=== PATIENT | female | born 1960 | race Caucasian/White ===

== ENCOUNTER 2018-02-13 08:07 | Outpatient (REF) | payer MEDICAID, SELFPAY ==
[2018-02-13 13:04] LABS: Cholesterol 219 mg/dL (50-200); HDL Cholesterol 53 mg/dL (40-60); LDL CHOLESTEROL 146 mg/dL (<100); Triglyceride 112 mg/dL (30-150)
== END 2018-02-13 08:27 ==
LOC: NCHCN 08:07
PROVIDERS: PCP Nurse Practitioner Family; Visit Provider Nurse Practitioner Family
DX: E78.5 Hyperlipidemia, unspecified (principal)
CPT/HCPCS: 80061; 83721

== ENCOUNTER 2018-03-23 09:11 | Emergency (ER) | payer MEDICAID, SELFPAY ==
[2018-03-23 09:15] VITALS: BP 117/63; PULSE 93; RESP 16; TEMP 36.6; O2SAT 98
[2018-03-23 09:40] LABS: Bilirubin Moderate (Negative); Blood Moderate (Negative); Clarity Cloudy; Glucose Negative (Negative); Ketones 80 mg/dL (Negative); Leukocyte Esterase Small (Negative); Nitrite Negative (Negative); Specific Gravity 1.025 (1.005-1.025); Urobilinogen 0.2 EU/dL (Up TO 0.2)
[2018-03-23 09:55] LABS: Bacteria Packed HPF (Negative); C & S Indicated? No/Sq. Contamination; Casts Negative LPF (Negative); Crystals Negative HPF (Negative); Epithelial Cells Many HPF (Negative); Mucus Negative (Negative)
--- NOTE | 2018-03-23 10:05 | W.ED.GENAD ---
Discharge Plan Disposition Patient Disposition: HOME Condition: Good Discharge Details Chief Complaint: Fever Clinical Impression: Cough Primary Care Provider: Vinita Francis ED Provider: Cade Okeefe Home Meds and New Rx's Prescriptions: New prednisone 20 mg tablet 60 mg PO DAILY 5 Days Qty: 15 RF: 0 levofloxacin 750 mg tablet 750 mg PO DAILY Qty: 5 RF: 0 Continue atorvastatin [Lipitor] 10 MG tablet 10 mg PO DAILY RF: 0 tramadol 50 MG tablet 50 mg PO PRN PRNRF: 0 ibuprofen 600 MG tablet 600 mg PO Q6H PRN PRN (Reason: Pain) Qty: 30 RF: 0 Discharge Instructions Instructions: Acute Cough (ED) Additional Instructions: based on your history of smoking and exam I suspect you likely have copd. Follow up with your primary care provider within 2 weeks and discuss having formal testing for copd. If you have severe worsening difficulty breathing or pain return to the emergency department Discharge Data Discharge Physician: Cade Okeefe Medical Decision Making 58 yo female who is a chronic smoker comes in with 3 days of subjective fevers and cough productive of sputum. She denies any recent travel or chest pain. She has no lower extremity swelling or calf pain and has stable vital signs without fever here. She has mild wheezing at the bases bialterally on exam without evidence of respiratory distress, and denies any formal diagnosis of copd. I suspect she likely has copd given her length of smoking, will treat as copd exacerbation with steroids, inhaler and abx. She is stable and has no fever so do not feel lab work or imaging indicated at this time, doubt sepsis at this time. Advised return if worsening and return precaugions given Differential Diagnosis copd, pneumonia, uri HPI General Mode of arrival: ambulatory. Date/Time Provider Initiated Documentation: 03/23/18 09:59. Limitations to Documentation: no limitations. Information obtained by: patient. History of Present Illness 58 year old F presents to the emergency department with the chief complaint of cough, described as moderate, with intensity rated at 4. Patient started experiencing this day(s) (3) and it has been constant. No relieving factors improve symptom(s), No exacerbating factors reported . Patient notes other (body aches). Related Data Home Medications Medication Instructions Recorded Confirmed ibuprofen 600 mg PO Q6H PRN PRN #30 tablet 03/23/15 03/23/18 atorvastatin [Lipitor] 10 mg PO DAILY tab-cap 05/16/17 03/23/18 tramadol 50 mg PO PRN PRN tab-cap 05/16/17 03/23/18 levofloxacin 750 mg PO DAILY #5 tab 03/23/18 prednisone 60 mg PO DAILY 5 Days #15 tab 03/23/18 Previous Rx's Medication Instructions Recorded ibuprofen 600 mg PO Q6H PRN PRN #30 tablet 03/23/15 levofloxacin 750 mg PO DAILY #5 tab 03/23/18 prednisone 60 mg PO DAILY 5 Days #15 tab 03/23/18 Allergies Allergy/AdvReac Type Severity Reaction Status Date / Time No Known Allergies Allergy Unverified 03/23/18 09:37 General Stated Complaint: Fever ESTEBAN: 3 Review of Systems Review of Systems All systems reviewed & are unremarkable except as noted in HPI and below Constitutional Denies weakness Eyes Denies loss of vision ENT Denies change in voice Cardiovascular Denies chest pain and Denies dyspnea Respiratory Denies dyspnea Gastrointestinal Denies vomiting Genitourinary Denies dysuria Musculoskeletal Denies joint swelling Integumentary/Breasts Denies rash Neurologic Denies loss of vision and Denies weakness Psychiatric Denies depression Endocrine Denies cold intolerance and Denies heat intolerance Allergic/Immunologic Reports urticaria PFSH Social History Smoking/Tobacco Use Status: Current every day Surgical History Appendectomy Exam Const General: no acute distress Orientation: alert HENMS Head: normal to inspection Ears: external ears normal General nose exam: external nose normal Mouth: moist mucous membranes Eyes General: appearance normal, both eyes and all related structures Neck Neck: normal visual inspection Resp Effort & Inspection: normal respiratory effort and able to speak in complete sentences Cardio Rate: regular rate Skin General skin exam: no rashes or lesions noted Neuro General: alert and oriented x3 Extrem General: normal to inspection Psych Mental Status: mental status grossly normal Course Vital Signs Temperature 36.6 C 03/23/18 09:15 Pulse 93 H 03/23/18 09:15 Respiratory Rate 16 03/23/18 09:15 Blood Pressure 117/63 03/23/18 09:15 Pulse Oximetry 98 03/23/18 09:15 Temperature 36.6 C 03/23/18 09:15 Temperature Source Skin 03/23/18 09:15 Pulse 93 H 03/23/18 09:15 Respiratory Rate 16 03/23/18 09:15 Respiratory Effort 03/23/18 09:38 Blood Pressure 117/63 03/23/18 09:15 Blood Pressure Position Sitting 03/23/18 09:15 Pulse Oximetry 98 03/23/18 09:15 Oxygen Delivery Method Room Air 03/23/18 09:15 Oxygen Flow Rate 0 03/23/18 09:15 Pain Level 8 03/23/18 09:15 Lab/Test Results Lab/Test Results: Laboratory Tests Range/Units 03/23/18 09:30 Urine Color (Yellow) Yellow Urine Clarity Cloudy Urine pH (5-8) 6.0 Ur Specific [place] (1.005-1.025) 1.025 Urine Protein (Negative) mg/dL 100 H Urine Ketones (Negative) mg/dL 80 Urine Blood (Negative) Moderate H Urine Nitrite (Negative) Negative Urine Bilirubin (Negative) Moderate H Urine Urobilinogen (Up TO 0.2) EU/dL 0.2 Ur Leukocyte Esterase (Negative) Small H Urine RBC (0-2) 5-10 H Urine WBC (0-5) HPF 5-10 Ur Epithelial Cells (Negative) HPF Many Urine Crystals (Negative) HPF Negative Urine Bacteria (Negative) HPF Packed Urine Casts (Negative) LPF Negative Urine Mucus (Negative) Negative Ur Culture Indicated? No/sq. contamination Urine Glucose (Negative) mg/dL Negative
[2018-03-23] MEDS: Inhaler, Assist Device 1 EACH MC (10:07)
[2018-03-23] MEDS: Albuterol HFA 8 GM 60 PUFF INH IH (10:07)
--- NOTE | 2018-03-23 10:08 | ED.GENADUL_ITS ---
Discharge Plan Disposition Patient Disposition: HOME Condition: Good Discharge Details Chief Complaint: Fever Clinical Impression: Cough Primary Care Provider: Vinita Francis ED Provider: Cade Okeefe Home Meds and New Rx's Prescriptions: New prednisone 20 mg tablet 60 mg PO DAILY 5 Days Qty: 15 RF: 0 levofloxacin 750 mg tablet 750 mg PO DAILY Qty: 5 RF: 0 Continue atorvastatin [Lipitor] 10 MG tablet 10 mg PO DAILY RF: 0 tramadol 50 MG tablet 50 mg PO PRN PRNRF: 0 ibuprofen 600 MG tablet 600 mg PO Q6H PRN PRN (Reason: Pain) Qty: 30 RF: 0 Discharge Instructions Instructions: Acute Cough (ED) Additional Instructions: based on your history of smoking and exam I suspect you likely have copd. Follow up with your primary care provider within 2 weeks and discuss having formal testing for copd. If you have severe worsening difficulty breathing or pain return to the emergency department Discharge Data Discharge Physician: Cade Okeefe Medical Decision Making 58 yo female who is a chronic smoker comes in with 3 days of subjective fevers and cough productive of sputum. She denies any recent travel or chest pain. She has no lower extremity swelling or calf pain and has stable vital signs without fever here. She has mild wheezing at the bases bialterally on exam without evidence of respiratory distress, and denies any formal diagnosis of copd. I suspect she likely has copd given her length of smoking, will treat as copd exacerbation with steroids, inhaler and abx. She is stable and has no fever so do not feel lab work or imaging indicated at this time, doubt sepsis at this time. Advised return if worsening and return precaugions given Differential Diagnosis copd, pneumonia, uri HPI General Mode of arrival: ambulatory . Date/Time Provider Initiated Documentation: 03/23/18 09:59 . Limitations to Documentation: no limitations . Information obtained by: patient . History of Present Illness 58 year old F presents to the emergency department with the chief complaint of cough, described as moderate, with intensity rated at 4. Patient started experiencing this day(s) (3) and it has been constant. No relieving factors improve symptom(s), No exacerbating factors reported . Patient notes other ( body aches). Related Data Home Medications Medication Instructions Recorded Confirmed ibuprofen 600 mg PO Q6H PRN PRN #30 tablet 03/23/15 03/23/18 atorvastatin [Lipitor] 10 mg PO DAILY tab-cap 05/16/17 03/23/18 tramadol 50 mg PO PRN PRN tab-cap 05/16/17 03/23/18 levofloxacin 750 mg PO DAILY #5 tab 03/23/18 prednisone 60 mg PO DAILY 5 Days #15 tab 03/23/18 Previous Rx's Medication Instructions Recorded ibuprofen 600 mg PO Q6H PRN PRN #30 tablet 03/23/15 levofloxacin 750 mg PO DAILY #5 tab 03/23/18 prednisone 60 mg PO DAILY 5 Days #15 tab 03/23/18 Allergies Allergy/AdvReac Type Severity Reaction Status Date / Time No Known Allergies Allergy Unverified 03/23/18 09:37 General Stated Complaint: Fever ESTEBAN: 3 Review of Systems Review of Systems All systems reviewed & are unremarkable except as noted in HPI and below Constitutional Denies weakness Eyes Denies loss of vision ENT Denies change in voice Cardiovascular Denies chest pain and Denies dyspnea Respiratory Denies dyspnea Gastrointestinal Denies vomiting Genitourinary Denies dysuria Musculoskeletal Denies joint swelling Integumentary/Breasts Denies rash Neurologic Denies loss of vision and Denies weakness Psychiatric Denies depression Endocrine Denies cold intolerance and Denies heat intolerance Allergic/Immunologic Reports urticaria PFSH Social History Smoking/Tobacco Use Status: Current every day Surgical History Appendectomy Exam Const General: no acute distress Orientation: alert HENME Head: normal to inspection Ears: external ears normal General nose exam: external nose normal Mouth: moist mucous membranes Eyes General: appearance normal, both eyes and all related structures Neck Neck: normal visual inspection Resp Effort & Inspection: normal respiratory effort and able to speak in complete sentences Cardio Rate: regular rate Skin General skin exam: no rashes or lesions noted Neuro General: alert and oriented x3 Extrem General: normal to inspection Psych Mental Status: mental status grossly normal Course Vital Signs Temperature 36.6 C 03/23/18 09:15 Pulse 93 H 03/23/18 09:15 Respiratory Rate 16 03/23/18 09:15 Blood Pressure 117/63 03/23/18 09:15 Pulse Oximetry 98 03/23/18 09:15 Temperature 36.6 C 03/23/18 09:15 Temperature Source Skin 03/23/18 09:15 Pulse 93 H 03/23/18 09:15 Respiratory Rate 16 03/23/18 09:15 Respiratory Effort 03/23/18 09:38 Blood Pressure 117/63 03/23/18 09:15 Blood Pressure Position Sitting 03/23/18 09:15 Pulse Oximetry 98 03/23/18 09:15 Oxygen Delivery Method Room Air 03/23/18 09:15 Oxygen Flow Rate 0 03/23/18 09:15 Pain Level 8 03/23/18 09:15 Lab/Test Results Lab/Test Results: Laboratory Tests Range/Units 03/23/18 09:30 Urine Color (Yellow) Yellow Urine Clarity Cloudy Urine pH (5-8) 6.0 Ur Specific [place] (1.005-1.025) 1.025 Urine Protein (Negative) mg/dL 100 H Urine Ketones (Negative) mg/dL 80 Urine Blood (Negative) Moderate H Urine Nitrite (Negative) Negative Urine Bilirubin (Negative) Moderate H Urine Urobilinogen (Up TO 0.2) EU/dL 0.2 Ur Leukocyte Esterase (Negative) Small H Urine RBC (0-2) 5-10 H Urine WBC (0-5) HPF 5-10 Ur Epithelial Cells (Negative) HPF Many Urine Crystals (Negative) HPF Negative Urine Bacteria (Negative) HPF Packed Urine Casts (Negative) LPF Negative Urine Mucus (Negative) Negative Ur Culture Indicated? No/sq. contamination Urine Glucose (Negative) mg/dL Negative
== END 2018-03-23 10:16 | disposition home or self-care (01) ==
PROVIDERS: Emergency Provider Emergency Medicine; PCP Nurse Practitioner Family
DX: R05 Cough (principal); F17.210 Nicotine dependence, cigarettes, uncomplicated
CPT/HCPCS: 99283; 81003; 81015

== ENCOUNTER 2018-05-13 14:39 | Outpatient (REF) | payer MEDICAID, SELFPAY ==
[2018-05-13 19:23] LABS: ALT 12 U/L (12-78); AST 17 U/L (15-37); Albumin 1.9 g/dL (3.4-5.0); Alkaline Phosphatase 52 U/L (46-116); BUN 7 mg/dL (7-18); Bilirubin, Total 0.2 mg/dL (0.2-1.0); CREATININE 0.54 mg/dL (0.55-1.02); Calcium 8.2 mg/dL (8.5-10.1); Chloride 101 mmol/L (98-107); Glucose 150 mg/dL (70-100); Sodium 142 mmol/L (136-145); Total Protein 5.8 g/dL (6.4-8.2)
[2018-05-13 19:43] LABS: Potassium 2.5 mmol/L (3.5-5.1)
== END 2018-05-13 14:59 ==
LOC: NCHCN 14:39
PROVIDERS: PCP Nurse Practitioner Family; Visit Provider Nurse Practitioner Family
DX: E87.6 Hypokalemia (principal); E88.09 Other disorders of plasma-protein metabolism, not elsewhere classified
CPT/HCPCS: 80053

== ENCOUNTER 2018-05-22 11:07 | Outpatient (REF) | payer MEDICAID, SELFPAY ==
--- NOTE | 2018-05-22 10:45 | PAPFT_PTH ---
PATIENT: Lubna Mcknight LOC: [facility] U#:[id number] AGE/SX: 58/F ROOM: RE05/22/[address]: Vinita Francis : 1960 BED: DIS: 05/22/2018 SPEC #: [id number] RECD: 05/22/18 12:54 STATUS: LIN REJack #: [id number] MARY ANN: 05/22/18 10:[address]: Vinita Francis DEPT: [facility] Cytology RECD BY: Lashay Forde Tissues: 1 - CX/ENDOCX FOR PAP SMEARS Procedures: PAP THIN PREP/UVM Screening HPV DNA PROBE Comments: [id number]
== END 2018-05-22 11:27 ==
LOC: NCHCN 11:07
PROVIDERS: PCP Nurse Practitioner Family; Visit Provider Nurse Practitioner Family
DX: Z12.4 Encounter for screening for malignant neoplasm of cervix (principal); Z11.51 Encounter for screening for human papillomavirus (HPV)
CPT/HCPCS: 36415; 80053; 88142; 87624

== ENCOUNTER 2018-05-22 11:23 | Outpatient (CLI) | payer MEDICAID, SELFPAY ==
[2018-05-22 13:24] LABS: ALT 23 U/L (12-78); AST 24 U/L (15-37); Albumin 2.9 g/dL (3.4-5.0); Alkaline Phosphatase 66 U/L (46-116); Anion Gap 8.2 mmol/L (3-11); BUN 8 mg/dL (7-18); Bilirubin, Total 0.2 mg/dL (0.2-1.0); CO2 27.8 mmol/L (21.0-32.0); CREATININE 0.47 mg/dL (0.55-1.02); Calcium 9.3 mg/dL (8.5-10.1); Chloride 102 mmol/L (98-107); Glucose 91 mg/dL (70-100); Potassium 4.8 mmol/L (3.5-5.1); Sodium 138 mmol/L (136-145); Total Protein 7.6 g/dL (6.4-8.2)
== END 2018-05-22 11:43 ==
PROVIDERS: PCP Nurse Practitioner Family; Visit Provider Nurse Practitioner Family
DX: E87.6 Hypokalemia (principal); E88.09 Other disorders of plasma-protein metabolism, not elsewhere classified
CPT/HCPCS: 36415; 80053

== ENCOUNTER 2018-06-18 00:17 | Outpatient (CLI) | payer MEDICAID, SELFPAY ==
--- NOTE | 2018-06-18 08:37 | DI.MAMMO_ITS ---
SYMPTOM/DIAGNOSIS: SCREENING, Z12.39 MAMMOGRAMS: Mammograms were interpreted according to the usual protocol including computer analysis with CAD system, tomosynthesis and C view imaging. Comparison is made with prior examinations. Breast density, Category B. No suspicious masses or microcalcifications are seen. There is no definite evidence of malignancy. IMPRESSION: Negative mammogram. Routine screening is recommended. Category 1. MQSA ASSESSMENT OF FINDINGS: Negative. Category 1. Patient will receive a letter notifying them of these results. BI-RADS category B. There are scattered areas of fibroglandular density.
== END 2018-06-18 00:37 ==
PROVIDERS: PCP Nurse Practitioner Family; Visit Provider Nurse Practitioner Family
DX: Z12.31 Encounter for screening mammogram for malignant neoplasm of breast (principal)
CPT/HCPCS: 77063; 77067

== ENCOUNTER 2018-09-12 03:14 | Emergency (ER) | payer MEDICAID, SELFPAY ==
[2018-09-12 03:18] VITALS: BP 129/62; PULSE 111; RESP 26; TEMP 36.7; O2SAT 91
--- NOTE | 2018-09-12 03:24 | ED.GENADUL_ITS ---
Discharge Plan Disposition Patient Disposition: HOME Condition: Stable Discharge Details Chief Complaint: SOB Clinical Impression: Wheezing, Shortness of breath Primary Care Provider: Vinita Francis ED Provider: Cade Okeefe Home Meds and New Rx's Prescriptions: New prednisone 20 mg tablet 60 mg PO DAILY 4 Days Qty: 12 RF: 0 levofloxacin 750 mg tablet 750 mg PO DAILY 5 Days Qty: 5 RF: 0 Continued atorvastatin [Lipitor] 10 MG tablet 10 mg PO DAILY RF: 0 tramadol 50 MG tablet 50 mg PO PRN PRNRF: 0 ibuprofen 600 MG tablet 600 mg PO Q6H PRN PRN (Reason: Pain) Qty: 30 RF: 0 diphenhydramine-acetaminophen [Acetaminophen PM] 25-500 mg Tablet 2 tab PO PRN PRNRF: 0 Discharge Instructions Instructions: COPD (Chronic Obstructive Pulmonary Disease) (ED) Additional Instructions: You were treated for a copd exacerbation. I suspect that you have undiagnosed copd follow up with your primary care provider within 1 week use the inhaler every 2 hours, 2 puffs, as needed for shortness of breath if you feel you are becoming more ill or more short of breath return to the emergency department for reevaluation Medical Decision Making 58 yo female comes in with several hours of worsening shortness of breath and productive cough for a few days. She is a chronic smoker but states she has no diagnosis of copd/emphysema. She denies chest pain, fevers, chills. She is speaking in 2-3 word sentences, is tachypneic and room air satiruation on arrival is 86%. She has a barrel chest, clubbing of her fingers, and on lung exam has diffuse wheezing bilaterally. I suspect she has undiagnosed copd and will treat as an exacerbation. Her clinical exam fits with copd, she denies chest pain and has no jvd or pedal edema so doubt acs/chf and has no evidence of dvt or pleuritic chest pain so doubt PE at this time. Will obtain xray to eval for pna pt feeling much better and is speaking in full sentences with o2 saturation on room air of 94%, only has mild apical wheezing bilaterally now. labs unremarkable and xray unremarkable on my read. Given she likely has undiagnosed copd and Differential Diagnosis copd, pneumonia, asthma Imaging Data Radiologic Study: Attestation: I personally reviewed and interpreted this imaging study as follows: Imaging: X-Ray My impression: no acute findings Lab Data Lab results reviewed: Yes I reviewed the patient's lab results. HPI General Mode of arrival: ambulatory . Date/Time Provider Initiated Documentation: 09/12/18 03:14 . Limitations to Documentation: no limitations . Information obtained by: patient . History of Present Illness 58 year old F presents to the emergency department with the chief complaint of shortness of breath, described as moderate, Patient started experiencing this hour(s) (3) and it has been constant. Movement worsens symptoms . Patient notes cough. Patient did receive the following treatments prior to arrival, none Related Data Home Medications Medication Instructions Recorded Confirmed ibuprofen 600 mg PO Q6H PRN PRN #30 tablet 03/23/15 09/12/18 atorvastatin [Lipitor] 10 mg PO DAILY tab-cap 05/16/17 09/12/18 tramadol 50 mg PO PRN PRN tab-cap 05/16/17 09/12/18 diphenhydramine-acetaminophen 2 tab PO PRN PRN 09/12/18 09/12/18 [Acetaminophen PM] levofloxacin 750 mg PO DAILY 5 Days #5 tab 09/12/18 prednisone 60 mg PO DAILY 4 Days #12 tab 09/12/18 Previous Rx's Medication Instructions Recorded ibuprofen 600 mg PO Q6H PRN PRN #30 tablet 03/23/15 levofloxacin 750 mg PO DAILY 5 Days #5 tab 09/12/18 prednisone 60 mg PO DAILY 4 Days #12 tab 09/12/18 Allergies Allergy/AdvReac Type Severity Reaction Status Date / Time No Known Allergies Allergy Unverified 09/12/18 03:23 General ESTEBAN: 3 Review of Systems Review of Systems All systems reviewed & are unremarkable except as noted in HPI and below Constitutional Denies chills and Denies fever(s) ENT Denies change in voice Gastrointestinal Denies abdominal pain, Denies nausea and Denies vomiting Integumentary/Breasts Denies rash PFSH Surgical History Appendectomy Social History Smoking/Tobacco Use Status: Current every day Alcohol Intake: current Alcohol Intake frequency: holidays/special occasions only Drug use: Never Substance use type: does not use Do you feel safe in your relationship?: Yes Exam Const General: no acute distress Orientation: alert HENMT Head: normal to inspection Ears: external ears normal General nose exam: external nose normal Mouth: moist mucous membranes Eyes General: appearance normal, both eyes and all related structures Neck Neck: normal visual inspection Resp Effort & Inspection: tachypneic Cardio Rate: tachycardic Skin General skin exam: no rashes or lesions noted Neuro General: alert and oriented x3 Extrem General: normal to inspection Psych Mental Status: mental status grossly normal
[2018-09-12 03:26] VITALS: RESP 26
[2018-09-12] MEDS: Albuterol/Ipratropium 3 ML UPD VIAL UPD (03:28)
[2018-09-12] MEDS: Normal Saline Flush 10 ML SYR IVP (03:43)
[2018-09-12] MEDS: methylPREDNISolone SUCC 125 MG VIAL IVP (03:44)
[2018-09-12 03:46] LABS: Abs Immature Grans 0.03 k/cumm (0.0-0.09); Absolute Basophil Count 0.05 k/cumm (0.0-0.2); Absolute Eosinophil Count 0.95 k/cumm (0.0-0.7); Absolute Lymphocyte Count 4.69 k/cumm (1.2-3.4); Basophils % 0.4; HCT 39.6 % (36.0-46.0); HGB 13.4 g/dL (12.0-15.5); Immature Grans % 0.2; Lymphocytes % 34.4; Mean Corp. HGB Concentration 33.8 g/dL (32.0-36.0); Mean Corpuscular Hemoglobin 32.3 pg (27.0-33.0); Mean Corpuscular Volume 95.4 fL (80-95); Mean Platelet Volume 8.7 fL (8.0-11.0); Monocytes % 4.3; Neutrophils % 53.7; Platelet Count 395 x1000/uL (130-400); RBC 4.15 m/cumm (4.00-5.20); RBC Distribution Width 13.2 % (11.7-14.6); White Blood Cell Count 13.63 k/cumm (4.4-10.8)
[2018-09-12] MEDS: Normal Saline 1,000 ML 1000 ML IV (03:46)
--- NOTE | 2018-09-12 03:46 | DI.RAD_ITS ---
SYMPTOM/DIAGNOSIS: SOB PORTABLE AP CHEST: The heart is not enlarged. The lungs are clear and well expanded. CONCLUSION: No evidence of acute disease.
[2018-09-12 03:48] LABS: Absolute Monocyte Count 0.59 k/cumm (0.11-0.7); Absolute Neutrophil Count 7.32 k/cumm (1.2-6.7)
[2018-09-12 04:11] LABS: ALT 30 U/L (12-78); AST 23 U/L (15-37); Albumin 3.9 g/dL (3.4-5.0); Alkaline Phosphatase 78 U/L (46-116); Anion Gap 8.8 mmol/L (3-11); BUN 14 mg/dL (7-18); Bilirubin, Total 0.8 mg/dL (0.2-1.0); CO2 29.2 mmol/L (21.0-32.0); CREATININE 0.58 mg/dL (0.55-1.02); Calcium 9.4 mg/dL (8.5-10.1); Chloride 101 mmol/L (98-107); Glucose 102 mg/dL (70-100); Lipase 187 U/L (73-393); NT-proBNP 96 pg/mL; Potassium 3.7 mmol/L (3.5-5.1); Sodium 139 mmol/L (136-145); Total Protein 7.9 g/dL (6.4-8.2)
[2018-09-12] MEDS: Albuterol 2.5 MG/3 ML INH SOLN VIAL (04:11)
[2018-09-12] MEDS: levoFLOXacin 500 MG, levoFLOXacin 250 MG 750 MG PO (04:39)
[2018-09-12] MEDS: Inhaler, Assist Device 1 EACH MC (04:39)
[2018-09-12] MEDS: Albuterol HFA 8 GM 60 PUFF INH IH (04:40)
[2018-09-12 04:47] VITALS: BP 100/68; PULSE 93; RESP 20; O2SAT 95
[2018-09-12 05:07] VITALS: BP 100/68; PULSE 93; RESP 20; O2SAT 95
--- NOTE | 2018-09-12 05:22 | DI.VRAD_ITS ---
EXAM: XR Chest, 1 View EXAM DATE/TIME: 09/12/2018 3:19 AM CLINICAL HISTORY: 58 years old, female; Signs and symptoms; Shortness of breath TECHNIQUE: Imaging protocol: XR of the chest, 1 view. COMPARISON: SC PORTABLE CHEST ONE VIEW 07/09/2017 7:51 PM FINDINGS: Lungs: Emphysematous changes. No evidence of pneumonia, pulmonary vascular congestion, or pulmonary edema. Pleural space: No pneumothorax. No sizable pleural effusion. Heart/Mediastinum: No cardiomegaly. Bones/joints: Unremarkable. IMPRESSION: Emphysematous changes. No evidence of pneumonia, pulmonary vascular congestion, or pulmonary edema. Dictated and Authenticated by: Sharan Deutsch MD. Ordering:ADRIAN Mohamud MD
--- NOTE | 2018-09-12 08:56 | PDOC.ERCMPRO ---
Care Management Progress Note 09/12-Dr. Okeefe requested assistance with a PCP (Tito) f/u for COPD and SOB in one week. Referral faxed to [facility] this am.
== END 2018-09-12 05:08 | disposition home or self-care (01) ==
PROVIDERS: Emergency Provider Emergency Medicine; PCP Nurse Practitioner Family
DX: R06.2 Wheezing (principal); R06.02 Shortness of breath; F17.210 Nicotine dependence, cigarettes, uncomplicated
CPT/HCPCS: 36415; 80053; 83690; 93005; 94640; 96361; 96374; 99285; 71045; 83880; 85025; 93010; J2930; J7613; J7620

== ENCOUNTER 2018-10-08 14:53 | Outpatient (REF) | payer MEDICAID, SELFPAY ==
[2018-10-08 19:35] LABS: Abs Immature Grans 0.38 k/cumm (0.0-0.09); Absolute Eosinophil Count 0.04 k/cumm (0.0-0.7); Basophils % 0.3; Eosinophils % 0.2; HCT 33.6 % (36.0-46.0); HGB 11.4 g/dL (12.0-15.5); Mean Corp. HGB Concentration 33.9 g/dL (32.0-36.0); Mean Corpuscular Hemoglobin 32.6 pg (27.0-33.0); Monocytes % 8.6; Neutrophils % 71.8; Platelet Count 533 x1000/uL (130-400); RBC Distribution Width 13.2 % (11.7-14.6); White Blood Cell Count 17.95 k/cumm (4.4-10.8)
[2018-10-08 20:18] LABS: Absolute Basophil Count 0.05 k/cumm (0.0-0.2); Absolute Lymphocyte Count 3.05 k/cumm (1.2-3.4); Absolute Monocyte Count 1.54 k/cumm (0.11-0.7); Absolute Neutrophil Count 12.89 k/cumm (1.2-6.7)
[2018-10-08 20:19] LABS: Diff Comment Agrees w/ Instrument
[2018-10-08 20:20] LABS: ESR 83 MM/HR (0-30); Polychromasia Present
== END 2018-10-08 15:13 ==
LOC: NCHCN 14:53
PROVIDERS: PCP Nurse Practitioner Family; Visit Provider Nurse Practitioner
DX: K52.9 Noninfective gastroenteritis and colitis, unspecified (principal)
CPT/HCPCS: 85652; 85025

== ENCOUNTER 2018-10-17 10:10 | Inpatient (IN) | payer MEDICAID, SELFPAY ==
[2018-10-17] VITALS (8 sets, daily range): BP systolic 92–114; BP diastolic 54–82; PULSE 80–101; RESP 10–19; TEMP 36.7–37.5; O2SAT 96–99
--- NOTE | 2018-10-17 10:42 | ED.GENADUL_ITS ---
Discharge Plan Discharge Details Chief Complaint: Abd Prob Admit Date/Time: 10/17/18 12:43 Admit Provider: Leigh Starks Attending Provider: Leigh Starks Primary Care Provider: Vinita Francis ED Provider: Alton Jeong Medical Decision Making 58-year-old female with 1 week of diffuse abdominal pain treated as an outpatient for colitis by her primary care doctor with Cipro and Flagyl patient due to finished those antibiotics today with continued abdominal pain vomiting and poor oral intake reports a 30 pound weight loss. Broad differential diagnosis includes pancreatitis diverticulitis diffuse colitis malignancy versus other. Plan for IV fluids labs CT abdomen pelvis iED observation. Patient with CT showing colitis including a thickened stomach wall/ case discussed with general surgery who will see the patient and with internal medicine for admission for dehydration and nutritional support electrolyte repletion potassium 2.8 and further work up. Lab Data Lab results reviewed: Yes I reviewed the patient's lab results. ECG Data Attestation: I personally reviewed and interpreted this ECG (s) as follows: Interpretation: Sinus tachycardia rate of 88 normal axis no ectopy normal intervals no STEMI HPI 58-year-old female past medical history of distant appendectomy admission in April 2018 for nonspecific colitis for 1 week at an outside hospital presents with diffuse sharp nonradiating not worse or better with movement or palpation central abdominal pain. Patient reports 30 pound weight loss over the last 12 months unintentional states it was an otherwise normal state of health until approximately 1 week ago where she started having similar abdominal pain to the November episode with some vomiting and copious diarrhea & poor oral intake. Patient past medical history of tobacco use and approximately 10 drinks per week of alcohol no history of alcohol withdrawal denies alcoholism. No dysuria no dyspareunia no vaginal discharge or bleeding General Date/Time Provider Initiated Documentation: 10/17/18 10:19 . Related Data Home Medications Medication Instructions Recorded Confirmed atorvastatin [Lipitor] 10 mg PO DAILY tab-cap 05/16/17 10/17/18 tramadol 50 mg PO PRN PRN tab-cap 05/16/17 10/17/18 diphenhydramine-acetaminophen 2 tab PO PRN PRN 09/12/18 10/17/18 [Acetaminophen PM] Allergies Allergy/AdvReac Type Severity Reaction Status Date / Time No Known Allergies Allergy Unverified 10/17/18 10:17 General Stated Complaint: Abd Prob ESTEBAN: 3 Review of Systems Review of Systems No shortness of breath chest pain loss of consciousness weight gain positive for weight loss abdominal pain nausea and vomit and diarrhea All systems reviewed & are unremarkable except as noted in HPI and below PFSH Social History Smoking/Tobacco Use Status: Current every day Alcohol Intake: current Alcohol Intake frequency: a few times a month Drug use: Never Substance use type: does not use Do you feel safe at home: Yes Do you feel safe in your relationship?: Yes Exam Narrative Exam Narrative: Pulse oximetry reviewed by me and is normal [] Constitutional: Pt is in no acute distress. he is well appearing. he oriented to person, place, and time. Eyes: conjunctivae are normal. Pupils are equal, round, and reactive to light. No scleral icterus. extraocular muscles are intact Ears/Nose/Mouth/Throat: mucus membranes are moist. Musculoskeletal: neck is supple. normal range of motion in all extremities. Cardiovascular: Normal rate and rhythm. No lower extremity edema [] Respiratory: effort is normal . pt exhibits no stridor or respiratory distress. [] GastrointestinaI: abdomen soft, +BS, positive diffuse tenderness no focal tenderness Alvarenga's sign or McBurney's point no psoas or obturator signs- rebound, -guarding. No suprapubic pain no CVAT Neurological: alert and oriented to person, place, and time. he has normal strength, no tremor. Skin: Skin is warm and dry. he is not diaphoretic. Distal perfusion in tact, warm extremities, cap refill ? 2 seconds. Hem/Lymph/Imm: No cervical LAD, no goiter, no conjunctival pallor Psych: normal mood and affect. behavior is normal Triage and nurse notes reviewed.[] Course Vital Signs Temperature 36.7 C 10/17/18 10:13 Pulse 101 H 10/17/18 10:13 Respiratory Rate 18 10/17/18 10:13 Blood Pressure 106/82 10/17/18 10:13 Pulse Oximetry 99 10/17/18 10:13 Temperature 36.7 C 10/17/18 10:13 Temperature Source Skin 10/17/18 10:13 Pulse 101 H 10/17/18 10:13 Respiratory Rate 18 10/17/18 10:13 Respiratory Effort 10/17/18 10:33 Blood Pressure 106/82 10/17/18 10:13 Blood Pressure Position Sitting 10/17/18 10:13 Pulse Oximetry 99 10/17/18 10:13 Oxygen Delivery Method Room Air 10/17/18 10:13 Oxygen Flow Rate 0 10/17/18 10:13
[2018-10-17] MEDS: Lactated Ringers 1,000 ML 1000 ML IV ×2 (11:00→13:14)
[2018-10-17 11:05] LABS: Abs Immature Grans 0.13 k/cumm (0.0-0.09); Absolute Basophil Count 0.06 k/cumm (0.0-0.2); Absolute Eosinophil Count 0.06 k/cumm (0.0-0.7); Absolute Lymphocyte Count 2.38 k/cumm (1.2-3.4); Absolute Monocyte Count 1.22 k/cumm (0.11-0.7); Basophils % 0.4; Eosinophils % 0.4; HCT 35.1 % (36.0-46.0); HGB 11.7 g/dL (12.0-15.5); Immature Grans % 0.9; Lymphocytes % 16.8; Mean Corp. HGB Concentration 33.3 g/dL (32.0-36.0); Mean Corpuscular Hemoglobin 31.9 pg (27.0-33.0); Mean Corpuscular Volume 95.6 fL (80-95); Mean Platelet Volume 8.7 fL (8.0-11.0); Monocytes % 8.6; Neutrophils % 72.9; RBC 3.67 m/cumm (4.00-5.20); RBC Distribution Width 13.5 % (11.7-14.6); White Blood Cell Count 14.16 k/cumm (4.4-10.8)
[2018-10-17 11:08] LABS: Bilirubin Large (Negative); Blood Trace-intact (Negative); Clarity Clear; Glucose Negative (Negative); Ketones >=160 mg/dL (Negative); Leukocyte Esterase Small (Negative); Nitrite Positive (Negative); Specific Gravity >= 1.030 (1.005-1.025); pH 5.5 (5-8)
[2018-10-17] MEDS: Ondansetron 4 MG/2 ML VIAL IVP ×2 (11:12→19:58)
[2018-10-17] MEDS: MORPHine 10 MG/ML VIAL 2 MG IVP (11:12)
[2018-10-17 11:16] LABS: Bacteria Few HPF (Negative); C & S Indicated? No/Sq. Contamination; Casts Negative LPF (Negative); Crystals Negative HPF (Negative); Epithelial Cells Many HPF (Negative); Mucus Negative (Negative); RBC 0-2 (0-2); WBC 0-2 HPF (0-5)
[2018-10-17 11:19] LABS: Absolute Neutrophil Count 10.32 k/cumm (1.2-6.7)
[2018-10-17 11:22] LABS: ALT 20 U/L (12-78); AST 16 U/L (15-37); Albumin 2.8 g/dL (3.4-5.0); Alkaline Phosphatase 79 U/L (46-116); Anion Gap 13.6 mmol/L (3-11); BUN 11 mg/dL (7-18); Bilirubin, Total 0.3 mg/dL (0.2-1.0); CO2 26.4 mmol/L (21.0-32.0); CREATININE 0.57 mg/dL (0.55-1.02); Chloride 96 mmol/L (98-107); Glucose 124 mg/dL (70-100); Lipase 91 U/L (73-393); Magnesium 1.9 mg/dL (1.8-2.4); Sodium 136 mmol/L (136-145); Total Protein 8.1 g/dL (6.4-8.2)
[2018-10-17 11:26] LABS: Platelet Count 756 x1000/uL (130-400)
[2018-10-17 11:27] LABS: Potassium 2.8 mmol/L (3.5-5.1)
[2018-10-17] MEDS: Normal Saline Flush 10 ML SYR IVP ×2 (11:57→19:59)
[2018-10-17] MEDS: Omnipaque 350 MG/ML 100 ML BTL IJ (11:58)
--- NOTE | 2018-10-17 12:00 | DI.CT_ITS ---
SYMPTOMS/DIAGNOSIS: ABDOMINAL PAIN, WEIGHT LOSS, ETOH USE ABDOMINAL AND PELVIC CT: CT examination of the abdomen and pelvis was performed with a bolus infusion of 100 cc of Omnipaque 350 and ingestion of dilute barium. Images obtained through the lung bases are unremarkable. Liver and spleen appear normal. No biliary dilatation. Gallbladder is mildly distended, which is a nonspecific finding. The pancreas appears normal. Adrenals and kidneys are unremarkable except for a tiny incidental presumed left renal cyst. No urinary tract calcification or obstruction. Urinary bladder is essentially empty. Abdominal aorta is of normal diameter and no major vascular abnormality is seen. There is no abdominal or pelvic adenopathy. The appendix appears to have been surgically removed. There are multiple areas of apparent enteric wall thickening including the gastric antrum, duodenum, portions of the jejunum and the terminal ileum. There also appears to be colonic wall edema at multiple sites. These findings would raise the possibility of enteritis, infectious versus inflammatory, and in particular, the prominent findings in the region of the terminal ileum would raise the possibility of Crohn's disease. There is no evidence of obstruction or perforation. CONCLUSION: Findings suggesting diffuse enteritis as described above, infectious versus inflammatory etiology. No other significant focal findings.
[2018-10-17] MEDS: POTASSIUM CHLORIDE 20 MEQ/100 ML BAG 50 MEQ IVPB (13:15)
[2018-10-17 13:58] LABS: C-Reactive Protein 8.12 mg/dL (0.0-0.3)
[2018-10-17 14:27] LABS: ESR 108 MM/HR (0-30)
[2018-10-17] MEDS: POTASSIUM CHLORIDE/D5-0.9%NACL 1,000 ML 80 MEQ IV (15:21)
[2018-10-17 15:52] LABS: TSH 0.84 uIU/mL (0.358-3.74)
--- NOTE | 2018-10-17 15:54 | W.SURGCON ---
Date of service: 10/17/18 Time of Service: 15:17 Assessment and Plan (1) Abdominal pain: Current visit: Yes Status: Acute This 60yo female has failed outpatient antibiotic therapy and presents with lower abdominal pain, n/v, and diarrhea. CT scan seems to reflect non-continuous areas of gastritis, enteritis, and colitis, which is very peculiar. IV fluid resuscitation correct electrolyte derangements (currently with hypokalemia 2.8) IV antibiotics Anti-emetics prn NPO for now until abdominal pain/tenderness decreases pain control serial exams I&Os (2) Unexplained weight loss: Start date: 04/10/18 Current visit: Yes Status: Acute She has had a ~35lbs weight loss since 04/27, reportedly due to anorexia and not pain, early satiety, or food fear. This is very concerning for a global metabolic problem/malignancy. serologic and laboratory values ordered may require EGD +/- colonoscopy on this admission for tissue samples will review outside studies daily weights History of Present Illness Chief Complaint: abdominal pain with nausea/vomiting, and diarrhea Narrative: This is a pleasant 58yo female who presents with failure of outpatient treatment for lower abdominal pain. She was being treated for presumed colitis with dual therapy antibiotics. She was hospitalized in April 2018 at [facility] in [place] and underwent treatment for colitis at that time receiving IV fluids, IV antibiotics, and electrolyte replacements. Since then she has had a nearly 30-40 pound weight loss due to decreased appetite. She denies early satiety or food fear from post-prandial pain. Over the past week , she has experienced nausea with non-bloody, non-bilious vomiting about [address], and non-bloody brown diarrhea about 3 times a day. She thinks that she has lost about 10 pounds in the last week, and has no appetite. She has not had another episode like this since was sick with coliitis in 04/27. She reports that she had a colonoscopy in June 2018, that was reportedly negative, including biopsies, in [place], [place]. She has never had an EGD, though is on treatment for reflux. Consults Consult date: 10/17/18 Requesting physician: Leigh Starks Review of Systems Constitutional Reports anorexia, Denies chills, Denies fever(s), Reports poor appetite and Reports weight loss (~35 pounds since 04/27) Eyes Denies blurry vision and Denies dry eyes ENT Denies dysphagia, Denies dizziness, Denies dry mouth, Denies mouth lesions and Denies odynophagia Cardiovascular Denies chest pain, Denies edema, Denies leg ulcers and Reports dyspnea Respiratory Reports cough and Reports dyspnea Comments: Has received outpatient treatment for SOB, bronchitis. At one point,was on prednisone Gastrointestinal Reports abdominal pain (predominantly lower abdominal and some epigastric pain), Denies hematochezia, Denies coffee ground emesis, Denies dysphagia, Reports diarrhea, Reports nausea, Denies odynophagia, Reports vomiting and Denies hematemesis Comments: non-bloody, [id number] emesis; non-bloody loose diarrhea Genitourinary Denies difficulty voiding and Denies dysuria Musculoskeletal Denies myalgias, Denies arthralgias, Denies muscle weakness, Denies numbness and Denies tingling Integumentary/Breasts Denies bleeding lesions, Denies lesions, Denies rash and Denies sores Neurologic Denies dizziness, Denies numbness and Denies tingling Endocrine Reports change in body appearance Comments: hair thinning/loss PFSH Medical History Abdominal pain (Acute) Enteritis (Acute) Weight loss (Acute) Colitis (Chronic) GERD (gastroesophageal reflux disease) (Chronic) Hyperlipidemia (Chronic) Surgical History H/O lumbar discectomy (Chronic) Appendectomy Social History Smoking/Tobacco Use Status: Current every day Tobacco: How many years used: 40 Alcohol Intake: current Alcohol Intake frequency: a few times a month Details: ~10 drinks of wine, liquor weekly Drug use: Never Substance use type: does not use current occupation: [employer] Do you feel safe at home: Yes Do you feel safe in your relationship?: Yes Exam Narrative Exam Narrative: Pt seen and evaluated with Dr. Starks, Hospitalist Const General: cooperative, no acute distress and frail appearing Nutritional Appearance: cachectic, malnourished, thin and underweight Orientation: alert, awake and oriented x3 HENMT Head: normocephalic and atraumatic Mouth: mucous membranes dry Neck Neck: trachea midline and supple Chest Chest: no crepitus Resp Effort & Inspection: normal respiratory effort, able to speak in complete sentences and no respiratory distress Auscultation: clear to auscultation bilaterally Cardio Rate: regular rate Rhythm: regular rhythm Heart Sounds: S1 normal and S2 normal Pulses: radial pulses present GI Inspection: no abdominal wall ecchymosis and non-distended Palpation: soft, not firm, not rigid and tender in the epigastrum, in the LLQ, in the RLQ and suprapubicly Auscultation: normoactive bowel sounds Back/Spine/Pelvis Back: no CVA tenderness Skin General skin exam: no rashes or lesions noted Hair: general thinning Neuro General: alert, awake, oriented x3 and moves all extremities Cognition: normal cognition Speech: speech normal Extrem General: no joint enlargement, no pedal edema and no calf tenderness Psych Appearance: grossly normal Mental Status: mental status grossly normal Speech and Movement: speech and movement normal Affect: normal affect Attitude: cooperative Thought Process: normal Thought Content: normal Judgment: judgment good Results Last Vital Signs Temp 99.5 F 10/17/18 14:46 Pulse 85 10/17/18 14:46 Resp 18 10/17/18 14:46 BP 107/59 L 10/17/18 14:46 Pulse Ox 96 10/17/18 14:46 Labs : 10/17/18 10:35 10/17/18 10:35 Laboratory Results - last 24 hr 10/17/18 10/17/18 10/17/18 10:35 10:35 10:35 WBC 14.16 H RBC 3.67 L Hgb 11.7 L Hct 35.1 L MCV 95.6 H MCH 31.9 MCHC 33.3 RDW 13.5 Plt Count 756 H* D MPV 8.7 Immature Gran % 0.9 Neutrophils % 72.9 Lymphocytes % 16.8 Monocytes % 8.6 Eosinophils % 0.4 Basophils % 0.4 Absolute Neutrophils 10.32 H Absolute Lymphocytes 2.38 Absolute Monocytes 1.22 H Absolute Eosinophils 0.06 Absolute Basophils 0.06 ESR Sodium 136 Potassium 2.8 L* Chloride 96 L Carbon Dioxide 26.4 Anion Gap 13.6 H BUN 11 Creatinine 0.57 Estimated GFR/1.73 m2 >= 60.00 Glucose 124 H Calcium 9.0 Magnesium 1.9 Total Bilirubin 0.3 Conjugated Bilirubin 0.10 AST 16 ALT 20 Alkaline Phosphatase 79 C-Reactive Protein 8.12 H Total Protein 8.1 Albumin 2.8 L Lipase 91 Urine Color Urine Clarity Urine pH Ur Specific [place] Urine Protein Urine Ketones Urine Blood Urine Nitrite Urine Bilirubin Urine Urobilinogen Ur Leukocyte Esterase Urine RBC Urine WBC Ur Epithelial Cells Urine Crystals Urine Bacteria Urine Casts Urine Mucus Ur Culture Indicated? Urine Glucose 10/17/18 10/17/18 10:35 10:55 WBC RBC Hgb Hct MCV MCH MCHC RDW Plt Count MPV Immature Gran % Neutrophils % Lymphocytes % Monocytes % Eosinophils % Basophils % Absolute Neutrophils Absolute Lymphocytes Absolute Monocytes Absolute Eosinophils Absolute Basophils ESR 108 H Sodium Potassium Chloride Carbon Dioxide Anion Gap BUN Creatinine Estimated GFR/1.73 m2 Glucose Calcium Magnesium Total Bilirubin Conjugated Bilirubin AST ALT Alkaline Phosphatase C-Reactive Protein Total Protein Albumin Lipase Urine Color Dark yellow Urine Clarity Clear Urine pH 5.5 Ur Specific [place] >= 1.030 H Urine Protein 100 H Urine Ketones >=160 H Urine Blood Trace-intact H Urine Nitrite Positive H Urine Bilirubin Large H Urine Urobilinogen 1.0 H Ur Leukocyte Esterase Small H Urine RBC 0-2 Urine WBC 0-2 Ur Epithelial Cells Many Urine Crystals Negative Urine Bacteria Few Urine Casts Negative Urine Mucus Negative Ur Culture Indicated? No/sq. contamination Urine Glucose Negative CT abd/pel (10/17/18): There are multiple areas of apparent enteric wall thickening including the gastric antrum, duodenum, portions of the jejunum and the terminal ileum. There also appears to be colonic wall edema at multiple sites. These findings would raise the possibility of enteritis, infectious versus inflammatory, and in particular, the prominent findings in the region of the terminal ileum would raise the possibility of Crohn's disease. There is no evidence of obstruction or perforation. CONCLUSION: Findings suggesting diffuse enteritis as described above, infectious versus inflammatory etiology. No other significant focal findings.
[2018-10-17 16:10] LABS: Lactate-non-spesis 0.8 mmol/l (0.6-1.4)
[2018-10-17] MEDS: FAMOTIDINE 20 MG/50 ML BAG 200 MG IVPB (16:43)
[2018-10-17] MEDS: MORPHine 2 MG/ML SYR IVP ×2 (16:55→19:58)
--- NOTE | 2018-10-17 16:58 | SCONE_ITS ---
Date of service: 10/17/18 Time of Service: 15:17 Assessment and Plan (1) Abdominal pain: Current visit: Yes Status: Acute This 60yo female has failed outpatient antibiotic therapy and presents with lower abdominal pain, n/v, and diarrhea. CT scan seems to reflect non- continuous areas of gastritis, enteritis, and colitis, which is very peculiar. IV fluid resuscitation correct electrolyte derangements (currently with hypokalemia 2.8) IV antibiotics Anti-emetics prn NPO for now until abdominal pain/tenderness decreases pain control serial exams I&Os (2) Unexplained weight loss: Start date: 04/10/18 Current visit: Yes Status: Acute She has had a ~35lbs weight loss since 04/27, reportedly due to anorexia and not pain, early satiety, or food fear. This is very concerning for a global metabolic problem/malignancy. serologic and laboratory values ordered may require EGD +/- colonoscopy on this admission for tissue samples will review outside studies daily weights History of Present Illness Chief Complaint: abdominal pain with nausea/vomiting, and diarrhea Narrative: This is a pleasant 58yo female who presents with failure of outpatient treatment for lower abdominal pain. She was being treated for presumed colitis with dual therapy antibiotics. She was hospitalized in April 2018 at [facility] in [place] and underwent treatment for colitis at that time receiving IV fluids, IV antibiotics, and electrolyte r eplacements. Since then she has had a nearly 30-40 pound weight loss due to decreased appetite. She denies early satiety or food fear from post-prandial pain. Over the past week , she has experienced nausea with non-bloody, non-bilious vomiting about [address], and non-bloody brown diarrhea about 3 times a day. She thinks that she has lost about 10 pounds in the last week, and has no mickie etite. She has not had another episode like this since was sick with coliitis in 04/27. She reports that she had a colonoscopy in June 2018, that was reportedly negative, including biopsies, in [place], [place]. She has never had an EGD, though is on treatment for reflux. Consults Consult date: 10/17/18 Requesting physician: Leigh Starks Review of Systems Constitutional Reports anorexia, Denies chills, Denies fever(s), Reports poor appetite and Reports weight loss (~35 pounds since 04/27) Eyes Denies blurry vision and Denies dry eyes ENT Denies dysphagia, Denies dizziness, Denies dry mouth, Denies mouth lesions and Denies odynophagia Cardiovascular Denies chest pain, Denies edema, Denies leg ulcers and Reports dyspnea Respiratory Reports cough and Reports dyspnea Comments: Has received outpatient treatment for SOB, bronchitis. At one point,was on prednisone Gastrointestinal Reports abdominal pain (predominantly lower abdominal and some epigastric pain), Denies hematochezia, Denies coffee ground emesis, Denies dysphagia, Reports diarrhea, Reports nausea, Denies odynophagia, Reports vomiting and Denies hematemesis Comments: non-bloody, [id number] emesis; non-bloody loose diarrhea Genitourinary Denies difficulty voiding and Denies dysuria Musculoskeletal Denies myalgias, Denies arthralgias, Denies muscle weakness, Denies numbness and Denies tingling Integumentary/Breasts Denies bleeding lesions, Denies lesions, Denies rash and Denies sores Neurologic Denies dizziness, Denies numbness and Denies tingling Endocrine Reports change in body appearance Comments: hair thinning/loss PFSH Medical History Abdominal pain (Acute) Enteritis (Acute) Weight loss (Acute) Colitis (Chronic) GERD (gastroesophageal reflux disease) (Chronic) Hyperlipidemia (Chronic) Surgical History H/O lumbar discectomy (Chronic) Appendectomy Social History Smoking/Tobacco Use Status: Current every day Tobacco: How many years used: 40 Alcohol Intake: current Alcohol Intake frequency: a few times a month Details: ~10 drinks of wine, liquor weekly Drug use: Never Substance use type: does not use current occupation: [employer] Do you feel safe at home: Yes Do you feel safe in your relationship?: Yes Exam Narrative Exam Narrative: Pt seen and evaluated with Dr. Starks, Hospitalist Const General: cooperative, no acute distress and frail appearing Nutritional Appearance: cachectic, malnourished, thin and underweight Orientation: alert, awake and oriented x3 HENMT Head: normocephalic and atraumatic Mouth: mucous membranes dry Neck Neck: trachea midline and supple Chest Chest: no crepitus Resp Effort & Inspection: normal respiratory effort, able to speak in complete se ntences and no respiratory distress Auscultation: clear to auscultation bilaterally Cardio Rate: regular rate Rhythm: regular rhythm Heart Sounds: S1 normal and S2 normal Pulses: radial pulses present GI Inspection: no abdominal wall ecchymosis and non-distended Palpation: soft, not firm, not rigid and tender in the epigastrum, in the LLQ, in the RLQ and suprapubicly Auscultation: normoactive bowel sounds Back/Spine/Pelvis Back: no CVA tenderness Skin General skin exam: no rashes or lesions noted Hair: general thinning Neuro General: alert, awake, oriented x3 and moves all extremities Cognition: normal cognition Speech: speech normal Extrem General: no joint enlargement, no pedal edema and no calf tenderness Psych Appearance: grossly normal Mental Status: mental status grossly normal Speech and Movement: speech and movement normal Affect: normal affect Attitude: cooperative Thought Process: normal Thought Content: normal Judgment: judgment good Results Last Vital Signs Temp 99.5 F 10/17/18 14:46 Pulse 85 10/17/18 14:46 Resp 18 10/17/18 14:46 BP 107/59 L 10/17/18 14:46 Pulse Ox 96 10/17/18 14:46 Labs : 10/17/18 10:35 10/17/18 10:35 Laboratory Results - last 24 hr 10/17/18 10/17/18 10/17/18 10:35 10:35 10:35 WBC 14.16 H RBC 3.67 L Hgb 11.7 L Hct 35.1 L MCV 95.6 H MCH 31.9 MCHC 33.3 RDW 13.5 Plt Count 756 H* D MPV 8.7 Immature Gran % 0.9 Neutrophils % 72.9 Lymphocytes % 16.8 Monocytes % 8.6 Eosinophils % 0.4 Basophils % 0.4 Absolute Neutrophils 10.32 H Absolute Lymphocytes 2.38 Absolute Monocytes 1.22 H Absolute Eosinophils 0.06 Absolute Basophils 0.06 ESR Sodium 136 Potassium 2.8 L* Chloride 96 L Carbon Dioxide 26.4 Anion Gap 13.6 H BUN 11 Creatinine 0.57 Estimated GFR/1.73 m2 >= 60.00 Glucose 124 H Calcium 9.0 Magnesium 1.9 Total Bilirubin 0.3 Conjugated Bilirubin 0.10 AST 16 ALT 20 Alkaline Phosphatase 79 C-Reactive Protein 8.12 H Total Protein 8.1 Albumin 2.8 L Lipase 91 Urine Color Urine Clarity Urine pH Ur Specific [place] Urine Protein Urine Ketones Urine Blood Urine Nitrite Urine Bilirubin Urine Urobilinogen Ur Leukocyte Esterase Urine RBC Urine WBC Ur Epithelial Cells Urine Crystals Urine Bacteria Urine Casts Urine Mucus Ur Culture Indicated? Urine Glucose 10/17/18 10/17/18 10:35 10:55 WBC RBC Hgb Hct MCV MCH MCHC RDW Plt Count MPV Immature Gran % Neutrophils % Lymphocytes % Monocytes % Eosinophils % Basophils % Absolute Neutrophils Absolute Lymphocytes Absolute Monocytes Absolute Eosinophils Absolute Basophils ESR 108 H Sodium Potassium Chloride Carbon Dioxide Anion Gap BUN Creatinine Estimated GFR/1.73 m2 Glucose Calcium Magnesium Total Bilirubin Conjugated Bilirubin AST ALT Alkaline Phosphatase C-Reactive Protein Total Protein Albumin Lipase Urine Color Dark yellow Urine Clarity Clear Urine pH 5.5 Ur Specific [place] >= 1.030 H Urine Protein 100 H Urine Ketones >=160 H Urine Blood Trace-intact H Urine Nitrite Positive H Urine Bilirubin Large H Urine Urobilinogen 1.0 H Ur Leukocyte Esterase Small H Urine RBC 0-2 Urine WBC 0-2 Ur Epithelial Cells Many Urine Crystals Negative Urine Bacteria Few Urine Casts Negative Urine Mucus Negative Ur Culture Indicated? No/sq. contamination Urine Glucose Negative CT abd/pel (10/17/18): There are multiple areas of apparent enteric wall thickening including the gastric antrum, duodenum, portions of the jejunum and the terminal ileum. There also appears to be colonic wall edema at multiple sites. These findings would raise the possibility of enteritis, infectious versus inflammatory, and in particular, the prominent findings in the region of the terminal ileum would raise the possibility of Crohn's disease. There is no evidence of obstruction or perforation. CONCLUSION: Findings suggesting diffuse enteritis as described above, infectious versus inflammatory etiology. No other significant focal findings.
[2018-10-17] MEDS: metroNIDAZOLE 500 MG/100 ML BAG 100 MG IVPB (17:00)
[2018-10-17] MEDS: POTASSIUM CHLORIDE 20 MEQ/100 ML BAG 25 MEQ IVPB (17:13)
[2018-10-17] MEDS: CIPROFLOXACIN 400 MG/200 ML BAG 200 MG IVPB (18:32)
--- NOTE | 2018-10-17 20:10 | W.PM.HP.N ---
Date of service: 10/17/18 Time of Service: 14:00 Assessment and Plan (1) Acute on chronic colitis: Current visit: Yes Status: Acute Appreciate Dr Osborn's assistance. Continue empiric cipro/flagyl, though I am now less convinced that the colitis is infection. Made NPO. Continue IVF. Trend ESR/CRP. Await stool studies, ANCA/ASCA panels. Consider steroids. (2) Hypokalemia: Current visit: Yes Status: Acute Replete and monitor (3) Thrombocytosis: Current visit: Yes Status: Acute Likely reactive - however, we are checking iron studies as well. (4) Unexplained weight loss: Current visit: Yes Status: Acute Suspicion is definitely raised for malignancy or a severel chronic illness. There was no evidence of malignancy on the pathology report from colonoscopy or on imaging from today. Nutrition will be consulted. For now, we will attempt to control the symptoms to the point that the patient can tolerate PO. (5) Tobacco abuse: Current visit: Yes Status: Acute Advised to quit. Provide nicotine replacement therapy (6) GERD (gastroesophageal reflux disease): Current visit: Yes Status: Chronic PPI changed to H2 ever while C. Diff is being ruled out. (7) Hyperlipidemia: Current visit: Yes Status: Acute Continue home statin (8) Malnutrition: Current visit: Yes Status: Acute COnsult nutrition Additionally, I started thiamine and MVI as the patient also does drink (not in 3 weeks). (9) Chronic pain: Current visit: Yes Status: Chronic Continue ultram, though current pain due to colitis is also being treated with IV morphine (10) Discharge planning issues: Current visit: Yes Status: Acute Full code (11) DVT prophylaxis: Current visit: Yes Status: Acute SCDs + TEDs while hematest is pending History of Present Illness Chief Complaint: abdominal pain Narrative: Ms Mcknight is a 58 year old female with PMHx of prior episode of colitis (etiology unclear at this time) in April of 2018, treated at [facility] in [place], [place], as well as chronic back pain, hyperlipidemia, GERD, tobacco abuse, who since last week has been having abdominal pain diffusely, but especially so in the lower abdomen, as well as nausea, vomiting (no blood) and diarrhea (brown, no blood). This feels exactly like the episode she felt when she first had the colitis. She stated that in the past it responded to antibiotics, IV fluids, and potassium. Her PCP prescribed cipro and flagyl 1 week ago - this has not helped. The pain is sometimes sharp, sometimes crampy. It does not seem to be better or worse with eating or with defecation. She had a colonoscopy at the [facility] in June of 2018, which revealed multiple 4 mm polyps from cecum to rectum and no evidence of inflammatory bowel disease. The pathology from that colonoscopy revealed chronic colitis with mild activity, scattered cryptitis, crypt abscesses, focal crypt destruction and repair, with activity most present in the ascending colon. 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 The patient states she has lost 35 lbs in 6 months, unintentionally. She denies rashes, fevers, eye dryness, mouth sores, joint aches. She does not have any joint aches other than her chronic back pain. There is no known family history of IBD. She does not have any pets. She does not use well water - uses [employer] water. 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 She drinks 10 drinks/week. Her last drink was 3 weeks ago. Review of Systems Review of Systems 12 systems reviewed. Pertinent positives and negatives are as per HPI PFSH Medical History Abdominal pain (Acute) Enteritis (Acute) Weight loss (Acute) Colitis (Chronic) GERD (gastroesophageal reflux disease) (Chronic) Hyperlipidemia (Chronic) Surgical History H/O lumbar discectomy (Chronic) Hx of colonoscopy (Chronic) Appendectomy Family History Other Hypertension Social History Smoking/Tobacco Use Status: Current every day Tobacco: How many years used: 40 Alcohol Intake: current Alcohol Intake frequency: a few times a month Details: ~10 drinks of wine, liquor weekly Drug use: Never Substance use type: does not use 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 Do you feel safe at home: Yes Do you feel safe in your relationship?: Yes Meds Home Medications Medication Instructions Recorded Confirmed Type tramadol 50 mg PO PRN PRN tab-cap 05/16/17 10/17/18 History albuterol sulfate [ProAir HFA] 2 - 4 puff INHALATION Q4H PRN PRN 10/17/18 10/17/18 History atorvastatin 20 mg PO HS 10/17/18 10/17/18 History ciprofloxacin HCl 500 mg PO BID 10/17/18 10/17/18 History metronidazole 500 mg PO TID 10/17/18 10/17/18 History omeprazole 40 mg PO DAILY 10/17/18 10/17/18 History Allergies Allergy/AdvReac Type Severity Reaction Status Date / Time No Known Allergies Allergy Unverified 10/17/18 10:17 Exam Narrative Exam Narrative: General: Very pleasant middle-aged female, who has adventist wasting and looks like she has lost some weight; not in acute distress, laying in bed Neurological: A&Ox3, no focal deficits Psychiatric: appropriate speech pattern/content Skin: no bruising/rashes HEENT: Atraumatic, normocephalic, whitish film over tongue, Cardiovascular: RRR, no m/r/g Lungs: Diminished breath sounds B Gastrointestinal: abdomen is soft, nondistended, + BS, Exquisitely tender to palpation throughout, but especially epigastrically and in the lower abdomen Extremities: No e/c/c BLE's, 2+ pedal pulses B Results Imaging Additional studies: CT abdomen/pelvis with contrast: Findings suggesting diffuse enteritis as described above, infectious versus inflammatory etiology. No other significant focal findings. Labs : 10/17/18 10:35 10/17/18 10:35 Laboratory Results - last 24 hr 10/17/18 10/17/18 10/17/18 10:35 10:35 10:35 WBC 14.16 H RBC 3.67 L Hgb 11.7 L Hct 35.1 L MCV 95.6 H MCH 31.9 MCHC 33.3 RDW 13.5 Plt Count 756 H* D MPV 8.7 Immature Gran % 0.9 Neutrophils % 72.9 Lymphocytes % 16.8 Monocytes % 8.6 Eosinophils % 0.4 Basophils % 0.4 Absolute Neutrophils 10.32 H Absolute Lymphocytes 2.38 Absolute Monocytes 1.22 H Absolute Eosinophils 0.06 Absolute Basophils 0.06 ESR Sodium 136 Potassium 2.8 L* Chloride 96 L Carbon Dioxide 26.4 Anion Gap 13.6 H BUN 11 Creatinine 0.57 Estimated GFR/1.73 m2 >= 60.00 Glucose 124 H Lactate Calcium 9.0 Magnesium 1.9 Total Bilirubin 0.3 Conjugated Bilirubin 0.10 AST 16 ALT 20 Alkaline Phosphatase 79 C-Reactive Protein 8.12 H Total Protein 8.1 Albumin 2.8 L Lipase 91 TSH 0.84 Free T4 1.40 Urine Color Urine Clarity Urine pH Ur Specific [place] Urine Protein Urine Ketones Urine Blood Urine Nitrite Urine Bilirubin Urine Urobilinogen Ur Leukocyte Esterase Urine RBC Urine WBC Ur Epithelial Cells Urine Crystals Urine Bacteria Urine Casts Urine Mucus Ur Culture Indicated? Urine Glucose 10/17/18 10/17/18 10/17/18 10:35 10:55 16:00 WBC RBC Hgb Hct MCV MCH MCHC RDW Plt Count MPV Immature Gran % Neutrophils % Lymphocytes % Monocytes % Eosinophils % Basophils % Absolute Neutrophils Absolute Lymphocytes Absolute Monocytes Absolute Eosinophils Absolute Basophils ESR 108 H Sodium Potassium Chloride Carbon Dioxide Anion Gap BUN Creatinine Estimated GFR/1.73 m2 Glucose Lactate 0.8 Calcium Magnesium Total Bilirubin Conjugated Bilirubin AST ALT Alkaline Phosphatase C-Reactive Protein Total Protein Albumin Lipase TSH Free T4 Urine Color Dark yellow Urine Clarity Clear Urine pH 5.5 Ur Specific [place] >= 1.030 H Urine Protein 100 H Urine Ketones >=160 H Urine Blood Trace-intact H Urine Nitrite Positive H Urine Bilirubin Large H Urine Urobilinogen 1.0 H Ur Leukocyte Esterase Small H Urine RBC 0-2 Urine WBC 0-2 Ur Epithelial Cells Many Urine Crystals Negative Urine Bacteria Few Urine Casts Negative Urine Mucus Negative Ur Culture Indicated? No/sq. contamination Urine Glucose Negative Last Vital Signs Temp 37.4 C 10/17/18 15:57 Pulse 93 H 10/17/18 15:57 Resp 19 10/17/18 15:57 BP 114/63 10/17/18 15:57 Pulse Ox 98 10/17/18 15:57
[2018-10-17] MEDS: Nystatin 500000 UNITS/5 ML SUSP 5ML CUP PO (22:23)
[2018-10-17] MEDS: Atorvastatin 20 MG TAB PO (22:23)
[2018-10-18] VITALS (8 sets, daily range): BP systolic 90–107; BP diastolic 48–68; PULSE 81–87; RESP 18–20; TEMP 36.6–37.9; O2SAT 97–98
[2018-10-18] MEDS: Normal Saline 500 ML IV (00:05)
[2018-10-18] MEDS: metroNIDAZOLE 500 MG/100 ML BAG 100 MG IVPB ×3 (00:10→16:18)
[2018-10-18] MEDS: MORPHine 2 MG/ML SYR IVP ×2 (01:37→04:34)
[2018-10-18] MEDS: Normal Saline Flush 10 ML SYR IVP ×2 (01:37→04:35)
[2018-10-18] MEDS: FAMOTIDINE 20 MG/50 ML BAG 200 MG IVPB ×2 (04:33→16:02)
[2018-10-18] MEDS: POTASSIUM CHLORIDE/D5-0.9%NACL 1,000 ML 80 MEQ IV (04:33)
[2018-10-18] MEDS: Ondansetron 4 MG/2 ML VIAL IVP (04:34)
[2018-10-18] MEDS: CIPROFLOXACIN 400 MG/200 ML BAG 200 MG IVPB ×2 (05:28→18:06)
[2018-10-18] MEDS: Nystatin 500000 UNITS/5 ML SUSP 5ML CUP PO ×5 (05:28→21:45)
[2018-10-18 07:27] LABS: Abs Immature Grans 0.08 k/cumm (0.0-0.09); Absolute Basophil Count 0.03 k/cumm (0.0-0.2); Absolute Lymphocyte Count 2.08 k/cumm (1.2-3.4); Absolute Monocyte Count 1.24 k/cumm (0.11-0.7); Absolute Neutrophil Count 11.57 k/cumm (1.2-6.7); Basophils % 0.2; Eosinophils % 0.5; HCT 27.2 % (36.0-46.0); HGB 8.8 g/dL (12.0-15.5); Immature Grans % 0.5; Lymphocytes % 13.8; Mean Corp. HGB Concentration 32.4 g/dL (32.0-36.0); Mean Corpuscular Hemoglobin 31.7 pg (27.0-33.0); Mean Corpuscular Volume 97.8 fL (80-95); Monocytes % 8.2; Neutrophils % 76.8; Platelet Count 532 x1000/uL (130-400); RBC 2.78 m/cumm (4.00-5.20); RBC Distribution Width 13.4 % (11.7-14.6); White Blood Cell Count 15.07 k/cumm (4.4-10.8)
[2018-10-18 07:28] LABS: Absolute Eosinophil Count 0.08 k/cumm (0.0-0.7)
[2018-10-18] MEDS: Acetaminophen 325 MG TAB PO ×3 (07:34→21:45)
[2018-10-18 07:38] LABS: Anion Gap 6.5 mmol/L (3-11); BUN 3 mg/dL (7-18); C-Reactive Protein 5.58 mg/dL (0.0-0.3); CO2 25.5 mmol/L (21.0-32.0); CREATININE 0.55 mg/dL (0.55-1.02); Calcium 7.3 mg/dL (8.5-10.1); Chloride 103 mmol/L (98-107); Glucose 191 mg/dL (70-100); Magnesium 1.3 mg/dL (1.8-2.4); Potassium 3.1 mmol/L (3.5-5.1); Sodium 135 mmol/L (136-145)
[2018-10-18 07:41] LABS: Iron 12 ug/dL (50-175); Total Iron Binding Capacity 59 ug/dL (250-450); Transferrin Sat 20 % (15-50)
[2018-10-18 08:12] LABS: ESR 62 MM/HR (0-30); Ferritin 358 ng/mL (8-388)
[2018-10-18 08:17] LABS: Folate 14.1 ng/mL (8.6-20.0); Vitamin B12 1255 pg/mL (193-986)
[2018-10-18] MEDS: Multivitamin TAB 1 TAB PO (09:09)
[2018-10-18] MEDS: Thiamine 100 MG TAB PO (09:09)
[2018-10-18] MEDS: Potassium Chloride 20 MEQ TABCR 40 MEQ PO ×2 (09:43→16:13)
[2018-10-18] MEDS: POTASSIUM CHLORIDE 20 MEQ/100 ML BAG 50 MEQ IVPB (09:44)
[2018-10-18] MEDS: MAGNESIUM SULFATE 4 GM/100 ML BAG IVPB (09:44)
--- NOTE | 2018-10-18 11:51 | PGE_ITS ---
Date of Service Date of service: 10/18/18 Time of Service: 11:46 Assessment and Plan (1) Acute on chronic colitis: Current visit: Yes Status: Acute Apparent recurrent bout of Colitis, with prior colonoscopy showing element of chronicity. Appears to be improving with IVFs and antibiotics. Patient with evidence of leukocytosis, elevated temperature, elevated CRP/ESR, and chronic colitis by colonoscopy - question potential Inflammatory Bowel Disease. Discussed case with surgery and GI - plan is to definitively rule out Mesenteric Ischemia with a CT Angiogram of the abdomen, although with low suspicion for this, and continue current management with plans for GI follow-up as outpatient. Continue IVFs, antiemetics, and antibiotics. C.Diff negative - awaiting Fecal Occult Blood Testing, stool cultures, ANCA, and other labs. (2) Anemia: Current visit: Yes Status: Chronic Low iron, very low TIBC, and Ferritin in the 300 range, with normal TSH, B12, and FA. Appears to be Anemia of Chronic Disease, but given current clinical picture will also check stool for occult blood. (3) Thrombocytosis: Current visit: Yes Status: Acute Likely reactive. Appears improved. (4) Unexplained weight loss: Current visit: Yes Status: Acute Potentially on basis of Untreated Chronic Disease, potentially GI as above, but cannot rule out malignancy. CXR from last month without evidence of pathology, and CT of the abdomen and pelvis/Colonoscopy this winter without evidence of malignancy. (5) GERD (gastroesophageal reflux disease): Current visit: Yes Status: Chronic Currently on H2 ever, with PPI on hold. (6) Chronic pain: Current visit: Yes Status: Chronic Continue Tramadol. (7) DVT prophylaxis: Current visit: Yes Status: Acute SCD's and TRACY's while Fecal Occult Blood Testing is pending. Subjective Interval history since last seen: 58 year old woman with a prior episode of Colitis in April of 2018, admitted from [facility] Emergency Department on 10/17 with a diagnosis of Enteritis. Mrs. Mcknight has a prior history of Chronic Back Pain, Dyslipidemia, GERD, and Tobacco Abuse. In April of 2018 she was admitted at [facility] in [place], [place] and treated for an episode of Colitis. She reports a follow-up Colonoscopy in early winter at [facility], with pathology reports showing evidence of Chronic Colitis, scattered Cryptitis, Crypt Abscesses, but no evidence of Granulomas. Patient also reported an approximately 30-35 pound weight loss over the last 6 months. She presented to the ED with complaints of a one week history of diffuse abdominal pain, nausea, vomiting, and diarrhea. She denied Hematemesis and Hematochezia, and reports that her symptoms were the same as her prior diagnosis in April that led to a ho spitalization. Her symptoms resolved then with IVFs and antibiotics. She reports that her PCP prescribed oral antibiotics 1 week prior without effect. This morning the patient reports improvement in her symptoms overall, with decrease in nausea and vomiting, increased appetite, and improvement in her diarrhea. She continues to have a Leukocytosis. No overnight events reported. She is afebrile but with a temperature of 37.9. Exam Narrative Exam Narrative: General: Patient appears comfortable, AAOX3, NAD Neck: Supple CV: Regular, nontachycardic, S1S2, No rubs, murmurs, or gallops. Pulmonary: Clear to auscultation bilaterally, no crackles, wheezing, or rhonchi Abdomen: + Bowel Sounds, soft, nontender, nondistended Vascular: No lower extremity edema Neurologic: CN II-XII grossly intact. No focal deficits. Psych: Normal mood and affect. Objective Objective Clinical Data: Abnormal lab results 10/17/18 10/17/18 10/18/18 Range/Units 10:35 10:35 06:30 WBC (4.4-10.8) k/cumm RBC (4.00-5.20) m/cumm Hgb (12.0-15.5) g/dL Hct (36.0-46.0) % MCV (80-95) fL Plt Count (130-400) x1000/uL Absolute Neutrophils (1.2-6.7) k/cumm Absolute Monocytes (0.11-0.7) k/cumm ESR 108 H (0-30) MM/HR Sodium 135 L (136-145) mmol/L Potassium 3.1 L (3.5-5.1) mmol/L BUN 3 L (7-18) mg/dL Glucose 191 H (70-100) mg/dL Calcium 7.3 L (8.5-10.1) mg/dL Magnesium 1.3 L (1.8-2.4) mg/dL Iron (50-175) ug/dL TIBC (250-450) ug/dL C-Reactive Protein 8.12 H 5.58 H (0.0-0.3) mg/dL Vitamin B12 (193-986) pg/mL 10/18/18 10/18/18 10/18/18 Range/Units 06:30 06:30 06:30 WBC 15.07 H (4.4-10.8) k/cumm RBC 2.78 L (4.00-5.20) m/cumm Hgb 8.8 L D (12.0-15.5) g/dL Hct 27.2 L D (36.0-46.0) % MCV 97.8 H (80-95) fL Plt Count 532 H D (130-400) x1000/uL Absolute Neutrophils 11.57 H (1.2-6.7) k/cumm Absolute Monocytes 1.24 H (0.11-0.7) k/cumm ESR 62 H (0-30) MM/HR Sodium (136-145) mmol/L Potassium (3.5-5.1) mmol/L BUN (7-18) mg/dL Glucose (70-100) mg/dL Calcium (8.5-10.1) mg/dL Magnesium (1.8-2.4) mg/dL Iron 12 L (50-175) ug/dL TIBC 59 L (250-450) ug/dL C-Reactive Protein (0.0-0.3) mg/dL Vitamin B12 1255 H (193-986) pg/mL Vital Signs Temperature 37.9 C H 10/18/18 07:34 Temperature Source Tympanic 10/18/18 07:05 Pulse 86 10/18/18 07:05 Pulse Rhythm Regular 10/18/18 07:50 Respiratory Rate 18 10/18/18 07:05 Respiratory Effort Non-Labored 10/18/18 07:50 Respiratory Depth Normal 10/18/18 07:50 Respiratory Pattern Normal 10/18/18 07:50 Blood Pressure 98/60 L 10/18/18 10:05 Blood Pressure Position Sitting 10/17/18 10:13 Pulse Oximetry 97 10/18/18 07:05 Oxygen Delivery Method Room Air 10/18/18 07:05 Oxygen Flow Rate 0 10/18/18 07:05 Pain Level 8 10/18/18 07:34 Comment 10/18/18 10:05 Intake & Output 10/17/18 10/17/18 10/18/18 11:59 23:59 11:59 Intake Total 1550 / 1550 2366 / 2366 Output Total 400 / 400 950 / 950 Balance 1150 / 1150 1416 / 1416 Weight 43.545 kg 43.545 kg 46.295 kg Intake: IV 1550 / 1550 2366 / 2366 Output: Urine 400 / 400 950 / 950 Other: Urine Color Dark Kirsten Yellow Urine Appearance Clear Clear Urine Odor Normal Stool Size Small Stool Characteristics Soft Liquid Brown Voiding Methods Toilet Toilet Laboratory Results WBC 15.07 k/cumm (4.4-10.8) H 10/18/18 06:30 RBC 2.78 m/cumm (4.00-5.20) L 10/18/18 06:30 Hgb 8.8 g/dL (12.0-15.5) L D 10/18/18 06:30 Hct 27.2 % (36.0-46.0) L D 10/18/18 06:30 MCV 97.8 fL (80-95) H 10/18/18 06:30 MCH 31.7 pg (27.0-33.0) 10/18/18 06:30 MCHC 32.4 g/dL (32.0-36.0) 10/18/18 06:30 RDW 13.4 % (11.7-14.6) 10/18/18 06:30 Plt Count 532 x1000/uL (130-400) H D 10/18/18 06:30 MPV 9.0 fL (8.0-11.0) 10/18/18 06:30 Immature Gran % 0.5 10/18/18 06:30 Neutrophils % 76.8 10/18/18 06:30 Lymphocytes % 13.8 10/18/18 06:30 Monocytes % 8.2 10/18/18 06:30 Eosinophils % 0.5 10/18/18 06:30 Basophils % 0.2 10/18/18 06:30 Absolute Neutrophils 11.57 k/cumm (1.2-6.7) H 10/18/18 06:30 Absolute Lymphocytes 2.08 k/cumm (1.2-3.4) 10/18/18 06:30 Absolute Monocytes 1.24 k/cumm (0.11-0.7) H 10/18/18 06:30 Absolute Eosinophils 0.08 k/cumm (0.0-0.7) 10/18/18 06:30 Absolute Basophils 0.03 k/cumm (0.0-0.2) 10/18/18 06:30 ESR 62 MM/HR (0-30) H 10/18/18 06:30 Sodium 135 mmol/L (136-145) L 10/18/18 06:30 Potassium 3.1 mmol/L (3.5-5.1) L 10/18/18 06:30 Chloride 103 mmol/L (98-107) 10/18/18 06:30 Carbon Dioxide 25.5 mmol/L (21.0-32.0) 10/18/18 06:30 Anion Gap 6.5 mmol/L (3-11) 10/18/18 06:30 BUN 3 mg/dL (7-18) L 10/18/18 06:30 Creatinine 0.55 mg/dL (0.55-1.02) 10/18/18 06:30 Estimated GFR/1.73 m2 >= 60.00 (mL/min/1.73m2) 10/18/18 06:30 Glucose 191 mg/dL (70-100) H 10/18/18 06:30 Lactate 0.8 mmol/l (0.6-1.4) 10/17/18 16:00 Calcium 7.3 mg/dL (8.5-10.1) L 10/18/18 06:30 Magnesium 1.3 mg/dL (1.8-2.4) L 10/18/18 06:30 Iron 12 ug/dL (50-175) L 10/18/18 06:30 TIBC 59 ug/dL (250-450) L 10/18/18 06:30 Transferrin % Sat 20 % (15-50) 10/18/18 06:30 Ferritin 358 ng/mL (8-388) 10/18/18 06:30 Total Bilirubin 0.3 mg/dL (0.2-1.0) 10/17/18 10:35 Conjugated Bilirubin 0.10 mg/dL (0.00-0.20) 10/17/18 10:35 AST 16 U/L (15-37) 10/17/18 10:35 ALT 20 U/L (12-78) 10/17/18 10:35 Alkaline Phosphatase 79 U/L (46-116) 10/17/18 10:35 C-Reactive Protein 5.58 mg/dL (0.0-0.3) H 10/18/18 06:30 Total Protein 8.1 g/dL (6.4-8.2) 10/17/18 10:35 Albumin 2.8 g/dL (3.4-5.0) L 10/17/18 10:35 Lipase 91 U/L (73-393) 10/17/18 10:35 Vitamin B12 1255 pg/mL (193-986) H 10/18/18 06:30 Folate 14.1 ng/mL (8.6-20.0) 10/18/18 06:30 TSH 0.84 uIU/mL (0.358-3.74) 10/17/18 10:35 Free T4 1.40 ng/dL (0.76-1.46) 10/17/18 10:35 Urine Color Dark yellow (Yellow) 10/17/18 10:55 Urine Clarity Clear 10/17/18 10:55 Urine pH 5.5 (5-8) 10/17/18 10:55 Ur Specific [place] >= 1.030 (1.005-1.025) H 10/17/18 10:55 Urine Protein 100 mg/dL (Negative) H 10/17/18 10:55 Urine Ketones >=160 mg/dL (Negative) H 10/17/18 10:55 Urine Blood Trace-intact (Negative) H 10/17/18 10:55 Urine Nitrite Positive (Negative) H 10/17/18 10:55 Urine Bilirubin Large (Negative) H 10/17/18 10:55 Urine Urobilinogen 1.0 EU/dL (Up TO 0.2) H 10/17/18 10:55 Ur Leukocyte Esterase Small (Negative) H 10/17/18 10:55 Urine RBC 0-2 (0-2) 10/17/18 10:55 Urine WBC 0-2 HPF (0-5) 10/17/18 10:55 Ur Epithelial Cells Many HPF (Negative) 10/17/18 10:55 Urine Crystals Negative HPF (Negative) 10/17/18 10:55 Urine Bacteria Few HPF (Negative) 10/17/18 10:55 Urine Casts Negative LPF (Negative) 10/17/18 10:55 Urine Mucus Negative (Negative) 10/17/18 10:55 Ur Culture Indicated? No/sq. contamination 10/17/18 10:55 Urine Glucose Negative mg/dL (Negative) 10/17/18 10:55 Objective Narrative Objective Narrative: Exam(s) 10/17/[address]:CT abdomen & pelvis w SYMPTOMS/DIAGNOSIS: ABDOMINAL PAIN, WEIGHT LOSS, ETOH USE ABDOMINAL AND PELVIC CT: CT examination of the abdomen and pelvis was performed with a bolus infusion of 100 cc of Omnipaque 350 and ingestion of dilute barium. Images obtained through the lung bases are unremarkable. Liver and spleen appear normal. No biliary dilatation. Gallbladder is mildly distended, which is a nonspecific finding. The pancreas appears normal. Adrenals and kidneys are unremarkable except for a tiny incidental presumed left renal cyst. No urinary tract calcification or obstruction. Urinary bladder is essentially empty. Abdominal aorta is of normal diameter and no major vascular abnormality is seen. There is no abdominal or pelvic adenopathy. The appendix appears to have been surgically removed. There are multiple areas of apparent enteric wall thickening including the gastric antrum, duodenum, portions of the jejunum and the terminal ileum. There also appears to be colonic wall edema at multiple sites. These findings would raise the possibility of enteritis, infectious versus inflammatory, and in particular, the prominent findings in the region of the terminal ileum would r aise the possibility of Crohn's disease. There is no evidence of obstruction or perforation. CONCLUSION: Findings suggesting diffuse enteritis as described above, infectious versus inflammatory etiology. No other significant focal findings.
--- NOTE | 2018-10-18 12:47 | W.PM.PROGNOT ---
Date of Service Date of service: 10/18/18 Time of Service: 12:45 Assessment and Plan (1) Unexplained weight loss: Current visit: Yes Status: Acute f/u pending labs encourage PO intake plan for EGD, colo post hospitalization OOB and ambulatte (2) Acute on chronic colitis: Current visit: Yes Status: Acute continue IV fluids continue IV antibiotics serial exams f/u stool studies slowly advance diet if pain/tenderness improve Subjective Patient reports: feels better, tolerating a regular diet, voiding w/o difficulty and bowel movement; denies nausea Exam Const General: cooperative and no acute distress Nutritional Appearance: malnourished Orientation: alert, awake and oriented x3 HENMT Head: normocephalic and atraumatic Resp Effort & Inspection: normal respiratory effort and able to speak in complete sentences Auscultation: clear to auscultation bilaterally Cardio Heart Sounds: S1 normal and S2 normal GI Palpation: soft, no guarding, not rigid and nontender (Much improved from yesterday; no tenderness to deep palpation) Auscultation: normoactive bowel sounds Neuro General: alert, awake and no focal motor deficits Cognition: normal cognition Speech: speech normal Psych Mental Status: mental status grossly normal Speech and Movement: speech and movement normal Mood: congruent mood Attitude: cooperative Insight: insight good Judgment: judgment good Objective Objective Clinical Data: Abnormal lab results 10/18/18 10/18/18 10/18/18 Range/Units 06:30 06:30 06:30 WBC 15.07 H (4.4-10.8) k/cumm RBC 2.78 L (4.00-5.20) m/cumm Hgb 8.8 L D (12.0-15.5) g/dL Hct 27.2 L D (36.0-46.0) % MCV 97.8 H (80-95) fL Plt Count 532 H D (130-400) x1000/uL Absolute Neutrophils 11.57 H (1.2-6.7) k/cumm Absolute Monocytes 1.24 H (0.11-0.7) k/cumm ESR 62 H (0-30) MM/HR Sodium 135 L (136-145) mmol/L Potassium 3.1 L (3.5-5.1) mmol/L BUN 3 L (7-18) mg/dL Glucose 191 H (70-100) mg/dL Calcium 7.3 L (8.5-10.1) mg/dL Magnesium 1.3 L (1.8-2.4) mg/dL Iron 12 L (50-175) ug/dL TIBC 59 L (250-450) ug/dL C-Reactive Protein 5.58 H (0.0-0.3) mg/dL Vitamin B12 (193-986) pg/mL 10/18/18 Range/Units 06:30 WBC (4.4-10.8) k/cumm RBC (4.00-5.20) m/cumm Hgb (12.0-15.5) g/dL Hct (36.0-46.0) % MCV (80-95) fL Plt Count (130-400) x1000/uL Absolute Neutrophils (1.2-6.7) k/cumm Absolute Monocytes (0.11-0.7) k/cumm ESR (0-30) MM/HR Sodium (136-145) mmol/L Potassium (3.5-5.1) mmol/L BUN (7-18) mg/dL Glucose (70-100) mg/dL Calcium (8.5-10.1) mg/dL Magnesium (1.8-2.4) mg/dL Iron (50-175) ug/dL TIBC (250-450) ug/dL C-Reactive Protein (0.0-0.3) mg/dL Vitamin B12 1255 H (193-986) pg/mL Vital Signs Temperature 99.0 F 10/18/18 19:35 Temperature Source Tympanic 10/18/18 19:35 Pulse 84 10/18/18 19:35 Pulse Rhythm Regular 10/18/18 16:45 Respiratory Rate 18 10/18/18 19:35 Respiratory Effort Non-Labored 10/18/18 16:45 Respiratory Depth Normal 10/18/18 16:45 Respiratory Pattern Normal 10/18/18 16:45 Blood Pressure 104/60 10/18/18 19:35 Blood Pressure Position Sitting 10/17/18 10:13 Pulse Oximetry 97 10/18/18 19:35 Oxygen Delivery Method Room Air 10/18/18 19:35 Oxygen Flow Rate 0 10/18/18 19:35 Pain Level 7 10/18/18 17:15 Comment 10/18/18 10:05 Intake & Output 10/17/18 10/18/18 10/18/18 23:59 11:59 23:59 Intake Total 1550 / 1550 2366 / 3744.000 1378.000 / 3744.000 Output Total 400 / 400 950 / 1850 900 / 1850 Balance 1150 / 1150 1416 / 1894.000 478.000 / 1894.000 Weight 96 lb 0.005 oz 102 lb 1 oz Intake: IV 1550 / 1550 2366 / 3129.000 763.000 / 3129.000 Oral 615 / 615 Output: Urine 400 / 400 950 / 1850 900 / 1850 Other: Urine Color Dark Kirsten Yellow Yellow Urine Appearance Clear Clear Clear Urine Odor Normal Normal Comment Flushed. Volume not measured Stool Occult Blood Positive Stool Size Small Small Stool Characteristics Soft Soft Liquid Liquid Brown Brown Voiding Methods Toilet Toilet Toilet Laboratory Results WBC 15.07 k/cumm (4.4-10.8) H 10/18/18 06:30 RBC 2.78 m/cumm (4.00-5.20) L 10/18/18 06:30 Hgb 8.8 g/dL (12.0-15.5) L D 10/18/18 06:30 Hct 27.2 % (36.0-46.0) L D 10/18/18 06:30 MCV 97.8 fL (80-95) H 10/18/18 06:30 MCH 31.7 pg (27.0-33.0) 10/18/18 06:30 MCHC 32.4 g/dL (32.0-36.0) 10/18/18 06:30 RDW 13.4 % (11.7-14.6) 10/18/18 06:30 Plt Count 532 x1000/uL (130-400) H D 10/18/18 06:30 MPV 9.0 fL (8.0-11.0) 10/18/18 06:30 Immature Gran % 0.5 10/18/18 06:30 Neutrophils % 76.8 10/18/18 06:30 Lymphocytes % 13.8 10/18/18 06:30 Monocytes % 8.2 10/18/18 06:30 Eosinophils % 0.5 10/18/18 06:30 Basophils % 0.2 10/18/18 06:30 Absolute Neutrophils 11.57 k/cumm (1.2-6.7) H 10/18/18 06:30 Absolute Lymphocytes 2.08 k/cumm (1.2-3.4) 10/18/18 06:30 Absolute Monocytes 1.24 k/cumm (0.11-0.7) H 10/18/18 06:30 Absolute Eosinophils 0.08 k/cumm (0.0-0.7) 10/18/18 06:30 Absolute Basophils 0.03 k/cumm (0.0-0.2) 10/18/18 06:30 ESR 62 MM/HR (0-30) H 10/18/18 06:30 Sodium 135 mmol/L (136-145) L 10/18/18 06:30 Potassium 3.1 mmol/L (3.5-5.1) L 10/18/18 06:30 Chloride 103 mmol/L (98-107) 10/18/18 06:30 Carbon Dioxide 25.5 mmol/L (21.0-32.0) 10/18/18 06:30 Anion Gap 6.5 mmol/L (3-11) 10/18/18 06:30 BUN 3 mg/dL (7-18) L 10/18/18 06:30 Creatinine 0.55 mg/dL (0.55-1.02) 10/18/18 06:30 Estimated GFR/1.73 m2 >= 60.00 (mL/min/1.73m2) 10/18/18 06:30 Glucose 191 mg/dL (70-100) H 10/18/18 06:30 Lactate 0.8 mmol/l (0.6-1.4) 10/17/18 16:00 Calcium 7.3 mg/dL (8.5-10.1) L 10/18/18 06:30 Magnesium 1.3 mg/dL (1.8-2.4) L 10/18/18 06:30 Iron 12 ug/dL (50-175) L 10/18/18 06:30 TIBC 59 ug/dL (250-450) L 10/18/18 06:30 Transferrin % Sat 20 % (15-50) 10/18/18 06:30 Ferritin 358 ng/mL (8-388) 10/18/18 06:30 Total Bilirubin 0.3 mg/dL (0.2-1.0) 10/17/18 10:35 Conjugated Bilirubin 0.10 mg/dL (0.00-0.20) 10/17/18 10:35 AST 16 U/L (15-37) 10/17/18 10:35 ALT 20 U/L (12-78) 10/17/18 10:35 Alkaline Phosphatase 79 U/L (46-116) 10/17/18 10:35 C-Reactive Protein 5.58 mg/dL (0.0-0.3) H 10/18/18 06:30 Total Protein 8.1 g/dL (6.4-8.2) 10/17/18 10:35 Albumin 2.8 g/dL (3.4-5.0) L 10/17/18 10:35 Lipase 91 U/L (73-393) 10/17/18 10:35 Vitamin B12 1255 pg/mL (193-986) H 10/18/18 06:30 Folate 14.1 ng/mL (8.6-20.0) 10/18/18 06:30 TSH 0.84 uIU/mL (0.358-3.74) 10/17/18 10:35 Free T4 1.40 ng/dL (0.76-1.46) 10/17/18 10:35 Urine Color Dark yellow (Yellow) 10/17/18 10:55 Urine Clarity Clear 10/17/18 10:55 Urine pH 5.5 (5-8) 10/17/18 10:55 Ur Specific [place] >= 1.030 (1.005-1.025) H 10/17/18 10:55 Urine Protein 100 mg/dL (Negative) H 10/17/18 10:55 Urine Ketones >=160 mg/dL (Negative) H 10/17/18 10:55 Urine Blood Trace-intact (Negative) H 10/17/18 10:55 Urine Nitrite Positive (Negative) H 10/17/18 10:55 Urine Bilirubin Large (Negative) H 10/17/18 10:55 Urine Urobilinogen 1.0 EU/dL (Up TO 0.2) H 10/17/18 10:55 Ur Leukocyte Esterase Small (Negative) H 10/17/18 10:55 Urine RBC 0-2 (0-2) 10/17/18 10:55 Urine WBC 0-2 HPF (0-5) 10/17/18 10:55 Ur Epithelial Cells Many HPF (Negative) 10/17/18 10:55 Urine Crystals Negative HPF (Negative) 10/17/18 10:55 Urine Bacteria Few HPF (Negative) 10/17/18 10:55 Urine Casts Negative LPF (Negative) 10/17/18 10:55 Urine Mucus Negative (Negative) 10/17/18 10:55 Ur Culture Indicated? No/sq. contamination 10/17/18 10:55 Urine Glucose Negative mg/dL (Negative) 10/17/18 10:55
--- NOTE | 2018-10-18 13:38 | PHARADMIT ---
Addendum entered by Rossana Flores 10/20/18 17:08: Pharmacy Note Subjective Objective BP-82/56 other VS okay Na-133 SCr-0.47 mag-1.6 h/h-8.9/28.1 Assessment mag and K+ replacement given cipro and metronidazole continue (day 4) C.diff negative, lyric occult blood positive Plan accepted in transfer to [facility] for colonoscopy and further evaluation/treatment per progress note Original Note: Admission Pharmacy Clinical Review COLITIS, HYPOKALEMIA, DEHYDRATION Code Status Full Code Current Weight 46.295 kg Renally Cleared and Narrow Therapeutic Index Meds CRCL 57ML/MIN QTc Value / Action Taken 431 BP Control, Fever 92/68 AFEBRILE Electrolytes reviewed K 3.1 DVT Prophylaxis HEME TEST PENDING Opiate Usage / Scheduled Bowel Regimen Ordered PRN/NO Plt/SCr for Heparin / Enoxaparin 532 INR for Warfarin NA H/H stable, WBC/Bands 8.8/27.2 WBC 15.07 Antibiotic appropriateness METRONIDAZOLE/CIPRO IV Cultures and Sensitivities STOOL OCCULT PENDING, CDIFF PENDING Surgical ABX d/c within 24 hr NA DM control / Insulin Dosing NA Heart Failure (Check EF%) (NICHELLE's, B-Block, Diuretics) NA IV to PO Switch Home Meds Reviewed Home Meds Not Ordered omeprazole 40 mg PO DAILY Comments
--- NOTE | 2018-10-18 13:50 | DI.CT_ITS ---
SYMPTOMS/DIAGNOSIS: ABDOMINAL PAIN, DIARRHEA, NAUSEA/VOMITING, COLITIS, HYPOKALEMIA, DEHYDRATION CT ANGIOGRAPHY OF THE ABDOMEN AND PELVIS: Comparison is made with routine abdominal and pelvic CT performed October,. Venous and arterial phase exams were performed. The lung bases show minimal atelectasis. The heart size is normal. The aorta shows mild calcification and is normal in diameter. The vessels are widely patent. Diffuse colonic wall thickening is again noted, which may be slightly more prominent when compared with the previous exam. There is a focal area of low density seen in the wall of the upper descending colon posteriorly, which may represent an intramural abscess. There has been an increased amount of free fluid in the pelvis. No focal peritoneal abscess is seen. There is mild nonspecific small bowel dilatation. There is also a question of some wall thickening of the terminal ileum. The uterus and bladder are unremarkable. The liver, spleen, pancreas, adrenals and kidneys are unremarkable. IMPRESSION: Findings consistent with diffuse colitis. Probable intramural abscess of the upper descending colon. There is also apparent involvement of the terminal ileum. The amount of free fluid has increased when compared with the previous exam, but there is no evidence of an intraperitoneal abscess.
[2018-10-18] MEDS: Omnipaque 350 MG/ML 100 ML BTL IJ (13:51)
--- NOTE | 2018-10-18 14:17 | DI.VRAD_ITS ---
EXAM: CT Angiography Abdomen and Pelvis With Contrast EXAM DATE/TIME: 10/18/2018 12:00 PM CLINICAL HISTORY: 58 years old, female; Localized; Patient HX: Patient sts lower abdominal pain x1 week, diarrhea, n/v. Rule out mesenteric ischemia; Additional info: Mesenteric ischemia protocol used, arterial and venous phase delays. TECHNIQUE: Imaging protocol: Axial computed tomographic angiography images of the abdomen and pelvis with intravenous contrast material. Coronal and sagittal reformatted images were created and reviewed. 3D rendering: MIP reconstructed images were created and reviewed. Radiation optimization: All CT scans at this facility use at least one of these dose optimization techniques: automated exposure control; mA and/or kV adjustment per patient size (includes targeted exams where dose is matched to clinical indication); or iterative reconstruction. Contrast material: OMNIPAQUE 350; Contrast volume: 100 ml; Contrast route: IV; COMPARISON: CT ABDOMEN PELVIS W 10/17/2018 11:55 AM FINDINGS: Abnormal appearance to the colon which appears more diffuse than one would expect for a focal colitis such as diverticulitis and is more in keeping with a diffuse colitis. There is one 1.7 cm area of hypodensity in the lateral aspect of the descending colon which could potentially represent an intramural abscess. Moderate free fluid is present within the pelvis also suggesting an inflammatory process. No significant extraluminal air. No evidence of bowel obstruction. Mesenteric vessels appear widely patent. No obstructive uropathy. Minimal bibasilar atelectasis. IMPRESSION: Findings suggesting a diffuse colitis of uncertain etiology. Dictated and Authenticated by: Terry Beltrán MD. Ordering:IBETH Nichols MD
[2018-10-18] MEDS: traMADol 50 MG TAB PO (16:15)
--- NOTE | 2018-10-18 17:20 | PDOC.CMIN ---
Care Management Initial Assess REASON FOR HOSPITALIZATION:: Colitis, Hypokalemia, Dehydration PAST MEDICAL HISTORY/PAST SURGICAL HISTORY:: Abdominal pain (Acute),Enteritis (Acute),Weight loss (Acute),Colitis (Chronic). GERD (gastroesophageal reflux disease) (Chronic), Hyperlipidemia (Chronic), H/O lumbar discectomy (Chronic),Hx of colonoscopy (Chronic),Appendectomy PREVIOUS FUNCTIONAL STATUS/SOCIAL/FAMILY SUPPORTS:: Independent at baseline. 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 Her youngest daughter re moved in with her. CURRENT FUNCTIONAL STATUS:: Lying in bed and states she is feeling much better. Hopes to return home soon. ADVANCE DIRECTIVES:: None on file Has patient been provided with information about the portal?: No CODE STATUS:: Full Code INSURANCE COVERAGE / FINANCIAL ISSUES:: [place] Medicaid CURRENT HOME/COMMUNITY SERVICES/EQUIPMENT:: None at present time PRIMARY CARE PHYSICIAN:: Vinita Francis NP POTENTIAL DISCHARGE NEEDS:: F/U with PCP PATIENT/FAMILY EDUCATION NEEDS:: Discharge instructions ANTICIPATED BARRIERS TO DISCHARGE:: None identified TRANSPORTATION:: Family PLAN:: Return home when medically cleared for discharge. No services needed.
--- NOTE | 2018-10-18 17:43 | INITIAL_ITS ---
Care Management Initial Assess REASON FOR HOSPITALIZATION:: Colitis, Hypokalemia, Dehydration PAST MEDICAL HISTORY/PAST SURGICAL HISTORY:: Abdominal pain (Acute),Enteritis (Acute),Weight loss (Acute),Colitis (Chronic). GERD (gastroesophageal reflux disease) (Chronic), Hyperlipidemia (Chronic), H/O lumbar discectomy (Chronic),Hx of colonoscopy (Chronic),Appendectomy PREVIOUS FUNCTIONAL STATUS/SOCIAL/FAMILY SUPPORTS:: Independent at baseline. 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 Her youngest daughter re moved in with her. CURRENT FUNCTIONAL STATUS:: Lying in bed and states she is feeling much better. Hopes to return home soon. ADVANCE DIRECTIVES:: None on file Has patient been provided with information about the portal?: No CODE STATUS:: Full Code INSURANCE COVERAGE / FINANCIAL ISSUES:: [place] CURRENT HOME/COMMUNITY SERVICES/EQUIPMENT:: None at present time PRIMARY CARE PHYSICIAN:: Vinita Francis NP POTENTIAL DISCHARGE NEEDS:: F/U with PCP PATIENT/FAMILY EDUCATION NEEDS:: Discharge instructions ANTICIPATED BARRIERS TO DISCHARGE:: None identified TRANSPORTATION:: Family PLAN:: Return home when medically cleared for discharge. No services needed.
[2018-10-18] MEDS: POTASSIUM CHLORIDE/D5-0.9%NACL 1,000 ML 125 MEQ IV (18:06)
[2018-10-18] MEDS: Atorvastatin 20 MG TAB PO (21:45)
[2018-10-19] VITALS (7 sets, daily range): BP systolic 90–110; BP diastolic 52–62; PULSE 74–87; RESP 16–18; TEMP 36.2–37.6; O2SAT 97–98
[2018-10-19] MEDS: traMADol 50 MG TAB PO ×3 (01:13→20:20)
[2018-10-19] MEDS: metroNIDAZOLE 500 MG/100 ML BAG 100 MG IVPB ×4 (01:14→23:23)
[2018-10-19] MEDS: Normal Saline Flush 10 ML SYR IVP (01:14)
[2018-10-19] MEDS: FAMOTIDINE 20 MG/50 ML BAG 200 MG IVPB (03:13)
[2018-10-19] MEDS: POTASSIUM CHLORIDE/D5-0.9%NACL 1,000 ML 125 MEQ IV ×3 (03:15→21:37)
[2018-10-19] MEDS: CIPROFLOXACIN 400 MG/200 ML BAG 200 MG IVPB ×2 (05:15→17:26)
[2018-10-19] MEDS: Nystatin 500000 UNITS/5 ML SUSP 5ML CUP PO ×5 (05:15→21:36)
[2018-10-19 07:04] LABS: Abs Immature Grans 0.08 k/cumm (0.0-0.09); Absolute Eosinophil Count 0.09 k/cumm (0.0-0.7); Absolute Monocyte Count 1.23 k/cumm (0.11-0.7); Basophils % 0.1; Eosinophils % 0.6; HCT 26.7 % (36.0-46.0); HGB 8.5 g/dL (12.0-15.5); Immature Grans % 0.5; Lymphocytes % 13.7; Mean Corp. HGB Concentration 31.8 g/dL (32.0-36.0); Mean Corpuscular Hemoglobin 31.6 pg (27.0-33.0); Mean Corpuscular Volume 99.3 fL (80-95); Mean Platelet Volume 8.9 fL (8.0-11.0); Monocytes % 8.4; Neutrophils % 76.7; Platelet Count 478 x1000/uL (130-400); RBC 2.69 m/cumm (4.00-5.20); RBC Distribution Width 13.8 % (11.7-14.6)
[2018-10-19 07:07] LABS: Absolute Basophil Count 0.01 k/cumm (0.0-0.2); Absolute Lymphocyte Count 2.01 k/cumm (1.2-3.4); Absolute Neutrophil Count 11.27 k/cumm (1.2-6.7)
[2018-10-19 07:08] LABS: Anion Gap 8.9 mmol/L (3-11); BUN 2 mg/dL (7-18); CO2 23.1 mmol/L (21.0-32.0); CREATININE 0.54 mg/dL (0.55-1.02); Calcium 7.3 mg/dL (8.5-10.1); Chloride 102 mmol/L (98-107); Glucose 164 mg/dL (70-100); Magnesium 1.8 mg/dL (1.8-2.4); Potassium 3.9 mmol/L (3.5-5.1); Sodium 134 mmol/L (136-145)
[2018-10-19] MEDS: Thiamine 100 MG TAB PO (07:32)
[2018-10-19] MEDS: Multivitamin TAB 1 TAB PO (07:32)
[2018-10-19] MEDS: Acetaminophen 325 MG TAB PO ×2 (07:32→11:49)
[2018-10-19] MEDS: Magnesium Oxide 400 MG TAB PO (08:46)
[2018-10-19] MEDS: Potassium Chloride 10 MEQ TABCR PO (08:55)
--- NOTE | 2018-10-19 14:04 | PGE_ITS ---
Date of Service Date of service: 10/19/18 Time of Service: 13:58 Assessment and Plan (1) Acute on chronic colitis: Current visit: Yes Status: Acute Apparent recurrent bout of Colitis, with prior colonoscopy showing element of chronicity. Appears to be improving with IVFs and antibiotics. Patient with evidence of leukocytosis, elevated temperature, elevated CRP/ESR, and chronic colitis by colonoscopy - question potential Inflammatory Bowel Disease. CTA ruled out Mesenteric Ischemia. Discussed case with surgery and GI - plan is to continue current management with plans for GI follow-up as outpatient. Continue IVFs, antiemetics, and antibiotics. C.Diff negative - Fecal Occult Blood test +, C. Diff negative. Stool cultures, ANCA, and other labs still pending. (2) Anemia: Current visit: Yes Status: Chronic Low iron, very low TIBC, and Ferritin in the 300 range, with normal TSH, B12, and FA. Appears to be Anemia of Chronic Disease, but with concurrent FOBT + in setting of colitis. Monitor Hemoglobin. (3) Thrombocytosis: Current visit: Yes Status: Acute Likely reactive. Improving. (4) Unexplained weight loss: Current visit: Yes Status: Acute Potentially on basis of Untreated Chronic Disease but cannot rule out malignancy. CXR from last month without evidence of pathology, and CT of the abdomen and pelvis/Colonoscopy this winter without evidence of malignancy. (5) GERD (gastroesophageal reflux disease): Current visit: Yes Status: Chronic Currently PPI. (6) Chronic pain: Current visit: Yes Status: Chronic Continue Tramadol. (7) DVT prophylaxis: Current visit: Yes Status: Acute SCD's and TRACY's. Hold off on Chemical prophylaxis for now given worsening anemia and + Fecal Occult Blood Testing. Subjective Interval history since last seen: 58 year old woman with a prior episode of Colitis in April of 2018, admitted from [facility] Emergency Department on 10/17 with a diagnosis of Enteritis. Mrs. Mcknight has a prior history of Chronic Back Pain, Dyslipidemia, GERD, and Tobacco Abuse. In April of 2018 she was admitted at [facility] in [place], [place] and treated for an episode of Colitis. She reports a follow-up Colono scopy in early winter at [facility], with pathology reports showing evidence of Chronic Colitis, scattered Cryptitis, Crypt Abscesses, but no evidence of Granulomas. Patient also reported an approximately 30-35 pound weight loss over the last 6 months. She presented to the ED with complaints of a one week history of diffuse abdominal pain, nausea, vomiting, and diarrhea. She denied Hematemesis and Hematochezia, and reports that her symptoms were the same as her prior diagnosis in April that led to a hospitalization. Her symptoms then had resolved with IVFs and antibiotics. She reports that her PCP prescribed oral antibiotics 1 week prior without effect. This morning the patient reports continued improvement in her symptoms overall, with decrease in nausea and no further vomiting, increased appetite, and improvement in her diarrhea. She continues to have a Leukocytosis, essentially unchanged. No overnight events reported. She remains afebrile. Exam Narrative Exam Narrative: General: Patient appears comfortable, AAOX3, NAD Neck: Supple CV: Regular, nontachycardic, S1S2, No rubs, murmurs, or gallops. Pulmonary: Clear to auscultation bilaterally, no crackles, wheezing, or rhonchi Abdomen: + Bowel Sounds, soft, mild continued tenderness mostly in the lower quadrants, nondistended Vascular: No lower extremity edema Psych: Normal mood and affect. Objective Objective Clinical Data: Abnormal lab results 10/19/18 10/19/18 Range/Units 06:20 06:20 WBC 14.70 H (4.4-10.8) k/cumm RBC 2.69 L (4.00-5.20) m/cumm Hgb 8.5 L (12.0-15.5) g/dL Hct 26.7 L (36.0-46.0) % MCV 99.3 H (80-95) fL MCHC 31.8 L (32.0-36.0) g/dL Plt Count 478 H (130-400) x1000/uL Absolute Neutrophils 11.27 H (1.2-6.7) k/cumm Absolute Monocytes 1.23 H (0.11-0.7) k/cumm Sodium 134 L (136-145) mmol/L BUN 2 L (7-18) mg/dL Creatinine 0.54 L (0.55-1.02) mg/dL Glucose 164 H (70-100) mg/dL Calcium 7.3 L (8.5-10.1) mg/dL Vital Signs Temperature 36.2 C L 10/19/18 11:49 Temperature Source Tympanic 10/19/18 07:05 Pulse 74 10/19/18 11:49 Pulse Rhythm Regular 10/19/18 07:30 Respiratory Rate 16 10/19/18 11:49 Respiratory Effort Non-Labored 10/19/18 07:30 Respiratory Depth Normal 10/19/18 07:30 Respiratory Pattern Normal 10/19/18 07:30 Blood Pressure 91/56 L 10/19/18 11:49 Blood Pressure Position Sitting 10/17/18 10:13 Pulse Oximetry 97 10/19/18 11:49 Oxygen Delivery Method Room Air 10/19/18 11:49 Oxygen Flow Rate 0 10/19/18 11:49 Pain Level 5 10/19/18 11:49 Comment 10/18/18 10:05 Intake & Output 10/18/18 10/19/18 10/19/18 23:59 11:59 23:59 Intake Total 1578.000 / 3944.000 2197.917 / 2197.917 Output Total 900 / 1850 700 / 700 Balance 678.000 / 2094.000 1497.917 / 1497.917 Weight 46.918 kg Intake: IV 963.000 / 3329.000 2197.917 / 2197.917 Oral 615 / 615 Output: Urine 900 / 1850 700 / 700 Other: Urine Color Yellow Pale Urine Appearance Clear Clear Urine Odor Normal None Comment Flushed. Volume not measured mixed w stool Stool Occult Blood Positive Stool Size Small Stool Characteristics Soft Liquid Brown Voiding Methods Toilet Toilet Laboratory Results WBC 14.70 k/cumm (4.4-10.8) H 10/19/18 06:20 RBC 2.69 m/cumm (4.00-5.20) L 10/19/18 06:20 Hgb 8.5 g/dL (12.0-15.5) L 10/19/18 06:20 Hct 26.7 % (36.0-46.0) L 10/19/18 06:20 MCV 99.3 fL (80-95) H 10/19/18 06:20 MCH 31.6 pg (27.0-33.0) 10/19/18 06:20 MCHC 31.8 g/dL (32.0-36.0) L 10/19/18 06:20 RDW 13.8 % (11.7-14.6) 10/19/18 06:20 Plt Count 478 x1000/uL (130-400) H 10/19/18 06:20 MPV 8.9 fL (8.0-11.0) 10/19/18 06:20 Immature Gran % 0.5 10/19/18 06:20 Neutrophils % 76.7 10/19/18 06:20 Lymphocytes % 13.7 10/19/18 06:20 Monocytes % 8.4 10/19/18 06:20 Eosinophils % 0.6 10/19/18 06:20 Basophils % 0.1 10/19/18 06:20 Absolute Neutrophils 11.27 k/cumm (1.2-6.7) H 10/19/18 06:20 Absolute Lymphocytes 2.01 k/cumm (1.2-3.4) 10/19/18 06:20 Absolute Monocytes 1.23 k/cumm (0.11-0.7) H 10/19/18 06:20 Absolute Eosinophils 0.09 k/cumm (0.0-0.7) 10/19/18 06:20 Absolute Basophils 0.01 k/cumm (0.0-0.2) 10/19/18 06:20 ESR 62 MM/HR (0-30) H 10/18/18 06:30 Sodium 134 mmol/L (136-145) L 10/19/18 06:20 Potassium 3.9 mmol/L (3.5-5.1) D 10/19/18 06:20 Chloride 102 mmol/L (98-107) 10/19/18 06:20 Carbon Dioxide 23.1 mmol/L (21.0-32.0) 10/19/18 06:20 Anion Gap 8.9 mmol/L (3-11) 10/19/18 06:20 BUN 2 mg/dL (7-18) L 10/19/18 06:20 Creatinine 0.54 mg/dL (0.55-1.02) L 10/19/18 06:20 Estimated GFR/1.73 m2 >= 60.00 (mL/min/1.73m2) 10/19/18 06:20 Glucose 164 mg/dL (70-100) H 10/19/18 06:20 Lactate 0.8 mmol/l (0.6-1.4) 10/17/18 16:00 Calcium 7.3 mg/dL (8.5-10.1) L 10/19/18 06:20 Magnesium 1.8 mg/dL (1.8-2.4) 10/19/18 06:20 Iron 12 ug/dL (50-175) L 10/18/18 06:30 TIBC 59 ug/dL (250-450) L 10/18/18 06:30 Transferrin % Sat 20 % (15-50) 10/18/18 06:30 Ferritin 358 ng/mL (8-388) 10/18/18 06:30 Total Bilirubin 0.3 mg/dL (0.2-1.0) 10/17/18 10:35 Conjugated Bilirubin 0.10 mg/dL (0.00-0.20) 10/17/18 10:35 AST 16 U/L (15-37) 10/17/18 10:35 ALT 20 U/L (12-78) 10/17/18 10:35 Alkaline Phosphatase 79 U/L (46-116) 10/17/18 10:35 C-Reactive Protein 5.58 mg/dL (0.0-0.3) H 10/18/18 06:30 Total Protein 8.1 g/dL (6.4-8.2) 10/17/18 10:35 Albumin 2.8 g/dL (3.4-5.0) L 10/17/18 10:35 Lipase 91 U/L (73-393) 10/17/18 10:35 Vitamin B12 1255 pg/mL (193-986) H 10/18/18 06:30 Folate 14.1 ng/mL (8.6-20.0) 10/18/18 06:30 TSH 0.84 uIU/mL (0.358-3.74) 10/17/18 10:35 Free T4 1.40 ng/dL (0.76-1.46) 10/17/18 10:35 Urine Color Dark yellow (Yellow) 10/17/18 10:55 Urine Clarity Clear 10/17/18 10:55 Urine pH 5.5 (5-8) 10/17/18 10:55 Ur Specific [place] >= 1.030 (1.005-1.025) H 10/17/18 10:55 Urine Protein 100 mg/dL (Negative) H 10/17/18 10:55 Urine Ketones >=160 mg/dL (Negative) H 10/17/18 10:55 Urine Blood Trace-intact (Negative) H 10/17/18 10:55 Urine Nitrite Positive (Negative) H 10/17/18 10:55 Urine Bilirubin Large (Negative) H 10/17/18 10:55 Urine Urobilinogen 1.0 EU/dL (Up TO 0.2) H 10/17/18 10:55 Ur Leukocyte Esterase Small (Negative) H 10/17/18 10:55 Urine RBC 0-2 (0-2) 10/17/18 10:55 Urine WBC 0-2 HPF (0-5) 10/17/18 10:55 Ur Epithelial Cells Many HPF (Negative) 10/17/18 10:55 Urine Crystals Negative HPF (Negative) 10/17/18 10:55 Urine Bacteria Few HPF (Negative) 10/17/18 10:55 Urine Casts Negative LPF (Negative) 10/17/18 10:55 Urine Mucus Negative (Negative) 10/17/18 10:55 Ur Culture Indicated? No/sq. contamination 10/17/18 10:55 Urine Glucose Negative mg/dL (Negative) 10/17/18 10:55
--- NOTE | 2018-10-19 15:07 | PDOC.CMPRO ---
Care Management Progress Note S/O: Lubna was ambulating independently in her room and stated she was ready to go home and hoped to be discharged tomorrow. Still experiencing abdominal pain and rang for the nurse to give her something to relieve it. A: 58 y.o. female admitted for colitis, hypokalemia, dehydration now on day 2 of her acute hospitalization. Contiues to receive IV fluids. P: Lubna will return home and no services are needed. She will need to follow up with diagnostic testing and evaluation as an outpatient once medically cleared for discharge.
--- NOTE | 2018-10-19 15:59 | PGE_ITS ---
Date of Service Date of service: 10/19/18 Time of Service: 13:25 Assessment and Plan (1) Acute on chronic colitis: Current visit: Yes Status: Acute Pt still with abdominal pain and tenderness. Leukocytosis persists. If no improvement in a couple of day, may have to repeat CT to evaluate for abscess suggested on CTA. cont antibiotics IV fluids serial exams daily labs pain control may have to decrease diet until no further abdominal pain/tenderness, allow for bowel rest (2) Unexplained weight loss: Current visit: Yes Status: Acute plan for outpatient EGD/colo once recovered f/u pending labs, serologies Subjective Interval history since last seen: The patient is having a little more pain than yesterday. A little nausea, no vomiting. Otherwise, tolerating soft foods and liquids, but hasn't tried anything heavy. Still with loose stools. Voiding without difficulty. Pain is controlled. Exam Const General: cooperative, comfortable and no acute distress Nutritional Appearance: cachectic and malnourished Orientation: alert, awake and oriented x3 HENMT Head: other (mild temporal wasting) Mouth: moist mucous membranes Neck Neck: trachea midline and supple Chest Chest: no crepitus and no tenderness Resp Effort & Inspection: normal respiratory effort, not labored and not tachypneic Auscultation: clear to auscultation bilaterally Cardio Rate: regular rate Rhythm: regular rhythm Heart Sounds: S1 normal and S2 normal GI Inspection: non-distended Palpation: soft, not firm, not rigid and tender (more tender than yesterday in lower abdomen; no peritoneal signs) Auscultation: hypoactive bowel sounds Skin General skin exam: no rashes or lesions noted Hair: general thinning Psych Appearance: grossly normal Speech and Movement: speech and movement normal Mood: congruent mood Affect: normal affect Attitude: cooperative Insight: insight good Judgment: judgment good Objective Objective Clinical Data: Abnormal lab results 10/19/18 10/19/18 Range/Units 06:20 06:20 WBC 14.70 H (4.4-10.8) k/cumm RBC 2.69 L (4.00-5.20) m/cumm Hgb 8.5 L (12.0-15.5) g/dL Hct 26.7 L (36.0-46.0) % MCV 99.3 H (80-95) fL MCHC 31.8 L (32.0-36.0) g/dL Plt Count 478 H (130-400) x1000/uL Absolute Neutrophils 11.27 H (1.2-6.7) k/cumm Absolute Monocytes 1.23 H (0.11-0.7) k/cumm Sodium 134 L (136-145) mmol/L BUN 2 L (7-18) mg/dL Creatinine 0.54 L (0.55-1.02) mg/dL Glucose 164 H (70-100) mg/dL Calcium 7.3 L (8.5-10.1) mg/dL Vital Signs Temperature 98.2 F 10/19/18 15:38 Temperature Source Tympanic 10/19/18 15:38 Pulse 81 10/19/18 15:38 Pulse Rhythm Regular 10/19/18 07:30 Respiratory Rate 17 10/19/18 15:38 Respiratory Effort Non-Labored 10/19/18 07:30 Respiratory Depth Normal 10/19/18 07:30 Respiratory Pattern Normal 10/19/18 07:30 Blood Pressure 92/56 L 10/19/18 15:38 Blood Pressure Position Sitting 10/17/18 10:13 Pulse Oximetry 97 10/19/18 15:38 Oxygen Delivery Method Room Air 10/19/18 15:38 Oxygen Flow Rate 0 10/19/18 15:38 Pain Level 8 10/19/18 15:38 Comment 10/18/18 10:05 Intake & Output 10/18/18 10/19/18 10/19/18 23:59 11:59 23:59 Intake Total 1578.000 / 3944.000 2597.917 / 3122.917 525 / 3122.917 Output Total 900 / 1850 700 / 700 Balance 678.000 / 2094.000 1897.917 / 2422.917 525 / 2422.917 Weight 103 lb 7 oz Intake: IV 963.000 / 3329.000 2197.917 / 2197.917 Oral 615 / 615 400 / 925 525 / 925 Output: Urine 900 / 1850 700 / 700 Other: Urine Color Yellow Pale Urine Appearance Clear Clear Urine Odor Normal None Comment Flushed. Volume not measured mixed w stool in hat Pt voided in bathroom. Flushed and not viewed by nurse. Stool Occult Blood Positive Stool Size Small Small Stool Characteristics Soft Soft Liquid Brown Brown Voiding Methods Toilet Toilet Toilet Laboratory Results WBC 14.70 k/cumm (4.4-10.8) H 10/19/18 06:20 RBC 2.69 m/cumm (4.00-5.20) L 10/19/18 06:20 Hgb 8.5 g/dL (12.0-15.5) L 10/19/18 06:20 Hct 26.7 % (36.0-46.0) L 10/19/18 06:20 MCV 99.3 fL (80-95) H 10/19/18 06:20 MCH 31.6 pg (27.0-33.0) 10/19/18 06:20 MCHC 31.8 g/dL (32.0-36.0) L 10/19/18 06:20 RDW 13.8 % (11.7-14.6) 10/19/18 06:20 Plt Count 478 x1000/uL (130-400) H 10/19/18 06:20 MPV 8.9 fL (8.0-11.0) 10/19/18 06:20 Immature Gran % 0.5 10/19/18 06:20 Neutrophils % 76.7 10/19/18 06:20 Lymphocytes % 13.7 10/19/18 06:20 Monocytes % 8.4 10/19/18 06:20 Eosinophils % 0.6 10/19/18 06:20 Basophils % 0.1 10/19/18 06:20 Absolute Neutrophils 11.27 k/cumm (1.2-6.7) H 10/19/18 06:20 Absolute Lymphocytes 2.01 k/cumm (1.2-3.4) 10/19/18 06:20 Absolute Monocytes 1.23 k/cumm (0.11-0.7) H 10/19/18 06:20 Absolute Eosinophils 0.09 k/cumm (0.0-0.7) 10/19/18 06:20 Absolute Basophils 0.01 k/cumm (0.0-0.2) 10/19/18 06:20 ESR 62 MM/HR (0-30) H 10/18/18 06:30 Sodium 134 mmol/L (136-145) L 10/19/18 06:20 Potassium 3.9 mmol/L (3.5-5.1) D 10/19/18 06:20 Chloride 102 mmol/L (98-107) 10/19/18 06:20 Carbon Dioxide 23.1 mmol/L (21.0-32.0) 10/19/18 06:20 Anion Gap 8.9 mmol/L (3-11) 10/19/18 06:20 BUN 2 mg/dL (7-18) L 10/19/18 06:20 Creatinine 0.54 mg/dL (0.55-1.02) L 10/19/18 06:20 Estimated GFR/1.73 m2 >= 60.00 (mL/min/1.73m2) 10/19/18 06:20 Glucose 164 mg/dL (70-100) H 10/19/18 06:20 Lactate 0.8 mmol/l (0.6-1.4) 10/17/18 16:00 Calcium 7.3 mg/dL (8.5-10.1) L 10/19/18 06:20 Magnesium 1.8 mg/dL (1.8-2.4) 10/19/18 06:20 Iron 12 ug/dL (50-175) L 10/18/18 06:30 TIBC 59 ug/dL (250-450) L 10/18/18 06:30 Transferrin % Sat 20 % (15-50) 10/18/18 06:30 Ferritin 358 ng/mL (8-388) 10/18/18 06:30 Total Bilirubin 0.3 mg/dL (0.2-1.0) 10/17/18 10:35 Conjugated Bilirubin 0.10 mg/dL (0.00-0.20) 10/17/18 10:35 AST 16 U/L (15-37) 10/17/18 10:35 ALT 20 U/L (12-78) 10/17/18 10:35 Alkaline Phosphatase 79 U/L (46-116) 10/17/18 10:35 C-Reactive Protein 5.58 mg/dL (0.0-0.3) H 10/18/18 06:30 Total Protein 8.1 g/dL (6.4-8.2) 10/17/18 10:35 Albumin 2.8 g/dL (3.4-5.0) L 10/17/18 10:35 Lipase 91 U/L (73-393) 10/17/18 10:35 Vitamin B12 1255 pg/mL (193-986) H 10/18/18 06:30 Folate 14.1 ng/mL (8.6-20.0) 10/18/18 06:30 TSH 0.84 uIU/mL (0.358-3.74) 10/17/18 10:35 Free T4 1.40 ng/dL (0.76-1.46) 10/17/18 10:35 Urine Color Dark yellow (Yellow) 10/17/18 10:55 Urine Clarity Clear 10/17/18 10:55 Urine pH 5.5 (5-8) 10/17/18 10:55 Ur Specific [place] >= 1.030 (1.005-1.025) H 10/17/18 10:55 Urine Protein 100 mg/dL (Negative) H 10/17/18 10:55 Urine Ketones >=160 mg/dL (Negative) H 10/17/18 10:55 Urine Blood Trace-intact (Negative) H 10/17/18 10:55 Urine Nitrite Positive (Negative) H 10/17/18 10:55 Urine Bilirubin Large (Negative) H 10/17/18 10:55 Urine Urobilinogen 1.0 EU/dL (Up TO 0.2) H 10/17/18 10:55 Ur Leukocyte Esterase Small (Negative) H 10/17/18 10:55 Urine RBC 0-2 (0-2) 10/17/18 10:55 Urine WBC 0-2 HPF (0-5) 10/17/18 10:55 Ur Epithelial Cells Many HPF (Negative) 10/17/18 10:55 Urine Crystals Negative HPF (Negative) 10/17/18 10:55 Urine Bacteria Few HPF (Negative) 10/17/18 10:55 Urine Casts Negative LPF (Negative) 10/17/18 10:55 Urine Mucus Negative (Negative) 10/17/18 10:55 Ur Culture Indicated? No/sq. contamination 10/17/18 10:55 Urine Glucose Negative mg/dL (Negative) 10/17/18 10:55
[2018-10-19] MEDS: Atorvastatin 20 MG TAB PO (21:36)
[2018-10-20] MEDS: traMADol 50 MG TAB PO ×4 (01:11→20:28)
[2018-10-20 03:17] VITALS: BP 90/55; PULSE 83; RESP 16; TEMP 37.3; O2SAT 96
[2018-10-20] MEDS: POTASSIUM CHLORIDE/D5-0.9%NACL 1,000 ML 125 MEQ IV (04:45)
[2018-10-20] MEDS: CIPROFLOXACIN 400 MG/200 ML BAG 200 MG IVPB ×2 (05:55→17:26)
[2018-10-20] MEDS: Nystatin 500000 UNITS/5 ML SUSP 5ML CUP PO ×5 (05:55→21:55)
[2018-10-20] MEDS: metroNIDAZOLE 500 MG/100 ML BAG 100 MG IVPB ×2 (07:30→15:52)
[2018-10-20] MEDS: Omeprazole 20 MG CAPCR 40 MG PO (07:31)
[2018-10-20] MEDS: Thiamine 100 MG TAB PO (07:31)
[2018-10-20] MEDS: Multivitamin TAB 1 TAB PO (07:31)
[2018-10-20 07:35] VITALS: BP 91/56; PULSE 76; RESP 16; TEMP 36.2; O2SAT 97
[2018-10-20 07:53] LABS: Abs Immature Grans 0.07 k/cumm (0.0-0.09); Absolute Basophil Count 0.02 k/cumm (0.0-0.2); Absolute Eosinophil Count 0.04 k/cumm (0.0-0.7); Absolute Monocyte Count 0.83 k/cumm (0.11-0.7); Absolute Neutrophil Count 7.65 k/cumm (1.2-6.7); Basophils % 0.2; Eosinophils % 0.4; HCT 28.1 % (36.0-46.0); HGB 8.9 g/dL (12.0-15.5); Immature Grans % 0.6; Lymphocytes % 21.1; Mean Corp. HGB Concentration 31.7 g/dL (32.0-36.0); Mean Corpuscular Hemoglobin 31.4 pg (27.0-33.0); Mean Corpuscular Volume 99.3 fL (80-95); Monocytes % 7.6; Neutrophils % 70.1; Platelet Count 481 x1000/uL (130-400); RBC 2.83 m/cumm (4.00-5.20); RBC Distribution Width 13.7 % (11.7-14.6); White Blood Cell Count 10.91 k/cumm (4.4-10.8)
[2018-10-20 07:57] LABS: C-Reactive Protein 5.14 mg/dL (0.0-0.3); Magnesium 1.6 mg/dL (1.8-2.4)
[2018-10-20 08:05] LABS: CREATININE 0.47 mg/dL (0.55-1.02); Calcium 7.6 mg/dL (8.5-10.1); Chloride 101 mmol/L (98-107); Glucose 137 mg/dL (70-100); Potassium 3.8 mmol/L (3.5-5.1); Sodium 133 mmol/L (136-145)
[2018-10-20 08:06] LABS: BUN 1 mg/dL (7-18)
[2018-10-20 08:55] LABS: Diff Comment RBC Morph Reviewed; Polychromasia Present
--- NOTE | 2018-10-20 09:23 | W.PM.PROGNOT ---
Date of Service Date of service: 10/20/18 Time of Service: 09:24 Assessment and Plan (1) Acute on chronic colitis: Current visit: Yes Status: Acute Pt still symptomatic with nausea and abdominal pain Cont full liquids/soft diet until no pain/tenderness cont IV antibiotics anti-emetics prn pain control--avoid narcotics, if possible daily labs (2) Unexplained weight loss: Current visit: Yes Status: Acute Pt with ~35 lbs weight loss over 6 months await pending serology/lab studies outpt EGD/colo f/u nutritional support Subjective Patient reports: still having pain, tolerating liquids well, voiding w/o difficulty, bowel movement, nausea and vomiting Interval history since last seen: Pt awoke feeling nauseated twice last night. She vomited non-bilious fluid and had some dry retching. Feels better now. Small BM this morniing. Otherwise feels okay. Belly is sore from voimtiing. Overall, abd pain is better. Exam Narrative Exam Narrative: General: Very pleasant middle-aged female, who has jain wasting and looks like she has lost some weight; not in acute distress, laying in bed Neurological: A&Ox3, no focal deficits Psychiatric: appropriate speech pattern/content Skin: no bruising/rashes HEENT: Atraumatic, normocephalic, whitish film over tongue, Cardiovascular: RRR, no m/r/g Lungs: Diminished breath sounds B Gastrointestinal: abdomen is soft, nondistended, + BS, Exquisitely tender to palpation throughout, but especially epigastrically and in the lower abdomen Extremities: No e/c/c BLE's, 2+ pedal pulses B Const General: cooperative and no acute distress Nutritional Appearance: malnourished Orientation: alert, awake and oriented x3 Neck Neck: trachea midline and supple Chest Chest: no tenderness Resp Effort & Inspection: normal respiratory effort and able to speak in complete sentences GI Inspection: non-distended and scaphoid Palpation: soft, not firm, no guarding, not rigid and tender (mild tenderness to palpatio (suspect muscular pain from retching)) Skin General skin exam: no rashes or lesions noted Hair: general thinning Neuro General: alert, awake and oriented x3 Speech: speech normal Psych Mental Status: mental status grossly normal Mood: congruent mood Affect: normal affect Attitude: cooperative Insight: insight good Judgment: judgment good Objective Objective Clinical Data: Abnormal lab results 10/20/18 10/20/18 10/20/18 Range/Units 06:55 06:55 06:55 WBC 10.91 H (4.4-10.8) k/cumm RBC 2.83 L (4.00-5.20) m/cumm Hgb 8.9 L (12.0-15.5) g/dL Hct 28.1 L (36.0-46.0) % MCV 99.3 H (80-95) fL MCHC 31.7 L (32.0-36.0) g/dL Plt Count 481 H (130-400) x1000/uL Absolute Neutrophils 7.65 H (1.2-6.7) k/cumm Absolute Monocytes 0.83 H (0.11-0.7) k/cumm Sodium 133 L (136-145) mmol/L BUN 1 L (7-18) mg/dL Creatinine 0.47 L (0.55-1.02) mg/dL Glucose 137 H (70-100) mg/dL Calcium 7.6 L (8.5-10.1) mg/dL Magnesium 1.6 L (1.8-2.4) mg/dL C-Reactive Protein 5.14 H (0.0-0.3) mg/dL Vital Signs Temperature 97.2 F L 10/20/18 07:35 Temperature Source Tympanic 10/20/18 07:35 Pulse 76 10/20/18 07:35 Pulse Rhythm Regular 10/20/18 07:35 Respiratory Rate 16 10/20/18 07:35 Respiratory Effort Non-Labored 10/20/18 07:35 Respiratory Depth Normal 10/20/18 07:35 Respiratory Pattern Normal 10/20/18 07:35 Blood Pressure 91/56 L 10/20/18 07:35 Blood Pressure Position Sitting 10/17/18 10:13 Pulse Oximetry 97 10/20/18 07:35 Oxygen Delivery Method Room Air 10/20/18 07:35 Oxygen Flow Rate 0 10/20/18 07:35 Pain Level 1 10/20/18 07:35 Comment 10/18/18 10:05 Intake & Output 10/19/18 10/19/18 10/20/18 11:59 23:59 11:59 Intake Total 2597.917 / 4823.335 2225.418 / 4823.335 1141.667 / 1141.667 Output Total 700 / 700 1874 Balance 1897.917 / 4123.335 2225.418 / 4123.335 -733.333 / -733.333 Weight 103 lb 7 oz 103 lb 6.349 oz Intake: IV 2197.917 / 3658.335 1460.418 / 3658.335 991.667 / 991.667 Oral 400 / 1165 765 / 1165 150 / 150 Output: Urine 700 / 700 1874 Other: Urine Color Pale Yellow Urine Appearance Clear Clear Urine Odor None Normal Comment mixed w stool in hat flushed by patient. mixed Stool Size Small Stool Characteristics Soft Brown Emesis Description Clear/Water Voiding Methods Toilet Toilet Toilet Laboratory Results WBC 10.91 k/cumm (4.4-10.8) H 10/20/18 06:55 RBC 2.83 m/cumm (4.00-5.20) L 10/20/18 06:55 Hgb 8.9 g/dL (12.0-15.5) L 10/20/18 06:55 Hct 28.1 % (36.0-46.0) L 10/20/18 06:55 MCV 99.3 fL (80-95) H 10/20/18 06:55 MCH 31.4 pg (27.0-33.0) 10/20/18 06:55 MCHC 31.7 g/dL (32.0-36.0) L 10/20/18 06:55 RDW 13.7 % (11.7-14.6) 10/20/18 06:55 Plt Count 481 x1000/uL (130-400) H 10/20/18 06:55 MPV 9.0 fL (8.0-11.0) 10/20/18 06:55 Immature Gran % 0.6 10/20/18 06:55 Neutrophils % 70.1 10/20/18 06:55 Lymphocytes % 21.1 10/20/18 06:55 Monocytes % 7.6 10/20/18 06:55 Eosinophils % 0.4 10/20/18 06:55 Basophils % 0.2 10/20/18 06:55 Absolute Neutrophils 7.65 k/cumm (1.2-6.7) H 10/20/18 06:55 Absolute Lymphocytes 2.30 k/cumm (1.2-3.4) 10/20/18 06:55 Absolute Monocytes 0.83 k/cumm (0.11-0.7) H 10/20/18 06:55 Absolute Eosinophils 0.04 k/cumm (0.0-0.7) 10/20/18 06:55 Absolute Basophils 0.02 k/cumm (0.0-0.2) 10/20/18 06:55 Differential Comment Rbc morph reviewed 10/20/18 06:55 RBC Morphology See below 10/20/18 06:55 Polychromasia Present 10/20/18 06:55 ESR 62 MM/HR (0-30) H 10/18/18 06:30 Sodium 133 mmol/L (136-145) L 10/20/18 06:55 Potassium 3.8 mmol/L (3.5-5.1) 10/20/18 06:55 Chloride 101 mmol/L (98-107) 10/20/18 06:55 Carbon Dioxide 24.0 mmol/L (21.0-32.0) 10/20/18 06:55 Anion Gap 8.0 mmol/L (3-11) 10/20/18 06:55 BUN 1 mg/dL (7-18) L 10/20/18 06:55 Creatinine 0.47 mg/dL (0.55-1.02) L 10/20/18 06:55 Estimated GFR/1.73 m2 >= 60.00 (mL/min/1.73m2) 10/20/18 06:55 Glucose 137 mg/dL (70-100) H 10/20/18 06:55 Lactate 0.8 mmol/l (0.6-1.4) 10/17/18 16:00 Calcium 7.6 mg/dL (8.5-10.1) L 10/20/18 06:55 Magnesium 1.6 mg/dL (1.8-2.4) L 10/20/18 06:55 Iron 12 ug/dL (50-175) L 10/18/18 06:30 TIBC 59 ug/dL (250-450) L 10/18/18 06:30 Transferrin % Sat 20 % (15-50) 10/18/18 06:30 Ferritin 358 ng/mL (8-388) 10/18/18 06:30 Total Bilirubin 0.3 mg/dL (0.2-1.0) 10/17/18 10:35 Conjugated Bilirubin 0.10 mg/dL (0.00-0.20) 10/17/18 10:35 AST 16 U/L (15-37) 10/17/18 10:35 ALT 20 U/L (12-78) 10/17/18 10:35 Alkaline Phosphatase 79 U/L (46-116) 10/17/18 10:35 C-Reactive Protein 5.14 mg/dL (0.0-0.3) H 10/20/18 06:55 Total Protein 8.1 g/dL (6.4-8.2) 10/17/18 10:35 Albumin 2.8 g/dL (3.4-5.0) L 10/17/18 10:35 Lipase 91 U/L (73-393) 10/17/18 10:35 Vitamin B12 1255 pg/mL (193-986) H 10/18/18 06:30 Folate 14.1 ng/mL (8.6-20.0) 10/18/18 06:30 TSH 0.84 uIU/mL (0.358-3.74) 10/17/18 10:35 Free T4 1.40 ng/dL (0.76-1.46) 10/17/18 10:35 Urine Color Dark yellow (Yellow) 10/17/18 10:55 Urine Clarity Clear 10/17/18 10:55 Urine pH 5.5 (5-8) 10/17/18 10:55 Ur Specific [place] >= 1.030 (1.005-1.025) H 10/17/18 10:55 Urine Protein 100 mg/dL (Negative) H 10/17/18 10:55 Urine Ketones >=160 mg/dL (Negative) H 10/17/18 10:55 Urine Blood Trace-intact (Negative) H 10/17/18 10:55 Urine Nitrite Positive (Negative) H 10/17/18 10:55 Urine Bilirubin Large (Negative) H 10/17/18 10:55 Urine Urobilinogen 1.0 EU/dL (Up TO 0.2) H 10/17/18 10:55 Ur Leukocyte Esterase Small (Negative) H 10/17/18 10:55 Urine RBC 0-2 (0-2) 10/17/18 10:55 Urine WBC 0-2 HPF (0-5) 10/17/18 10:55 Ur Epithelial Cells Many HPF (Negative) 10/17/18 10:55 Urine Crystals Negative HPF (Negative) 10/17/18 10:55 Urine Bacteria Few HPF (Negative) 10/17/18 10:55 Urine Casts Negative LPF (Negative) 10/17/18 10:55 Urine Mucus Negative (Negative) 10/17/18 10:55 Ur Culture Indicated? No/sq. contamination 10/17/18 10:55 Urine Glucose Negative mg/dL (Negative) 10/17/18 10:55
[2018-10-20 09:43] LABS: ESR 66 MM/HR (0-30)
[2018-10-20 11:28] LABS: HIV-1/2 Ag & Ab Screen Negative (NEGAT)
[2018-10-20] MEDS: Potassium Chloride 20 MEQ TABCR PO (11:46)
[2018-10-20] MEDS: MAGNESIUM SULFATE 2 GM/50 ML BAG IVPB (11:47)
--- NOTE | 2018-10-20 12:50 | NS.NUTBLAN_ITS ---
Date of service: 10/20/18 Time of Service: 12:39 Nutritional Consult ASSESSMENT: Ms. Mcknight is ordered for fiber restricted full liquids. She is eating 0-25% of her meals. Weight records from [facility] show that she weighed 58.9 kg in March of 2018 and today she is 46.9 kg. This weight loss is a 26% weight loss over a 6 to 7 month period related to her acute on chronic colitis. She is 68 making her current BMI 16.7 kg.m2 which is consistent with underweight. Her estimated energy needs are 1400 kcal/day (30 kcal/kg/day). Her estimated protein needs are 61g-70 g/day (1.3g-1.5g/kg/day). Her estimated fluid needs are 1400 ml/day (30 ml/kg/day) NUTRITIONAL DIAGNOSIS: Severe malnutrition in the setting of acute illness as evidenced by 26% unintentional weight loss over 6to 7 month time period, fat loss notable in temples, and taking in less than 50% of her estimated energy needs for greater than 5 days. This nutritional diagnosis is based on the AND/ASPEN guidelines for diagnosing malnutrition. INTERVENTION: Would recommend changing diet order either back to clear liquids or advancing to a surgical soft as full liquids are high in milk proteins which generally speaking are not well tolerated with colitis. If Ms. Mcknight is unable to tolerate PO within the next 24 to 48 hours would consider TPN to prevent further muscle wasting, fat loss, and malnutrition. MONITORING AND EVALUATION: 1. Will monitor PO intake and weight. 2. Will provide recommendations for TPN if desired. 3. Will evaluate nutrition care plan ongoing and adjust as needed. Thank you for the consult. Time Spent in Nutritional Counseling and Treatment: KARLA
--- NOTE | 2018-10-20 13:01 | W.PM.PROGNOT ---
Date of Service Date of service: 10/20/18 Time of Service: 13:02 Assessment and Plan (1) Acute on chronic colitis: Current visit: Yes Status: Acute Apparent recurrent bout of Colitis, with prior colonoscopy this past winter significant for pathology (4 biopsies of pseudopolyps) that showed chronic colitis with mild activity, scattered cryptitis, Paneth Cell Metaplasia, and crypt destruction and repair, but negative for granulomas or dysplasia. Following her initial improvement with IVFs and antibiotics, she has failed to progress further both symptomatically and clinically. Patient with evidence of leukocytosis, elevated temperature, elevated CRP/ESR that is essentially unchanged since admission, and chronic colitis by colonoscopy - question potential Inflammatory Bowel Disease. CTA ruled out Mesenteric Ischemia. Discussed case with GI - plan had been to continue above care with hopes of a GI follow-up as outpatient. However, Ms. Mcknight continues to be essentially intolerant of a diet past liquids, and continues to be symptomatic. She has lost approximately 35 pounds as well since her initial diagnosis in April of 2018. She was accepted in transfer to [facility] for a planned inpatient Colonoscopy for further evaluation and initiation of therapy. Continue IVFs, antiemetics, and antibiotics for now. C.Diff negative - Fecal Occult Blood test +, Stool cultures, ANCA, and other labs still pending. (2) Anemia: Current visit: Yes Status: Chronic Low iron, very low TIBC, and Ferritin in the 300 range, with normal TSH, B12, and FA. Appears to be Anemia of Chronic Disease, but with concurrent FOBT + in setting of colitis. Monitor Hemoglobin - currently stable. (3) Thrombocytosis: Current visit: Yes Status: Acute Likely reactive. Improving. (4) Unexplained weight loss: Current visit: Yes Status: Acute Likely on the basis of Untreated Chronic Disease. CXR from last month without evidence of pathology, and CT of the abdomen and pelvis/Colonoscopy this winter without evidence of malignancy. (5) GERD (gastroesophageal reflux disease): Current visit: Yes Status: Chronic PPI therapy resumed. (6) Chronic pain: Current visit: Yes Status: Chronic Continue Tramadol. (7) DVT prophylaxis: Current visit: Yes Status: Acute SCD's and TRACY's. Hold off on Chemical prophylaxis for now given anemia and + Fecal Occult Blood Testing. (8) Discharge planning issues: Current visit: Yes Status: Acute Accepted in Transfer to [facility] Hospital Medicine, likely over the next 24-48 hours. Subjective Interval history since last seen: 58 year old woman with a prior episode of Colitis in April of 2018, admitted from [facility] Emergency Department on 10/17 with a diagnosis of Enteritis. Mrs. Mcknight has a prior history of Chronic Back Pain, Dyslipidemia, GERD, and Tobacco Abuse. In April of 2018 she was admitted at [facility] in [place], [place] and treated for an episode of Colitis. She reports a follow-up Colonoscopy in early winter at [facility], with pathology reports showing evidence of Chronic Colitis, scattered Cryptitis, Crypt Abscesses, but no evidence of Granulomas. Patient also reported an approximately 30-35 pound weight loss over the last 6 months. She presented to the ED with complaints of a one week history of diffuse abdominal pain, nausea, vomiting, and diarrhea. She denied Hematemesis and Hematochezia, and reports that her symptoms were the same as her prior diagnosis in April that led to a hospitalization. Her symptoms then had resolved with IVFs and antibiotics. She reports that her PCP prescribed oral antibiotics 1 week prior without effect. Following admission the patient reported improvement in her symptoms overall, with decrease in nausea and improvement in her diarrhea from watery to soft stools. However, she has failed to progress further, and had 2 bouts of vomiting overnight, and did not tolerate an advance in her diet - remains on liquids. She continues to have a Leukocytosis, and her inflammatory markers remain elevated and unchanged. She is mill tender on abdominal exam as well. No overnight events reported. She remains afebrile. Exam Narrative Exam Narrative: General: Patient appears comfortable, AAOX3, NAD Neck: Supple CV: Regular, nontachycardic, S1S2, No rubs, murmurs, or gallops. Pulmonary: Clear to auscultation bilaterally, no crackles, wheezing, or rhonchi Abdomen: + Bowel Sounds, soft, mild continued tenderness mostly in the lower quadrants, nondistended. No rebound or guarding. Vascular: No lower extremity edema Psych: Normal mood and affect. Objective Objective Clinical Data: Abnormal lab results 10/20/18 10/20/18 10/20/18 Range/Units 06:55 06:55 06:55 WBC 10.91 H (4.4-10.8) k/cumm RBC 2.83 L (4.00-5.20) m/cumm Hgb 8.9 L (12.0-15.5) g/dL Hct 28.1 L (36.0-46.0) % MCV 99.3 H (80-95) fL MCHC 31.7 L (32.0-36.0) g/dL Plt Count 481 H (130-400) x1000/uL Absolute Neutrophils 7.65 H (1.2-6.7) k/cumm Absolute Monocytes 0.83 H (0.11-0.7) k/cumm ESR 66 H (0-30) MM/HR Sodium 133 L (136-145) mmol/L BUN 1 L (7-18) mg/dL Creatinine 0.47 L (0.55-1.02) mg/dL Glucose 137 H (70-100) mg/dL Calcium 7.6 L (8.5-10.1) mg/dL Magnesium 1.6 L (1.8-2.4) mg/dL C-Reactive Protein 5.14 H (0.0-0.3) mg/dL Vital Signs Temperature 36.2 C L 10/20/18 07:35 Temperature Source Tympanic 10/20/18 07:35 Pulse 76 10/20/18 07:35 Pulse Rhythm Regular 10/20/18 07:35 Respiratory Rate 16 10/20/18 07:35 Respiratory Effort Non-Labored 10/20/18 07:35 Respiratory Depth Normal 10/20/18 07:35 Respiratory Pattern Normal 10/20/18 07:35 Blood Pressure 91/56 L 10/20/18 07:35 Blood Pressure Position Sitting 10/17/18 10:13 Pulse Oximetry 97 10/20/18 07:35 Oxygen Delivery Method Room Air 10/20/18 07:35 Oxygen Flow Rate 0 10/20/18 07:35 Pain Level 1 10/20/18 12:55 Comment 10/18/18 10:05 Intake & Output 10/19/18 10/20/18 10/20/18 23:59 11:59 23:59 Intake Total 2225.418 / 4823.335 1645.417 / 1645.417 Output Total 2350 / 2350 Balance 2225.418 / 4123.335 -704.583 / -704.583 Weight 46.9 kg Intake: IV 1460.418 / 3658.335 1435.417 / 1435.417 Oral 765 / 1165 210 / 210 Output: Urine 2350 / 2350 Other: Urine Color Yellow Urine Appearance Clear Urine Odor Normal Comment flushed by patient. mixed Emesis Description Clear/Water Voiding Methods Toilet Toilet Laboratory Results WBC 10.91 k/cumm (4.4-10.8) H 10/20/18 06:55 RBC 2.83 m/cumm (4.00-5.20) L 10/20/18 06:55 Hgb 8.9 g/dL (12.0-15.5) L 10/20/18 06:55 Hct 28.1 % (36.0-46.0) L 10/20/18 06:55 MCV 99.3 fL (80-95) H 10/20/18 06:55 MCH 31.4 pg (27.0-33.0) 10/20/18 06:55 MCHC 31.7 g/dL (32.0-36.0) L 10/20/18 06:55 RDW 13.7 % (11.7-14.6) 10/20/18 06:55 Plt Count 481 x1000/uL (130-400) H 10/20/18 06:55 MPV 9.0 fL (8.0-11.0) 10/20/18 06:55 Immature Gran % 0.6 10/20/18 06:55 Neutrophils % 70.1 10/20/18 06:55 Lymphocytes % 21.1 10/20/18 06:55 Monocytes % 7.6 10/20/18 06:55 Eosinophils % 0.4 10/20/18 06:55 Basophils % 0.2 10/20/18 06:55 Absolute Neutrophils 7.65 k/cumm (1.2-6.7) H 10/20/18 06:55 Absolute Lymphocytes 2.30 k/cumm (1.2-3.4) 10/20/18 06:55 Absolute Monocytes 0.83 k/cumm (0.11-0.7) H 10/20/18 06:55 Absolute Eosinophils 0.04 k/cumm (0.0-0.7) 10/20/18 06:55 Absolute Basophils 0.02 k/cumm (0.0-0.2) 10/20/18 06:55 Differential Comment Rbc morph reviewed 10/20/18 06:55 RBC Morphology See below 10/20/18 06:55 Polychromasia Present 10/20/18 06:55 ESR 66 MM/HR (0-30) H 10/20/18 06:55 Sodium 133 mmol/L (136-145) L 10/20/18 06:55 Potassium 3.8 mmol/L (3.5-5.1) 10/20/18 06:55 Chloride 101 mmol/L (98-107) 10/20/18 06:55 Carbon Dioxide 24.0 mmol/L (21.0-32.0) 10/20/18 06:55 Anion Gap 8.0 mmol/L (3-11) 10/20/18 06:55 BUN 1 mg/dL (7-18) L 10/20/18 06:55 Creatinine 0.47 mg/dL (0.55-1.02) L 10/20/18 06:55 Estimated GFR/1.73 m2 >= 60.00 (mL/min/1.73m2) 10/20/18 06:55 Glucose 137 mg/dL (70-100) H 10/20/18 06:55 Lactate 0.8 mmol/l (0.6-1.4) 10/17/18 16:00 Calcium 7.6 mg/dL (8.5-10.1) L 10/20/18 06:55 Magnesium 1.6 mg/dL (1.8-2.4) L 10/20/18 06:55 Iron 12 ug/dL (50-175) L 10/18/18 06:30 TIBC 59 ug/dL (250-450) L 10/18/18 06:30 Transferrin % Sat 20 % (15-50) 10/18/18 06:30 Ferritin 358 ng/mL (8-388) 10/18/18 06:30 Total Bilirubin 0.3 mg/dL (0.2-1.0) 10/17/18 10:35 Conjugated Bilirubin 0.10 mg/dL (0.00-0.20) 10/17/18 10:35 AST 16 U/L (15-37) 10/17/18 10:35 ALT 20 U/L (12-78) 10/17/18 10:35 Alkaline Phosphatase 79 U/L (46-116) 10/17/18 10:35 C-Reactive Protein 5.14 mg/dL (0.0-0.3) H 10/20/18 06:55 Total Protein 8.1 g/dL (6.4-8.2) 10/17/18 10:35 Albumin 2.8 g/dL (3.4-5.0) L 10/17/18 10:35 Lipase 91 U/L (73-393) 10/17/18 10:35 Vitamin B12 1255 pg/mL (193-986) H 10/18/18 06:30 Folate 14.1 ng/mL (8.6-20.0) 10/18/18 06:30 TSH 0.84 uIU/mL (0.358-3.74) 10/17/18 10:35 Free T4 1.40 ng/dL (0.76-1.46) 10/17/18 10:35 Urine Color Dark yellow (Yellow) 10/17/18 10:55 Urine Clarity Clear 10/17/18 10:55 Urine pH 5.5 (5-8) 10/17/18 10:55 Ur Specific [place] >= 1.030 (1.005-1.025) H 10/17/18 10:55 Urine Protein 100 mg/dL (Negative) H 10/17/18 10:55 Urine Ketones >=160 mg/dL (Negative) H 10/17/18 10:55 Urine Blood Trace-intact (Negative) H 10/17/18 10:55 Urine Nitrite Positive (Negative) H 10/17/18 10:55 Urine Bilirubin Large (Negative) H 10/17/18 10:55 Urine Urobilinogen 1.0 EU/dL (Up TO 0.2) H 10/17/18 10:55 Ur Leukocyte Esterase Small (Negative) H 10/17/18 10:55 Urine RBC 0-2 (0-2) 10/17/18 10:55 Urine WBC 0-2 HPF (0-5) 10/17/18 10:55 Ur Epithelial Cells Many HPF (Negative) 10/17/18 10:55 Urine Crystals Negative HPF (Negative) 10/17/18 10:55 Urine Bacteria Few HPF (Negative) 10/17/18 10:55 Urine Casts Negative LPF (Negative) 10/17/18 10:55 Urine Mucus Negative (Negative) 10/17/18 10:55 Ur Culture Indicated? No/sq. contamination 10/17/18 10:55 Urine Glucose Negative mg/dL (Negative) 10/17/18 10:55
[2018-10-20 13:06] VITALS: BP 97/60; PULSE 83; RESP 16; TEMP 36.2; O2SAT 95
[2018-10-20] MEDS: Normal Saline Flush 10 ML SYR IVP (13:43)
--- NOTE | 2018-10-20 14:52 | PDOC.CMPRO ---
- If Service Date Differs Date of service: 10/20/18 Time of Service: 14:52 Care Management Progress Note S/O: Lubna is sitting up in her bed this morning, pleasant and receptive to discussion. Lubna reports that she continues to have some nausea though states that she is feeling okay at the moment. No change in DC plan at this time. A: 58 y.o. female admitted for colitis, hypokalemia, dehydration now on day 2 of her acute hospitalization. Contiues to receive IV fluids. P: Lubna will return home and no services are needed. She will need to follow up with diagnostic testing and evaluation as an outpatient once medically cleared for discharge.
[2018-10-20 15:59] VITALS: BP 82/56; PULSE 81; RESP 18; TEMP 36.7; O2SAT 98
[2018-10-20 16:45] LABS: Myeloperoxidase Ab IgG <0.2 U; Proteinase 3 Ab (PR3) <0.2 U
[2018-10-20] MEDS: Normal Saline 1,000 ML 150 ML IV ×2 (17:27→23:12)
[2018-10-20 20:52] VITALS: BP 89/55; PULSE 82; RESP 18; TEMP 37.1; O2SAT 97
[2018-10-20] MEDS: Atorvastatin 20 MG TAB PO (21:55)
[2018-10-21] MEDS: metroNIDAZOLE 500 MG/100 ML BAG 100 MG IVPB ×2 (00:01→07:44)
[2018-10-21 00:04] LABS: Saccharomyces cerevisiae IgA 24.8 U
[2018-10-21 00:18] VITALS: BP 86/55; PULSE 83; RESP 16; TEMP 36.8; O2SAT 97
[2018-10-21 03:35] VITALS: BP 98/60; PULSE 74; RESP 17; TEMP 36.6; O2SAT 97
[2018-10-21] MEDS: CIPROFLOXACIN 400 MG/200 ML BAG 200 MG IVPB (06:08)
[2018-10-21] MEDS: Nystatin 500000 UNITS/5 ML SUSP 5ML CUP PO ×3 (06:08→14:29)
[2018-10-21 07:22] VITALS: BP 92/54; PULSE 79; RESP 18; TEMP 36.6; O2SAT 98
[2018-10-21] MEDS: Multivitamin TAB 1 TAB PO (07:43)
[2018-10-21] MEDS: Thiamine 100 MG TAB PO (07:43)
[2018-10-21] MEDS: Omeprazole 20 MG CAPCR 40 MG PO (07:43)
[2018-10-21] MEDS: traMADol 50 MG TAB PO ×2 (07:44→14:29)
[2018-10-21 07:49] LABS: Abs Immature Grans 0.05 k/cumm (0.0-0.09); Absolute Basophil Count 0.02 k/cumm (0.0-0.2); Absolute Lymphocyte Count 2.01 k/cumm (1.2-3.4); Absolute Monocyte Count 0.69 k/cumm (0.11-0.7); Absolute Neutrophil Count 4.95 k/cumm (1.2-6.7); Basophils % 0.3; Eosinophils % 1.3; HCT 26.7 % (36.0-46.0); HGB 8.6 g/dL (12.0-15.5); Immature Grans % 0.6; Lymphocytes % 25.7; Mean Corp. HGB Concentration 32.2 g/dL (32.0-36.0); Mean Corpuscular Hemoglobin 32.6 pg (27.0-33.0); Mean Corpuscular Volume 101.1 fL (80-95); Mean Platelet Volume 9.4 fL (8.0-11.0); Monocytes % 8.8; Neutrophils % 63.3; Platelet Count 377 x1000/uL (130-400); RBC 2.64 m/cumm (4.00-5.20); RBC Distribution Width 14.1 % (11.7-14.6); White Blood Cell Count 7.82 k/cumm (4.4-10.8)
[2018-10-21 08:05] LABS: Anion Gap 9.1 mmol/L (3-11); BUN 2 mg/dL (7-18); CO2 21.9 mmol/L (21.0-32.0); CREATININE 0.45 mg/dL (0.55-1.02); Calcium 7.7 mg/dL (8.5-10.1); Chloride 105 mmol/L (98-107); Glucose 137 mg/dL (70-100); Magnesium 1.8 mg/dL (1.8-2.4); Potassium 3.6 mmol/L (3.5-5.1); Sodium 136 mmol/L (136-145)
[2018-10-21 09:35] VITALS: BP 102/68; BP 92/57
[2018-10-21] MEDS: Magnesium Oxide 400 MG TAB PO (09:36)
[2018-10-21] MEDS: Potassium Chloride 20 MEQ TABCR 40 MEQ PO (09:36)
[2018-10-21] MEDS: Normal Saline 1,000 ML 150 ML IV (10:30)
[2018-10-21 11:15] VITALS: BP 112/69; PULSE 75; RESP 18; TEMP 36.8; O2SAT 98
[2018-10-21 11:38] LABS: Campylobacter PCR SEE COMMENTS; Salmonella PCR SEE COMMENTS; Shiga Toxin PCR SEE COMMENTS; Shigella/Enteroinvasive Ecoli SEE COMMENTS
--- NOTE | 2018-10-21 14:21 | W.PM.DS.N ---
Date of service: 10/21/18 Time of Service: 14:21 DS: Diagnosis Discharge Diagnosis (1) Acute on chronic colitis: Status: Acute (2) Anemia: Status: Chronic (3) Thrombocytosis: Status: Acute (4) Unexplained weight loss: Status: Acute (5) GERD (gastroesophageal reflux disease): Status: Chronic Discharge Plan Disposition Patient Disposition: [facility]ANNING ([facility]) Condition: Stable Discharge Details Reason For Visit: COLITIS, HYPOKALEMIA, DEHYDRATION Admit Date/Time: 10/17/18 12:43 Admit Provider: Leigh Starks Attending Provider: Leigh Starks Primary Care Provider: [facility] Hospital Course Hospital Course: Chief Complaint: Abdominal Pain HPI: 58 year old woman with a prior episode of Colitis in April of 2018, admitted from [facility] Emergency Department on 10/17 with a diagnosis of Enteritis. Mrs. Mcknight has a prior history of Chronic Back Pain, Dyslipidemia, GERD, and Tobacco Abuse. In April of 2018 she was admitted at [facility] in [place], [place] and treated for an episode of Colitis. She reports a follow-up Colonoscopy in early winter at [facility], with pathology reports showing evidence of Chronic Colitis, scattered Cryptitis, Crypt Abscesses, but no evidence of Granulomas. Patient also reported an approximately 30-35 pound weight loss over the last 6 months. She presented to the ED with complaints of a one week history of diffuse abdominal pain, nausea, vomiting, and diarrhea. She denied Hematemesis and Hematochezia, and reports that her symptoms were the same as her prior diagnosis in April that led to a hospitalization. Her symptoms then had resolved with IVFs and antibiotics. 1 week prior to her current hospitalization the patient reports that her PCP prescribed oral antibiotics without effect. Following admission the patient reported some improvement in her symptoms overall, with decrease in nausea and improvement in her diarrhea from watery to soft stools. However, she has failed to progress further, and had 2 bouts of vomiting overnight when attempts were made at advancing her diet. She remains on a full liquid diet, and continues to have abdominal discomfort. Her leukocytosis has resolved this morning, but her inflammatory markers remain elevated and unchanged. No overnight events reported. She remains afebrile. Hospital Course: (1) Acute on chronic colitis: Apparent recurrent bout of Colitis, with prior colonoscopy this past winter significant for pathology (4 biopsies of pseudopolyps) that showed chronic colitis with mild activity, scattered cryptitis, Paneth Cell Metaplasia, and crypt destruction and repair, but negative for granulomas or dysplasia. Following her initial improvement with IVFs and antibiotics, she has failed to progress further both symptomatically and clinically. Patient with evidence of leukocytosis, elevated temperature, elevated CRP/ESR that is essentially unchanged since admission, and chronic colitis by colonoscopy. Also with potential intramural abscess of the upper descending colon by local radiology overread of CTA of the abdomen - question potential Inflammatory Bowel Disease. CTA ruled out Mesenteric Ischemia. Discussed case with GI - plan had been to continue above care with hopes of a GI follow-up as outpatient. However, Ms. Mcknight continues to be essentially intolerant of any significant advancement in her diet past liquids, is malnurished, and continues to be symptomatic. She has lost approximately 35 pounds as well since her initial diagnosis in April of 2018. She was accepted in transfer to [facility] for a planned inpatient Colonoscopy for further evaluation and initiation of therapy. Continue IVFs, antiemetics, and antibiotics for now. C.Diff negative - Fecal Occult Blood test +, Stool cultures, ANCA, and other labs still pending. (2) Anemia: Low iron, very low TIBC, and Ferritin in the 300 range, with normal TSH, B12, and FA. Appears to be Anemia of Chronic Disease, but with concurrent FOBT + in setting of colitis. Monitor Hemoglobin - currently stable. (3) Thrombocytosis: Likely reactive. Improved and now normalized. (4) Unexplained weight loss: Likely on the basis of Untreated Chronic Disease as above. CXR from last month without evidence of pathology, and CT of the abdomen and pelvis/Colonoscopy this winter without evidence of malignancy. (5) GERD (gastroesophageal reflux disease): PPI therapy resumed. (6) Chronic pain: Continue Tramadol. (7) DVT prophylaxis: SCD's and TRACY's. Held off on Chemical prophylaxis given anemia and + Fecal Occult Blood Testing. (8) Discharge planning issues: Accepted in Transfer to [facility] Hospital Medicine. Home Meds and New Rx's Prescriptions: Continued tramadol 50 MG tablet 50 mg PO HS PRN PRN (Reason: Back Pain) RF: 0 atorvastatin 20 mg Tablet 20 mg PO HS RF: 0 metronidazole 500 mg Tablet 500 mg PO TID RF: 0 ciprofloxacin HCl 500 mg Tablet 500 mg PO BID RF: 0 omeprazole 40 mg Capsule,Delayed Release(Dr/Ec) 40 mg PO DAILY RF: 0 albuterol sulfate [ProAir HFA] 90 mcg/actuation Hfa Aerosol Inhaler 2 - 4 puff Inhalation Q4H PRN PRN (Reason: Wheezing) RF: 0 Discharge Orders Discharge Orders: Discharge Order (Routine); Ordered 10/21/18 Ordered By: Simone Antony DS: Data Vitals/I&O Vitals and I&O: Vital Signs Temperature 36.8 C 10/21/18 11:15 Temperature Source Tympanic 10/21/18 11:15 Pulse 75 10/21/18 11:15 Pulse Rhythm Regular 10/21/18 07:56 Respiratory Rate 18 10/21/18 11:15 Respiratory Effort 10/21/18 07:56 Respiratory Depth Normal 10/21/18 07:56 Respiratory Pattern Normal 10/21/18 07:56 Blood Pressure 112/69 10/21/18 11:15 Blood Pressure Position Sitting 10/17/18 10:13 Pulse Oximetry 98 10/21/18 11:15 Oxygen Delivery Method Room Air 10/21/18 11:15 Oxygen Flow Rate 0 10/21/18 11:15 Pain Level 4 10/21/18 07:44 Comment 10/21/18 09:35 Intake & Output 10/20/18 10/21/18 10/21/18 23:59 11:59 23:59 Intake Total 2348.750 / 4194.167 1370 / 1370 Output Total 400 / 2750 1200 / 1200 Balance 1948.750 / 1444.167 170 / 170 Weight 47 kg Intake: IV 1868.750 / 3504.167 1100 / 1100 Oral 480 / 690 270 / 270 Output: Urine 400 / 2750 1200 / 1200 Other: Urine Color Yellow Yellow Urine Appearance Clear Clear Comment pt doesnt have a hat in the toilet, urine could not be measured Voiding Methods Toilet Toilet Completed studies during hospitalization [Text1]: Exam(s) 10/17/[address]:CT abdomen & pelvis w SYMPTOMS/DIAGNOSIS: ABDOMINAL PAIN, WEIGHT LOSS, ETOH USE ABDOMINAL AND PELVIC CT: CT examination of the abdomen and pelvis was performed with a bolus infusion of 100 cc of Omnipaque 350 and ingestion of dilute barium. Images obtained through the lung bases are unremarkable. Liver and spleen appear normal. No biliary dilatation. Gallbladder is mildly distended, which is a nonspecific finding. The pancreas appears normal. Adrenals and kidneys are unremarkable except for a tiny incidental presumed left renal cyst. No urinary tract calcification or obstruction. Urinary bladder is essentially empty. Abdominal aorta is of normal diameter and no major vascular abnormality is seen. There is no abdominal or pelvic adenopathy. The appendix appears to have been surgically removed. There are multiple areas of apparent enteric wall thickening including the gastric antrum, duodenum, portions of the jejunum and the terminal ileum. There also appears to be colonic wall edema at multiple sites. These findings would raise the possibility of enteritis, infectious versus inflammatory, and in particular, the prominent findings in the region of the terminal ileum would raise the possibility of Crohn's disease. There is no evidence of obstruction or perforation. CONCLUSION: Findings suggesting diffuse enteritis as described above, infectious versus inflammatory etiology. No other significant focal findings. Exam(s) 10/18/[address]:CT abdomen & pelvis CTA SYMPTOMS/DIAGNOSIS: ABDOMINAL PAIN, DIARRHEA, NAUSEA/VOMITING, COLITIS, HYPOKALEMIA, DEHYDRATION CT ANGIOGRAPHY OF THE ABDOMEN AND PELVIS: Comparison is made with routine abdominal and pelvic CT performed October,. Venous and arterial phase exams were performed. The lung bases show minimal atelectasis. The heart size is normal. The aorta shows mild calcification and is normal in diameter. The vessels are widely patent. Diffuse colonic wall thickening is again noted, which may be slightly more prominent when compared with the previous exam. There is a focal area of low density seen in the wall of the upper descending colon posteriorly, which may represent an intramural abscess. There has been an increased amount of free fluid in the pelvis. No focal peritoneal abscess is seen. There is mild nonspecific small bowel dilatation. There is also a question of some wall thickening of the terminal ileum. The uterus and bladder are unremarkable. The liver, spleen, pancreas, adrenals and kidneys are unremarkable. IMPRESSION: Findings consistent with diffuse colitis. Probable intramural abscess of the upper descending colon. There is also apparent involvement of the terminal ileum. The amount of free fluid has increased when compared with the previous exam, but there is no evidence of an intraperitoneal abscess. Exam(s) 10/18/2018 EXAM: CT Angiography Abdomen and Pelvis With Contrast EXAM DATE/TIME: 10/18/2018 12:00 PM CLINICAL HISTORY: 58 years old, female; Localized; Patient HX: Patient sts lower abdominal pain x1 week, diarrhea, n/v. Rule out mesenteric ischemia; Additional info: Mesenteric ischemia protocol used, arterial and venous phase delays. TECHNIQUE: Imaging protocol: Axial computed tomographic angiography images of the abdomen and pelvis with intravenous contrast material. Coronal and sagittal reformatted images were created and reviewed. 3D rendering: MIP reconstructed images were created and reviewed. Radiation optimization: All CT scans at this facility use at least one of these dose optimization techniques: automated exposure control; mA and/or kV adjustment per patient size (includes targeted exams where dose is matched to clinical indication); or iterative reconstruction. Contrast material: OMNIPAQUE 350; Contrast volume: 100 ml; Contrast route: IV; COMPARISON: CT ABDOMEN PELVIS W 10/17/2018 11:55 AM FINDINGS: Abnormal appearance to the colon which appears more diffuse than one would expect for a focal colitis such as diverticulitis and is more in keeping with a diffuse colitis. There is one 1.7 cm area of hypodensity in the lateral aspect of the descending colon which could potentially represent an intramural abscess. Moderate free fluid is present within the pelvis also suggesting an inflammatory process. No significant extraluminal air. No evidence of bowel obstruction. Mesenteric vessels appear widely patent. No obstructive uropathy. Minimal bibasilar atelectasis. IMPRESSION: Findings suggesting a diffuse colitis of uncertain etiology. Labs on day of discharge: Labs from last 24 hours 10/21/18 10/21/18 10/18/18 07:00 07:00 06:30 WBC 7.82 RBC 2.64 L Hgb 8.6 L Hct 26.7 L MCV 101.1 H MCH 32.6 MCHC 32.2 RDW 14.1 Plt Count 377 D MPV 9.4 Immature Gran % 0.6 Neutrophils % 63.3 Lymphocytes % 25.7 Monocytes % 8.8 Eosinophils % 1.3 Basophils % 0.3 Absolute Neutrophils 4.95 Absolute Lymphocytes 2.01 Absolute Monocytes 0.69 Absolute Eosinophils 0.10 Absolute Basophils 0.02 Sodium 136 Potassium 3.6 Chloride 105 Carbon Dioxide 21.9 Anion Gap 9.1 BUN 2 L Creatinine 0.45 L Estimated GFR/1.73 m2 >= 60.00 Glucose 137 H Calcium 7.7 L Magnesium 1.8 Stool Source Stool Campylobacter PCR Stool Salmonella PCR Stool Shigella PCR Proteinase 3 (PR3) Myeloperoxidase Ab Cryptosporidium/Giardia HIV 1&2 Ag/Ab, 4th Gen Negative S.cerevisiae IgG Ab S.cerevisiae IgA Ab Shiga Toxin (PCR) Parasite Rprt Status 10/17/18 10/17/18 10/17/18 12:25 12:25 10:35 WBC RBC Hgb Hct MCV MCH MCHC RDW Plt Count MPV Immature Gran % Neutrophils % Lymphocytes % Monocytes % Eosinophils % Basophils % Absolute Neutrophils Absolute Lymphocytes Absolute Monocytes Absolute Eosinophils Absolute Basophils Sodium Potassium Chloride Carbon Dioxide Anion Gap BUN Creatinine Estimated GFR/1.73 m2 Glucose Calcium Magnesium Stool Source (see note) Stool Campylobacter PCR See comments Stool Salmonella PCR See comments Stool Shigella PCR See comments Proteinase 3 (PR3) <0.2 Myeloperoxidase Ab <0.2 Cryptosporidium/Giardia (see note) HIV 1&2 Ag/Ab, 4th Gen S.cerevisiae IgG Ab 14.0 S.cerevisiae IgA Ab 24.8 H Shiga Toxin (PCR) See comments Parasite Rprt Status (see note) C Difficile Screen Final 10/17/18-1933 C Difficile Antigen Negative C Difficile Toxin Negative Interpretation Negative for toxigenic Clostridium difficile Stool Occult Blood Guaiac(1sp) Final 10/19/18-1315 STOOL OCCULT BLOOD #1 POSITIVE PFSH Medical History Abdominal pain (Acute) Enteritis (Acute) Weight loss (Acute) Colitis (Chronic) GERD (gastroesophageal reflux disease) (Chronic) Hyperlipidemia (Chronic) Surgical History H/O lumbar discectomy (Chronic) Hx of colonoscopy (Chronic) Appendectomy Family History Other Hypertension Social History Smoking/Tobacco Use Status: Current every day Tobacco: How many years used: 40 Alcohol Intake: current Alcohol Intake frequency: a few times a month Details: ~10 drinks of wine, liquor weekly Drug use: Never Substance use type: does not use current occupation: [employer]er Do you feel safe at home: Yes Do you feel safe in your relationship?: Yes
--- NOTE | 2018-10-21 14:27 | CMPROGNOTE_ITS ---
- If Service Date Differs Date of service: 10/21/18 Time of Service: 14:26 Care Management Progress Note S/O: Lubna will transfer to [facility] today for an inpatient scope. She will transport via EMS which the RN News Library Director will arrange. A: 58 y.o. female admitted for colitis, hypokalemia, dehydration now on day 2 of her acute hospitalization. Contiues to receive IV fluids. P: Transfer to [facility] via EMS
--- NOTE | 2018-10-21 15:00 | CHAPLAIN ---
I had a brief visit with Lubna shortly before she was being transferred to [facility]. She said family members were going to be with at [facility] tomorrow.
== END 2018-10-21 15:05 | disposition short-term general hospital (02) | DRG 392 ==
LOC: ER 10:27 → MS 14:22
PROVIDERS: Admitting Provider Internal Medicine; Emergency Provider Emergency Medicine; PCP Nurse Practitioner Family; Visit Provider Internal Medicine
DX: K52.89 Other specified noninfective gastroenteritis and colitis (principal); E46 Unspecified protein-calorie malnutrition; D63.8 Anemia in other chronic diseases classified elsewhere; D47.3 Essential (hemorrhagic) thrombocythemia; R63.4 Abnormal weight loss; K21.9 Gastro-esophageal reflux disease without esophagitis; E87.6 Hypokalemia; E86.0 Dehydration; G89.29 Other chronic pain; F17.210 Nicotine dependence, cigarettes, uncomplicated
CPT/HCPCS: 36415; 80048; 80053; 80076; 81025; 83690; 85652; 87329; 87389; 87505; 93005; 96361; 96365; 96375; 99223; 99231; 99232; 99233; 99239; 99253; 99285; 74174; 74177; 81003; 81015; 82270; 82607; 82710; 82728; 82746; 83516; 83540; 83550; 83605; 83735; 84439; 84443; 85025; 86140; 86671; 87324; 93010; J0744; J2270; J2405; J3475; J3480; J3490

== ENCOUNTER 2019-03-13 01:23 | Emergency (ER) | payer MEDICAID, SELFPAY ==
[2019-03-13 01:26] VITALS: BP 113/48; PULSE 90; RESP 18; TEMP 37.2; O2SAT 99
--- NOTE | 2019-03-13 01:43 | ED.GENADUL_ITS ---
Discharge Plan Disposition Patient Disposition: HOME Condition: Good Discharge Details Chief Complaint: Orthopedic Clinical Impression: Fall on same level from tripping as cause of accidental injury, Low back strain, Injury of knee, right Primary Care Provider: Vinita Francis ED Provider: Ede Tucker Garnett Meds and New Rx's Prescriptions: Continued tramadol 50 MG tablet 50 mg PO HS PRN PRN (Reason: Back Pain) RF: 0 atorvastatin 20 mg Tablet 20 mg PO HS RF: 0 omeprazole 40 mg Capsule,Delayed Release(Dr/Ec) 40 mg PO DAILY RF: 0 albuterol sulfate [ProAir HFA] 90 mcg/actuation Hfa Aerosol Inhaler 2 - 4 puff Inhalation Q4H PRN PRN (Reason: Wheezing) RF: 0 prednisone 5 mg Tablet See Rx Instructions .ROUTE .COMPLEX RF: 0 Discharge Instructions Additional Instructions: CT scan of your head and cervical spine are negative. X-ray of your lumbar spine and knee are also negative. May use acetaminophen or ibuprofen for discomfort if needed. Ice on and off for the next few days. Weight-bear as tolerated. Follow-up with primary care next week if not getting better. Return to ED for neurologic changes, mental status changes, inability to ambulate, other concerns or problems. Referrals: Vinita Francis [Primary Care Provider] - Medical Decision Making Patient here status post ground-level fall with questionable LOC. Complaining of neck, low back, right knee pain. Has no obvious signs of injury. Hemodynamically stable. GCS of 15 with normal neurologic exam. Some alcohol on board but clinically appears sober with clear speech and mentation. Will obtain head and cervical spine CT scan as well as lumbar and right knee x-ray. CT scan of head and cervical spine negative for acute traumatic injury. X-ray of the LS-spine and right knee also negative for traumatic injury. Patient remains awake and alert with normal mental status. Normal ROM of neck without significant pain. Will give ibuprofen for pain. May have twisting injury to the knee but she was ambulatory prior. Will get up and ambulate here prior to discharge. Follow-up with primary care next week if not doing better. HPI General Mode of arrival: EMS . Date/Time Provider Initiated Documentation: 03/13/19 01:33 . Limitations to Documentation: no limitations . Information obtained by: patient and RN notes reviewed . HPI Narrative: Patient presents to ED by ambulance status post fall at home. Patient reports unplugging some lights and tripping on a throw rug falling forward. Is unsure whether she had loss of consciousness or not. She thinks maybe there was because when she woke up she could not move because she was scared. She has had some alcohol tonight. She did call 911 and was ambulatory out to the ambulance. However, she started to complain of neck pain and was collared. She complained of low back pain and right knee pain. She denies chest pain or shortness of breath. There is no abdominal pain or vomiting. There is no neurologic symptoms. Related Data Home Medications Medication Instructions Recorded Confirmed tramadol 50 mg PO HS PRN PRN tab-cap 05/16/17 03/13/19 albuterol sulfate [ProAir HFA] 2 - 4 puff INHALATION Q4H PRN PRN 10/17/18 03/13/19 atorvastatin 20 mg PO HS 10/17/18 03/13/19 omeprazole 40 mg PO DAILY 10/17/18 03/13/19 prednisone See Rx Instructions .ROUTE .COMPLEX 03/13/19 03/13/19 Allergies Allergy/AdvReac Type Severity Reaction Status Date / Time No Known Allergies Allergy Unverified 03/13/19 01:30 General Stated Complaint: Orthopedic ESTEBAN: 3 Review of Systems Review of Systems Narrative: As documented in HPI otherwise negative as below. Const: no fever, chills, weakness Resp: no cough, SOB, pleuritic pain CV: no CP, diaphoresis, edema, syncope GI: no abdominal pain, nausea, vomiting, diarrhea Neuro: no headache, numbness, focal weakness, confusion PFSH Medical History Colitis (Chronic) Hospitalized in 04/27 Enteritis (Acute) GERD (gastroesophageal reflux disease) (Chronic) Hyperlipidemia (Chronic) Surgical History Appendectomy H/O lumbar discectomy (Chronic) around 1991 Hx of colonoscopy (Chronic) Social History Smoking/Tobacco Use Status: Current every day Tobacco Type: cigarettes Tobacco: How many years used: 40 Alcohol Intake: current Alcohol Intake frequency: a few times a month Details: ~10 drinks of wine, liquor weekly Drug use: Never Substance use type: does not use current occupation: [employer] Do you feel safe at home: Yes Do you feel safe in your relationship?: Yes Exam Narrative Exam Narrative: Vitals: Afebrile with normal vitals/saturations. Const: WDWN female in NAD. HEENT: NC/AT. Normal facial exam. Eyes: PERRL and EOMI Neck: Supple. Trachea midline. In collar, mild posterior neck tenderness. Lungs: Normal respiratory effort. Lungs are clear. No chest wall tenderness. Cor: RRR without murmur/gallop. Good distal pulses. GI: Soft. NT/ND. No guarding or rebound. Back: Mild lumbar tenderness. Neuro: A+O x 3. GCS is 15. CN grossly in tact. Normal speech, mentation, strength and sensation. Ext: No C/C/E. No deformity. No tenderness. Pain with ROM of right knee. Skin: Warm and dry without lacerations/bruising/abrasion. Course Vital Signs Vital signs: Vital Signs Temperature 99.0 F 03/13/19 01:26 Pulse 90 03/13/19 01:26 Respiratory Rate 18 03/13/19 01:26 Blood Pressure 113/48 L 03/13/19 01:26 Pulse Oximetry 99 03/13/19 01:26 Temperature 99.0 F 03/13/19 01:26 Pulse 90 03/13/19 01:26 Respiratory Rate 18 03/13/19 01:26 Respiratory Effort 03/13/19 01:33 Blood Pressure 113/48 L 03/13/19 01:26 Blood Pressure Position Supine 03/13/19 01:26 Pulse Oximetry 99 03/13/19 01:26 Oxygen Delivery Method Room Air 03/13/19 01:26 Oxygen Flow Rate 0 03/13/19 01:26 Pain Level 10 03/13/19 01:26 Comment 03/13/19 01:26
--- NOTE | 2019-03-13 02:15 | DI.RAD_ITS ---
EXAM: XR LUMBAR SPINE AP, LAT INDICATION: trauma, fall. COMPARISON: LUMBAR SPINE COMPLETE from 01/20/2017 TECHNIQUE: 2D digital imaging was performed. FINDINGS: Three views were obtained. There is loss of height of the intervertebral disc space at L5-S1 consist ent with disc degeneration. Otherwise intervertebral disc spaces are well maintained. No fracture i dentified. Mild degenerative changes of the facet joints and vertebral endplates noted. IMPRESSION: No evidence of acute fracture.
--- NOTE | 2019-03-13 02:15 | DI.RAD_ITS ---
EXAM: XR KNEE RT 3V AP,LAT,TYRA INDICATION: trauma/fall. COMPARISON: RIGHT KNEE 3 VIEWS from 01/20/2017 TECHNIQUE: 2D digital imaging was performed. FINDINGS: Three views were obtained. No fracture is seen. IMPRESSION:
--- NOTE | 2019-03-13 02:25 | DI.CT_ITS ---
EXAM: CT HEAD CERVICAL SPINE WO CLINICAL HISTORY: trauma/fall. TECHNIQUE: Cranial CT was performed without contrast administration. CT of the cervical spine was performed utilizing multi slice acquisition and multiplanar reconstructi on. COMPARISON: No exams were available for comparison FINDINGS: No evidence of acute intracranial hemorrhage, mass effect or midline shift. Ventricular system is n ormal in appearance. No evidence of calvarial fracture. Orbital and temporal bone structures appear intact. Note is made of predominant opacification of maxillary antra consistent with chronic sinus disease. Mild ethmoid mucoperiosteal thickening noted as well. Frontal and sphenoid sinuses are clear and ma stoid air cells are clear. No fracture identified. Degenerative changes noted at multiple levels with marked disc space narrowi ng and endplate osteophyte formation, particularly at C5-6. No evidence of acute fracture or disloca tion. IMPRESSION: No evidence of acute intracranial injury. No evidence of acute cervical spine fracture or dislocation.
--- NOTE | 2019-03-13 03:02 | DI.VRAD_ITS ---
PROCEDURE INFORMATION: Exam: XR Lumbosacral Spine, 2 or 3 Views Exam date and time: 03/13/2019 1:40 AM Clinical history: 59 years old, female; Injury or trauma; Fall; Initial encounter; Blunt trauma (contusions or hematomas); Injury date: 03/13/2019; Injury details: Fell in home, loc unknown, slipped on a throw rug, landed on back TECHNIQUE: Imaging protocol: XR of the lumbosacral spine, 2 or 3 views. COMPARISON: CR LUMBAR SPINE COMPLETE 01/20/2017 1:02 PM FINDINGS: Vertebrae: Unremarkable for age. No acute fracture. Normal alignment. Vertebral Body Heights preserved. Soft tissues: Unremarkable. IMPRESSION: Unremarkable radiograph. Dictated and Authenticated by: Catracho Batista MD. Ordering:RAMAN Mera MD
--- NOTE | 2019-03-13 03:02 | DI.VRAD_ITS ---
PROCEDURE INFORMATION: Exam: CT Head without contrast Exam date and time: 03/13/2019 1:40 AM Clinical history: 59 years old, female; Injury or trauma; Fall; Initial encounter; Blunt trauma (contusions or hematomas); Consciousness not specified; Injury date: 03/13/2019; Injury details: Fell in home, loc unknown, slipped on a throw rug, landed on back TECHNIQUE: Imaging protocol: Computed tomography of the head without contrast. Radiation optimization: All CT scans at this facility use at least one of these dose optimization techniques: automated exposure control; mA and/or kV adjustment per patient size (includes targeted exams where dose is matched to clinical indication); or iterative reconstruction. COMPARISON: No relevant prior studies available. FINDINGS: Brain: Typical for age. No hemorrhage. No evidence of acute infarct. No mass. Ventricles: No ventriculomegaly. Bones/joints: Unremarkable. Sinuses: No sinus fluid. Maxillary sinus mucosal thickening is likely chronic. Mastoid air cells: Unremarkable. Soft tissues: Unremarkable. IMPRESSION: No acute intracranial abnormality. PROCEDURE INFORMATION: Exam: CT Cervical Spine Without Contrast Exam date and time: 03/13/2019 1:40 AM Clinical history: 59 years old, female; Injury or trauma; Fall; Initial encounter; Blunt trauma (contusions or hematomas); Consciousness not specified; Injury date: 03/13/2019; Injury details: Fell in home, loc unknown, slipped on a throw rug, landed on back TECHNIQUE: Imaging protocol: Computed tomography images of the cervical spine without contrast. Radiation optimization: All CT scans at this facility use at least one of these dose optimization techniques: automated exposure control; mA and/or kV adjustment per patient size (includes targeted exams where dose is matched to clinical indication); or iterative reconstruction. COMPARISON: No relevant prior studies available. FINDINGS: Vertebrae: No acute fracture. Normal alignment. Vertebral body heights preserved. Discs/Spinal canal/Neural foramina: Typical for age. Soft tissues: Unremarkable. Lungs: Lung apices are unremarkable as visualized. IMPRESSION: No acute findings. Dictated and Authenticated by: Catracho Batista MD. Ordering:RAMAN Mera MD
--- NOTE | 2019-03-13 03:03 | DI.VRAD_ITS ---
PROCEDURE INFORMATION: Exam: XR Right Knee Exam date and time: 03/13/2019 2:06 AM Clinical history: 59 years old, female; Pain; Knee; Right; Additional info: Pain S/P fall TECHNIQUE: Imaging protocol: XR Right knee. Views: 3 views. COMPARISON: CR RIGHT KNEE 3 VIEWS 01/20/2017 1:02 PM FINDINGS: Bones/joints: Typical for age. No evidence of acute fracture. Soft tissues: Unremarkable. IMPRESSION: No acute findings. Dictated and Authenticated by: Catracho Batista MD. Ordering:RAMAN Mera MD
[2019-03-13] MEDS: Ibuprofen 600 MG TAB PO (03:25)
--- NOTE | 2019-03-13 03:36 | NUR.NOTE ---
Nursing Note: patient ambulated in the ED minimal discomfort, ice packs given to the patient for right knee and lower back.
== END 2019-03-13 03:40 | disposition home or self-care (01) ==
PROVIDERS: Emergency Provider Emergency Medicine; PCP Nurse Practitioner Family
DX: S39.012A Strain of muscle, fascia and tendon of lower back, initial encounter (principal); M25.571 Pain in right ankle and joints of right foot; W01.0XXA Fall on same level from slipping, tripping and stumbling without subsequent striking against object, initial encounter
CPT/HCPCS: 73562; 99284; 70450; 72100; 72125

== ENCOUNTER 2019-05-28 11:33 | Outpatient (REF) | payer MEDICAID, SELFPAY ==
--- NOTE | 2019-05-28 10:30 | PAPFT_PTH ---
PATIENT: Lubna Mcknight LOC: [facility] U#:[id number] AGE/SX: 59/F ROOM: RE05/28/[address]: Vinita Francis : 1960 BED: DIS: 05/28/2019 SPEC #: [id number] RECD: 05/28/19 18:02 STATUS: LIN REJack #: [id number] MARY ANN: 05/28/19 10:[address]: Vinita Francis DEPT: [facility] Cytology RECD BY: Lashay Forde Tissues: 1 - CX/ENDOCX FOR PAP SMEARS Procedures: PAP THIN PREP/[facility] Screening HPV DNA PROBE Comments: [id number]
[2019-05-28 18:34] LABS: HCT 38.5 % (36.0-46.0); HGB 12.5 g/dL (12.0-15.5); Mean Corp. HGB Concentration 32.5 g/dL (32.0-36.0); Mean Corpuscular Hemoglobin 32.6 pg (27.0-33.0); Mean Corpuscular Volume 100.3 fL (80-95); Mean Platelet Volume 9.3 fL (8.0-11.0); Platelet Count 381 x1000/uL (130-400); RBC 3.84 m/cumm (4.00-5.20); RBC Distribution Width 12.6 % (11.7-14.6); White Blood Cell Count 9.44 k/cumm (4.4-10.8)
[2019-05-28 19:00] LABS: Iron 96 ug/dL (50-170); Total Iron Binding Capacity 286 ug/dL (250-450); Transferrin Sat 34 % (15-50)
[2019-05-28 19:13] LABS: Ferritin 188 ng/mL (8-252)
== END 2019-05-28 11:53 ==
LOC: NCHCN 11:33
PROVIDERS: PCP Nurse Practitioner Family; Visit Provider Nurse Practitioner Family
DX: E78.5 Hyperlipidemia, unspecified (principal); Z86.2 Personal history of diseases of the blood and blood-forming organs and certain disorders involving the immune mechanism; Z12.4 Encounter for screening for malignant neoplasm of cervix; Z11.51 Encounter for screening for human papillomavirus (HPV)
CPT/HCPCS: 85027; 88142; 82728; 83540; 83550; 87624

== ENCOUNTER 2019-12-29 20:18 | Emergency (ER) | payer MEDICAID, SELFPAY ==
--- NOTE | 2019-12-29 20:15 | DI.CT_ITS ---
EXAM: CT LUMBAR SPINE WO CLINICAL HISTORY: fall, notable midline L spine. TECHNIQUE: Imaging Protocol: Axial computed tomography images with coronal and sagittal reformatted images were created and reviewed COMPARISON: No exams were available for comparison FINDINGS: There is normal alignment of the lumbar spine. There are 5 lumbar type vertebral bodies. No acute f ractures or subluxations are seen. No spondylolysis or spondylolisthesis is present. Multilevel deg enerative changes are seen in the lumbar spine. There are disc bulges seen at L3-4, L4-5 and L5-S1 w ithout significant central spinal canal stenosis. Note is made of marked distention of the urinary b ladder. There is colonic diverticulosis but no evidence of acute diverticulitis. There is atheroscl erosis of the abdominal aorta. IMPRESSION: No acute fracture or subluxation of the lumbar spine. RADIATION DOSE DELIVERED: Total DLP Total DLP Total DLP DATA REPOSITORY: All CT scans at this facility are submitted to the National Radiology Data Registry (NRDR) Dose Index Registry (DIR) with the [employer] (ACR). RADIATION OPTIMIZATION: All CT scans at this facility use at least one of these dose optimization te chniques: automated exposure control; mA and/or kV adjustment per patient size (includes targeted exa ms where dose is matched to clinical indication); or iterative reconstruction.
--- NOTE | 2019-12-29 20:15 | DI.CT_ITS ---
EXAM: CT HEAD CERVICAL SPINE WO CLINICAL HISTORY: fall, hit head, LOC. TECHNIQUE: Imaging Protocol: Axial computed tomography images with coronal and sagittal reformatted images were created and reviewed COMPARISON: CT CT HEAD CERVICAL SPINE WO from 03/13/2019 FINDINGS: CT Head: Ventricles and Extra axial spaces: Normal in size and morphology for the patient's age. Hemorrhage: None. Cerebral parenchyma: Normal. Midline shift: None. Brainstem/Cerebellum: Normal. Calvarium: Normal. Visualized Paranasal sinuses/Mastoids: There is unchanged complete opacification of the maxillary sin uses. Soft Tissues: Unremarkable. CT Cervical Spine: Bones: No acute fracture or subluxation. There is straightening of the normal cervical lordosis. Thi s may be due to muscle spasm or patient positioning. Multilevel degenerative changes are present thr oughout the cervical spine. Soft Tissues: Unremarkable. Lung Apices: Clear. IMPRESSION: 1. No acute intracranial process. 2. No acute fracture or subluxation in the cervical spine. 3. Straightening of the normal cervical lordosis which may be due to patient positioning or muscle sp asm. RADIATION DOSE DELIVERED: Total DLP DATA REPOSITORY: All CT scans at this facility are submitted to the National Radiology Data Registry (NRDR) Dose Index Registry (DIR) with the [employer] (ACR). RADIATION OPTIMIZATION: All CT scans at this facility use at least one of these dose optimization te chniques: automated exposure control; mA and/or kV adjustment per patient size (includes targeted exa ms where dose is matched to clinical indication); or iterative reconstruction.
[2019-12-29 20:20] VITALS: BP 120/71; PULSE 80; RESP 16; TEMP 36.7; O2SAT 95
[2019-12-29] MEDS: Lidocaine 5% Patch 1 PATCH TP (20:29)
[2019-12-29] MEDS: Acetaminophen 500 MG TAB 1000 MG PO (20:29)
--- NOTE | 2019-12-29 20:29 | ED.GENADUL_ITS ---
Discharge Plan Disposition Patient Disposition: HOME Condition: Good Discharge Details Chief Complaint: Nk/Back Pain Clinical Impression: Lumbago Primary Care Provider: Vinita Francis ED Provider: Prateek Ku Home Meds and New Rx's Prescriptions: New acetaminophen [Mapap Extra Strength] 500 MG tablet 1,000 mg PO Q6H 5 Days Qty: 60 RF: 0 lidocaine [Lidoderm] 1 PATCH patch 1 patch Topical Q24H Qty: 4 RF: 0 Continued tramadol 50 MG tablet 50 mg PO HS PRN PRN (Reason: Back Pain) RF: 0 atorvastatin 20 mg Tablet 20 mg PO HS RF: 0 omeprazole 40 mg Capsule,Delayed Release(Dr/Ec) 40 mg PO DAILY RF: 0 albuterol sulfate [ProAir HFA] 90 mcg/actuation Hfa Aerosol Inhaler 2 - 4 puff Inhalation Q4H PRN PRN (Reason: Wheezing) RF: 0 Discharge Instructions Instructions: Low Back Strain (ED) Additional Instructions: At this time your signs and symptoms are clinically consistent with a back sprain. This can cause significant pain and take a fair bit of time to heal. I expect 1 to 2 months for potential resolution. In the meantime do not lift anything greater than 5 pounds for the next 2 weeks. Avoid any significant vigorous physical activity. Perform easy gentle regular activities at home without any significant bending or lifting. Please take the steroids as directed. You have been given a prescription for Lidoderm patch. If your insurance does not cover this you can get [id number] Lidoderm patches at 4% which are almost just as effective. Please use a heating pad as often as possible on your back. Perform daily gentle stretches on your back. Please continue to take the Tylenol. You can take 1000 mg of Tylenol every 6 hours. If you notice any worsening of your symptoms, or any new symptoms such as vomiting, diarrhea, fever, chills, shortness of breath, chest pain, numbness or tingling in your groin or legs, weakness in your legs, loss of control for your bowels or bladder, or fainting , please return immediately to the emergency department for reevaluation. Please follow up with your primary care provider as soon as possible for reassessment and reevaluation. As always, it was a pleasure participating in your medical care today. Referrals: Vinita Francis [Primary Care Provider] - Medical Decision Making 59-year-old female with a past medical history of chronic back pain, previous colitis and Crohn's disease, hyperlipidemia, GERD, as well as a past surgical history of a lumbar discectomy and appendectomy. Presents today for evaluation of low back pain and fall. The patient states that she was walking had a mechanical trip and fall. She hit her head at the front of her head, she thinks she may have lost consciousness. After the event she had notable low back pain worse than normal. She denies any numbness or tingling. Patient denies any saddle anesthesia, numbness or tingling in the groin, change in sensation when wiping. Patient denies any change in sensation during sexual intercourse, bowel or bladder incontinence, leakage, or retention. Patient denies any weakness in the lower extremities, or imbalance. No other complaints at this time. She is not on a blood thinners. She does admit to having to drinks of [employer]. Physical exam demonstrates midline tenderness over the lumbar spine, however she demonstrates no other concerning physical exam findings suggestive of cauda equina syndrome. She does have chronic low lumbar back pain, and a history of a discectomy. However she does notably state that the pain is worse. Due to the patient's mild intoxication, as well as her fall we will get a CT scan of the head. We will also get a CT scan of the lower lumbar area to evaluate for acute fracture or abnormality after fall. Will give Lidoderm patch and Tylenol and avoid ibuprofen or Toradol secondary to her Crohn's disease. 10:[address] scan has returned for both head neck and lumbar spine, no evidence of acute process. Signs and symptoms are clinically consistent with lumbar back strain. No evidence of cauda equina syndrome or osseous fracture. This time patient's symptoms are appropriate for discharge. Patient will be discharged home. Discussed case with her daughter Leigh Ann as well, will give Lidoderm patch, Tylenol, and back pain instructions. I have extensively reviewed the treatment plan and discharge instructions with the patient and their family. I have addressed all patient concerns at this time. The patient and family was made aware of what symptoms to monitor for that would warrant a return to the emergency department. Discussed the plan with the patient and family, they demonstrate verbal understanding and agreement with our assessment and plan at this time. FINDINGS: There is some straightening of the normal cervical lordosis. This may be due to muscle spasm or patient positioning. There is no evidence of fracture or subluxation. The vertebral bodies are of normal height. There is disc space narrowing the at C5-C6 with endplate spurring. There is minimal narrowing of the C6-C7 disc space as well. The prevertebral soft tissues and the predental space are unremarkable. There are mild degenerative changes about the C1-C2 articulation. There are degenerative changes of the facet joints and uncovertebral joints. There is no significant central stenosis. There is no evidence for epidural hematoma. There is some scarring within the lung apices. Carotid calcifications are noted. IMPRESSION: There is some straightening of the normal cervical lordosis. This may be due to muscle spasm or patient positioning. There is no evidence of fracture or subluxation. Thank you for allowing us to participate in the care of your patient. Dictated and Authenticated by: Sonny Parada MD 12/29/2019 9:03 PM Eastern Time ([place] & [place]) FINDINGS: The ventricles, sulci and basilar cisterns are normal for the patient's stated age. There is no evidence for acute infarct. There is no evidence for mass. There is no hemorrhage. There are no extra-axial fluid collections. There is no midline shift. The skull is intact. The maxillary sinuses are hypoplastic and are opacified unchanged from the old exam. There is atherosclerotic change of the cavernous carotid arteries. IMPRESSION: No evidence for acute intracranial injury. IMPRESSION: No acute fractures detected at lumbar levels. Thank you for allowing us to participate in the care of your patient. Dictated and Authenticated by: Celso Merino MD [facility] General Date/Time Provider Initiated Documentation: 12/29/19 20:29 . HPI Narrative: 59-year-old female with a past medical history of chronic back pain, previous colitis and Crohn's disease, hyperlipidemia, GERD, as well as a past surgical history of a lumbar discectomy and appendectomy. Presents today for evaluation of low back pain and fall. The patient states that she was walking had a mechanical trip and fall. She hit her head at the front of her head, she thinks she may have lost consciousness. After the event she had notable low back pain worse than normal. She denies any numbness or tingling. Patient denies any saddle anesthesia, numbness or tingling in the groin, change in sensation when wiping. Patient denies any change in sensation during sexual intercourse, bowel or bladder incontinence, leakage, or retention. Patient denies any weakness in the lower extremities, or imbalance. No other complaints at this time. She is not on a blood thinners. She does admit to having to drinks of [employer]. Related Data Home Medications Medication Instructions Recorded Confirmed tramadol 50 mg PO HS PRN PRN tab-cap 05/16/17 12/29/19 albuterol sulfate [ProAir HFA] 2 - 4 puff INHALATION Q4H PRN PRN 10/17/18 12/29/19 atorvastatin 20 mg PO HS 10/17/18 12/29/19 omeprazole 40 mg PO DAILY 10/17/18 12/29/19 acetaminophen [Mapap Extra 1,000 mg PO Q6H 5 Days #60 tab 12/29/19 Strength] lidocaine [Lidoderm] 1 patch TOPICAL Q24H #4 patch 12/29/19 Previous Rx's Medication Instructions Recorded acetaminophen [Mapap Extra 1,000 mg PO Q6H 5 Days #60 tab 12/29/19 Strength] lidocaine [Lidoderm] 1 patch TOPICAL Q24H #4 patch 12/29/19 Allergies Allergy/AdvReac Type Severity Reaction Status Date / Time No Known Allergies Allergy Unverified 03/13/19 01:30 General Stated Complaint: Nk/Back Pain ESTEBAN: 3 Review of Systems All systems reviewed & are unremarkable except as noted in HPI and below PFSH Medical History Colitis (Chronic) Hospitalized in 04/27 Enteritis (Acute) GERD (gastroesophageal reflux disease) (Chronic) Hyperlipidemia (Chronic) Surgical History Appendectomy H/O lumbar discectomy (Chronic) around 1991 Hx of colonoscopy (Chronic) Family History Other Hypertension Social History Smoking/Tobacco Use Status: Current every day Tobacco Type: cigarettes Tobacco: How many years used: 40 Alcohol Intake: current Alcohol Intake frequency: a few times a month Details: ~10 drinks of wine, liquor weekly Drug use: Never Substance use type: does not use current occupation: [employer] Workers Do you feel safe at home: Yes Do you feel safe in your relationship?: Yes Exam Narrative Exam Narrative: 1.Const: Well-nourished, Well-developed, appearing stated age 2.Eyes: PERRL, no conjunctival injection, and symmetrical lids. 3.ENT: Atraumatic external nose and ears. Moist MM. Neck: Symmetric, trachea midline, No thyromegaly. 4.CVS: +S1/S2, No murmurs or gallops. Peripheral pulses 2+ and equal in all extremities. Brisk capillary refill in all extremities. 5.RESP: Unlabored respiratory effort. Clear to auscultation bilaterally. No wheezes rales or rhonchi 6.GI: Soft, Nontender/Nondistended, No hepatosplenomegaly. No guarding or r ebound. 7.MSK: Normocephalic/Atraumatic, Extremities w/o deformity or ttp No cyanosis or clubbing, Normal movement of all extremities No midline tenderness to palpation over the CTS spine. Patient does have midline lumbar spine tenderness throughout the lumbar spine though. Normal ROM in flexion, extension, side bend, and rotation. Patient has +5 out of 5 strength in the lower extremities in dorsiflexion and plantarflexion, knee flexion and extension, hip flexion and extension. Normal strength for dorsiflexion and plantar flexion of the great toe bilaterally. There is +2 over 2 dorsalis pedis pulses bilaterally. There is normal sensation to the skin with light touch at the foot, knee, and hip. Normal saddle sensation. Good sensation over the deep sural nerve area bilaterally. Rectal exam demonstrates good rectal tone. Reflexes are +2 over 4 in the patellar reflex bilaterally. +5 out of 5 strength in the medial, ulnar, radial nerve distribution bilaterally in the hands as well as intact light touch sensation to these dermatomes on the hands 8.Skin: Warm, Dry. No rashes or lesions. 9.Neuro: strong nitric operator II-XII grossly intact. Sensation grossly intact, no focal neurologic deficits. 10.Psych: (AAO) x3. Appropriate mood and affect Course Vital Signs Vital signs: Vital Signs Temperature 36.7 C 12/29/19 20:20 Pulse 80 07/21/20 20:20 Respiratory Rate 16 12/29/19 20:20 Blood Pressure 120/71 12/29/19 20:20 Pulse Oximetry 95 12/29/19 20:20 Temperature 36.7 C 12/29/19 20:20 Temperature Source Skin 12/29/19 20:20 Pulse 80 12/29/19 20:20 Respiratory Rate 16 12/29/19 20:20 Respiratory Effort 12/29/19 20:22 Blood Pressure 120/71 12/29/19 20:20 Blood Pressure Position Sitting 12/29/19 20:20 Pulse Oximetry 95 12/29/19 20:20 Oxygen Delivery Method Room Air 12/29/19 20:20 Oxygen Flow Rate 0 12/29/19 20:20 Pain Level 10 12/29/19 20:20
--- NOTE | 2019-12-29 20:39 | NUR.NOTE ---
spoke with pt daughter with pt permission. Leigh Ann [phone], will pick pt up when dc.
--- NOTE | 2019-12-29 21:03 | DI.VRAD_ITS ---
PROCEDURE INFORMATION: Exam: CT Lumbar Spine Without Contrast Exam date and time: 12/29/2019 8:45 PM Age: 59 years old Clinical indication: Injury or trauma; Initial encounter; Blunt trauma (contusions or hematomas); Injury date: 12/29/19; Injury details: Fall, notable midline L spine TECHNIQUE: Imaging protocol: Computed tomography images of the lumbar spine without contrast. COMPARISON: CR XR LUMBAR SPINE AP, LAT 03/13/2019 1:53 AM FINDINGS: Vertebrae: Lumbar alignment is normal and vertebral body height is grossly preserved throughout lumbar levels with no acute fractures or dislocations detected. Facet arthropathy at L5-S1 is more prominent to the left of midline and posterior elements are grossly intact throughout remaining lumbar levels. Discs/Spinal canal/Neural foramina: There is loss of disc space height with vacuum disc phenomena and endplate irregularity and there is broad-based posterior disc bulging at both L5-S1 and L4-L5 without significant central canal stenosis. Degenerative disc and facet changes produce left foraminal narrowing at L5-S1 with no other bony foraminal narrowings detected at lumbar levels. Soft tissues: Marked distention of the urinary bladder incidentally noted. IMPRESSION: No acute fractures detected at lumbar levels. Dictated and Authenticated by: Celso Merino MD. Ordering:KATHY Chandra MD
--- NOTE | 2019-12-29 21:04 | DI.VRAD_ITS ---
PROCEDURE INFORMATION: Exam: CT Head Without Contrast Exam date and time: 12/29/2019 8:25 PM Age: 59 years old Clinical indication: Injury or trauma; Initial encounter; Blunt trauma (contusions or hematomas); With loss of consciousness; Not specified; Injury date: 12/29/19; Injury details: Fall, hit head, loc TECHNIQUE: Imaging protocol: Computed tomography of the head without contrast. Radiation optimization: All CT scans at this facility use at least one of these dose optimization techniques: automated exposure control; mA and/or kV adjustment per patient size (includes targeted exams where dose is matched to clinical indication); or iterative reconstruction. COMPARISON: CT HEAD CERVICAL SPINE WO 03/13/2019 2:13 AM FINDINGS: The ventricles, sulci and basilar cisterns are normal for the patient's stated age. There is no evidence for acute infarct. There is no evidence for mass. There is no hemorrhage. There are no extra-axial fluid collections. There is no midline shift. The skull is intact. The maxillary sinuses are hypoplastic and are opacified unchanged from the old exam. There is atherosclerotic change of the cavernous carotid arteries. IMPRESSION: No evidence for acute intracranial injury. PROCEDURE INFORMATION: Exam: CT Cervical Spine Without Contrast Exam date and time: 12/29/2019 8:25 PM Age: 59 years old Clinical indication: Injury or trauma; Initial encounter; Blunt trauma (contusions or hematomas); With loss of consciousness; Not specified; Injury date: 12/29/19; Injury details: Fall, hit head, loc TECHNIQUE: Imaging protocol: Computed tomography images of the cervical spine without contrast. Radiation optimization: All CT scans at this facility use at least one of these dose optimization techniques: automated exposure control; mA and/or kV adjustment per patient size (includes targeted exams where dose is matched to clinical indication); or iterative reconstruction. COMPARISON: CT HEAD CERVICAL SPINE WO 03/13/2019 2:13 AM FINDINGS: There is some straightening of the normal cervical lordosis. This may be due to muscle spasm or patient positioning. There is no evidence of fracture or subluxation. The vertebral bodies are of normal height. There is disc space narrowing the at C5-C6 with endplate spurring. There is minimal narrowing of the C6-C7 disc space as well. The prevertebral soft tissues and the predental space are unremarkable. There are mild degenerative changes about the C1-C2 articulation. There are degenerative changes of the facet joints and uncovertebral joints. There is no significant central stenosis. There is no evidence for epidural hematoma. There is some scarring within the lung apices. Carotid calcifications are noted. IMPRESSION: There is some straightening of the normal cervical lordosis. This may be due to muscle spasm or patient positioning. There is no evidence of fracture or subluxation. Dictated and Authenticated by: Sonny Parada MD. Ordering:KATHY Chandra MD
[2019-12-29 21:26] VITALS: BP 103/59; PULSE 80; RESP 16; O2SAT 94
== END 2019-12-29 21:25 | disposition home or self-care (01) ==
LOC: ER 21:32
PROVIDERS: Emergency Provider Student in an Organized Health Care Education/Training Program; PCP Nurse Practitioner Family
DX: S33.5XXA Sprain of ligaments of lumbar spine, initial encounter (principal); S09.90XA Unspecified injury of head, initial encounter; W01.198A Fall on same level from slipping, tripping and stumbling with subsequent striking against other object, initial encounter; F10.120 Alcohol abuse with intoxication, uncomplicated; M54.5 Low back pain; G89.29 Other chronic pain
CPT/HCPCS: 99284; 70450; 72125; 72131; 99285

== ENCOUNTER 2020-04-07 08:25 | Emergency (ER) | payer MEDICAID, SELFPAY ==
[2020-04-07 08:30] VITALS: BP 133/56; PULSE 119; RESP 20; TEMP 36.3; O2SAT 97
--- NOTE | 2020-04-07 08:30 | RT.EKG_ITS ---
APPROVED REPORT Exam: Resting ECG Patient Location: E HR:100 bpm ECG Measurements Heart Rate 100 AXIS KS 176 P 81 QRSd 83 QRS 68 QT 349 T 55 QTc 451 Conclusion Sinus tachycardia...rate> 99 I have reviewed and interpreted ECG and agree with software generated interpretation.
--- NOTE | 2020-04-07 08:45 | W.ED.GENAD ---
Discharge Plan Disposition Patient Disposition: HOME Condition: Improving Discharge Details Clinical Impression: Exacerbation of Crohn's disease, Abdominal pain, Vomiting and diarrhea, Hypokalemia, Hypomagnesemia Primary Care Provider: Vinita Francis ED Provider: Nely Nation Home Meds and New Rx's Prescriptions: New prednisone 10 mg tablet See Rx Instructions .ROUTE .COMPLEX Qty: 147 RF: 0 Continued tramadol 50 MG tablet 50 mg PO HS PRN PRN (Reason: Back Pain) RF: 0 atorvastatin 20 mg Tablet 20 mg PO HS RF: 0 omeprazole 40 mg Capsule,Delayed Release(Dr/Ec) 40 mg PO DAILY RF: 0 albuterol sulfate [ProAir HFA] 90 mcg/actuation Hfa Aerosol Inhaler 2 - 4 puff Inhalation Q4H PRN PRN (Reason: Wheezing) RF: 0 lidocaine [Lidoderm] 1 PATCH patch 1 patch Topical Q24H Qty: 4 RF: 0 calcium 600 mg Capsule PO DAILY RF: 0 cyanocobalamin (vitamin B-12) [Vitamin B-12] 250 mcg Tablet PO DAILY RF: 0 Remicade 100 mg Recon Soln IV Q8W RF: 0 cholecalciferol (vitamin D3) [Vitamin D3] 25 mcg (1,000 unit) Tablet RF: 0 Discharge Instructions Instructions: Crohn Disease (ED), Acute Nausea and Vomiting (ED), Acute Diarrhea (ED) Additional Instructions: Drink plenty of fluids and get plenty of rest. You can supplement potassium in your diet with bananas, tomatoes, garlic or spinach, etc. Take the steroids as directed until finished. Take Zofran as needed and directed for nausea and vomiting. Take your tramadol that you have at home as needed and directed for pain not relieved with Tylenol as directed. Call Dr. Diaz's office today or tomorrow to schedule a follow-up appointment for reevaluation. Return immediately to the emergency department if you develop any worsening or new concerning symptoms. Discharge Data Discharge Date/Time-TO BE ENTERED AT DEPARTURE: 04/07/20 12:10 Discharge Physician: Nely Nation Medical Decision Making 0073 -- 60-year-old female with history of Crohn's disease, GERD, hyperlipidemia who was followed by GI at [facility] with Q 8 weekly remicade injections presents for vomiting, diarrhea and abdominal pain for the past 3 days. Patient appears to have intermittent spasms of pain and appears uncomfortable. Heart rate 110s. She is afebrile and appears nontoxic. EKG done on arrival which notes a rate of 100, sinus with no acute ST-T wave ischemic changes. Differential diagnosis includes Crohn's flare, gastroenteritis, PUD, gastritis, colitis, diverticulitis, UTI, pyelonephritis. Will check screening labs, obtain a CT abdomen and pelvis and give a dose of morphine and Decadron and reassess. 1030 -- Labs reviewed. Potassium 3.0 and Magnesium 1.1, will replete both. Troponin and lipase normal. Urinalysis not consistent with UTI. CT abdomen and pelvis notes findings likely consistent with a Crohn's flare. 1050 -- Case discussed with patient's GI Dr. Diaz who recommends long steroid taper of 60 mg down to 10 mg once daily x1 week each. Recommend patient follow-up with him in the office. Patient had some return of pain and was given a dose of tramadol with significant improvement and felt good to go home. Usual and customary return precautions given prior to discharge. Medical Records Medical records reviewed: Yes I reviewed the patient's medical records. Imaging Data Radiologic Study: Radiologist's impression: CT ABDOMEN PELVIS W CLINICAL HISTORY: epigastric pain, lower abd pain, h/o crohn's TECHNIQUE: COMPARISON: CT CT ABDOMEN/ PELVIS CTA from 10/18/2018 FINDINGS: CT examination of the abdomen and pelvis was performed with bolus infusion of 100 cc of Omnipaque 350. Images obtained through the lung bases are unremarkable. The liver and spleen are normal in appearance. Pancreas appears normal. Gallbladder and bile ducts are CT normal. Adrenals and kidneys are unremarkable except for tiny presumed left renal upper pole cysts. Abdominal aorta major visceral branches appear intact. Abdominal wall is unremarkable no evidence of hernia. No abdominal pelvic. There is trace fluid in pelvis. There is moderate wall thickening of the colon as well as significant portions of the ileum including the terminal ileum. Question mild wall thickening portions of duodenum and jejunum as well as the gastric antrum. Patient reportedly has a history of Crohn's disease and the findings are consistent with Crohn's enteritis/colitis. No evidence of abscess or perforation. No evidence bowel obstruction. IMPRESSION: Findings consistent with enteritis and colitis in a patient with history of Crohn's disease as described above. No significant complication identified. Lab Data Lab results reviewed: Yes I reviewed the patient's lab results. Labs: Laboratory Tests Range/Units 04/07/20 04/07/20 04/07/20 08:45 08:45 08:45 WBC (4.4-10.8) 10^3/uL 10.95 H RBC (3.93-5.22) 10^6/uL 3.87 L Hgb (11.2-15.7) g/dL 13.3 Hct (36.0-46.0) % 39.0 MCV (80-95) fL 100.8 H MCH (27.0-33.0) pg 34.4 H MCHC (32.0-36.0) % 34.1 RDW (11.7-14.6) % 11.9 Plt Count (130-400) 10^3/uL 305 MPV (8.0-11.0) fL 8.7 Immature Gran % 0.5 Neutrophils % 61.4 Lymphocytes % 28.9 Monocytes % 7.4 Eosinophils % 1.1 Basophils % 0.7 Nucleated RBC % % 0 Absolute Neutrophils (1.2-6.7) 10^3/uL 6.72 H Absolute Lymphocytes (1.2-3.4) 10^3/uL 3.16 Absolute Monocytes (0.1-0.8) 10^3/uL 0.81 H Absolute Eosinophils (0.0-0.7) 10^3/uL 0.12 Absolute Basophils (0.0-0.2) 10^3/uL 0.08 PT (9.3-11.0) sec 9.9 INR (0.9-1.1) 1.0 APTT (21.0-31.4) sec 28.1 Sodium (136-145) mmol/L 134 L Potassium (3.5-5.1) mmol/L 3.0 L Chloride (98-107) mmol/L 98 Carbon Dioxide (21.0-32.0) mmol/L 18.8 L Anion Gap (3-11) mmol/L 17.2 H BUN (7-18) mg/dL 10 Creatinine (0.55-1.02) mg/dL 0.67 Estimated GFR/1.73 m2 (mL/min/1.73m2) >= 60.00 Glucose (74-106) mg/dL 88 Calcium (8.5-10.1) mg/dL 9.3 Magnesium (1.8-2.4) mg/dL 1.1 L Total Bilirubin (0.2-1.0) mg/dL 0.5 AST (15-37) U/L 26 ALT (14-59) U/L 23 Alkaline Phosphatase (46-116) U/L 75 Troponin I (<0.06) ng/mL < 0.05 Total Protein (6.4-8.2) g/dL 8.6 H Albumin (3.4-5.0) g/dL 3.8 Lipase (73-393) U/L 127 Urine Color (Yellow) Urine Clarity (Clear) Urine pH (5-8) Ur Specific [place] (1.005-1.025) Urine Protein (Negative) mg/dL Urine Ketones (Negative) mg/dL Urine Blood (Negative) Urine Nitrite (Negative) Urine Bilirubin (Negative) Urine Urobilinogen (Up TO 0.2) EU/dL Ur Leukocyte Esterase (Negative) Urine RBC (0-2) HPF Urine WBC (0-5) HPF Ur Epithelial Cells (Negative) HPF Urine Crystals (Negative) HPF Urine Bacteria (Negative) HPF Urine Casts (Negative) LPF Urine Mucus (Negative) Urine Other (Negative) Ur Culture Indicated? Urine Glucose (Negative) mg/dL Range/Units 04/07/20 04/07/20 10:20 11:30 WBC (4.4-10.8) 10^3/uL RBC (3.93-5.22) 10^6/uL Hgb (11.2-15.7) g/dL Hct (36.0-46.0) % MCV (80-95) fL MCH (27.0-33.0) pg MCHC (32.0-36.0) % RDW (11.7-14.6) % Plt Count (130-400) 10^3/uL MPV (8.0-11.0) fL Immature Gran % Neutrophils % Lymphocytes % Monocytes % Eosinophils % Basophils % Nucleated RBC % % Absolute Neutrophils (1.2-6.7) 10^3/uL Absolute Lymphocytes (1.2-3.4) 10^3/uL Absolute Monocytes (0.1-0.8) 10^3/uL Absolute Eosinophils (0.0-0.7) 10^3/uL Absolute Basophils (0.0-0.2) 10^3/uL PT (9.3-11.0) sec INR (0.9-1.1) APTT (21.0-31.4) sec Sodium (136-145) mmol/L 133 L Potassium (3.5-5.1) mmol/L 3.6 Chloride (98-107) mmol/L 98 Carbon Dioxide (21.0-32.0) mmol/L 21.7 Anion Gap (3-11) mmol/L 13.3 H BUN (7-18) mg/dL 10 Creatinine (0.55-1.02) mg/dL 0.55 Estimated GFR/1.73 m2 (mL/min/1.73m2) >= 60.00 Glucose (74-106) mg/dL 80 Calcium (8.5-10.1) mg/dL 8.6 Magnesium (1.8-2.4) mg/dL Total Bilirubin (0.2-1.0) mg/dL AST (15-37) U/L ALT (14-59) U/L Alkaline Phosphatase (46-116) U/L Troponin I (<0.06) ng/mL Total Protein (6.4-8.2) g/dL Albumin (3.4-5.0) g/dL Lipase (73-393) U/L Urine Color (Yellow) Yellow Urine Clarity (Clear) Clear Urine pH (5-8) 6.5 Ur Specific [place] (1.005-1.025) 1.010 Urine Protein (Negative) mg/dL Negative Urine Ketones (Negative) mg/dL 40 H Urine Blood (Negative) Trace-lysed H Urine Nitrite (Negative) Negative Urine Bilirubin (Negative) Small H Urine Urobilinogen (Up TO 0.2) EU/dL 0.2 Ur Leukocyte Esterase (Negative) Negative Urine RBC (0-2) HPF 5-10 H Urine WBC (0-5) HPF 3-5 Ur Epithelial Cells (Negative) HPF Moderate Urine Crystals (Negative) HPF Negative Urine Bacteria (Negative) HPF Few Urine Casts (Negative) LPF 10-20 hyaline Urine Mucus (Negative) Negative Urine Other (Negative) Few renal Ur Culture Indicated? No/sq. contamination Urine Glucose (Negative) mg/dL Negative ECG Data Attestation: I personally reviewed and interpreted this ECG (s) as follows: Interpretation: rate of 100, sinus, no acute ST elevation or depression. MT 176. QRS 83. QTc 451. HPI General Mode of arrival: ambulatory. Date/Time Provider Initiated Documentation: 04/07/20 08:26. Limitations to Documentation: no limitations. Information obtained by: patient. HPI Narrative: Patient is a 60-year-old female with a history of Crohn's disease, GERD, hyperlipidemia, appendectomy who presents for diffuse aching abdominal pain with intermittent sharp epigastric and lower abdominal pain for the past 3 days. She states the pain is currently 10/10 and has not taken any medication for pain yet this morning. She states she took a Tylenol and tramadol yesterday without relief. She denies any aggravating or alleviating factors. Patient states she vomited 3 times 2 days ago which was mainly food and bile but not since then. She states she has had a diminished appetite over the past 2 days. She also admits to multiple episodes of watery brown diarrhea over the past 3 days. Last episode occurring this morning. She states her symptoms might seem similar to a previous Crohn's flare. 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 Diaz at [facility] and that she last saw him a few months ago. Patient states she was first diagnosed with Crohn's disease 2 years ago by colonoscopy. She states she has been receiving Remicade injections every 8 weeks for her Crohn's disease which seems to be helping her symptoms of abdominal pain and diarrhea. She last had a Remicade injection 3 weeks ago. She denies any recent fever, recent travel, recent antibiotics, recent known sick contacts or urinary symptoms. Related Data Home Medications Medication Instructions Recorded Confirmed tramadol 50 mg PO HS PRN PRN tab-cap 05/16/17 04/07/20 albuterol sulfate [ProAir HFA] 2 - 4 puff INHALATION Q4H PRN PRN 10/17/18 04/07/20 atorvastatin 20 mg PO HS 10/17/18 04/07/20 omeprazole 40 mg PO DAILY 10/17/18 04/07/20 lidocaine [Lidoderm] 1 patch TOPICAL Q24H #4 patch 12/29/19 04/07/20 Remicade mg IV Q8W 04/07/20 calcium mg PO DAILY 04/07/20 cholecalciferol (vitamin D3) 04/07/20 [Vitamin D3] cyanocobalamin (vitamin B-12) mcg PO DAILY 04/07/20 [Vitamin B-12] prednisone See Rx Instructions .ROUTE 04/07/20 .COMPLEX #147 tab Previous Rx's Medication Instructions Recorded lidocaine [Lidoderm] 1 patch TOPICAL Q24H #4 patch 12/29/19 prednisone See Rx Instructions .ROUTE 04/07/20 .COMPLEX #147 tab Allergies Allergy/AdvReac Type Severity Reaction Status Date / Time No Known Allergies Allergy Unverified 04/07/20 08:38 General Stated Complaint: Abd Prob ESTEBAN: 3 Review of Systems All systems reviewed & are unremarkable except as noted in HPI and below Constitutional Constitutional: Reports as per HPI, Denies chills, Denies fever(s) and Reports poor appetite Eyes Eyes: Denies blurry vision ENT Ears, Nose, Mouth, and Throat: Denies dizziness, Denies sore throat and Denies throat swelling Cardiovascular Cardiovascular: Denies chest pain and Denies dyspnea Respiratory Respiratory: Denies cough and Denies dyspnea Gastrointestinal Gastrointestinal: Reports abdominal pain, Reports diarrhea and Reports vomiting Genitourinary Genitourinary: Denies hematuria and Denies dysuria Musculoskeletal Musculoskeletal: Denies back pain and Denies numbness Integumentary/Breasts Skin/Breast: Denies lesions and Denies rash Neurologic Neurologic: Denies dizziness, Denies localized weakness and Denies numbness Allergic/Immunologic Allergic/Immunologic: Denies throat swelling [facility] Medical History (Updated 04/07/20 @ 11:49 by Nely Nation DO) Colitis Hospitalized in 04/27 Crohn's disease Enteritis GERD (gastroesophageal reflux disease) Hyperlipidemia Surgical History Appendectomy H/O lumbar discectomy around 1991 Hx of colonoscopy Family History Other Hypertension Social History Smoking/Tobacco Use Status: Current every day Tobacco Type: cigarettes Tobacco: How many years used: 40 Smoking risk assessment performed?: Yes Alcohol Intake: current Alcohol Intake frequency: a few times a month Details: ~10 drinks of wine, liquor weekly Drug use: Never Substance use type: does not use 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 Do you feel safe at home: Yes Do you feel safe in your relationship?: Yes Exam Const General: cooperative and uncomfortable Orientation: alert, awake and oriented x3 HENMT Head: normal to inspection Face and sinus: normal facial exam Eyes General: appearance normal, both eyes and all related structures EOM: EOM intact bilaterally Neck Neck: normal visual inspection and No submandibular swelling Lymphatic: no lymphadenopathy noted Chest Chest: normal inspection of the chest and no tenderness Resp Effort & Inspection: normal respiratory effort and able to speak in complete sentences Auscultation: clear to auscultation bilaterally Cardio Rate: regular rate Rhythm: regular rhythm GI Inspection: normal to inspection Palpation: soft, not firm, not rigid and tender in the epigastrum, in the LLQ, in the RLQ and suprapubicly Auscultation: hypoactive bowel sounds Skin General skin exam: no rashes or lesions noted Neuro General: patient alert, patient awake and patient oriented x3 Cognition: normal cognition Speech: speech normal Motor: muscle tone normal throughout Sensory Exam: no sensory deficits noted Extrem General: normal to inspection, full ROM, capillary refill normal, no calf tenderness bilaterally and no edema Psych Appearance: grossly normal Mental Status: mental status grossly normal Speech and Movement: speech and movement normal Affect: normal affect Course Vital Signs Vital signs: Vital Signs Temperature 97.3 F L 04/07/20 08:30 Pulse 119 H 04/07/20 08:30 Respiratory Rate 20 04/07/20 08:30 Blood Pressure 133/56 L 04/07/20 08:30 Pulse Oximetry 97 04/07/20 08:30 Temperature 97.3 F L 04/07/20 08:30 Temperature Source Skin 04/07/20 08:30 Pulse 119 H 04/07/20 08:30 Respiratory Rate 20 04/07/20 08:30 Blood Pressure 133/56 L 04/07/20 08:30 Blood Pressure Position Sitting 04/07/20 08:30 Pulse Oximetry 97 04/07/20 08:30 Oxygen Delivery Method Room Air 04/07/20 08:30 Oxygen Flow Rate 0 04/07/20 08:30 Pain Level 10 04/07/20 08:30
[2020-04-07 09:02] LABS: Abs Immature Grans 0.05 10^3/uL (0.0-0.06); Absolute Basophil Count 0.08 10^3/uL (0.0-0.2); Absolute Eosinophil Count 0.12 10^3/uL (0.0-0.7); Absolute Lymphocyte Count 3.16 10^3/uL (1.2-3.4); Absolute Monocyte Count 0.81 10^3/uL (0.1-0.8); Absolute Neutrophil Count 6.72 10^3/uL (1.2-6.7); Basophils % 0.7; Eosinophils % 1.1; HGB 13.3 g/dL (11.2-15.7); Immature Grans % 0.5; Lymphocytes % 28.9; MCH 34.4 pg (27.0-33.0); MCHC 34.1 % (32.0-36.0); MCV 100.8 fL (80-95); MPV 8.7 fL (8.0-11.0); Monocytes % 7.4; Neutrophils % 61.4; Nucleated RBC 0 %; Platelet Count 305 10^3/uL (130-400); RBC 3.87 10^6/uL (3.93-5.22); RDW 11.9 % (11.7-14.6); RDW-SD 44.7 fL; WBC 10.95 10^3/uL (4.4-10.8)
[2020-04-07 09:14] LABS: PTT Activated 28.1 sec (21.0-31.4); Prothrombin Time 9.9 sec (9.3-11.0)
[2020-04-07 09:17] LABS: ALT 23 U/L (14-59); AST 26 U/L (15-37); Albumin 3.8 g/dL (3.4-5.0); Alkaline Phosphatase 75 U/L (46-116); Anion Gap 17.2 mmol/L (3-11); BUN 10 mg/dL (7-18); Bilirubin, Total 0.5 mg/dL (0.2-1.0); CO2 18.8 mmol/L (21.0-32.0); CREATININE 0.67 mg/dL (0.55-1.02); Calcium 9.3 mg/dL (8.5-10.1); Chloride 98 mmol/L (98-107); Glucose 88 mg/dL (74-106); Lipase 127 U/L (73-393); Magnesium 1.1 mg/dL (1.8-2.4); Sodium 134 mmol/L (136-145); Total Protein 8.6 g/dL (6.4-8.2)
[2020-04-07 09:18] LABS: Troponin I < 0.05 ng/mL (<0.06)
[2020-04-07] MEDS: Dexamethasone 10 MG/ML VIAL IVP (09:18)
[2020-04-07] MEDS: Normal Saline 1,000 ML 1000 ML IV (09:22)
[2020-04-07] MEDS: Normal Saline - Diluent 50 ML VIAL IV (09:46)
[2020-04-07] MEDS: Omnipaque 350 MG/ML 100 ML BTL IJ (09:46)
[2020-04-07] MEDS: Normal Saline Flush 10 ML SYR IVP (09:48)
--- NOTE | 2020-04-07 10:05 | DI.CT_ITS ---
EXAM: CT ABDOMEN PELVIS W CLINICAL HISTORY: epigastric pain, lower abd pain, h/o crohn's TECHNIQUE: COMPARISON: CT CT ABDOMEN/ PELVIS CTA from 10/18/2018 FINDINGS: CT examination of the abdomen and pelvis was performed with bolus infusion of 100 cc of Omnipaque 350 . Images obtained through the lung bases are unremarkable. The liver and spleen are normal in appearance. Pancreas appears normal. Gallbladder and bile ducts are CT normal. Adrenals and kidneys are unremarkable except for tiny presumed left renal upper pole cysts. Abdominal aorta major visceral branches appear intact. Abdominal wall is unremarkable no evidence of hernia. No abdominal pelvic. There is trace fluid in pelvis. There is moderate wall thickening of the colon as well as significan t portions of the ileum including the terminal ileum. Question mild wall thickening portions of duod enum and jejunum as well as the gastric antrum. Patient reportedly has a history of Crohn's disease and the findings are consistent with Crohn's ente ritis/colitis. No evidence of abscess or perforation. No evidence bowel obstruction. IMPRESSION: Findings consistent with enteritis and colitis in a patient with history of Crohn's disease as descri bed above. No significant complication identified. RADIATION DOSE DELIVERED: 551.56mGy.cm Total DLP
[2020-04-07] MEDS: MAGNESIUM SULFATE 2 GM/50 ML BAG IVPB (10:28)
[2020-04-07] MEDS: Potassium Chloride 20 MEQ TABCR 40 MEQ PO (10:29)
[2020-04-07] MEDS: traMADol 50 MG TAB PO (10:40)
[2020-04-07 10:43] LABS: Bilirubin Small (Negative); Blood Trace-lysed (Negative); Clarity Clear (Clear); Glucose Negative (Negative); Ketones 40 mg/dL (Negative); Leukocyte Esterase Negative (Negative); Nitrite Negative (Negative); Urobilinogen 0.2 EU/dL (Up TO 0.2); pH 6.5 (5-8)
[2020-04-07 11:00] LABS: Epithelial Cells Moderate HPF (Negative)
[2020-04-07 11:01] LABS: Bacteria Few HPF (Negative); C & S Indicated? No/Sq. Contamination; Casts 10-20 Hyaline LPF (Negative); Crystals Negative HPF (Negative); Mucus Negative (Negative); Other Cells Few Renal (Negative)
[2020-04-07 11:44] LABS: Anion Gap 13.3 mmol/L (3-11); BUN 10 mg/dL (7-18); CO2 21.7 mmol/L (21.0-32.0); CREATININE 0.55 mg/dL (0.55-1.02); Calcium 8.6 mg/dL (8.5-10.1); Chloride 98 mmol/L (98-107); Glucose 80 mg/dL (74-106); Potassium 3.6 mmol/L (3.5-5.1); Sodium 133 mmol/L (136-145)
[2020-04-07] MEDS: Ondansetron O.D.T. 4 MG TABEF, 3 TABS/BTL PO (12:02)
[2020-04-07] MEDS: traMADol 50 MG TAB 200 MG PO (12:09)
== END 2020-04-07 12:10 | disposition home or self-care (01) ==
PROVIDERS: Emergency Provider Physician Assistant; PCP Nurse Practitioner Family
DX: K50.90 Crohn's disease, unspecified, without complications (principal); E87.6 Hypokalemia; E83.42 Hypomagnesemia
CPT/HCPCS: 80048; 80053; 83690; 93005; 96361; 96365; 96366; 96375; 99285; 74177; 81003; 81015; 83735; 84484; 85025; 85610; 85730; 93010; 99284; J1100; J3490

== ENCOUNTER 2020-04-14 22:26 | Emergency (ER) | payer MEDICAID, SELFPAY ==
[2020-04-14 22:29] VITALS: BP 124/64; PULSE 114; RESP 20; TEMP 36.7; O2SAT 93
--- NOTE | 2020-04-14 22:45 | ED.GENADUL_ITS ---
Discharge Plan Disposition Patient Disposition: HOME Condition: Stable Discharge Details Clinical Impression: Acute on chronic colitis Primary Care Provider: Vinita Francis ED Provider: Cade Okeefe Home Meds and New Rx's Prescriptions: New ciprofloxacin HCl 500 mg tablet 500 mg PO BID Qty: 14 RF: 0 metronidazole [Flagyl] 500 mg tablet 500 mg PO Q8H Qty: 21 RF: 0 tramadol 50 mg tablet 50 mg PO Q8H PRN (Reason: pain) Qty: 10 RF: 0 Continued tramadol 50 MG tablet 50 mg PO HS PRN PRN (Reason: Back Pain) RF: 0 atorvastatin 20 mg Tablet 20 mg PO HS RF: 0 omeprazole 40 mg Capsule,Delayed Release(Dr/Ec) 40 mg PO DAILY RF: 0 albuterol sulfate [ProAir HFA] 90 mcg/actuation Hfa Aerosol Inhaler 2 - 4 puff Inhalation Q4H PRN PRN (Reason: Wheezing) RF: 0 lidocaine [Lidoderm] 1 PATCH patch 1 patch Topical Q24H Qty: 4 RF: 0 calcium 600 mg Capsule PO DAILY RF: 0 cyanocobalamin (vitamin B-12) [Vitamin B-12] 250 mcg Tablet PO DAILY RF: 0 Remicade 100 mg Recon Soln IV Q8W RF: 0 cholecalciferol (vitamin D3) [Vitamin D3] 25 mcg (1,000 unit) Tablet RF: 0 prednisone 10 mg tablet See Rx Instructions .ROUTE .COMPLEX Qty: 147 RF: 0 Discharge Instructions Instructions: Colitis (ED) Additional Instructions: follow up with your user experience designer as soon as possible do not drive or drink alcohol if you take tramadol if you have severe worsening pain, persistent vomit or feel more ill return to the emergency department Medical Decision Making 60 yo female with hx of crohn's on prednisone after flare starting last week, who comes in with recurrent lower abdominal pain in the lower abdomen similar to last week. Has nausea as well, denies vomit. She has no chest pain, dyspnea, or urinary symptoms. She has a soft abdomen that is not distended, is tender in the lower abdomen in both left and right sides. Suspect colitis, will obtain lab work and after discussion with patient she would like to obtain CT to evaluate for worsening colitis vs sbo ct shows continued mild colitis and small ovarian cysts otherwise unremarkable and reassuring lab work. She is hd stable and pain improved, no guarding and only mild tenderness. She is comfortable with d/c, given continued colitis will try abx and she is going to call her gi specialist tomorrow and return precautions given Differential Diagnosis Differential Diagnosis: colitis, sbo, pancreatitis Medical Records Medical records reviewed: Yes I reviewed the patient's medical records. Imaging Data Radiologic Study: Attestation: I personally reviewed and interpreted this imaging study as follows: Imaging: CT Scan Radiologist's impression: IMPRESSION: 1. Mild nonspecific wall thickening in nondistended colon. Colitis not excluded 2. Colonic diverticulosis without diverticulitis 3. 2.3 x 1.7 cm follicular cyst in the right ovary and 1.2 cm follicular cyst in the left ovary again noted. No free fluid. Lab Data Lab results reviewed: Yes I reviewed the patient's lab results. HPI General Mode of arrival: ambulatory . Date/Time Provider Initiated Documentation: 04/14/20 22:27 . Limitations to Documentation: no limitations . Information obtained by: patient . History of Present Illness 60 year old F presents to the emergency department with the chief complaint of abdominal pain, described as moderate, Patient started experiencing this hour(s) (1) and it has been constant. No relieving factors improve symptom(s), No exacerbating factors reported . Patient notes other (nausea). Related Data Home Medications Medication Instructions Recorded Confirmed tramadol 50 mg PO HS PRN PRN tab-cap 05/16/17 04/14/20 albuterol sulfate [ProAir HFA] 2 - 4 puff INHALATION Q4H PRN PRN 10/17/18 04/14/20 atorvastatin 20 mg PO HS 10/17/18 04/14/20 omeprazole 40 mg PO DAILY 10/17/18 04/14/20 lidocaine [Lidoderm] 1 patch TOPICAL Q24H #4 patch 12/29/19 04/14/20 Remicade mg IV Q8W 04/07/20 calcium mg PO DAILY 04/07/20 cholecalciferol (vitamin D3) 04/07/20 [Vitamin D3] cyanocobalamin (vitamin B-12) mcg PO DAILY 04/07/20 [Vitamin B-12] prednisone See Rx Instructions .ROUTE 04/07/20 04/14/20 .COMPLEX #147 tab ciprofloxacin HCl 500 mg PO BID #14 tab 04/14/20 metronidazole [Flagyl] 500 mg PO Q8H #21 tab 04/14/20 tramadol 50 mg PO Q8H PRN #10 tab 04/14/20 Previous Rx's Medication Instructions Recorded lidocaine [Lidoderm] 1 patch TOPICAL Q24H #4 patch 12/29/19 prednisone See Rx Instructions .ROUTE 04/07/20 .COMPLEX #147 tab ciprofloxacin HCl 500 mg PO BID #14 tab 04/14/20 metronidazole [Flagyl] 500 mg PO Q8H #21 tab 04/14/20 tramadol 50 mg PO Q8H PRN #10 tab 04/14/20 Allergies Allergy/AdvReac Type Severity Reaction Status Date / Time No Known Allergies Allergy Unverified 04/07/20 08:38 General Stated Complaint: Abd Prob ESTEBAN: 3 Review of Systems All systems reviewed & are unremarkable except as noted in HPI and below Constitutional Constitutional: Denies chills, Denies fever(s) and Denies weakness Cardiovascular Cardiovascular: Denies chest pain and Denies dyspnea Respiratory Respiratory: Denies cough and Denies dyspnea Genitourinary Genitourinary: Denies dysuria Integumentary/Breasts Skin/Breast: Denies rash Neurologic Neurologic: Denies weakness [facility] Medical History (Updated 04/14/20 @ 23:56 by Cade Okeefe MD) Colitis Hospitalized in 04/27 Crohn's disease Enteritis GERD (gastroesophageal reflux disease) Hyperlipidemia Surgical History Appendectomy H/O lumbar discectomy around 1991 Hx of colonoscopy Family History Other Hypertension Social History Smoking/Tobacco Use Status: Current every day Tobacco Type: cigarettes Tobacco: How many years used: 40 Smoking risk assessment performed?: Yes Alcohol Intake: current Alcohol Intake frequency: a few times a month Details: ~10 drinks of wine, liquor weekly Drug use: Never Substance use type: does not use 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 Do you feel safe at home: Yes Do you feel safe in your relationship?: Yes Exam Const General: no acute distress Orientation: alert HENMT Head: normal to inspection Ears: external ears normal General nose exam: external nose normal Mouth: moist mucous membranes Eyes General: appearance normal, both eyes and all related structures Neck Neck: normal visual inspection Resp Effort & Inspection: normal respiratory effort and able to speak in complete sentences Cardio Rate: regular rate GI Palpation: soft, not firm and no guarding Skin General skin exam: no rashes or lesions noted Neuro General: patient alert and patient oriented x3 Extrem General: normal to inspection Psych Mental Status: mental status grossly normal Course Vital Signs Vital signs: Vital Signs Temperature 36.7 C 04/14/20 22:29 Pulse 114 H 04/14/20 22:29 Respiratory Rate 20 04/14/20 22:29 Blood Pressure 124/64 04/14/20 22:29 Pulse Oximetry 93 04/14/20 22:29 Temperature 36.7 C 04/14/20 22:29 Temperature Source Skin 04/14/20 22:29 Pulse 114 H 04/14/20 22:29 Respiratory Rate 20 04/14/20 22:29 Respiratory Effort Non-Labored 04/14/20 22:33 Blood Pressure 124/64 04/14/20 22:29 Blood Pressure Position Sitting 04/14/20 22:29 Pulse Oximetry 93 04/14/20 22:29 Oxygen Delivery Method Room Air 04/14/20 22:29 Oxygen Flow Rate 0 04/14/20 22:29 Pain Level 10 04/14/20 22:36
[2020-04-14] MEDS: Ketorolac 15 MG/ML VIAL IVP (22:54)
[2020-04-14] MEDS: Normal Saline 1,000 ML 1000 ML IV (22:55)
[2020-04-14 23:04] LABS: Abs Immature Grans 0.42 10^3/uL (0.0-0.06); Absolute Basophil Count 0.03 10^3/uL (0.0-0.2); Absolute Monocyte Count 0.13 10^3/uL (0.1-0.8); Absolute Neutrophil Count 5.84 10^3/uL (1.2-6.7); Basophils % 0.3; HCT 39.1 % (36.0-46.0); Immature Grans % 4.1; Lymphocytes % 37.8; MCH 33.6 pg (27.0-33.0); MCHC 33.2 % (32.0-36.0); MPV 8.6 fL (8.0-11.0); Monocytes % 1.3; Neutrophils % 56.5; Nucleated RBC 0 %; Platelet Count 499 10^3/uL (130-400); RBC 3.87 10^6/uL (3.93-5.22); RDW 12.5 % (11.7-14.6); RDW-SD 46.5 fL; WBC 10.32 10^3/uL (4.4-10.8)
[2020-04-14 23:09] VITALS: BP 112/64; PULSE 90; O2SAT 92
[2020-04-14] MEDS: Normal Saline Flush 10 ML SYR IVP ×2 (23:09→23:35)
[2020-04-14 23:10] VITALS: O2SAT 93
[2020-04-14] MEDS: Normal Saline - Diluent 50 ML VIAL IV (23:10)
[2020-04-14 23:19] LABS: ALT 27 U/L (14-59); AST 20 U/L (15-37); Albumin 3.7 g/dL (3.4-5.0); Alkaline Phosphatase 71 U/L (46-116); BUN 9 mg/dL (7-18); Bilirubin, Direct 0.05 mg/dL (0.00-0.20); Bilirubin, Total 0.2 mg/dL (0.2-1.0); C-Reactive Protein 0.06 mg/dL (0.0-0.3); Calcium 9.6 mg/dL (8.5-10.1); Chloride 101 mmol/L (98-107); Glucose 187 mg/dL (74-106); Lipase 233 U/L (73-393); Magnesium 1.8 mg/dL (1.8-2.4); PTT Activated 22.5 sec (21.0-27.5); Potassium 3.3 mmol/L (3.5-5.1); Prothrombin Time 9.6 sec (9.3-11.0); Sodium 141 mmol/L (136-145)
[2020-04-14] MEDS: Omnipaque 350 MG/ML 100 ML BTL IJ (23:19)
--- NOTE | 2020-04-14 23:21 | DI.CT_ITS ---
EXAM: CT ABDOMEN PELVIS W CLINICAL HISTORY: hx of crohn's and worsening lower abdominal pain TECHNIQUE: Imaging Protocol: Axial computed tomography images with coronal and sagittal reformatted images were created and reviewed CONTRAST MATERIAL: Intravenous: Omnipaque 350 Contrast volume:71 mL Oral: No COMPARISON: CT CT ABDOMEN PELVIS W from 04/07/2020 FINDINGS: ABDOMEN: Lung Bases: Scarring in the lung bases. Liver: Normal density. No measurable mass. Portal, Superior Mesenteric, and Splenic Veins: Unremarkable. Gallbladder and Biliary Tract: No radiodense calculus or dilation. Pancreas: Normal density, no abnormal calcifications or inflammatory process. Spleen: Normal. Adrenals: No masses seen. Kidneys: Normal size, contour and axis. No radiodense stones or obstructive uropathy. No masses seen. Abdominal Aorta: Abdominal portion non-dilated. Atherosclerosis. Bowel: No evidence of bowel obstruction. Surgical clips are seen in the right lower quadrant suggest ing prior appendectomy. There is colonic diverticulosis but no evidence of acute diverticulitis. Th ere is a question of mild thickening of the wall of portion of the descending colon. There also is m ild wall thickening seen in loops of small bowel in the left abdomen. The stomach is not well disten ded. Peritoneal Cavity: No ascites, collection or mesenteric inflammatory response. Lymph Nodes: Within normal limits. Bones: Mild degenerative changes. Soft Tissues: Unremarkable. PELVIS: Bladder: Symmetric distention, no gross wall thickening. Reproductive Organs: There is a 2.5 cm right ovarian cyst. There is a 1.1 cm left ovarian cyst. Lymph Nodes: Within normal limits. Bones: Mild degenerative changes. IMPRESSION: 1. Mild wall thickening in loops of small and large bowel. The patient has a history of Crohn's dise ase in this may represent Crohn's enteritis/colitis. 2. Colonic diverticulosis without evidence of acute diverticulitis. RADIATION DOSE DELIVERED: 526.17mGy.cm Total DLP DATA REPOSITORY: All CT scans at this facility are submitted to the National Radiology Data Registry (NRDR) Dose Index Registry (DIR) with the [employer] (ACR). RADIATION OPTIMIZATION: All CT scans at this facility use at least one of these dose optimization te chniques: automated exposure control; mA and/or kV adjustment per patient size (includes targeted exa ms where dose is matched to clinical indication); or iterative reconstruction.
[2020-04-14 23:32] VITALS: O2SAT 93
[2020-04-14] MEDS: HYDROmorphone 2 MG/ML VIAL 1 MG IVP (23:35)
[2020-04-14 23:46] LABS: ESR 28 mm/hr (0-30)
--- NOTE | 2020-04-14 23:48 | DI.VRAD_ITS ---
PROCEDURE INFORMATION: Exam: CT Abdomen And Pelvis With Contrast Exam date and time: 04/14/2020 10:42 PM Age: 60 years old Clinical indication: Abdominal pain; Localized; Lower; Prior surgery; Surgery type: Appendix; Patient HX: HX crohns TECHNIQUE: Imaging protocol: Computed tomography of the abdomen and pelvis with intravenous contrast. Radiation optimization: All CT scans at this facility use at least one of these dose optimization techniques: automated exposure control; mA and/or kV adjustment per patient size (includes targeted exams where dose is matched to clinical indication); or iterative reconstruction. Contrast material: [id number]; Contrast volume: 71 ml; Contrast route: INTRAVENOUS (IV); COMPARISON: CT ABDOMEN PELVIS W 04/07/2020 9:59 AM FINDINGS: Lungs: Small scar/atelectasis in the lower lobes again noted Liver: No acute abnormality. Gallbladder and bile ducts: No stones. No ductal dilation. Pancreas: No ductal dilation. Spleen: No acute abnormality. Adrenal glands: Normal. No mass. Kidneys and ureters: No hydronephrosis. Stomach and bowel: No bowel obstruction. Mild nonspecific wall thickening in nondistended colon. Colonic diverticulosis without diverticulitis Appendix: No evidence of appendicitis. Intraperitoneal space: No free fluid. Vasculature: No abdominal aortic aneurysm. Lymph nodes: No enlarged lymph nodes. Urinary bladder: Unremarkable as visualized. Reproductive: 2.3 x 1.7 cm follicular cyst in the right ovary and 1.2 cm follicular cyst in the left ovary again noted. Bones/joints: No acute fracture. Soft tissues: No acute findings. IMPRESSION: 1. Mild nonspecific wall thickening in nondistended colon. Colitis not excluded 2. Colonic diverticulosis without diverticulitis 3. 2.3 x 1.7 cm follicular cyst in the right ovary and 1.2 cm follicular cyst in the left ovary again noted. No free fluid. Dictated and Authenticated by: Avni Gray MD. Ordering:ADRIAN Mohamud MD
[2020-04-14 23:50] VITALS: O2SAT 92
[2020-04-15] MEDS: metroNIDAZOLE 500 MG TAB PO
[2020-04-15 00:01] VITALS: BP 118/60; PULSE 86; RESP 16; O2SAT 94
[2020-04-15] MEDS: Ciprofloxacin 500 MG TAB PO (00:01)
== END 2020-04-15 00:15 | disposition home or self-care (01) ==
PROVIDERS: Emergency Provider Emergency Medicine; PCP Nurse Practitioner Family
DX: R10.32 Left lower quadrant pain (principal); K52.9 Noninfective gastroenteritis and colitis, unspecified; K50.90 Crohn's disease, unspecified, without complications
CPT/HCPCS: 36415; 80053; 83690; 85652; 96361; 96374; 96375; 99285; 74177; 81003; 82248; 83735; 85025; 85610; 85730; 86140; 99284; J1885; J3490

== ENCOUNTER 2020-05-23 19:37 | Outpatient (REF) | payer MEDICAID, SELFPAY ==
[2020-05-26 21:25] LABS: COVID-19 RT-PCR Result NEGATIVE (Negative)
== END 2020-05-23 19:57 ==
LOC: NCHCN 19:37
PROVIDERS: PCP Nurse Practitioner Family; Visit Provider Nurse Practitioner Family
DX: Z20.828 Contact with and (suspected) exposure to other viral communicable diseases (principal)
CPT/HCPCS: U0003

== ENCOUNTER 2020-11-09 00:27 | Emergency (ER) | payer MEDICAID, SELFPAY ==
[2020-11-09] VITALS (40 sets, daily range): BP systolic 95–122; BP diastolic 47–105; PULSE 62–97; RESP 16; TEMP 36.9; O2SAT 92–98
--- NOTE | 2020-11-09 00:24 | W.ED.GENAD ---
Discharge Plan Disposition Patient Disposition: HOME Condition: Good Discharge Details Clinical Impression: Chest pain, Abdominal pain Primary Care Provider: Vinita Francis ED Provider: Ede Tucker [place] Meds and New Rx's Prescriptions: Continued atorvastatin 20 mg Tablet 20 mg PO HS RF: 0 omeprazole 40 mg Capsule,Delayed Release(Dr/Ec) 40 mg PO DAILY RF: 0 albuterol sulfate [ProAir HFA] 90 mcg/actuation Hfa Aerosol Inhaler 2 - 4 puff Inhalation Q4H PRN PRN (Reason: Wheezing) RF: 0 calcium 600 mg Capsule 600 mg PO DAILY RF: 0 cyanocobalamin (vitamin B-12) [Vitamin B-12] 250 mcg Tablet 250 mcg PO DAILY RF: 0 Remicade 100 mg Recon Soln 100 mg IV Q8W RF: 0 cholecalciferol (vitamin D3) [Vitamin D3] 25 mcg (1,000 unit) Tablet 1,000 unit PO DAILY RF: 0 tramadol 50 mg tablet 50 mg PO Q8H PRN (Reason: pain) Qty: 10 RF: 0 Discharge Instructions Instructions: Chest Pain (ED), Abdominal Pain (ED) Additional Instructions: Your work-up here in the emergency department looks okay. X-ray, EKG, laboratory studies were good. You should follow up with primary care and call in the morning. Consider outpatient stress testing to complete your chest pain work-up. If recurrent chest pain, shortness of breath should return to ED. Also with recurrent/worsening abdominal pain, vomiting, fever return to ED. Referrals: Vinita Francis [Primary Care Provider] - Medical Decision Making Patient presenting to the ED with complaint of left-sided chest pain with some radiation to left shoulder and associated shortness of breath although unclear whether related to pain or dyspnea. Subsequently developed lower abdominal pain. She has never had chest pain. The abdominal pain reminds her of Crohn's flare. She has no vomiting or diarrhea. She has no fever or cough. She does not appear to be in any distress. Vital signs are normal. At this point will pursue both a chest pain and abdominal pain work-up. Will give aspirin for possibility of cardiac issue. Will give Pepcid, Mylanta, Bentyl for abdominal complaints. Laboratory studies sent. EKG ordered. Chest and abdominal x-ray ordered. Patient reports feeling better after medications. Maybe a little abdominal discomfort still in the lower abdomen. Laboratory studies are unremarkable other than slightly low potassium. Troponin and D-dimer are normal. EKG normal and unchanged. Abdominal x-ray and chest x-ray negative per my read. At this point her HEART and EDACS score make her low risk. Will repeat troponin and EKG at 3 hours. Repeat EKG and troponin remain normal. Preliminary radiology read chest x-ray agrees as no acute disease. Abdominal x-ray suggestive of nonspecific bowel gas pattern which could represent ileus versus enteritis. On reevaluation patient is having no pain or GI symptoms. She has been sleeping. At this point I think she is safe for discharge home to follow-up with primary care. Probably should obtain outpatient stress testing to complete chest pain work-up. If recurrent chest pain, shortness of breath should return to ED. If worsening abdominal pain, vomiting also return to ED. Lab Data Lab results reviewed: Yes I reviewed the patient's lab results. ECG Data Attestation: I personally reviewed and interpreted this ECG (s) as follows: HPI General Mode of arrival: EMS. Date/Time Provider Initiated Documentation: 11/09/20 00:35. Limitations to Documentation: no limitations. Information obtained by: patient, RN notes reviewed and old records reviewed. HPI Narrative: Patient presents to the ED by ambulance with complaint of chest pain, shortness of breath, abdominal pain. Patient reports that about 45 minutes prior to arrival she developed substernal chest pain that radiated under her breast and somewhat into her left shoulder. It is still present although less. She feels short of breath with but is unclear whether it is related to pain causing her to feel short of breath or true dyspnea. She denies nausea. She has not been ill. There has been no fever or cough. She has no back pain. She subsequently developed cramping in her lower abdomen that feels somewhat like a Crohn's flare though she has been symptom-free for the last few days. She denies urinary symptoms. She denies diarrhea. She denies any leg pain or leg swelling. At this point seems to be having more abdominal pain and cramping and chest pain and shortness of breath. Related Data Home Medications Medication Instructions Recorded Confirmed albuterol sulfate [ProAir HFA] 2 - 4 puff INHALATION Q4H PRN PRN 10/17/18 11/09/20 atorvastatin 20 mg PO HS 10/17/18 11/09/20 omeprazole 40 mg PO DAILY 10/17/18 11/09/20 Remicade 100 mg IV Q8W 04/07/20 11/09/20 calcium 600 mg PO DAILY 04/07/20 11/09/20 cholecalciferol (vitamin D3) 1,000 unit PO DAILY 04/07/20 11/09/20 [Vitamin D3] cyanocobalamin (vitamin B-12) 250 mcg PO DAILY 04/07/20 11/09/20 [Vitamin B-12] tramadol 50 mg PO Q8H PRN #10 tab 04/14/20 11/09/20 Previous Rx's Medication Instructions Recorded tramadol 50 mg PO Q8H PRN #10 tab 04/14/20 Allergies Allergy/AdvReac Type Severity Reaction Status Date / Time No Known Allergies Allergy Unverified 11/09/20 00:31 General ESTEBAN: 3 Review of Systems Narrative: 03/23 Review of Systems completed and is negative except as stated above in HPI (Systems reviewed: Const, Eyes, ENT, Resp, CV, GI, , MSK, Skin, Neuro) PFSH Medical History Colitis Hospitalized in 04/27 Crohn's disease Enteritis GERD (gastroesophageal reflux disease) Hyperlipidemia Surgical History Appendectomy H/O lumbar discectomy around 1991 Hx of colonoscopy Family History Other Hypertension Social History Smoking/Tobacco Use Status: Current every day Tobacco Type: cigarettes Tobacco: How many years used: 40 Smoking risk assessment performed?: Yes Alcohol Intake: current Alcohol Intake frequency: a few times a week Details: ~10 drinks of wine, liquor weekly Drug use: Never Substance use type: does not use 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 HEENT: NC/AT. Normal facial exam. Eyes: Normal conjunctiva and sclera. Neck: Supple. Trachea midline. Lungs: Normal respiratory effort. Lungs are clear. Cor: RRR without murmur/gallop. Good radial pulses. GI: Soft and ND. Mild tenderness suprapubic area, not consistent. Neuro: A+O x 3. Normal speech, mentation, gait. Cranial nerves II - XII grossly intact. No gross motor or sensory deficit. Ext: No C/C/E. No calf tenderness. Skin: Warm and dry without rash.
--- NOTE | 2020-11-09 00:30 | DI.RAD_ITS ---
Exam(s) XR CHEST 2V PA LATERAL EXAM: XR CHEST 2V PA LATERAL CLINICAL HISTORY: CP/SOB TECHNIQUE: 2D digital imaging was performed. COMPARISON: CR XR PORTABLE CHEST AP from 09/12/2018 FINDINGS: MEDIASTINUM: Normal. HEART: Normal. PULMONARY VASCULATURE: Normal. LUNGS: Clear. Mild parenchymal scarring. PLEURAL SPACE: No pleural effusion or pneumothorax. BONE:Within normal limits for the patient's age. Old appearing T8 compression fracture deformity. OTHER FINDINGS:Normal. IMPRESSION: No acute pulmonary findings. DATA REPOSITORY: RADIATION DOSE DELIVERED:
--- NOTE | 2020-11-09 00:30 | RT.EKG_ITS ---
APPROVED REPORT Exam: Resting ECG Reason for Exam: CP Patient Location: E HR:76 bpm ECG Measurements Heart Rate 76 AXIS AZ 205 P 73 QRSd 77 QRS 51 QT 391 T 67 QTc 438 Conclusion Sinus rhythm...normal P axis, V-rate 60- 99 Borderline prolonged AZ interval...AZ >202, V-rate 50- 90 There are no significant changes compared to prior EKG performed on 04/07/2020 at 08:44. I have reviewed and interpreted ECG and agree with software generated interpretation.
--- NOTE | 2020-11-09 00:44 | DI.RAD_ITS ---
Exam(s) XR ABDOMEN FLAT UPRIGHT EXAM: 2D digital imaging was performed. CLINICAL HISTORY: cramping abdominal pain. COMPARISON: No exams were available for comparison TECHNIQUE: Supine and uprightSupine and Lateral views of the abdomen was performed. FINDINGS: LUNG BASES: Clear. BOWEL GAS PATTERN: Non-specific bowel gas pattern. There is air seen within both small and large bow el loops. FREE AIR: None. CALCIFICATIONS: No radiopaque calcifications. OSSEOUS STRUCTURES: Normal for age. OTHER FINDINGS: None. IMPRESSION: No evidence of an acute abdomen. DATA REPOSITORY: RADIATION DOSE DELIVERED:
[2020-11-09] MEDS: Mylanta Suspension 30 ML CUP 20 ML PO (01:10)
[2020-11-09] MEDS: FAMOTIDINE 20 MG/50 ML BAG 100 MG IVPB (01:10)
[2020-11-09] MEDS: Dicyclomine 20 MG TAB PO (01:10)
[2020-11-09] MEDS: Aspirin 81 MG CHEW 324 MG CH (01:10)
[2020-11-09 01:11] LABS: Bilirubin Negative (Negative); Blood Trace-intact (Negative); Clarity Clear (Clear); Glucose Negative (Negative); Ketones Negative (Negative); Leukocyte Esterase Trace (Negative); Nitrite Negative (Negative); Specific Gravity 1.015 (1.005-1.025); Urobilinogen 0.2 EU/dL (Up TO 0.2)
[2020-11-09 01:13] LABS: Abs Immature Grans 0.03 10^3/uL (0.0-0.06); Absolute Basophil Count 0.08 10^3/uL (0.0-0.2); Absolute Eosinophil Count 0.14 10^3/uL (0.0-0.7); Absolute Lymphocyte Count 5.93 10^3/uL (1.2-3.4); Absolute Monocyte Count 0.39 10^3/uL (0.1-0.8); Absolute Neutrophil Count 2.08 10^3/uL (1.2-6.7); Basophils % 0.9; Eosinophils % 1.6; HCT 37.3 % (36.0-46.0); HGB 12.7 g/dL (11.2-15.7); Immature Grans % 0.3; Lymphocytes % 68.6; MCH 34.1 pg (27.0-33.0); MCV 100.3 fL (80-95); MPV 9.2 fL (8.0-11.0); Monocytes % 4.5; Neutrophils % 24.1; Nucleated RBC 0 %; Platelet Count 301 10^3/uL (130-400); RBC 3.72 10^6/uL (3.93-5.22); RDW-SD 48.2 fL; WBC 8.65 10^3/uL (4.4-10.8)
[2020-11-09 01:24] LABS: Diff Comment Agrees w/ Instrument
[2020-11-09 01:24] LABS: Bacteria Rare HPF (Negative); C & S Indicated? Yes; Casts Negative LPF (Negative); Crystals Negative HPF (Negative); Epithelial Cells Rare HPF (Negative); Mucus Negative (Negative); RBC 0-2 HPF (0-2); WBC 0-2 HPF (0-5)
[2020-11-09 01:29] LABS: ALT 47 U/L (14-59); AST 52 U/L (15-37); Albumin 3.7 g/dL (3.4-5.0); Alkaline Phosphatase 82 U/L (46-116); Anion Gap 11.1 mmol/L (3-11); BUN 8 mg/dL (7-18); Bilirubin, Total 0.3 mg/dL (0.2-1.0); CO2 28.9 mmol/L (21.0-32.0); CREATININE 0.6 mg/dL (0.55-1.02); Calcium 9.6 mg/dL (8.5-10.1); Chloride 106 mmol/L (98-107); Glucose 92 mg/dL (74-106); Lipase 222 U/L (73-393); Magnesium 1.8 mg/dL (1.8-2.4); Potassium 3.2 mmol/L (3.5-5.1); Sodium 146 mmol/L (136-145); Total Protein 8.2 g/dL (6.4-8.2)
[2020-11-09 01:30] LABS: Troponin I < 0.05 ng/mL (<0.06)
[2020-11-09 01:45] LABS: D-Dimer 466 ng/mlFEU (<500)
--- NOTE | 2020-11-09 02:30 | DI.VRAD_ITS ---
PROCEDURE INFORMATION: Exam: XR Abdomen Exam date and time: 11/09/2020 1:11 AM Age: 60 years old Clinical indication: Generalized; Prior surgery; Surgery date: 6+ months; Surgery type: Appendectomy and back surgery; Patient HX: Cramping and abdominal pain TECHNIQUE: Imaging protocol: XR of the abdomen. Views: 2 Views. Upright and supine views. COMPARISON: CT ABDOMEN PELVIS W 04/14/2020 11:20 PM FINDINGS: Gastrointestinal tract: Mild gaseous distention throughout the visualized bowel. Prominent/borderline dilated loops of bowel in the right lower quadrant Intraperitoneal space: Normal. No free air. Bones/joints: Unremarkable for age. IMPRESSION: Non-specific bowel gas pattern which may represent mild enteritis/ileus. Further evaluation with contrast enhanced CT of the abdomen and pelvis may be helpful if clinically concerned for developing partial small bowel obstruction Dictated and Authenticated by: Nam Conley MD. Ordering:RAMAN Mera MD
--- NOTE | 2020-11-09 02:30 | DI.VRAD_ITS ---
PROCEDURE INFORMATION: Exam: XR Chest Exam date and time: 11/09/2020 12:49 AM Age: 60 years old Clinical indication: Shortness of breath; Other: General chest pain TECHNIQUE: Imaging protocol: XR of the chest. Views: 2 views. COMPARISON: SC XR PORTABLE CHEST AP 09/12/2018 3:43 AM FINDINGS: Lungs: Mild chronic interstitial prominence. No consolidation. Pleural spaces: Unremarkable. No pleural effusion. No pneumothorax. Heart/Mediastinum: Unremarkable. No cardiomegaly. Bones/joints: Unremarkable. IMPRESSION: No radiographic evidence for pneumonia Dictated and Authenticated by: Nam Conley MD. Ordering:RAMAN Mera MD
--- NOTE | 2020-11-09 03:15 | RT.EKG_ITS ---
APPROVED REPORT Exam: Resting ECG Reason for Exam: chest pain Patient Location: E HR:68 bpm ECG Measurements Heart Rate 68 AXIS MT 219 P 92 QRSd 83 QRS 57 QT 412 T 68 QTc 439 Conclusion Sinus rhythm...normal P axis, V-rate 60- 99 Prolonged MT interval...MT >210, V-rate 50- 90 I have reviewed and interpreted ECG and agree with software generated interpretation. There are no significant changes compared to prior EKG performed on 11/09/2020 at 01:03.
[2020-11-09 03:49] LABS: Troponin I < 0.05 ng/mL (<0.06)
== END 2020-11-09 04:23 | disposition home or self-care (01) ==
PROVIDERS: Emergency Provider Emergency Medicine; PCP Nurse Practitioner Family
DX: R07.89 Other chest pain (principal); R10.30 Lower abdominal pain, unspecified
CPT/HCPCS: 80053; 83690; 93005; 96365; 99284; 71046; 74019; 81003; 81015; 83735; 84484; 85025; 85379; 87086; 93010; 99283

== ENCOUNTER 2021-01-05 03:55 | Outpatient (RCR) | payer MEDICAID, SELFPAY ==
[2021-01-05] VITALS (7 sets, daily range): BP systolic 102–120; BP diastolic 65–79; PULSE 68–91; RESP 16–18; TEMP 36.7–36.9; O2SAT 95–98
[2021-01-05] MEDS: Acetaminophen 500 MG TAB 1000 MG PO (10:30)
[2021-01-05] MEDS: Normal Saline Flush 10 ML SYR IVP (10:31)
[2021-01-05] MEDS: inFLIXimab 600 MG in Normal Saline 250 ML 125 MG IVPB (10:53)
== END 2021-01-07 23:59 | disposition home or self-care (01) ==
LOC: INF 03:55
PROVIDERS: PCP Nurse Practitioner Family; Visit Provider Nurse Practitioner Acute Care
DX: K50.80 Crohn's disease of both small and large intestine without complications (principal)
CPT/HCPCS: 96365; 96366; 96413; 96415; J1745

== ENCOUNTER 2021-02-28 12:49 | Emergency (ER) | payer MEDICAID, SELFPAY ==
[2021-02-28 12:59] VITALS: BP 112/62; PULSE 94; RESP 20; TEMP 36.8; O2SAT 95
--- NOTE | 2021-02-28 13:30 | DI.CT_ITS ---
Exam(s) CT ABDOMEN PELVIS W EXAM: CT ABDOMEN PELVIS W CLINICAL HISTORY: abdominal pain, vomiting, diarrhea, hx of crohns TECHNIQUE: Imaging Protocol: Axial computed tomography images with coronal and sagittal reformatted images were created and reviewed CONTRAST MATERIAL: Intravenous: Omnipaque 350 Contrast volume:90 mL Oral: No COMPARISON: CT CT ABDOMEN PELVIS W from 04/14/2020 FINDINGS: ABDOMEN: Lung Bases: Scarring in the lung bases. Liver: Focal fatty infiltration near the ligamentum flavum and the gallbladder fossa. No measurable mass. Portal, Superior Mesenteric, and Splenic Veins: Unremarkable. Gallbladder and Biliary Tract: No radiodense calculus or dilation. Pancreas: Normal density, no abnormal calcifications or inflammatory process. Spleen: Normal. Adrenals: No masses seen. Kidneys: Normal size, contour and axis. No radiodense stones or obstructive uropathy. Tiny hypodensit ies in the left kidney. They are too small for further characterization, but likely reflect small cy sts. Abdominal Aorta: Abdominal portion non-dilated. Atherosclerosis. Bowel: No evidence of bowel obstruction. No evidence of an acute bowel inflammatory/infectious proce ss. The patient is status post appendectomy. There is diverticulosis in the sigmoid colon, but no e vidence of acute diverticulitis. Peritoneal Cavity: No ascites, collection or mesenteric inflammatory response. No free air. Lymph Nodes: Within normal limits. Bones: Within normal limits for the patient's age. Soft Tissues: Unremarkable. PELVIS: Bladder: Symmetric distention, no gross wall thickening. Reproductive Organs: Unremarkable as visualized. Lymph Nodes: Within normal limits. Bones: Within normal limits for the patient's age. IMPRESSION: 1. No acute abdominal or pelvic process. 2. Colonic diverticulosis, but no evidence of acute diverticulitis. 3. Results of this exam have been verbally communicated with provider. RADIATION DOSE DELIVERED: 510.3mGy.cm Total DLP DATA REPOSITORY: All CT scans at this facility are submitted to the National Radiology Data Registry (NRDR) Dose Index Registry (DIR) with the [employer] (ACR). RADIATION OPTIMIZATION: All CT scans at this facility use at least one of these dose optimization te chniques: automated exposure control; mA and/or kV adjustment per patient size (includes targeted exa ms where dose is matched to clinical indication); or iterative reconstruction.
[2021-02-28] MEDS: Normal Saline 1,000 ML 1000 ML IV (14:39)
[2021-02-28] MEDS: Ondansetron 4 MG/2 ML VIAL IVP (14:39)
[2021-02-28] MEDS: fentaNYL 100 MCG/2 ML VIAL 50 MCG IVP (14:39)
[2021-02-28 14:51] LABS: Abs Immature Grans 0.01 10^3/uL (0.0-0.06); Absolute Basophil Count 0.08 10^3/uL (0.0-0.2); Absolute Eosinophil Count 0.09 10^3/uL (0.0-0.7); Absolute Lymphocyte Count 5.07 10^3/uL (1.2-3.4); Absolute Monocyte Count 0.39 10^3/uL (0.1-0.8); Absolute Neutrophil Count 1.86 10^3/uL (1.2-6.7); Basophils % 1.1; Eosinophils % 1.2; HCT 35.5 % (36.0-46.0); HGB 12.1 g/dL (11.2-15.7); Immature Grans % 0.1; Lymphocytes % 67.6; MCH 34.2 pg (27.0-33.0); MCHC 34.1 % (32.0-36.0); MCV 100.3 fL (80-95); Monocytes % 5.2; Neutrophils % 24.8; Nucleated RBC 0 %; Platelet Count 291 10^3/uL (130-400); RBC 3.54 10^6/uL (3.93-5.22); RDW 14.5 % (11.7-14.6); RDW-SD 52.9 fL
[2021-02-28] MEDS: Omnipaque 350 MG/ML 100 ML BTL 90 ML IJ (14:52)
[2021-02-28 15:15] LABS: ALT 40 U/L (14-59); AST 53 U/L (15-37); Albumin 3.3 g/dL (3.4-5.0); Alkaline Phosphatase 68 U/L (46-116); Anion Gap 8.1 mmol/L (3-11); BUN 7 mg/dL (7-18); Bilirubin, Total 0.1 mg/dL (0.2-1.0); CO2 29.9 mmol/L (21.0-32.0); CREATININE 0.5 mg/dL (0.55-1.02); Calcium 9.1 mg/dL (8.5-10.1); Chloride 105 mmol/L (98-107); Glucose 119 mg/dL (74-106); Lipase 224 U/L (73-393); Potassium 3.3 mmol/L (3.5-5.1); Sodium 143 mmol/L (136-145); Total Protein 7.4 g/dL (6.4-8.2)
[2021-02-28 15:17] LABS: Diff Comment Diff Reviewed; RBC Morphology Normal
--- NOTE | 2021-02-28 16:03 | W.ED.GENAD ---
Discharge Plan Disposition Patient Disposition: HOME Condition: Stable Discharge Details Clinical Impression: Nausea vomiting and diarrhea Primary Care Provider: Vinita Francis ED Provider: Lashay Wilkerson Home Meds and New Rx's Prescriptions: New ondansetron HCl [Zofran] 4 mg tablet 4 mg PO Q8H PRNQty: 10 RF: 0 potassium chloride 20 mEq tablet,ER particles/crystals 20 meq PO DAILY Qty: 10 RF: 0 Continued atorvastatin 20 mg Tablet 20 mg PO HS RF: 0 omeprazole 40 mg Capsule,Delayed Release(Dr/Ec) 40 mg PO DAILY RF: 0 albuterol sulfate [ProAir HFA] 90 mcg/actuation Hfa Aerosol Inhaler 2 - 4 puff Inhalation Q4H PRN PRN (Reason: Wheezing) RF: 0 calcium 600 mg Capsule 600 mg PO DAILY RF: 0 cyanocobalamin (vitamin B-12) [Vitamin B-12] 250 mcg Tablet 250 mcg PO DAILY RF: 0 Remicade 100 mg Recon Soln 100 mg IV Q8W RF: 0 cholecalciferol (vitamin D3) [Vitamin D3] 25 mcg (1,000 unit) Tablet 1,000 unit PO DAILY RF: 0 tramadol 50 mg tablet 50 mg PO Q8H PRN (Reason: pain) Qty: 10 RF: 0 Discharge Instructions Instructions: Acute Nausea and Vomiting (ED) Additional Instructions: Return your stool sample Take Zofran for nausea and vomiting Take your potassium as prescribed Clear liquid diet and clears feeling symptomatically improved Tylenol as needed for pain Please return earlier should you have new or worsening complaints Recheck with your doctor in 48 hours Referrals: Vinita Francis [Primary Care Provider] - Discharge Data Discharge Date/Time-TO BE ENTERED AT DEPARTURE: 02/28/21 16:[address] scan does not show evidence of acute abnormality, mildly hypokalemic, given potassium supplementation for home per radiology interpretation and discussion with Dr. Almendarez Able to tolerate p.o. at time of discharge Potassium 3.3, supplemented with p.o. potassium orally for home Prescription for antiemetic Close outpatient follow-up, no evidence of Crohn's flare at this time or bowel obstruction Discharged home in stable condition with vitals Recheck in 24 hours with primary care physician Low threshold to return with persistent vomiting, fever, chills, or with any new or worsening complaints Medical Records Medical records reviewed: Yes I reviewed the patient's medical records. Lab Data Lab results reviewed: Yes I reviewed the patient's lab results. HPI General Mode of arrival: ambulatory. Date/Time Provider Initiated Documentation: 02/28/21 12:58. Limitations to Documentation: no limitations. Information obtained by: patient. HPI Narrative: This 61-year-old female with history of Crohn's disease, GERD, hyperlipidemia presents with abdominal pain, nausea, vomiting, diarrhea this morning. She denies any fever or chills. She denies any chest pain or shortness of breath. She denies blood in vomitus or stool. She denies mucus in stool. She does get regular Remicade infusions and has been doing well with this reportedly. Denies any additional complaints at this time. Describes the pain as cramping. Partially alleviated with diarrhea. Approximately 4 vomiting and pain with diarrhea reportedly. Has not had diarrhea evaluated in the emergency room Related Data Home Medications Medication Instructions Recorded Confirmed albuterol sulfate [ProAir HFA] 2 - 4 puff INHALATION Q4H PRN PRN 10/17/18 02/28/21 atorvastatin 20 mg PO HS 10/17/18 02/28/21 omeprazole 40 mg PO DAILY 10/17/18 02/28/21 Remicade 100 mg IV Q8W 04/07/20 02/28/21 calcium 600 mg PO DAILY 04/07/20 02/28/21 cholecalciferol (vitamin D3) 1,000 unit PO DAILY 04/07/20 02/28/21 [Vitamin D3] cyanocobalamin (vitamin B-12) 250 mcg PO DAILY 04/07/20 02/28/21 [Vitamin B-12] tramadol 50 mg PO Q8H PRN #10 tab 04/14/20 02/28/21 ondansetron HCl [Zofran] 4 mg PO Q8H PRN #10 tab 02/28/21 potassium chloride 20 meq PO DAILY #10 tab 02/28/21 Previous Rx's Medication Instructions Recorded tramadol 50 mg PO Q8H PRN #10 tab 04/14/20 ondansetron HCl [Zofran] 4 mg PO Q8H PRN #10 tab 02/28/21 potassium chloride 20 meq PO DAILY #10 tab 02/28/21 Allergies Allergy/AdvReac Type Severity Reaction Status Date / Time No Known Allergies Allergy Unverified 02/28/21 13:05 General Stated Complaint: Abd Prob ESTEBAN: 3 Review of Systems All systems reviewed & are unremarkable except as noted in HPI and below PFSH Medical History Colitis Hospitalized in 04/27 Crohn's disease Enteritis GERD (gastroesophageal reflux disease) Hyperlipidemia Surgical History Appendectomy H/O lumbar discectomy around 1991 Hx of colonoscopy Family History Other Hypertension Social History Smoking/Tobacco Use Status: Current every day Tobacco Type: cigarettes Tobacco: How many years used: 40 Smoking risk assessment performed?: Yes Alcohol Intake: current Alcohol Intake frequency: a few times a week Details: ~10 drinks of wine, liquor weekly Drug use: Never Substance use type: does not use 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 Do you feel safe at home: Yes Do you feel safe in your relationship?: Yes Exam Const General: cooperative and comfortable HENMT Head: normal to inspection Eyes Pupils: PERRL Chest Chest: normal inspection of the chest Resp Effort & Inspection: normal respiratory effort Auscultation: clear to auscultation bilaterally Cardio Rate: regular rate Rhythm: regular rhythm GI Inspection: normal to inspection Other: Mild tenderness to palpation in lower quadrants Skin General skin exam: no rashes or lesions noted Neuro General: patient alert and patient oriented x3 Extrem General: normal to inspection Other: Distal pulses intact Psych Appearance: grossly normal Course Vital Signs Vital signs: Vital Signs Temperature 36.8 C 02/28/21 12:59 Pulse 94 H 02/28/21 12:59 Respiratory Rate 02/28/21 12:59 Blood Pressure 112/62 02/28/21 12:59 Pulse Oximetry 95 02/28/21 12:59 Temperature 36.8 C 02/28/21 12:59 Temperature Source Skin 02/28/21 12:59 Pulse 94 H 02/28/21 12:59 Respiratory Rate 02/28/21 12:59 Respiratory Effort Non-Labored 02/28/21 13:03 Blood Pressure 112/62 02/28/21 12:59 Blood Pressure Position Sitting 02/28/21 12:59 Pulse Oximetry 95 02/28/21 12:59 Oxygen Delivery Method Room Air 02/28/21 12:59 Oxygen Flow Rate 0 02/28/21 12:59 Pain Level 9 02/28/21 14:39 Lab/Test Results Lab/Test Results: Laboratory Tests Range/Units 02/28/21 02/28/21 12:30 12:30 WBC (4.4-10.8) 10^3/uL 7.50 RBC (3.93-5.22) 10^6/uL 3.54 L Hgb (11.2-15.7) g/dL 12.1 Hct (36.0-46.0) % 35.5 L MCV (80-95) fL 100.3 H MCH (27.0-33.0) pg 34.2 H MCHC (32.0-36.0) % 34.1 RDW (11.7-14.6) % 14.5 Plt Count (130-400) 10^3/uL 291 MPV (8.0-11.0) fL 9.0 Immature Gran % 0.1 Neutrophils % 24.8 Lymphocytes % 67.6 Monocytes % 5.2 Eosinophils % 1.2 Basophils % 1.1 Nucleated RBC % % 0 Absolute Neutrophils (1.2-6.7) 10^3/uL 1.86 Absolute Lymphocytes (1.2-3.4) 10^3/uL 5.07 H Absolute Monocytes (0.1-0.8) 10^3/uL 0.39 Absolute Eosinophils (0.0-0.7) 10^3/uL 0.09 Absolute Basophils (0.0-0.2) 10^3/uL 0.08 RBC Morphology Normal Sodium (136-145) mmol/L 143 Potassium (3.5-5.1) mmol/L 3.3 L Chloride (98-107) mmol/L 105 Carbon Dioxide (21.0-32.0) mmol/L 29.9 Anion Gap (3-11) mmol/L 8.1 BUN (7-18) mg/dL 7 Creatinine (0.55-1.02) mg/dL 0.5 L Estimated GFR/1.73 m2 (mL/min/1.73m2) >= 60.00 Glucose (74-106) mg/dL 119 H Calcium (8.5-10.1) mg/dL 9.1 Total Bilirubin (0.2-1.0) mg/dL 0.1 L AST (15-37) U/L 53 H ALT (14-59) U/L 40 Alkaline Phosphatase (46-116) U/L 68 Total Protein (6.4-8.2) g/dL 7.4 Albumin (3.4-5.0) g/dL 3.3 L Lipase (73-393) U/L 224
[2021-02-28] MEDS: ACETAMINOPHEN 1,000 MG/100 ML BTL 400 MG IVPB (16:16)
[2021-02-28 16:51] VITALS: BP 120/68; PULSE 87; RESP 14; TEMP 36.7; O2SAT 95
== END 2021-02-28 16:49 | disposition home or self-care (01) ==
PROVIDERS: Emergency Provider Physician Assistant; PCP Nurse Practitioner Family
DX: R11.2 Nausea with vomiting, unspecified (principal); R19.7 Diarrhea, unspecified; E87.6 Hypokalemia; R10.30 Lower abdominal pain, unspecified
CPT/HCPCS: 36415; 80053; 83690; 96361; 96365; 96375; 99285; 74177; 85025; 99284; J0131; J2405; J3010; J3490

== ENCOUNTER 2021-03-02 01:12 | Outpatient (RCR) | payer MEDICAID, SELFPAY ==
[2021-01-08 00:15] VITALS: BP 111/68; PULSE 77; RESP 16; TEMP 36.8
[2021-03-02] MEDS: diphenhydrAMINE 25 MG CAP PO (08:24)
[2021-03-02] MEDS: Acetaminophen 500 MG TAB 1000 MG PO (08:25)
[2021-03-02] MEDS: Normal Saline Flush 10 ML SYR IVP (08:25)
[2021-03-02 09:10] VITALS: BP 129/81; PULSE 85; RESP 18; TEMP 37.2; O2SAT 98
[2021-03-02] MEDS: inFLIXimab 600 MG in Normal Saline 250 ML 125 MG IVPB (09:10)
[2021-03-02 09:25] VITALS: BP 111/75; PULSE 85; RESP 16; TEMP 36.9; O2SAT 96
[2021-03-02 09:40] VITALS: BP 101/65; PULSE 83; RESP 16; TEMP 36.6; O2SAT 95
[2021-03-02 09:55] VITALS: BP 101/56; PULSE 81; RESP 16; TEMP 36.9; O2SAT 91
[2021-03-02 10:25] VITALS: BP 100/66; PULSE 78; RESP 18; TEMP 36.9; O2SAT 96
[2021-03-02 10:55] VITALS: BP 102/67; PULSE 76; RESP 16; TEMP 37.2; O2SAT 96
== END 2021-03-09 23:59 | disposition home or self-care (01) ==
LOC: INF 01:12
PROVIDERS: PCP Nurse Practitioner Family; Visit Provider Nurse Practitioner Acute Care
DX: K50.80 Crohn's disease of both small and large intestine without complications (principal)
CPT/HCPCS: 36415; 80076; 82397; 96365; 96366; 96413; 96415; J1745

== ENCOUNTER 2021-03-29 17:38 | Emergency (ER) | payer MEDICAID, SELFPAY ==
[2021-03-29] VITALS (62 sets, daily range): BP systolic 73–122; BP diastolic 48–84; PULSE 67–104; RESP 9–21; TEMP 36.7–36.8; O2SAT 92–99
--- NOTE | 2021-03-29 18:00 | RT.EKG_ITS ---
APPROVED REPORT Exam: Resting ECG Reason for Exam: sob Patient Location: E HR:84 bpm ECG Measurements Heart Rate 84 AXIS PA 178 P 74 QRSd 83 QRS 62 QT 357 T 62 QTc 423 Conclusion Incomplete analysis due to missing data in precordial lead(s) Sinus rhythm...normal P axis, V-rate 60- 99 Probable left atrial enlargement...P >50mS, <-0.10mV V1. Incomplete. Sinus. No obvious STEMI. I have reviewed and interpreted ECG and agree with software generated interpretation.
--- NOTE | 2021-03-29 18:05 | ED.GENADUL_ITS ---
Discharge Plan Disposition Patient Disposition: [facility] Condition: Serious Discharge Details Chief Complaint: SOB Clinical Impression: Shortness of breath, Elevated troponin Primary Care Provider: Vinita Francis ED Provider: Cade Okeefe Home Meds and New Rx's Prescriptions: No Action atorvastatin 20 mg Tablet 20 mg PO HS RF: 0 omeprazole 40 mg Capsule,Delayed Release(Dr/Ec) 40 mg PO DAILY RF: 0 albuterol sulfate [ProAir HFA] 90 mcg/actuation Hfa Aerosol Inhaler 2 - 4 puff Inhalation Q4H PRN PRN (Reason: Wheezing) RF: 0 potassium chloride 20 mEq tablet,ER particles/crystals 20 meq PO DAILY Qty: 10 RF: 0 calcium 600 mg Capsule 600 mg PO DAILY RF: 0 cyanocobalamin (vitamin B-12) [Vitamin B-12] 250 mcg Tablet 250 mcg PO DAILY RF: 0 Remicade 100 mg Recon Soln 100 mg IV Q8W RF: 0 cholecalciferol (vitamin D3) [Vitamin D3] 25 mcg (1,000 unit) Tablet 1,000 unit PO DAILY RF: 0 tramadol 50 mg tablet 50 mg PO Q8H PRN (Reason: pain) Qty: 10 RF: 0 Medical Decision Making <KRISTINE Quesada - Last Filed: 03/30/21 08:24> Patient is a pleasant 61-year-old female presented with chief complaint of shortness of breath and abdominal pain. Patient reports that abdominal pain is acute on chronic. History of Crohn's. However, she does report that this pain seems to be worse with difficult describes it being across the lower abdomen. States that she has been having significant diarrhea. Is in the middle of her Remicade treatments. Denies any nausea or vomiting. Denies any blood in her stools. States that she has had shortness of breath today and feels like I cannot catch my breath. Denies any chest pain. No recent fevers or chills. States that she has some nasal congestion and frog in my throat. Denies any lower extremity swelling. No history of DVT. Past medical history pertinent for anemia, malnutrition, hyperlipidemia, GERD, thrombocytopenia. On exam, patient appears nontoxic. Slightly tachycardic with a heart rate of 94. Lungs are clear. Normal cardiac. While she report significant pain, her abdomen is benign with no peritoneal findings or focal tenderness. She denies any vaginal discharge. No dysuria. Reports weekly alcohol consumption. Denies marijuana use. Will obtain labs to include a D-dimer to evaluate for potential PE given the new onset shortness of breath. She is not endorsing any chest pain or exertional symptoms, I have very low suspicion for ACS but will evaluate with EKG and troponin. Patient I discussed risk and benefits of repeat imaging of her abdomen. However, as the pain does sound to be different to her baseline, I will plan on CT to look into this further. No recent antibiotic. She does have a bowel movement here, can count for testing but suspect Crohn's etiology. She is 2+ distal pulses in all extremities. Her history exam is not consistent with aortic dissection. ECG reviewed by Dr. Nation. No acute ischemic changes noted. CXR reviewed by radiologist: FINDINGS: Lungs: No consolidation. The lung collado appear slightly hyperexpanded, which could reflect emphysema. Pleural spaces: Unremarkable. No pleural effusion. No pneumothorax. Heart/Mediastinum: Unremarkable. No cardiomegaly. Bones/joints: Unremarkable. IMPRESSION: No acute findings. Contacted by the lab. Patient's troponin is elevated at 0.19. She has not been elevated in the past. Her D-dimer is age-adjusted normal. However, it is on the upper limits of normal and with her history I do feel that moving forward with CT for PE protocol would be appropriate. FINDINGS: Pulmonary arteries: Normal. No pulmonary emboli. Aorta: No aortic aneurysm. No aortic dissection. Lungs: Linear and patchy atelectasis noted in the bilateral lower lobes. No consolidation. No masses. Pleural spaces: Unremarkable. No pneumothorax. No pleural effusion. Heart: Unremarkable. No cardiomegaly. No pericardial effusion. Lymph nodes: Unremarkable. No enlarged lymph nodes. Bones/joints: Unremarkable. No acute fracture. Soft tissues: Unremarkable. IMPRESSION: No acute findings. FINDINGS: Liver: No mass. A small region of peripheral hypodensity in the left hepatic lobe along the region of the falciform ligament may represent focal fat deposition. Gallbladder and bile ducts: Normal. No calcified stones. No ductal dilation. Pancreas: Normal. No ductal dilation. Spleen: Normal. No splenomegaly. Adrenal glands: Normal. No mass. Kidneys and ureters: Normal. No hydronephrosis. Stomach and bowel: Unremarkable. No obstruction. No mucosal thickening. Appendix: No evidence of appendicitis. Intraperitoneal space: Unremarkable. No free air. No significant fluid collection. Vasculature: Unremarkable. No abdominal aortic aneurysm. Lymph nodes: Unremarkable. No enlarged lymph nodes. Urinary bladder: Unremarkable as visualized. Reproductive: There is a 3.2 cm cystic structure in the right ovary, which contains simple fluid. Bones/joints: No acute fracture. No dislocation. Soft tissues: No significant subcutaneous soft tissue abnormality. IMPRESSION: 1. No evidence of acute abdominal pathology. 2. 3.2 cm cystic structure in the right ovary, which could represent a simple cyst. However, Ultrasound follow-up in 6-12 months is recommended. (Reference: Dave) Consult with [facility] cardiology placed, they do not have a bed or availability or on wait list. Patient was given morphine for her abdominal pain. Nursing staff only gave 2 mg initially secondary to the patient's blood pressure. Patient reports that she typically runs quite low. When patient began to come back a little later, give another [address] Zhu with cardiology. They were alerted to a STEMI and will call me back. Spoke again with Dr. Zhu cardiology. He feels that this is likely type 2 NSTEMI. Advised that they can take her tomorrow. Hold off on heparin, continue to trend. NPO after midnight. Will take for echo and stress tomorrow. Accepting physician is Dr. Garnett. Discussed findings of labs and imaging with patient, she is in agreement with staying in ED tonight with transfer to [facility] tomorrow. At the end of my shift, care transitioned to Dr. Tucker with transfer pending. Will continue to trend troponins over night. PRN Morphine. NPO. <Cade Okeefe MD - Last Filed: 03/30/21 10:14> pt signed out to me with plan [place] [facility] [place] tech [place] [facility] [place] is a [place] frame for [place]. She is currently laying in bed. SHe states she came in for shortness of breath and abdominal cramping she thought felt like prior flares of her crohns. She has no dyspnea or chest pain now, troponins remain flat, will continue to monitor [facility] [place], will go by [facility], remains stable at this time, no chest pain. HPI <KRISTINE Quesada - Last Filed: 03/30/21 08:24> General Mode of arrival: ambulatory . Date/Time Provider Initiated Documentation: 03/29/21 17:45 . Limitations to Documentation: no limitations . Information obtained by: patient and RN notes reviewed . History of Present Illness 61 year old F presents to the emergency department with the chief complaint of lower abdominal pain, diarrhea, SOB, cough, congestion, described as severe, with intensity rated at 10 (no CP, pain only in abdomen). Quality is described as stabbing, and is localized to the abdomen. Patient reports no radiation. Patient started experiencing this day(s) and it has been constant. No relieving factors improve symptom(s), No exacerbating factors reported . Patient notes cough and shortness of breath; denies chest pain, diaphoresis, fever/chills, headaches, loss of appetite, nausea/vomiting and rash. Patient did receive the following treatments prior to arrival, none Related Data Home Medications Medication Instructions Recorded Confirmed albuterol sulfate [ProAir HFA] 2 - 4 puff INHALATION Q4H PRN PRN 10/17/18 03/29/21 atorvastatin 20 mg PO HS 10/17/18 03/29/21 omeprazole 40 mg PO DAILY 10/17/18 03/29/21 Remicade 100 mg IV Q8W 04/07/20 03/29/21 calcium 600 mg PO DAILY 04/07/20 03/29/21 cholecalciferol (vitamin D3) 1,000 unit PO DAILY 04/07/20 03/29/21 [Vitamin D3] cyanocobalamin (vitamin B-12) 250 mcg PO DAILY 04/07/20 03/29/21 [Vitamin B-12] tramadol 50 mg PO Q8H PRN #10 tab 04/14/20 03/29/21 potassium chloride 20 meq PO DAILY #10 tab 02/28/21 03/29/21 Previous Rx's Medication Instructions Recorded tramadol 50 mg PO Q8H PRN #10 tab 04/14/20 potassium chloride 20 meq PO DAILY #10 tab 02/28/21 Allergies Allergy/AdvReac Type Severity Reaction Status Date / Time No Known Allergies Allergy Unverified 03/29/21 17:45 General Stated Complaint: SOB ESTEBAN: 2 Review of Systems <KRISTINE Quesada - Last Filed: 03/30/21 08:24> Constitutional Constitutional: Reports as per HPI, Denies chills, Denies fever(s), Denies headache(s), Denies lethargy and Denies poor appetite ENT Ears, Nose, Mouth, and Throat: Denies dizziness and Denies headache(s) Cardiovascular Cardiovascular: Reports as per HPI, Denies chest pain at rest, Denies chest pain with activity, Denies pedal edema, Denies lightheadedness, Denies radiating jaw, neck or arm pain, Reports dyspnea and Denies dyspnea on exertion Respiratory Respiratory: Reports as per HPI, Reports cough, Denies pain on inspiration, Denies pain with cough, Reports dyspnea, Denies dyspnea on exertion and Denies wheezing Gastrointestinal Gastrointestinal: Reports as per HPI, Reports abdominal pain, Denies bloating, Denies hematochezia, Reports diarrhea, Denies nausea and Denies vomiting Genitourinary Genitourinary: Reports system reviewed and no additional complaints, except as documented (denies change in urinary habits) Musculoskeletal Musculoskeletal: Reports as per HPI and Denies back pain Integumentary/Breasts Skin/Breast: Reports as per HPI and Denies rash Neurologic Neurologic: Reports as per HPI, Denies dizziness and Denies headache(s) Allergic/Immunologic Allergic/Immunologic: Denies wheezing PFSH <KRISTINE Quesada - Last Filed: 03/30/21 08:24> Medical History Colitis Hospitalized in 04/27 Crohn's disease Enteritis GERD (gastroesophageal reflux disease) Hyperlipidemia Surgical History Appendectomy H/O lumbar discectomy around 1991 Hx of colonoscopy Family History Other Hypertension Social History Smoking/Tobacco Use Status: Current every day Tobacco Type: cigarettes Tobacco: How many years used: 40 Smoking risk assessment performed?: Yes Alcohol Intake: current Alcohol Intake frequency: a few times a week Details: ~10 drinks of wine, liquor weekly Drug use: Never Substance use type: does not use 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 Do you feel safe at home: Yes Do you feel safe in your relationship?: Yes Exam <KRISTINE Quesada - Last Filed: 03/30/21 08:24> Const General: cooperative, healthy appearing, comfortable, no acute distress and well developed Nutritional Appearance: well nourished and thin Orientation: alert, awake and oriented x3 HENMT Head: normal to inspection Mouth: lip normal and mucous membranes dry (appears dry) Throat: posterior oropharynx normal Neck Neck: normal visual inspection and no lymphadenopathy Chest Chest: normal inspection of the chest, normal palpation of entire chest wall and no crepitus Resp Effort & Inspection: normal respiratory effort, able to speak in complete sentences and no respiratory distress Auscultation: clear to auscultation bilaterally, no rales, no rhonchi and no wheezes Cardio Rate: regular rate Rhythm: regular rhythm Heart Sounds: S1 normal and S2 normal GI Inspection: normal to inspection, no edema and non-distended Palpation: soft, no hepatosplenomegaly, not firm, no guarding, not rigid and tender (tender across lower abdomen, no focal area of pain, no peritoneal findings) Auscultation: normal bowel sounds Back/Spine/Pelvis Back: no CVA tenderness Thoracic/Lumbar Spine: thoracic and lumbar spine normal to inspection Skin General skin exam: no rashes or lesions noted Trauma: no lacerations or abrasions Neuro General: patient alert, patient awake and patient oriented x3 Cognition: normal cognition Speech: speech normal Gait: normal gait Extrem General: normal to inspection, capillary refill normal, no pedal edema, no calf tenderness, normal gait and other (2+ distal pulses in all extremities) Psych Appearance: grossly normal and well kempt Mental Status: mental status grossly normal Speech and Movement: speech and movement normal Course <KRISTINE Quesada - Last Filed: 03/30/21 08:24> Vital Signs Vital signs: Vital Signs Temperature 36.7 C 03/29/21 17:43 Pulse 94 H 03/29/21 17:43 Respiratory Rate 18 03/29/21 17:43 Blood Pressure 122/76 03/29/21 17:43 Pulse Oximetry 97 03/29/21 17:43 Temperature 36.7 C 03/29/21 17:43 Temperature Source Temporal Artery Scan 03/29/21 17:43 Pulse 94 H 03/29/21 17:43 Respiratory Rate 14 03/29/21 17:55 Respiratory Effort 03/29/21 17:55 Respiratory Depth Shallow 03/29/21 17:55 Respiratory Pattern Tachypnea 03/29/21 17:55 Blood Pressure 122/76 03/29/21 17:43 Blood Pressure Position Sitting 03/29/21 17:43 Pulse Oximetry 97 03/29/21 17:43 Oxygen Delivery Method Room Air 03/29/21 17:43 Oxygen Flow Rate 0 03/29/21 17:43 Pain Level 10 03/29/21 17:43 Sign Out <KRISTINE Quesada - Last Filed: 03/30/21 08:24> Sign Out Data: Sign Out Comment: Care transition to Dr. Tucker with plan for patient be transferred to [facility] tomorrow for echo and stress test. Cardiology concern for type II troponin elevation. Did not recommend heparin. Patient received aspirin. Patient's primary concern is lower abdominal discomfort. Has received total of 4 mg morphine. Patient n.p.o. after midnight Last updated by Carisa Mena PA at 03/30/21 00:20 Sign Out Comment: Troponin remains flat. Repeat at 8 am. Transfer to [facility] when bed available later today. Last updated by Ede Tucker MD at 03/30/21 07:49 PAWSS <KRISTINE Quesada - Last Filed: 03/30/21 08:24> Have you Been Recently Intoxicated or Drunk Within the Last 30 days?: Yes Have you Ever Experienced Previous Episodes of Alcohol Withdrawal?: No Have you ever Experienced Withdrawal Seizures?: No Have you ever Experienced Delirium Tremens(DT)s?: No Have you ever undergone Alcohol Rehabilitation Treatment (i.e, inpt ot outpatient treatment programs)?: No Have you ever Experienced Blackouts?: No Have you ever Combined Alcohol with other Downers within the last 90 days?: No Have you ever Combined Alcohol with any other Substance of Abuse during the last 90 days?: No Positive Blood Alcohol level on Presentation? [PCS.BAL]: No Evidence of Increased Autonomic Activity (i.e. HR>120, tremor, sweating, agitation, nausea)?: No Result: 1
--- NOTE | 2021-03-29 18:15 | DI.RAD_ITS ---
Exam(s) XR PORTABLE CHEST AP EXAM: XR PORTABLE CHEST AP CLINICAL HISTORY: SOB. TECHNIQUE: 2D digital imaging was performed. COMPARISON: CR XR PORTABLE CHEST AP from 09/12/2018 . Also chest x-ray 09/12/2018 FINDINGS: Heart size is upper normal. The mediastinum is not widened. Scarring in both lung bases, specifically in the posterior basal segments of both lower lobes is unch anged. No new infiltrates nor pleural effusions. No pulmonary edema. No pneumothorax. IMPRESSION: No acute pulmonary findings on this single AP portable view of the chest. Bilateral lower lobe scarring is again noted DATA REPOSITORY: RADIATION DOSE DELIVERED: All CT scans at this facility use at least one of these dose optimization techniques: automated exposure control; mA and/or kV adjustment per patient size (includes targeted e xams where dose is matched to clinical indication); or iterative reconstruction.
[2021-03-29 18:44] LABS: Absolute Neutrophil Count 1.51 10^3/uL (1.2-6.7); HCT 34.6 % (36.0-46.0); HGB 11.7 g/dL (11.2-15.7); MCH 34.8 pg (27.0-33.0); MCHC 33.8 % (32.0-36.0); MPV 9.1 fL (8.0-11.0); Platelet Count 256 10^3/uL (130-400); RBC 3.36 10^6/uL (3.93-5.22); RDW 14.6 % (11.7-14.6); RDW-SD 55.5 fL; WBC 7.53 10^3/uL (4.4-10.8)
[2021-03-29 18:58] LABS: Bilirubin Negative (Negative); Blood Trace-lysed (Negative); Clarity Sl Cloudy (Clear); Glucose Negative (Negative); Ketones Negative (Negative); Leukocyte Esterase Moderate (Negative); Nitrite Negative (Negative); Urobilinogen 0.2 EU/dL (Up TO 0.2)
[2021-03-29 19:19] LABS: ALT 47 U/L (14-59); AST 67 U/L (15-37); Albumin 3.9 g/dL (3.4-5.0); Alkaline Phosphatase 74 U/L (46-116); Anion Gap 9.7 mmol/L (3-11); BUN 8 mg/dL (7-18); Bilirubin, Total 0.3 mg/dL (0.2-1.0); CO2 28.3 mmol/L (21.0-32.0); CREATININE 0.6 mg/dL (0.55-1.02); Calcium 8.9 mg/dL (8.5-10.1); Chloride 106 mmol/L (98-107); Glucose 89 mg/dL (74-106); Lipase 295 U/L (73-393); Magnesium 1.7 mg/dL (1.8-2.4); Potassium 3.5 mmol/L (3.5-5.1); Sodium 144 mmol/L (136-145); TSH (W/Ref FT4) 0.51 uIU/mL (0.36-3.74); Total Protein 8.3 g/dL (6.4-8.2)
[2021-03-29 19:22] LABS: D-Dimer 568 ng/mlFEU (<500)
[2021-03-29 19:27] LABS: Bacteria Few HPF (Negative); Crystals Negative HPF (Negative); Epithelial Cells Many HPF (Negative); Mucus Negative (Negative); RBC 0-2 HPF (0-2)
[2021-03-29 19:28] LABS: C & S Indicated? No/Sq. Contamination
[2021-03-29 19:28] LABS: Troponin I 0.19 ng/mL (<0.06)
--- NOTE | 2021-03-29 19:30 | DI.CT_ITS ---
Exam(s) CT CHEST PE ABD PELVIS W EXAM: CT CHEST PE ABD PELVIS W CLINICAL HISTORY: lower abdominal pain, elevated troponin, SOB. TECHNIQUE: Imaging Protocol: Axial CT angiography was performed with multi-slice acquisition and m ulti-planar and/or 3D reconstructions. CONTRAST MATERIAL: Intravenous: Omnipaque 350 Contrast volume:100 ml Oral: None COMPARISON: CT CT ABDOMEN PELVIS W from 02/28/2021 CR,XR XR PORTABLE CHEST AP from 03/29/2021 FINDINGS: CHEST: PULMONARY ARTERIES: There are no intra-arterial filling defects to suggest the presence of acute pulm onary emboli. LUNGS: There is no evidence of pulmonary infarction. There are no pleural effusions.Accessory azygos lobe right side noted. There is a 5 millimeter pseudo nodule in the right lung. There is scar-like i nfiltrate in the posterior basal segments of both lower lobes, this correspond to what is seen on ped[address] st x-ray and is not a new finding. No pleural effusions. MEDIASTINUM: There is no hilar nor mediastinal adenopathy. Visualized thyroid unremarkable. CARDIAC: Heart size is normal. There is no pericardial effusion. There is no significant shift of t he interventricular septum.Caliber of the thoracic aorta is within normal limits. OSSEOUS: Compression fracture at superior endplate of T7, age indeterminate. This does not exhibit ac [place] fracture lines at this time.. ABDOMEN: There is no ascites. LIVER: There is an area of hypodensity in the medial aspect of the right hepatic lobe adjacent to the interlobar fissure. This probably fatty parenchymal replacement, this being common area for this fin ding. GALLBLADDER/BILIARY: No obvious gallbladder pathology. CBD is not dilated. PANCREAS: No evidence of pancreatic mass nor dilatation of the pancreatic duct. SPLEEN: Spleen is not enlarged. There are no intrasplenic lesions. Splenic and portal veins are cabral nt. ADRENALS: There are no significant adrenal masses. KIDNEYS:No cysts evident. No calculi nor hydronephrosis. No solid renal masses. ABDOMINAL AORTA: Calcified but not enlarged LYMPH NODES: There is no retroperitoneal or para-aortic adenopathy. ABDOMINAL WALL/GI: No evidence of significant anterior abdominal wall hernia. There are few slightly prominent small bowel in the left side of the abdomen, exhibiting diameter to 3 cm. Remainder of sma ll bowel loops exhibit normal diameter. More distal small bowel loops are not totally collapse and th e colon is not collapsed. PELVIS: LYMPH NODES: There is no intrapelvic nor inguinal adenopathy. GI: The appendix is surgically absent.There is sigmoid diverticula but no evidence of acute diverticu litis. URINARY BLADDER: No calculi nor masses evident REPRODUCTIVE: Uterus unremarkable. There is a cyst in the right adnexa, measuring 2.5 by 2.3 cm. Ther e is also a smaller cyst in the opposite-left ovary which measures 1.4 x 1.4 cm. No extraovarian adne xal masses and no free fluid in the cul-de-sac. OSSEOUS: No significant osseous lesions. IMPRESSION: 1. No evidence of acute pulmonary emboli nor pulmonary infarction. No pleural effusions. 2. Scarring in the posterior basal segments of both lower lobes noted, as evident on recent chest x-r ays. No new confluent infiltrates and no new ominous pulmonary nodules. 3. Mildly dilated small bowel loops in left side of the abdomen. Correlation with any clinical signs of bowel obstruction recommended. Bowel loops distal to this level are not collapsed. Colon is also n ot collapsed. 4. Cysts in both ovaries. The largest is in the right ovary measuring 25 x 23 millimeters. Recommend follow-up ultrasound in few menstrual cycles. 5. No free fluid. RADIATION DOSE DELIVERED: 788.66mGy.cm Total DLP DATA REPOSITORY: All CT scans at this facility are submitted to the National Radiology Data Registry (NRDR) Dose Index Registry (DIR) with the [employer] (ACR). RADIATION OPTIMIZATION: All CT scans at this facility use at least one of these dose optimization te chniques: automated exposure control; mA and/or kV adjustment per patient size (includes targeted exa ms where dose is matched to clinical indication); or iterative reconstruction.
[2021-03-29 19:41] LABS: Absolute Basophil Count 0.08 10^3/uL (0.0-0.2); Absolute Eosinophil Count 0.15 10^3/uL (0.0-0.7); Atypical Lymphocytes % 1; Diff Comment Manual Differential; Macrocytosis 1+; Nucleated RBC 1 %
[2021-03-29] MEDS: Aspirin 81 MG CHEW 324 MG CH (19:44)
[2021-03-29] MEDS: ACETAMINOPHEN 1,000 MG/100 ML BTL 400 MG IVPB (20:00)
--- NOTE | 2021-03-29 20:02 | DI.VRAD_ITS ---
PROCEDURE INFORMATION: Exam: XR Chest Exam date and time: 03/29/2021 6:21 PM Age: 61 years old Clinical indication: Shortness of breath TECHNIQUE: Imaging protocol: XR of the chest. Views: 1 view. COMPARISON: CR XR CHEST 2V PA LATERAL 11/09/2020 1:25 AM FINDINGS: Lungs: No consolidation. The lung collado appear slightly hyperexpanded, which could reflect emphysema. Pleural spaces: Unremarkable. No pleural effusion. No pneumothorax. Heart/Mediastinum: Unremarkable. No cardiomegaly. Bones/joints: Unremarkable. IMPRESSION: No acute findings. Dictated and Authenticated by: Veronica Chopra MD. Ordering:PHYLLIS Younger MD
--- NOTE | 2021-03-29 21:45 | RT.EKG_ITS ---
APPROVED REPORT Exam: Resting ECG Reason for Exam: chest pain Patient Location: E HR:78 bpm ECG Measurements Heart Rate 78 AXIS DC 184 P 56 QRSd 89 QRS 61 QT 386 T 51 QTc 439 Conclusion Sinus rhythm...normal P axis, V-rate 60- 99. Sinus. No STEMI. I have reviewed and interpreted ECG and agree with software generated interpretation.
[2021-03-29] MEDS: Omnipaque 350 MG/ML 100 ML BTL IJ (21:47)
[2021-03-29] MEDS: Normal Saline - Diluent 50 ML VIAL IV (21:48)
[2021-03-29] MEDS: Normal Saline Flush 10 ML SYR IVP (21:48)
[2021-03-29 22:21] LABS: Source Nasal/Nares
--- NOTE | 2021-03-29 22:37 | DI.VRAD_ITS ---
PROCEDURE INFORMATION: Exam: CTA Chest With Contrast Exam date and time: 03/29/2021 7:33 PM Age: 61 years old Clinical indication: Lower abdominal pain, elevated troponin, SOB TECHNIQUE: Imaging protocol: Computed tomographic angiography of the chest with contrast. 3D rendering (Not supervised by radiologist): MIP and/or 3D reconstructed images were created by the technologist. COMPARISON: CT CHEST FOR PULMONARY EMBOLUS 07/09/2017 10:24 PM FINDINGS: Pulmonary arteries: Normal. No pulmonary emboli. Aorta: No aortic aneurysm. No aortic dissection. Lungs: Linear and patchy atelectasis noted in the bilateral lower lobes. No consolidation. No masses. Pleural spaces: Unremarkable. No pneumothorax. No pleural effusion. Heart: Unremarkable. No cardiomegaly. No pericardial effusion. Lymph nodes: Unremarkable. No enlarged lymph nodes. Bones/joints: Unremarkable. No acute fracture. Soft tissues: Unremarkable. IMPRESSION: No acute findings. PROCEDURE INFORMATION: Exam: CT Abdomen And Pelvis With Contrast Exam date and time: 03/29/2021 7:33 PM Age: 61 years old Clinical indication: Lower abdominal pain, elevated troponin, SOB TECHNIQUE: Imaging protocol: Computed tomography of the abdomen and pelvis with contrast. 3D rendering (Not supervised by radiologist): MIP and/or 3D reconstructed images were created by the technologist. COMPARISON: CT CHEST FOR PULMONARY EMBOLUS 07/09/2017 10:24 PM FINDINGS: Liver: No mass. A small region of peripheral hypodensity in the left hepatic lobe along the region of the falciform ligament may represent focal fat deposition. Gallbladder and bile ducts: Normal. No calcified stones. No ductal dilation. Pancreas: Normal. No ductal dilation. Spleen: Normal. No splenomegaly. Adrenal glands: Normal. No mass. Kidneys and ureters: Normal. No hydronephrosis. Stomach and bowel: Unremarkable. No obstruction. No mucosal thickening. Appendix: No evidence of appendicitis. Intraperitoneal space: Unremarkable. No free air. No significant fluid collection. Vasculature: Unremarkable. No abdominal aortic aneurysm. Lymph nodes: Unremarkable. No enlarged lymph nodes. Urinary bladder: Unremarkable as visualized. Reproductive: There is a 3.2 cm cystic structure in the right ovary, which contains simple fluid. Bones/joints: No acute fracture. No dislocation. Soft tissues: No significant subcutaneous soft tissue abnormality. IMPRESSION: 1. No evidence of acute abdominal pathology. 2. 3.2 cm cystic structure in the right ovary, which could represent a simple cyst. However, Ultrasound follow-up in 6-12 months is recommended. (Reference: Dave) REFERENCES: Dave et al. Management of Incidental Adnexal Findings on CT and MRI: A White Paper of the ACR Incidental Findings Committee, J Am Alnny Radiol. 2019;17(2):248-254. Dictated and Authenticated by: Veronica Chopra MD. Ordering:PHYLLIS Younger MD
[2021-03-29 23:13] LABS: COVID-19 PCR Negative (Negative)
[2021-03-30] VITALS (126 sets, daily range): BP systolic 88–156; BP diastolic 40–91; PULSE 67–102; RESP 8–27; O2SAT 91–96
[2021-03-30 00:37] LABS: Troponin I 0.19 ng/mL (<0.06)
[2021-03-30] MEDS: Lactated Ringers 1,000 ML 125 ML IV ×2 (00:47→06:33)
[2021-03-30 04:20] LABS: Troponin I 0.17 ng/mL (<0.06)
[2021-03-30 08:39] LABS: Troponin I 0.15 ng/mL (<0.06)
[2021-03-30] MEDS: HYDROmorphone 2 MG/ML VIAL 1 MG IVP (10:11)
--- NOTE | 2021-03-30 10:45 | NUR.NOTE ---
took over patient care at the start of my shift. There was an order for pain medication 30 minutes before my arrival. Medication give
== END 2021-03-30 10:34 | disposition short-term general hospital (02) ==
PROVIDERS: Physician Assistant; Emergency Provider Emergency Medicine; PCP Nurse Practitioner Family
DX: R06.02 Shortness of breath (principal); R79.89 Other specified abnormal findings of blood chemistry; R00.0 Tachycardia, unspecified
CPT/HCPCS: 36415; 71275; 74177; 80053; 83690; 87635; 93005; 96361; 96365; 96366; 96375; 99285; 71045; 81003; 81015; 83735; 84443; 84484; 85025; 85379; 93010; J0131; J3490

== ENCOUNTER 2021-04-27 01:46 | Outpatient (RCR) | payer MEDICAID, SELFPAY ==
[2021-03-10 00:16] VITALS: BP 102/67; PULSE 76; RESP 16; TEMP 37.2
[2021-04-27] MEDS: Acetaminophen 500 MG TAB 1000 MG PO (08:35)
[2021-04-27] MEDS: diphenhydrAMINE 25 MG CAP PO (08:35)
[2021-04-27] MEDS: Normal Saline Flush 10 ML SYR IVP (08:39)
[2021-04-27 08:40] VITALS: BP 121/64; PULSE 60; RESP 17; TEMP 36.8; O2SAT 97
[2021-04-27] MEDS: inFLIXimab 600 MG in Normal Saline 250 ML 125 MG IVPB (09:05)
[2021-04-27 09:25] VITALS: BP 117/73; PULSE 72; RESP 16; TEMP 36.7; O2SAT 98
[2021-04-27 09:40] VITALS: BP 115/75; PULSE 65; RESP 16; TEMP 35.8; O2SAT 98
[2021-04-27 09:59] VITALS: BP 108/70; PULSE 73; RESP 17; TEMP 36.8; O2SAT 97
[2021-04-27 10:15] VITALS: BP 105/67; PULSE 69; RESP 17; TEMP 36.6; O2SAT 98
[2021-04-27 10:45] VITALS: BP 113/73; PULSE 63; RESP 17; TEMP 36.8; O2SAT 98
== END 2021-05-09 23:59 | disposition home or self-care (01) ==
LOC: INF 01:46
PROVIDERS: PCP Nurse Practitioner Family; Visit Provider Nurse Practitioner Acute Care
DX: K50.90 Crohn's disease, unspecified, without complications (principal)
CPT/HCPCS: 96365; 96366; 96413; 96415; J1745

== ENCOUNTER 2021-05-01 17:19 | Outpatient (REF) | payer MEDICAID, SELFPAY ==
[2021-05-01 21:37] LABS: ALT 37 U/L (14-59); AST 44 U/L (15-37); Albumin 3.8 g/dL (3.4-5.0); Alkaline Phosphatase 88 U/L (46-116); Anion Gap 10.2 mmol/L (3-11); BUN 11 mg/dL (7-18); Bilirubin, Total 0.2 mg/dL (0.2-1.0); CO2 26.8 mmol/L (21.0-32.0); CREATININE 0.6 mg/dL (0.55-1.02); Calcium 8.7 mg/dL (8.5-10.1); Chloride 108 mmol/L (98-107); Glucose 86 mg/dL (74-106); NT-proBNP 312 pg/mL (<300); Potassium 3.8 mmol/L (3.5-5.1); Sodium 145 mmol/L (136-145); Total Protein 7.9 g/dL (6.4-8.2)
== END 2021-05-01 17:20 | disposition home or self-care (01) ==
LOC: LBN 17:19
PROVIDERS: PCP Nurse Practitioner Family; Visit Provider Physician Assistant Medical
DX: R60.9 Edema, unspecified (principal)
CPT/HCPCS: 80053; 83880

== ENCOUNTER 2021-06-27 01:21 | Outpatient (RCR) | payer MEDICAID, SELFPAY ==
[2021-05-10 00:13] VITALS: BP 113/73; PULSE 63; RESP 17; TEMP 36.8
[2021-06-27] VITALS (7 sets, daily range): BP systolic 104–119; BP diastolic 68–79; PULSE 54–72; RESP 17–18; TEMP 36.4–36.6; O2SAT 95–97
[2021-06-27] MEDS: diphenhydrAMINE 25 MG CAP PO (11:07)
[2021-06-27] MEDS: Acetaminophen 500 MG TAB 1000 MG PO (11:07)
[2021-06-27] MEDS: Normal Saline Flush 10 ML SYR IVP (11:08)
[2021-06-27] MEDS: inFLIXimab 600 MG in Normal Saline 250 ML 125 MG IVPB (11:46)
== END 2021-07-10 23:59 | disposition home or self-care (01) ==
LOC: INF 01:21
PROVIDERS: PCP Nurse Practitioner Family; Visit Provider Nurse Practitioner Acute Care
DX: K50.90 Crohn's disease, unspecified, without complications (principal)
CPT/HCPCS: 96365; 96366; 96413; 96415; J1745

== ENCOUNTER 2021-08-24 03:03 | Outpatient (RCR) | payer MEDICAID, SELFPAY ==
[2021-07-11 00:12] VITALS: BP 110/73; PULSE 66; RESP 17; TEMP 36.5
[2021-08-24] MEDS: Normal Saline Flush 10 ML SYR IVP (08:58)
[2021-08-24] MEDS: Acetaminophen 500 MG TAB 1000 MG PO (08:58)
[2021-08-24 09:10] VITALS: BP 123/63; PULSE 71; RESP 16; TEMP 36.7; O2SAT 99
[2021-08-24] MEDS: inFLIXimab 600 MG in Normal Saline 250 ML 125 MG IVPB (09:33)
[2021-08-24 09:51] VITALS: BP 118/75; PULSE 73; RESP 16; TEMP 36.7; O2SAT 97
[2021-08-24 10:07] VITALS: BP 115/74; PULSE 69; RESP 16; TEMP 36.6; O2SAT 96
[2021-08-24 10:30] VITALS: BP 118/66; PULSE 66; RESP 17; TEMP 36.8; O2SAT 96
[2021-08-24 11:01] VITALS: BP 114/73; PULSE 74; RESP 16; TEMP 36.7; O2SAT 97
[2021-08-24 11:30] VITALS: BP 117/74; PULSE 65; RESP 16; TEMP 36.5; O2SAT 99
== END 2021-09-07 23:59 | disposition home or self-care (01) ==
LOC: INF 03:03
PROVIDERS: PCP Nurse Practitioner Family; Visit Provider Nurse Practitioner Acute Care
DX: K50.90 Crohn's disease, unspecified, without complications (principal)
CPT/HCPCS: 96365; 96366; 96413; 96415; J1745

== ENCOUNTER 2021-10-19 01:39 | Outpatient (RCR) | payer MEDICAID, SELFPAY ==
[2021-09-08 00:10] VITALS: BP 117/74; PULSE 65; RESP 16; TEMP 36.5
[2021-10-19] MEDS: Normal Saline Flush 10 ML SYR IVP (09:03)
[2021-10-19] MEDS: Acetaminophen 500 MG TAB 1000 MG PO (09:19)
[2021-10-19] MEDS: inFLIXimab 600 MG in Normal Saline 250 ML 125 MG IVPB (09:33)
[2021-10-19 09:35] VITALS: BP 120/75; PULSE 74; RESP 17; TEMP 36.8; O2SAT 99
[2021-10-19 10:04] VITALS: BP 113/75; PULSE 75; RESP 16; TEMP 36.5; O2SAT 98
[2021-10-19 10:20] VITALS: BP 117/77; PULSE 71; RESP 17; TEMP 36.7; O2SAT 98
[2021-10-19 10:35] VITALS: BP 117/73; PULSE 71; RESP 16; TEMP 36.9; O2SAT 98
[2021-10-19 10:50] VITALS: BP 113/72; PULSE 64; RESP 17; TEMP 36.8; O2SAT 97
[2021-10-19 11:20] VITALS: BP 119/72; PULSE 66; RESP 17; TEMP 36.5; O2SAT 96
== END 2021-11-07 23:59 | disposition home or self-care (01) ==
LOC: INF 01:39
PROVIDERS: PCP Nurse Practitioner Family; Visit Provider Nurse Practitioner Acute Care
DX: K50.80 Crohn's disease of both small and large intestine without complications
CPT/HCPCS: 36591; 96365; 96366; 96413; 96415; J1745

== ENCOUNTER 2021-12-21 02:14 | Outpatient (RCR) | payer MEDICAID, SELFPAY ==
[2021-11-08 00:02] VITALS: BP 119/72; PULSE 66; RESP 17; TEMP 36.5
[2021-12-21] VITALS (7 sets, daily range): BP systolic 101–121; BP diastolic 64–77; PULSE 61–71; RESP 18–20; TEMP 36.8–37; O2SAT 95–99
[2021-12-21] MEDS: Acetaminophen 500 MG TAB 1000 MG PO (09:21)
[2021-12-21] MEDS: diphenhydrAMINE 25 MG CAP PO (09:21)
[2021-12-21] MEDS: inFLIXimab 600 MG in Normal Saline 250 ML 125 MG IVPB (10:00)
[2021-12-21] MEDS: Normal Saline Flush 10 ML SYR IVP (10:14)
== END 2022-01-07 23:59 | disposition home or self-care (01) ==
LOC: INF 02:14
PROVIDERS: PCP Nurse Practitioner Family; Visit Provider Nurse Practitioner Acute Care
DX: K50.80 Crohn's disease of both small and large intestine without complications (principal)
CPT/HCPCS: 96365; 96366; 96413; 96415; J1745

== ENCOUNTER 2022-02-15 02:37 | Outpatient (RCR) | payer MEDICAID, SELFPAY ==
[2022-01-08] VITALS: BP 101/65; PULSE 63; RESP 20; TEMP 36.8
[2022-02-15] MEDS: Normal Saline Flush 10 ML SYR IVP (08:58)
[2022-02-15] MEDS: Acetaminophen 500 MG TAB 1000 MG PO (08:58)
[2022-02-15] MEDS: diphenhydrAMINE 25 MG CAP PO (08:58)
[2022-02-15 09:04] VITALS: BP 113/71; PULSE 68; RESP 16; TEMP 36.7; O2SAT 98
[2022-02-15] MEDS: inFLIXimab 600 MG in Normal Saline 250 ML 125 MG IVPB (09:23)
== END 2022-03-09 23:59 | disposition home or self-care (01) ==
LOC: INF 02:37
PROVIDERS: PCP Nurse Practitioner Family; Visit Provider Nurse Practitioner Acute Care
DX: K50.80 Crohn's disease of both small and large intestine without complications (principal)
CPT/HCPCS: 96365; 96366; 96413; 96415; J1745

== ENCOUNTER → 2022-04-12 02:23 | Outpatient (CLI) | payer MEDICAID, SELFPAY ==
--- NOTE | 2022-04-12 12:57 | DI.MAMMO_ITS ---
Exam(s) MAMMO SCREENING EXAM: MAMMO SCREENING CLINICAL HISTORY: SCREENING, Z12.39 TECHNIQUE: Mammograms were interpreted according to the usual protocol including computer analysis w [employer] system, tomosynthesis and C-view imaging. COMPARISON: FINDINGS: The breasts are of moderate density with fairly symmetrical distribution of fibroglandular tissue. N o dominant mass or clumped microcalcification is identified in either breast. Current examination co mpared with previous examinations including June 2018 and there has been no gross interval change in appearance in comparison with prior studies. IMPRESSION: No specific evidence of malignancy at this time. Routine screening examinations are suggested at yea rly intervals in this age group according to the ACS ACR guidelines. BI-RADS Category 1 - Negative Breast Density - Category B - Scattered areas of fibroglandular density
== END ==
PROVIDERS: PCP Nurse Practitioner Family; Visit Provider Nurse Practitioner Family
DX: Z12.31 Encounter for screening mammogram for malignant neoplasm of breast (principal)
CPT/HCPCS: 77063; 77067

== ENCOUNTER 2022-04-12 02:45 | Outpatient (RCR) | payer MEDICAID, SELFPAY ==
[2022-03-10 00:15] VITALS: BP 113/71; PULSE 68; RESP 16; TEMP 36.7
[2022-04-12] MEDS: Acetaminophen 500 MG TAB 1000 MG PO (09:00)
[2022-04-12] MEDS: diphenhydrAMINE 25 MG CAP PO (09:00)
[2022-04-12] MEDS: Normal Saline Flush 10 ML SYR IVP (09:01)
[2022-04-12 09:14] VITALS: BP 123/77; PULSE 73; RESP 16; TEMP 36.6; O2SAT 99
[2022-04-12] MEDS: inFLIXimab 600 MG in Normal Saline 250 ML 125 MG IVPB (09:39)
[2022-04-12 09:55] VITALS: BP 106/66; PULSE 75; RESP 16; TEMP 36.7; O2SAT 98
[2022-04-12 10:10] VITALS: BP 97/64; PULSE 75; RESP 16; TEMP 36.6; O2SAT 99
[2022-04-12 10:25] VITALS: BP 92/51; PULSE 77; RESP 16; TEMP 36.6; O2SAT 97
[2022-04-12 10:45] VITALS: BP 105/66; PULSE 78; RESP 16; TEMP 36.6; O2SAT 98
[2022-04-12 11:15] VITALS: BP 102/68; PULSE 75; RESP 16; TEMP 36.6; O2SAT 98
== END 2022-05-09 23:59 | disposition home or self-care (01) ==
LOC: INF 02:45
PROVIDERS: PCP Nurse Practitioner Family; Visit Provider Nurse Practitioner Acute Care
DX: K50.80 Crohn's disease of both small and large intestine without complications (principal)
CPT/HCPCS: 96365; 96366; 96413; 96415; J1745

== ENCOUNTER 2022-06-07 01:54 | Outpatient (RCR) | payer MEDICAID, SELFPAY ==
[2022-05-10 00:02] VITALS: BP 102/68; PULSE 75; RESP 16; TEMP 36.6
[2022-06-07] VITALS (7 sets, daily range): BP systolic 105–116; BP diastolic 68–76; PULSE 73–89; RESP 16–17; TEMP 36.6–36.7; O2SAT 96–98
[2022-06-07] MEDS: diphenhydrAMINE 25 MG CAP PO (09:15)
[2022-06-07] MEDS: Acetaminophen 500 MG TAB 1000 MG PO (09:15)
[2022-06-07] MEDS: Normal Saline Flush 10 ML SYR IVP (09:15)
[2022-06-07] MEDS: inFLIXimab 600 MG in Normal Saline 250 ML 125 MG IVPB (09:53)
== END 2022-06-09 23:59 | disposition home or self-care (01) ==
LOC: INF 01:54
PROVIDERS: PCP Nurse Practitioner Family; Visit Provider Nurse Practitioner Acute Care
DX: K50.80 Crohn's disease of both small and large intestine without complications (principal)
CPT/HCPCS: 96365; 96366; 96413; 96415; J1745

== ENCOUNTER 2022-06-07 16:10 | Outpatient (REF) | payer MEDICAID, SELFPAY ==
--- NOTE | 2022-06-07 15:30 | PAPFT_PTH ---
PATIENT: Lubna Mcknight LOC: [facility]#:[id number] AGE/SX: 62/F ROOM: RE06/07/[address]: Vinita Francis : 1960 BED: DIS: 06/07/2022 SPEC #: [id number] RECD: 06/08/22 15:16 STATUS: LIN REJack #: [id number] MARY ANN: 06/07/22 15:[address]: Vinita Francis DEPT: [facility] Cytology RECD BY: Sana Drummond Tissues: 1 - CX/ENDOCX FOR PAP SMEARS Procedures: PAP THIN PREP/UVM Screening HPV DNA PROBE Comments: [id number]
[2022-06-07 18:14] LABS: HCT 33.9 % (36.0-46.0); HGB 11.3 g/dL (11.2-15.7); MCH 33.9 pg (27.0-33.0); MCHC 33.3 % (32.0-36.0); MCV 102 fL (80-95); MPV 9.2 fL (8.0-11.0); Platelet Count 331 10^3/uL (130-400); RBC 3.33 10^6/uL (3.93-5.22); RDW 12.4 % (11.7-14.6); RDW-SD 46.9 fL; WBC 9.97 10^3/uL (4.4-10.8)
[2022-06-07 18:32] LABS: ALT 20 U/L (14-59); AST 28 U/L (15-37); Alkaline Phosphatase 88 U/L (46-116); Anion Gap 7.7 mmol/L (3-11); BUN 17 mg/dL (7-18); Bilirubin, Total 0.3 mg/dL (0.2-1.0); CO2 27.3 mmol/L (21.0-32.0); CREATININE 0.6 mg/dL (0.55-1.02); Calcium 10.2 mg/dL (8.5-10.1); Calculated LDL 138 mg/dL (<100); Chloride 100 mmol/L (98-107); Cholesterol 235 mg/dL (<200); Estimated GFR 102.69 (mL/min/1.73m2); Glucose 100 mg/dL (74-106); HDL Cholesterol 82 mg/dL (40-60); Potassium 4.9 mmol/L (3.5-5.1); Sodium 135 mmol/L (136-145); Triglyceride 76 mg/dL (<150)
== END 2022-06-07 16:11 | disposition home or self-care (01) ==
LOC: NCHCN 16:10
PROVIDERS: PCP Nurse Practitioner Family; Visit Provider Nurse Practitioner Family
DX: Z12.4 Encounter for screening for malignant neoplasm of cervix (principal); Z11.51 Encounter for screening for human papillomavirus (HPV); Z00.00 Encounter for general adult medical examination without abnormal findings
CPT/HCPCS: 80053; 80061; 85027; 88142; 87624

== ENCOUNTER 2022-08-02 02:45 | Outpatient (RCR) | payer MEDICAID, SELFPAY ==
[2022-06-10 00:15] VITALS: BP 116/75; PULSE 84; RESP 16; TEMP 36.6
[2022-08-02] VITALS (7 sets, daily range): BP systolic 81–112; BP diastolic 51–66; PULSE 61–84; RESP 16–18; TEMP 35.3–36.5; O2SAT 96–98
[2022-08-02] MEDS: Acetaminophen 500 MG TAB 1000 MG PO (12:19)
[2022-08-02] MEDS: diphenhydrAMINE 25 MG CAP PO (12:19)
[2022-08-02] MEDS: Normal Saline Flush 10 ML SYR IVP (12:20)
[2022-08-02] MEDS: inFLIXimab 600 MG in Normal Saline 250 ML 125 MG IVPB (12:54)
== END 2022-08-07 23:59 | disposition home or self-care (01) ==
LOC: INF 02:45
PROVIDERS: PCP Nurse Practitioner Family; Visit Provider Nurse Practitioner Acute Care
DX: K50.80 Crohn's disease of both small and large intestine without complications (principal)
CPT/HCPCS: 96365; 96366; 96413; 96415; J1745

== ENCOUNTER 2022-09-27 03:22 | Outpatient (RCR) | payer MEDICAID, SELFPAY ==
[2022-08-08 00:11] VITALS: BP 102/60; PULSE 75; RESP 16; TEMP 36.3
[2022-09-27] VITALS (7 sets, daily range): BP systolic 99–109; BP diastolic 66–72; PULSE 78–108; RESP 17; TEMP 37–37.1; O2SAT 96–98
[2022-09-27] MEDS: diphenhydrAMINE 25 MG CAP PO (09:08)
[2022-09-27] MEDS: Acetaminophen 500 MG TAB 1000 MG PO (09:08)
[2022-09-27] MEDS: inFLIXimab 600 MG in Normal Saline 250 ML 125 MG IVPB (09:25)
== END 2022-10-07 23:59 | disposition home or self-care (01) ==
LOC: INF 03:22
PROVIDERS: PCP Nurse Practitioner Family; Visit Provider Nurse Practitioner Acute Care
DX: K50.80 Crohn's disease of both small and large intestine without complications (principal)
CPT/HCPCS: 96365; 96366; 96413; 96415; J1745

== ENCOUNTER 2022-11-26 04:00 | Outpatient (RCR) | payer MEDICAID, SELFPAY ==
[2022-10-08 00:01] VITALS: BP 104/68; PULSE 78; RESP 17; TEMP 37
[2022-11-26] VITALS (7 sets, daily range): BP systolic 100–145; BP diastolic 57–80; PULSE 56–82; RESP 17; TEMP 36.3–37; O2SAT 97–99
[2022-11-26] MEDS: Acetaminophen 500 MG TAB 1000 MG PO (08:57)
[2022-11-26] MEDS: diphenhydrAMINE 25 MG CAP PO (08:57)
[2022-11-26] MEDS: Normal Saline Flush 10 ML SYR IVP (09:15)
[2022-11-26] MEDS: inFLIXimab 600 MG in Normal Saline 250 ML 125 MG IVPB (09:27)
== END 2022-12-07 23:59 | disposition home or self-care (01) ==
LOC: INF 04:00
PROVIDERS: PCP Nurse Practitioner Family; Visit Provider Nurse Practitioner Acute Care
DX: K50.80 Crohn's disease of both small and large intestine without complications (principal)
CPT/HCPCS: 96365; 96366; 96413; 96415; J1745

== ENCOUNTER 2023-03-27 03:34 | Outpatient (RCR) | payer MEDICAID, SELFPAY ==
[2023-03-13] VITALS (7 sets, daily range): BP systolic 100–122; BP diastolic 65–82; PULSE 72–87; RESP 15–16; TEMP 36.3–36.5; O2SAT 96–99
[2023-03-13] MEDS: diphenhydrAMINE 25 MG CAP PO (09:20)
[2023-03-13] MEDS: Acetaminophen 500 MG TAB 1000 MG PO (09:21)
[2023-03-13] MEDS: Normal Saline Flush 10 ML SYR IVP (09:21)
[2023-03-13 09:58] LABS: HCT 38.8 % (36.0-46.0); MCH 33.4 pg (27.0-33.0); MCHC 33.5 % (32.0-36.0); MCV 100 fL (80-95); MPV 8.7 fL (8.0-11.0); Platelet Count 479 10^3/uL (130-400); RBC 3.89 10^6/uL (3.93-5.22); RDW 13.2 % (11.7-14.6); RDW-SD 48.7 fL; WBC 10.71 10^3/uL (4.4-10.8)
[2023-03-13 10:17] LABS: ALT 15 U/L (14-59); AST 22 U/L (15-37); Albumin 3.4 g/dL (3.4-5.0); Alkaline Phosphatase 96 U/L (46-116); Bilirubin, Total 0.2 mg/dL (0.2-1.0); Total Protein 8.5 g/dL (6.4-8.2)
[2023-03-13 10:23] LABS: Bilirubin, Direct < 0.1 mg/dL (0.0-0.2)
[2023-03-17 18:03] LABS: Infliximab <1.0 mcg/mL (<=5.0)
[2023-03-20 14:57] LABS: Infliximab Ab <20.0 U/mL (<50.0)
[2023-03-27] VITALS (7 sets, daily range): BP systolic 102–128; BP diastolic 66–83; PULSE 76–84; RESP 17–18; TEMP 36–36.5; O2SAT 96–98
[2023-03-27] MEDS: diphenhydrAMINE 25 MG CAP PO (10:56)
[2023-03-27] MEDS: Acetaminophen 500 MG TAB 1000 MG PO (10:57)
[2023-03-27] MEDS: Normal Saline Flush 10 ML SYR IVP (11:28)
== END 2023-04-09 23:59 | disposition home or self-care (01) ==
LOC: INF 03:34
PROVIDERS: Internal Medicine Gastroenterology; PCP Nurse Practitioner Family; Visit Provider Nurse Practitioner Acute Care
DX: K50.80 Crohn's disease of both small and large intestine without complications (principal)
CPT/HCPCS: 36415; 80076; 82397; 85027; 96365; 96366; 96413; 96415

== ENCOUNTER 2023-04-24 02:03 | Outpatient (RCR) | payer MEDICAID, SELFPAY ==
[2023-04-10 00:15] VITALS: BP 102/66; PULSE 84; RESP 17; TEMP 36.3
[2023-04-24] VITALS (7 sets, daily range): BP systolic 87–105; BP diastolic 54–71; PULSE 63–89; RESP 16–17; TEMP 36.2–36.8; O2SAT 96–99
[2023-04-24] MEDS: Normal Saline Flush 10 ML SYR IVP (09:05)
[2023-04-24] MEDS: Acetaminophen 500 MG TAB 1000 MG PO (09:05)
[2023-04-24] MEDS: diphenhydrAMINE 25 MG CAP PO (09:05)
== END 2023-05-09 23:59 | disposition home or self-care (01) ==
LOC: INF 02:03
PROVIDERS: PCP Physician Assistant; Visit Provider Nurse Practitioner Acute Care
DX: K50.80 Crohn's disease of both small and large intestine without complications (principal)
CPT/HCPCS: 96365; 96366; 96413; 96415

== ENCOUNTER 2023-06-27 04:04 | Outpatient (RCR) | payer MEDICAID, SELFPAY ==
[2023-05-10 00:08] VITALS: BP 102/66; PULSE 84; RESP 17; TEMP 36.3
[2023-06-27] VITALS (7 sets, daily range): BP systolic 98–113; BP diastolic 60–76; PULSE 68–82; RESP 16; TEMP 35.8–36.7; O2SAT 95–99
[2023-06-27] MEDS: diphenhydrAMINE 25 MG CAP PO (09:03)
[2023-06-27] MEDS: Acetaminophen 500 MG TAB 1000 MG PO (09:03)
[2023-06-27] MEDS: Normal Saline Flush 10 ML SYR IVP (09:04)
== END 2023-07-10 23:59 | disposition home or self-care (01) ==
LOC: INF 04:04
PROVIDERS: PCP Physician Assistant; Visit Provider Nurse Practitioner Acute Care
DX: K50.80 Crohn's disease of both small and large intestine without complications (principal)
CPT/HCPCS: 96365; 96366; 96413; 96415; Q5103

== ENCOUNTER 2023-08-29 05:14 | Outpatient (RCR) | payer MEDICAID, SELFPAY ==
[2023-07-11 00:14] VITALS: BP 102/66; PULSE 84; RESP 17; TEMP 36.3
[2023-08-29] VITALS (7 sets, daily range): BP systolic 96–121; BP diastolic 65–79; PULSE 77–96; RESP 16; TEMP 36.3–36.9; O2SAT 95–98
[2023-08-29] MEDS: Acetaminophen 500 MG TAB 1000 MG PO (08:56)
[2023-08-29] MEDS: diphenhydrAMINE 25 MG CAP PO (08:56)
[2023-08-29] MEDS: Normal Saline Flush 10 ML SYR IVP (08:56)
== END 2023-09-08 23:59 | disposition home or self-care (01) ==
LOC: INF 05:14
PROVIDERS: PCP Physician Assistant; Visit Provider Nurse Practitioner Acute Care
DX: K50.80 Crohn's disease of both small and large intestine without complications (principal)
CPT/HCPCS: 96365; 96366; Q5103

== ENCOUNTER → 2023-10-24 04:13 | Outpatient (CLI) | payer MEDICAID, SELFPAY ==
--- NOTE | 2023-10-24 | DI.MAMMO_ITS ---
Exam(s) MAMMO SCREENING EXAM: MAMMO SCREENING CLINICAL HISTORY: Z12.39 Screening. TECHNIQUE: Bilateral full field digital CC and MLO mammographic images were obtained with 3D tomosyn thesis and utilizing computer aided detection (CAD). COMPARISON: Prior mammograms were reviewed. FINDINGS: There has been no significant change in the appearance and distribution of the fibroglandular tissue. Benign-appearing group of microcalcifications inferiorly in the left breast are unchanged from 2019 a nd appear to be cutaneous. There are no new spiculated masses nor malignant appearing microcalcification groups. There is no significant architectural distortion nor skin thickening-retraction. IMPRESSION: No radiographic evidence of malignancy. BI-RADS Category 2 - Benign Findings Breast Density - Category B - Scattered areas of fibroglandular density Breast density Category C or D implies that the patient has dense breast tissue. Dense breast tissue can make it harder to find cancer on a mammogram. Dense breast tissue is also associated with an incr eased risk of breast cancer. This information about the result of the mammogram report was provided to the patient to raise their awareness. Use this report when you speak with the patient about their risks for breast cancer, which includes their family history. At that time, you may recommend additional screening tests (Ultrasoun d or MRI) as these tests may add significant information. A negative radiographic report should not delay biopsy if a dominant or clinically suspicious mass is present. Up to ten percent of cancers are not identified on mammography. A negative report may reinforce clinical impression. Adenosis and dense breasts may obscure an underlying neoplasm. False positive reports average 6 to 10%. Patient will receive a letter notifying them of these results.
--- NOTE | 2023-10-24 13:04 | DI.CTLCSR_ITS ---
Exam(s) CT CHEST LUNG CANCER SCREEN EXAM: CT CHEST LUNG CANCER SCREEN CLINICAL HISTORY: Z12.2 Screening for CA of respiratory organs TECHNIQUE: Imaging Protocol: Axial computed tomography images with coronal and sagittal reformatted images were created and reviewed COMPARISON: CT CT CHEST PE ABD PELVIS W from 03/29/2021 FINDINGS: Tracheobronchial tree: Patent where visualized. Pulmonary parenchyma: No consolidation or dominant measurable mass. No architectural distortion. Note is made of an azygos lobe which is a normal variant. There is a triangular shaped perifissural nodu le associated with the right minor fissure. This is unchanged compared to the prior examination. Th ere is mild scarring or atelectasis in the lung bases. Lung Nodules: None. Mediastinum and Lizzy: No dominant adenopathy or fluid collection. The esophagus is unremarkable. Thyroid gland: Unremarkable. Lymph nodes: Unremarkable. Pleura: No effusion or pneumothorax. Heart: The heart is not dilated. Coronary artery calcification and/or stents are present. No pericar dial effusion. Aorta: Thoracic aorta non-dilated.Atherosclerotic calcification is present. Upper abdomen: Unremarkable. Soft Tissues: Unremarkable. Bones: Within normal limits. IMPRESSION: No suspicious pulmonary nodules. Stable perifissural nodule associated with the right minor fissure. Lung RADS Cat 2 - Benign Appearance / Behavior: Nodules with a very low likelihood of becoming a clin ically active cancer due to size or lack of growth Lung-RADS 1.0 CATEGORIES: Category 0 - Prior chest CT exam(s) being located for comparison. Category 1 - Annual screening in 12 months. No nodules or definitely benign nodules. Category 2 - Annual screening in 12 months. Benign appearance. Nodules with low likelihood of becomin g active cancer. Category 3 - 6-month follow-up. Probably benign. Short-term follow-up suggested. Nodules with low lik elihood of becoming active cancer. Category 4A - 3-month follow-up and CT/PET if >8 mm in size. Suspicious finding. Findings which requi re additional testing. Category 4B - Findings which require additional testing and tissue sampling. Suspicious finding. Category 4X - Category 3 or 4 nodules with additional features or imaging findings that increases the suspicion of malignancy. Modifier S- Potentially clinically significant finding. (Non lung cancer) RADIATION DOSE DELIVERED: 76.14mGy.cm Total DLP 76.14mGy.cmTotal DLP DATA REPOSITORY: All CT scans at this facility are submitted to the National Radiology Data Registry (NRDR) Dose Index Registry (DIR) with the [employer] (ACR). RADIATION OPTIMIZATION: All CT scans at this facility use at least one of these dose optimization te chniques: automated exposure control; mA and/or kV adjustment per patient size (includes targeted exa ms where dose is matched to clinical indication); or iterative reconstruction.
== END ==
PROVIDERS: PCP Physician Assistant; Visit Provider Student in an Organized Health Care Education/Training Program
DX: Z12.2 Encounter for screening for malignant neoplasm of respiratory organs (principal); Z12.31 Encounter for screening mammogram for malignant neoplasm of breast
CPT/HCPCS: 71271; 77063; 77067

== ENCOUNTER 2023-10-24 05:02 | Outpatient (RCR) | payer MEDICAID, SELFPAY ==
[2023-09-09 00:12] VITALS: BP 102/66; PULSE 84; RESP 17; TEMP 36.3
[2023-10-24] VITALS (7 sets, daily range): BP systolic 83–100; BP diastolic 50–75; PULSE 76–92; RESP 16; TEMP 35.8–36.6; O2SAT 95–98
[2023-10-24] MEDS: Acetaminophen 500 MG TAB 1000 MG PO (09:18)
[2023-10-24] MEDS: Normal Saline Flush 10 ML SYR IVP (11:55)
== END 2023-11-08 23:59 | disposition home or self-care (01) ==
LOC: INF 05:02
PROVIDERS: PCP Physician Assistant; Visit Provider Nurse Practitioner Acute Care
DX: K50.80 Crohn's disease of both small and large intestine without complications (principal)
CPT/HCPCS: 96365; 96366; Q5103

== ENCOUNTER 2023-12-19 00:50 | Outpatient (RCR) | payer MEDICAID, SELFPAY ==
[2023-11-09 00:16] VITALS: BP 102/66; PULSE 84; RESP 17; TEMP 36.3
[2023-12-19] VITALS (7 sets, daily range): BP systolic 84–95; BP diastolic 50–60; PULSE 69–78; RESP 16–17; TEMP 36.6–36.7; O2SAT 97–100
[2023-12-19] MEDS: diphenhydrAMINE 25 MG CAP PO (09:10)
[2023-12-19] MEDS: Acetaminophen 500 MG TAB 1000 MG PO (09:10)
[2023-12-19] MEDS: Normal Saline Flush 10 ML SYR IVP (09:10)
== END 2024-01-08 23:59 | disposition home or self-care (01) ==
LOC: INF 00:50
PROVIDERS: PCP Physician Assistant; Visit Provider Nurse Practitioner Acute Care
DX: K50.80 Crohn's disease of both small and large intestine without complications (principal)
CPT/HCPCS: 80048; 80061; 96365; 96366; 83735; Q5103

== ENCOUNTER 2023-12-19 15:59 | Outpatient (REF) | payer MEDICAID, SELFPAY ==
[2023-12-19 15:35] LABS: Anion Gap 9.6 mmol/L (3-11); BUN 12 mg/dL (7-18); CO2 24.4 mmol/L (21.0-32.0); CREATININE 0.7 mg/dL (0.55-1.02); Chloride 100 mmol/L (98-107); Cholesterol 199 mg/dL (<200); Estimated GFR 98.34 (mL/min/1.73m2); Glucose 118 mg/dL (74-106); HDL Cholesterol 49 mg/dL (40-60); Potassium 4.7 mmol/L (3.5-5.1); Sodium 134 mmol/L (136-145); Triglyceride 441 mg/dL (<150)
[2023-12-19 16:00] LABS: LDL CHOLESTEROL 103 mg/dL (<100)
== END 2023-12-19 16:00 | disposition home or self-care (01) ==
LOC: NCHCN 15:59
PROVIDERS: Nurse Practitioner Acute Care; PCP Physician Assistant; Visit Provider Student in an Organized Health Care Education/Training Program
DX: E78.5 Hyperlipidemia, unspecified (principal)
CPT/HCPCS: 80048; 80061; 83721; 83735

== ENCOUNTER 2024-02-13 02:51 | Outpatient (RCR) | payer MEDICAID, SELFPAY ==
[2024-01-09 00:24] VITALS: BP 102/66; PULSE 84; RESP 17; TEMP 36.3
[2024-02-13] MEDS: Normal Saline Flush 10 ML SYR IVP (09:00)
[2024-02-13] MEDS: Acetaminophen 500 MG TAB 1000 MG PO (09:00)
[2024-02-13 09:50] VITALS: BP 95/57; PULSE 65; RESP 16; TEMP 36.8; O2SAT 98
[2024-02-13 10:05] VITALS: BP 111/70; BP 87/53; PULSE 59; PULSE 64; RESP 17; RESP 18; TEMP 36.8; O2SAT 97; O2SAT 98
[2024-02-13 10:20] VITALS: BP 83/53; PULSE 55; RESP 17; TEMP 36.8; O2SAT 98
[2024-02-13 10:35] VITALS: BP 90/56; PULSE 60; RESP 17; TEMP 36.8; O2SAT 97
[2024-02-13 11:05] VITALS: BP 98/63; PULSE 61; RESP 17; TEMP 36.6; O2SAT 97
== END 2024-03-09 23:59 | disposition home or self-care (01) ==
LOC: INF 02:51
PROVIDERS: PCP Physician Assistant; Visit Provider Nurse Practitioner Acute Care
DX: K50.80 Crohn's disease of both small and large intestine without complications (principal)
CPT/HCPCS: 96365; 96366; Q5103

== ENCOUNTER 2024-04-08 01:14 | Outpatient (RCR) | payer MEDICAID, SELFPAY ==
[2024-03-10 00:19] VITALS: BP 102/66; PULSE 84; RESP 17; TEMP 36.3
[2024-04-08] VITALS (7 sets, daily range): BP systolic 88–112; BP diastolic 59–73; PULSE 61–82; RESP 17; TEMP 36.3–37; O2SAT 94–98
[2024-04-08] MEDS: Acetaminophen 500 MG TAB 1000 MG PO (08:49)
[2024-04-08] MEDS: Normal Saline Flush 10 ML SYR IVP (09:00)
[2024-04-08 09:28] LABS: HCT 34.7 % (36.0-46.0); HGB 11.6 g/dL (11.2-15.7); MCH 33.6 pg (27.0-33.0); MCHC 33.4 % (32.0-36.0); MCV 101 fL (80-95); MPV 8.6 fL (8.0-11.0); Platelet Count 452 10^3/uL (130-400); RBC 3.45 10^6/uL (3.93-5.22); RDW 12.3 % (11.7-14.6); RDW-SD 45.5 fL; WBC 8.63 10^3/uL (4.4-10.8)
[2024-04-08 09:48] LABS: ALT 19 U/L (14-59); AST 24 U/L (15-37); Albumin 3.5 g/dL (3.4-5.0); Alkaline Phosphatase 104 U/L (46-116); Bilirubin, Total 0.33 mg/dL (0.2-1.0); Total Protein 8.4 g/dL (6.4-8.2)
[2024-04-08 09:53] LABS: Bilirubin, Direct < 0.1 mg/dL (0.0-0.2)
[2024-04-12 13:44] LABS: Infliximab 3.2 mcg/mL (<=5.0)
[2024-04-13 13:43] LABS: Infliximab Ab <20.0 U/mL (<50.0)
== END 2024-04-09 23:59 | disposition home or self-care (01) ==
LOC: INF 01:14
PROVIDERS: Internal Medicine Gastroenterology; PCP Physician Assistant; Visit Provider Nurse Practitioner Acute Care
DX: K50.80 Crohn's disease of both small and large intestine without complications (principal)
CPT/HCPCS: 36415; 80076; 82397; 85027; 96365; 96366; Q5103

== ENCOUNTER 2024-05-27 04:02 | Outpatient (RCR) | payer MEDICAID, SELFPAY ==
[2024-04-10 00:11] VITALS: BP 102/66; PULSE 84; RESP 17; TEMP 36.3
[2024-05-27] VITALS (7 sets, daily range): BP systolic 103–121; BP diastolic 66–75; PULSE 68–75; RESP 18; TEMP 36.2–37; O2SAT 97–98
[2024-05-27] MEDS: Acetaminophen 500 MG TAB 1000 MG PO (08:52)
[2024-05-27] MEDS: diphenhydrAMINE 25 MG CAP PO (08:53)
== END 2024-06-09 23:59 | disposition home or self-care (01) ==
LOC: INF 04:02
PROVIDERS: PCP Physician Assistant; Visit Provider Nurse Practitioner Acute Care
DX: K50.80 Crohn's disease of both small and large intestine without complications (principal); E78.5 Hyperlipidemia, unspecified; I10 Essential (primary) hypertension
CPT/HCPCS: 96365; 96366; Q5103

== ENCOUNTER 2024-07-29 02:13 | Outpatient (RCR) | payer MEDICAID, SELFPAY ==
[2024-06-10 00:02] VITALS: BP 102/66; PULSE 84; RESP 17; TEMP 36.3
[2024-07-29] MEDS: Normal Saline Flush 5 ML SYR IVP (09:14)
[2024-07-29] MEDS: diphenhydrAMINE 25 MG CAP PO (09:14)
[2024-07-29] MEDS: Acetaminophen 500 MG TAB 1000 MG PO (09:14)
[2024-07-29 09:15] VITALS: BP 110/70; PULSE 67; RESP 17; TEMP 36.6; O2SAT 98
[2024-07-29 10:35] VITALS: BP 103/67; PULSE 67; RESP 18; TEMP 36.5; O2SAT 96
[2024-07-29 10:50] VITALS: BP 94/61; PULSE 56; RESP 17; TEMP 37; O2SAT 95
[2024-07-29 11:09] VITALS: BP 110/70; PULSE 70; RESP 16; TEMP 36.6; O2SAT 96
[2024-07-29 11:27] VITALS: BP 105/68; PULSE 71; RESP 16; TEMP 36.8; O2SAT 95
[2024-07-29 12:00] VITALS: BP 97/64; PULSE 70; RESP 19; TEMP 36.9; O2SAT 97
== END 2024-08-07 23:59 | disposition home or self-care (01) ==
LOC: INF 02:13
PROVIDERS: PCP Physician Assistant; Visit Provider Nurse Practitioner Acute Care
DX: K50.80 Crohn's disease of both small and large intestine without complications (principal)
CPT/HCPCS: 96365; 96366; Q5103

== ENCOUNTER 2024-09-16 01:46 | Outpatient (RCR) | payer MEDICAID, SELFPAY ==
[2024-09-16] VITALS (7 sets, daily range): BP systolic 91–108; BP diastolic 57–69; PULSE 64–87; RESP 17; TEMP 35.9–36.4; O2SAT 96–97
[2024-09-16] MEDS: Acetaminophen 500 MG TAB 1000 MG PO (10:51)
[2024-09-16] MEDS: diphenhydrAMINE 25 MG CAP PO (10:51)
[2024-09-16] MEDS: Normal Saline Flush 5 ML SYR IVP (10:54)
== END 2024-10-07 23:59 | disposition home or self-care (01) ==
LOC: INF 01:46
PROVIDERS: PCP Physician Assistant; Visit Provider Nurse Practitioner Acute Care
DX: K50.80 Crohn's disease of both small and large intestine without complications (principal)
CPT/HCPCS: 96365; 96366; Q5103

== ENCOUNTER 2024-10-28 02:10 | Outpatient (CLI) | payer MEDICAID, SELFPAY ==
--- NOTE | 2024-10-28 | DI.MAMMO_ITS ---
Exam(s) MAMMO SCREENING EXAM: MAMMO SCREENING CLINICAL HISTORY: SCREENING,Z12.31 TECHNIQUE: Bilateral full field digital CC and MLO mammographic images were obtained with 3D tomosyn thesis and utilizing computer aided detection (CAD). COMPARISON: Available for comparison. FINDINGS: Masses/Architectural Distortion: No suspicious masses or areas of architectural distortion are presen t. Microcalcifications: No suspicious pleomorphic-type are seen. Stable small grouping of calcifications in the 6 o'clock position of the right breast. Skin Thickening/Nipple Retraction: None. IMPRESSION: 1. No significant interval change with no specific features of malignancy noted. 2. Unless there is more urgent need, screening mammography is recommended, as per [employer] guidelines. BI-RADS Category 2 - Benign Findings Breast Density - Category B - There are scattered areas of fibroglandular density. Breast density Category C or D implies that the patient has dense breast tissue. Dense breast tissue can make it harder to find cancer on a mammogram. Dense breast tissue is also associated with an incr eased risk of breast cancer. This information about the result of the mammogram report was provided to the patient to raise their awareness. Use this report when you speak with the patient about their risks for breast cancer, which includes their family history. At that time, you may recommend additional screening tests (Ultrasoun d or MRI) as these tests may add significant information. A negative radiographic report should not delay biopsy if a dominant or clinically suspicious mass is present. Up to ten percent of cancers are not identified on mammography. A negative report may reinforce clinical impression. Adenosis and dense breasts may obscure an underlying neoplasm. False positive reports average 6 to 10%. Patient will receive a letter notifying them of these results.
--- NOTE | 2024-10-28 | DI.CTLCSR_ITS ---
Exam(s) CT CHEST LUNG CANCER SCREEN EXAM: CT CHEST LUNG CANCER SCREEN CLINICAL HISTORY: TOBACCO DEPENDENCE CAUSED BY CIGARETTES,F17.210,LUNG CANCER SCREENING TECHNIQUE: Imaging Protocol: Axial computed tomography images with coronal and sagittal reformatted images were created and reviewed. Lung Computer Aided Detection (CAD) was utilized. COMPARISON: CT CT CHEST LUNG CANCER SCREEN from 10/24/2023 FINDINGS: Tracheobronchial tree: Patent where visualized. No bronchiectasis. Pulmonary parenchyma: No consolidation or dominant measurable mass. There is scarring again seen in t he lung bases. Lung Nodules: There is a stable perifissural nodule associated with the right minor fissure. There i s also stable perifissural nodule associated with the left major fissure. No new pulmonary nodules a re present. Mediastinum and Lizzy: No dominant adenopathy or fluid collection. The esophagus is unremarkable. Thyroid gland: Unremarkable. Lymph nodes: Unremarkable. Pleura: No effusion or pneumothorax. Heart: The heart is not dilated. Mild coronary artery calcification is present. No pericardial effus ion. Aorta: Thoracic aorta non-dilated.Atherosclerotic calcification is present. Upper abdomen: Unremarkable. Soft Tissues: Unremarkable. Bones: Within normal limits. There is an old T8 compression fracture deformity. IMPRESSION: No new or suspicious pulmonary nodules. Lung RADS Cat 2 - Benign Appearance / Behavior: Nodules with a very low likelihood of becoming a clin ically active cancer due to size or lack of growth Lung-RADS 1.0 CATEGORIES: Category 0 - Prior chest CT exam(s) being located for comparison. Category 1 - Annual screening in 12 months. No nodules or definitely benign nodules. Category 2 - Annual screening in 12 months. Benign appearance. Nodules with low likelihood of becomin g active cancer. Category 3 - 6-month follow-up. Probably benign. Short-term follow-up suggested. Nodules with low lik elihood of becoming active cancer. Category 4A - 3-month follow-up and CT/PET if >8 mm in size. Suspicious finding. Findings which requi re additional testing. Category 4B - Findings which require additional testing and tissue sampling. Suspicious finding. Category 4X - Category 3 or 4 nodules with additional features or imaging findings that increases the suspicion of malignancy. Modifier S- Potentially clinically significant finding. (Non lung cancer) RADIATION DOSE DELIVERED: 24.28mGy.cm Total DLP 24.28mGy.cmTotal DLP DATA REPOSITORY: All CT scans at this facility are submitted to the National Radiology Data Registry (NRDR) Dose Index Registry (DIR) with the [employer] (ACR). RADIATION OPTIMIZATION: All CT scans at this facility use at least one of these dose optimization te chniques: automated exposure control; mA and/or kV adjustment per patient size (includes targeted exa ms where dose is matched to clinical indication); or iterative reconstruction.
--- NOTE | 2024-10-28 11:00 | DI.US_ITS ---
Exam(s) US SOFT TISSUE HEAD OR NECK EXAM: US SOFT TISSUE HEAD OR NECK CLINICAL HISTORY: 1.5-2 CM MASS POST AURICULAR NODE AREA LT,ABNL WT LOSS,CYST VS ENLARGED. TECHNIQUE: Ultrasound was performed using standard protocol. COMPARISON: No exams were available for comparison FINDINGS: Sonographic assessment utilizing grayscale and color Doppler imaging was performed and targeted to th e area of clinical concern. There is a 1.8 x 0.8 x 1.8 cm complex hypoechoic lesion in the subcutaneous tissues posterior to the left ear. This corresponds to the palpable abnormality. No internal blood flow is seen. There does appear to be a communication to the skin surface. The finding sonographically with suggest a sebace ous cyst. IMPRESSION: 1.8 x 0.8 x 1.8 cm subcutaneous hypoechoic lesion posterior to the ear. The findings were graphicall y are suggestive of a sebaceous cyst. Lymph node is considered less likely given the sonographic fin dings. Follow-up as clinically appropriate. DATA REPOSITORY:
== END 2024-10-28 02:30 ==
PROVIDERS: PCP Physician Assistant; Visit Provider Student in an Organized Health Care Education/Training Program
DX: Z12.31 Encounter for screening mammogram for malignant neoplasm of breast (principal); Z12.2 Encounter for screening for malignant neoplasm of respiratory organs; F17.210 Nicotine dependence, cigarettes, uncomplicated; R92.8 Other abnormal and inconclusive findings on diagnostic imaging of breast; R22.1 Localized swelling, mass and lump, neck
CPT/HCPCS: 71271; 76536; 77063; 77067

== ENCOUNTER 2024-10-28 02:24 | Outpatient (RCR) | payer MEDICAID, SELFPAY ==
[2024-10-28] VITALS (7 sets, daily range): BP systolic 118–138; BP diastolic 72–82; PULSE 64–83; RESP 17–18; TEMP 36.1–36.6; O2SAT 95–99
[2024-10-28] MEDS: diphenhydrAMINE 25 MG CAP PO (07:20)
[2024-10-28] MEDS: Acetaminophen 500 MG TAB 1000 MG PO (07:21)
[2024-10-28] MEDS: Normal Saline Flush 10 ML SYR IVP (07:33)
== END 2024-11-07 23:59 | disposition home or self-care (01) ==
LOC: INF 02:24
PROVIDERS: PCP Physician Assistant; Visit Provider Nurse Practitioner Acute Care
DX: K50.80 Crohn's disease of both small and large intestine without complications (principal)
CPT/HCPCS: 96365; 96366; Q5103

== ENCOUNTER 2024-12-09 03:51 | Outpatient (RCR) | payer MEDICAID, SELFPAY ==
[2024-12-09] VITALS (7 sets, daily range): BP systolic 99–114; BP diastolic 61–72; PULSE 60–71; RESP 18–19; TEMP 35.7–36.5; O2SAT 95–98
[2024-12-09] MEDS: diphenhydrAMINE 25 MG CAP PO (09:05)
[2024-12-09] MEDS: Acetaminophen 500 MG TAB 1000 MG PO (09:05)
[2024-12-09] MEDS: Normal Saline Flush 10 ML SYR IVP (09:06)
== END 2025-01-07 23:59 | disposition home or self-care (01) ==
LOC: INF 03:51
PROVIDERS: PCP Student in an Organized Health Care Education/Training Program; Visit Provider Nurse Practitioner Acute Care
DX: K50.00 Crohn's disease of small intestine without complications (principal)
CPT/HCPCS: 96365; 96366; Q5103

== ENCOUNTER 2025-02-03 02:03 | Outpatient (CLI) | payer MEDICAID, SELFPAY ==
[2025-02-03] VITALS (7 sets, daily range): BP systolic 91–115; BP diastolic 58–72; PULSE 64–85; RESP 17; TEMP 35.5–36.2; O2SAT 93–96
[2025-02-03] MEDS: diphenhydrAMINE 25 MG CAP PO (08:56)
[2025-02-03] MEDS: Acetaminophen 500 MG TAB 1000 MG PO (08:56)
[2025-02-03] MEDS: INFLIXIMAB DYYB IVPB (09:14)
[2025-02-03] MEDS: NORMAL SALINE IVPB (09:14)
[2025-02-03] MEDS: Normal Saline Flush 10 ML SYR IVP (09:18)
== END 2025-02-03 02:04 | disposition home or self-care (01) ==
LOC: INF 02:03
PROVIDERS: PCP Student in an Organized Health Care Education/Training Program; Visit Provider Nurse Practitioner Acute Care
DX: K50.80 Crohn's disease of both small and large intestine without complications (principal)
CPT/HCPCS: 96365; 96366; Q5103

== ENCOUNTER 2025-03-24 01:54 | Outpatient (CLI) | payer MEDICAID, SELFPAY ==
[2025-03-24] VITALS (7 sets, daily range): BP systolic 110–122; BP diastolic 61–78; PULSE 81–96; RESP 17–18; TEMP 35.9–37; O2SAT 95–97
[2025-03-24] MEDS: diphenhydrAMINE 25 MG CAP PO (08:41)
[2025-03-24] MEDS: Acetaminophen 500 MG TAB 1000 MG PO (08:42)
[2025-03-24] MEDS: Normal Saline Flush 10 ML SYR IVP (08:52)
[2025-03-24] MEDS: NORMAL SALINE IVPB (09:09)
[2025-03-24] MEDS: INFLIXIMAB DYYB IVPB (09:09)
== END 2025-03-24 01:55 | disposition home or self-care (01) ==
LOC: INF 01:54
PROVIDERS: PCP Student in an Organized Health Care Education/Training Program; Visit Provider Nurse Practitioner Acute Care
DX: K50.80 Crohn's disease of both small and large intestine without complications (principal)
CPT/HCPCS: 96365; 96366; Q5103

== ENCOUNTER 2025-04-06 09:58 | Emergency (ER) | payer MEDICAID, SELFPAY ==
[2025-04-06] VITALS (37 sets, daily range): BP systolic 71–101; BP diastolic 33–58; PULSE 58–81; RESP 11–23; TEMP 36.6; O2SAT 95–99
--- NOTE | 2025-04-06 10:00 | DI.RAD_ITS ---
Exam(s) XR HIP LT COMPLETE AP PELVIS EXAM: XR HIP LT COMPLETE AP PELVIS CLINICAL HISTORY: L hip pain. TECHNIQUE: 2D digital imaging was performed. COMPARISON: No exams were available for comparison FINDINGS: Two views No evidence of pelvic nor hip fracture. Additional lateral view of the left hip reveals no evidence of fracture nor joint space narrowing nor abnormal soft tissue calcifications. Bone density normal. No osseous lesions. There is no joint space narrowing in either hip. Urinary bladder is filled with contrast from proceeding CT scan. IMPRESSION: No significant osseous findings in the pelvis and hips. DATA REPOSITORY: RADIATION DOSE DELIVERED:
--- NOTE | 2025-04-06 10:00 | RT.EKG_ITS ---
APPROVED REPORT Exam: Resting ECG Reason for Exam: LOC Patient Location: E HR:65 bpm ECG Measurements Heart Rate 65 AXIS HI 264 P 125 QRSd 81 QRS 49 QT 418 T 63 QTc 434 Conclusion Sinus rhythm...normal P axis, V-rate 60- 99 Prolonged HI interval...HI >220, V-rate 50- 90 No Occlusion [place]
[2025-04-06] MEDS: Normal Saline 500 ML IV (10:23)
[2025-04-06] MEDS: ACETAMINOPHEN 1,000 MG/100 ML BAG 400 MG IVPB (10:26)
[2025-04-06 10:48] LABS: Abs Immature Grans 0.03 10^3/uL (0.0-0.06); HCT 37.3 % (36.0-46.0); HGB 11.8 g/dL (11.2-15.7); MCH 31.3 pg (27.0-33.0); MCHC 31.6 % (32.0-36.0); MCV 99 fL (80-95); MPV 9.1 fL (8.0-11.0); Platelet Count 311 10^3/uL (130-400); RBC 3.77 10^6/uL (3.93-5.22); RDW 12.1 % (11.7-14.6); RDW-SD 44.1 fL; WBC 8.08 10^3/uL (4.4-10.8)
[2025-04-06 11:16] LABS: ALT 18 U/L (14-59); AST 17 U/L (15-37); Albumin 3.4 g/dL (3.4-5.0); Alkaline Phosphatase 72 U/L (46-116); Anion Gap 7.9 mmol/L (3-11); BUN 21 mg/dL (7-18); Bilirubin, Total 0.1 mg/dL (0.2-1.0); CO2 26.1 mmol/L (21.0-32.0); Calcium 8.2 mg/dL (8.5-10.1); Chloride 105 mmol/L (98-107); Creatine Kinase 38 U/L (26-192); Estimated GFR 46.21 (mL/min/1.73m2); Glucose 89 mg/dL (74-106); Lipase 47 U/L (<78); Magnesium 2.1 mg/dL (1.8-2.4); Potassium 4.2 mmol/L (3.5-5.1); Sodium 139 mmol/L (136-145); TSH (W/Ref FT4) 1.19 uIU/mL (0.36-3.74); Total Protein 7.5 g/dL (6.4-8.2); Troponin I 5 ng/L (<or=51)
[2025-04-06 11:17] LABS: Ammonia < 10 umol/L (11-32)
[2025-04-06] MEDS: Omnipaque 350 MG/ML 100 ML BTL IJ (11:23)
[2025-04-06] MEDS: Normal Saline - Diluent 50 ML VIAL IJ (11:24)
[2025-04-06] MEDS: Normal Saline Flush 10 ML SYR IVP (11:24)
[2025-04-06 11:30] LABS: Hypochromasia 1+; Immature Grans % 0.0 %
--- NOTE | 2025-04-06 11:30 | DI.CT_ITS ---
Exam(s) CT HEAD CERVICAL SPINE WO EXAM: CT HEAD CERVICAL SPINE WO CLINICAL HISTORY: fall headstrike, neck pain. TECHNIQUE: Imaging Protocol: Axial computed tomography images with coronal and sagittal reformatted images were created and reviewed COMPARISON: CT CT HEAD CERVICAL SPINE WO from 12/29/2019 FINDINGS: BRAIN: There are no skull fractures. There is opacification of both somewhat diminutive maxillary sinuses. There is no evidence of intracranial hemorrhage, mass effect, or shift of midline structures. There are no extra-axial fluid collections. The ventricles are not enlarged or shifted and there is no blood within the ventricular system nor within the basal cisterns. CERVICAL SPINE: There is no evidence of fracture nor listhesis. No significant prevertebral soft tissue swelling. Chronic disc space narrowing noted at C 5-6 and C6-7 levels. Luschka joint osteophytes seen bilaterally at these levels, more prominent at C5-6 level. There is no prominent facet arthropathy in the cervical spine. There is no significant facet joint malalignment. No significant osseous lesions evident. Incidentally noted is a benign-appearing subcutaneous sisters structure in left side of the neck measuring 1.2 by 1.8 by 2.0 cm. This is superficial to the posterior aspect the left sternocleidomastoid muscle. There also multiple moderately enlarged lymph nodes in both sides the neck. The thyroid gland appears heterogeneous and probably contains multiple nodules. IMPRESSION: No acute intracranial findings on this noninfused CT scan of the brain. No evidence of cervical spine fracture, malalignment, nor acute compromise of the cervical spinal canal. Multilevel chronic degenerative disc disease C5-6 and C6-7 levels. Other significant incidental findings in the neck as described above. RADIATION DOSE DELIVERED: 1,187.22mGy.cm Total DLP DATA REPOSITORY: All CT scans at this facility are submitted to the National Radiology Data Registry (NRDR) Dose Index Registry (DIR) with the [employer] (ACR). RADIATION OPTIMIZATION: All CT scans at this facility use at least one of these dose optimization techniques: automated exposure control; mA and/or kV adjustment per patient size (includes targeted exams where dose is matched to clinical indication); or iterative reconstruction.
--- NOTE | 2025-04-06 11:30 | DI.CT_ITS ---
Exam(s) CT CHEST/ABD/PEL W EXAM: CT CHEST/ABD/PEL W CLINICAL HISTORY: fall; LLQ pain. TECHNIQUE: Imaging Protocol: Axial computed tomography images with coronal and sagittal reformatted images were created and reviewed CONTRAST MATERIAL: Intravenous: Omnipaque 350 Contrast volume:100 ml Oral: None COMPARISON: CT CT CHEST LUNG CANCER SCREEN from 10/28/2024 FINDINGS: CHEST: LUNGS: Mild increased markings in both lung bases but no large lung contusions nor pleural effusions nor pneumothorax. Benign-appearing fissure related nodules are noted in both lung collado, 1 in each. Incidentally noted is accessory azygos lobe on the right side.. MEDIASTINUM: No evidence of sternal fracture nor mediastinal hematoma. There is a nodule in the anterior aspect of the right thyroid lobe noted which measures approximately 1.0 x 0.9 cm.Slightly enlarged lymph nodes are noted in both hilar regions. There is no adenopathy in the anterior mediastinal fat. CARDIAC: Heart size is normal. There is no pericardial effusion.Caliber of the thoracic aorta is within normal limits. OSSEOUS: There is a fracture in the lateral aspect of the left clavicle. No rib fractures identified. There is a compression fracture at superior endplate of T8 which is unchanged from 10/28/2024. Also mild indentation of superior endplate of L1 is also unchanged.. ABDOMEN: There is no ascites. No evidence of bowel wall nor mesenteric hematoma. LIVER: Intact. No laceration nor subcapsular hematoma. No incidental lesions. GALLBLADDER/BILIARY: No obvious gallbladder pathology. CBD is not dilated. PANCREAS: No evidence of pancreatic mass nor dilatation of the pancreatic duct. SPLEEN: Intact. No lacerations nor subcapsular hematomas. No perisplenic fluid. There is a benign splenule anterior to the spleen noted. Splenic and portal veins are patent. ADRENALS: There are no significant adrenal masses. KIDNEYS: No evidence of renal laceration. No subcapsular hematomas.. No significant cysts nor solid lesions in the kidneys. No calculi nor hydronephrosis. ABDOMINAL AORTA: Intact. No rupture. No aneurysm. No dissection. LYMPH NODES: There is no retroperitoneal nor paraaortic adenopathy. ABDOMINAL WALL: No evidence of significant anterior abdominal wall nor inguinal hernia. GI: There is no evidence of bowel obstruction.No bowel wall hematoma. PELVIS: LYMPH NODES: There is no intrapelvic nor inguinal adenopathy. GI: No evidence of appendicitis.Sigmoid diverticulosis but no evidence of acute diverticulitis. No free fluid in the pelvis. URINARY BLADDER: No calculi nor masses evident REPRODUCTIVE: Uterus and adnexal regions are age-appropriate. No free fluid in the pelvis. OSSEOUS: No acute pelvic fractures. No new vertebral fractures. IMPRESSION: 1. There is a fracture in the lateral aspect of the left clavicle. This may not be acute. Correlation with site of tenderness is recommended. There are no rib fractures nor acute vertebral fractures. No sternal fracture. 2. Benign-appearing fissure related nodules incidentally noted in both lungs. Also some atelectasis in the lung bases. No evidence of pleural effusions nor pneumothorax. No obvious lung contusions. 3. Right thyroid nodule incidentally noted as described above which can be further studied with nonemergent ultrasound exam. CT reports were called by myself to ER provider 04/06/2025 at 12:10 p.m. RADIATION DOSE DELIVERED: 323.96mGy.cm Total DLP DATA REPOSITORY: All CT scans at this facility are submitted to the National Radiology Data Registry (NRDR) Dose Index Registry (DIR) with the [employer] ([employer]). RADIATION OPTIMIZATION: All CT scans at this facility use at least one of these dose optimization techniques: automated exposure control; mA and/or kV adjustment per patient size (includes targeted exams where dose is matched to clinical indication); or iterative reconstruction.
--- NOTE | 2025-04-06 11:40 | DI.CT_ITS ---
Exam(s) CT THORACIC LUMBAR SPINE REC EXAM: CT THORACIC LUMBAR SPINE REC CLINICAL HISTORY: back pain TECHNIQUE: COMPARISON: CT CT CHEST/ABD/PEL W from 04/06/2025 FINDINGS: THORACIC SPINAL COLUMN: There is a nonacute appearing compression fracture superior endplate of T8, unchanged from previous. There are no acute fractures thoracic spinal column. No canal compromise. No facet joint malalignment. Bone density normal. No osseous lesions. LUMBOSACRAL SPINAL COLUMN: Mild indentation of the superior endplate of L1 is unchanged from previous. No acute fractures nor listhesis. No pars defects. There is chronic disc space narrowing at L5-S1 level. There appears to be a probable disc herniation at this level. There is no obvious fracture of the sacrum. Sacroiliac joints appear [id number]. IMPRESSION: No acute fractures in the thoracic and lumbosacral spinal columns. T8 and L1 findings as described above are unchanged from previous. There appears to be a disc protrusion at L5-S1 level
[2025-04-06 11:41] LABS: INR 1.0 (0.9-1.1); PTT Activated 24.9 sec (20.6-30.2); Prothrombin Time 10.0 sec (9.1-11.1)
[2025-04-06 11:45] LABS: Cannabinoids THC Negative (Negative); METHADONE URINE SCREEN Negative (Negative)
[2025-04-06 11:51] LABS: Glucose Negative (Negative)
[2025-04-06] MEDS: Normal Saline 1,000 ML 200 ML IV (11:55)
[2025-04-06 12:13] LABS: Troponin I 6 ng/L (<or=51)
--- NOTE | 2025-04-06 13:50 | W.ED.GENAD ---
Discharge Plan Disposition Patient Disposition: Home Condition: Stable Discharge Details Clinical Impression: Concussion syndrome, Left hip pain Primary Care Provider: Dennis Ling ED Provider: Prateek Benites Home Meds and New Rx's Prescriptions: Continued atorvastatin 20 mg Tablet 20 mg PO HS omeprazole 40 mg Capsule,Delayed Release(Dr/Ec) 40 mg PO DAILY albuterol sulfate [ProAir HFA] 90 mcg/actuation Hfa Aerosol Inhaler 2 - 4 puff Inhalation Q4H PRN PRN (Reason: Wheezing) calcium 600 mg Capsule 600 mg PO DAILY cyanocobalamin (vitamin B-12) [Vitamin B-12] 250 mcg Tablet 250 mcg PO DAILY infliximab [Remicade] 100 mg Recon Soln 100 mg IV Q8W cholecalciferol (vitamin D3) [Vitamin D3] 25 mcg (1,000 unit) Tablet 1,000 unit PO DAILY tramadol 50 mg tablet 50 mg PO Q8H PRN (Reason: pain) Qty: 10 0RF lisinopril 5 mg tablet 5 mg PO DAILY Patient Comments: TAKE 1 TABLET BY MOUTH EVERY MORNING sertraline 25 mg tablet 25 mg PO DAILY Patient Comments: TAKE 1 TABLET BY MOUTH EVERY DAY metoprolol succinate 25 mg tablet extended release 24 hr 25 mg PO DAILY Patient Comments: TAKE 1 TABLET BY MOUTH DAILY Discharge Instructions Instructions: Post-Concussion Syndrome ED Additional Instructions: You were seen in the emergency department for your fall at home with head strike, your CT scans of your head neck and spine are all negative for any acute pathology, there is a questionable old fracture of your left clavicle seen on your chest CT, there is no hip fracture, please take Tylenol as needed for pain, try to eat more nourishing meals and stay well-hydrated, please return to the emergency department for any acute worsening. Referrals: Dennis Ling [Primary Care Provider, Medicine] Discharge Data Discharge Date/Time-TO BE ENTERED AT DEPARTURE: 04/06/25 14:56 HPI General Date/Time Provider Initiated Documentation: 04/06/25 10:12. HPI Narrative: 65 year-old female presents to ED today by EMS with a chief complaint of fall at home, unwitnessed but heard by her daughter downstairs- patient does not remember the fall, did strike the back of her head on kitchen stove- and endorses diffuse pain most severe in head and L hip with onset this morning. Quality described as aching pains, no radiation to slurred speech, repetitive questioning, inability to ambulate/transfer, endorses chest pain, bilateral shoulder pain, back pain, hip pain, denies vomiting. Severity is described as severe. Palliating factors include nothing specific attempted. Provoking factors include patient endorses ETOH use today. Events leading up to the incident/Associated Symptoms: Patient has an admission to alcohol rehab facility this coming Saturday- and does not want her children to know she has been continuing to drink daily- they believe she has stopped since February. Patient not anticoagulated. Related Data Home Medications ?Medication ?Instructions ?Recorded ?Confirmed albuterol sulfate 90 mcg/actuation 2 - 4 puff inhalation Q4H PRN PRN 10/17/18 04/06/25 aerosol inhaler (ProAir HFA) Wheezing atorvastatin 20 mg tablet 20 mg PO HS 10/17/18 04/06/25 omeprazole 40 mg capsule,delayed 40 mg PO DAILY 10/17/18 04/06/25 release calcium 600 mg capsule 600 mg PO DAILY 04/07/20 04/06/25 cholecalciferol (vitamin D3) 25 1,000 unit PO DAILY 04/07/20 04/06/25 mcg (1,000 unit) tablet (Vitamin D3) cyanocobalamin (vitamin B-12) 250 250 mcg PO DAILY 04/07/20 04/06/25 mcg tablet (Vitamin B-12) infliximab 100 mg intravenous 100 mg IV Q8W 04/07/20 04/06/25 solution (Remicade) tramadol 50 mg tablet 50 mg PO Q8H PRN pain #10 tabs 04/14/20 04/06/25 lisinopril 5 mg tablet 5 mg PO DAILY 04/06/25 04/06/25 metoprolol succinate 25 mg 25 mg PO DAILY 04/06/25 04/06/25 tablet,extended release 24 hr sertraline 25 mg tablet 25 mg PO DAILY 04/06/25 04/06/25 Previous Rx's ?Medication ?Instructions ?Recorded tramadol 50 mg tablet 50 mg PO Q8H PRN pain #10 tabs 04/14/20 Allergies Allergy/AdvReac Type Severity Reaction Status Date / Time No Known Allergies Allergy Unverified 04/06/25 10:05 General Stated Complaint: AMS/LOC ESTEBAN: 2 Review of Systems All systems reviewed & are unremarkable except as noted in HPI and below Exam Narrative Exam Narrative: GENERAL APPEARANCE: Cachectic, non-toxic, awake and alert, moderate acute distress. SKIN: Warm, pink, dry, intact, without rashes/lesions/ulcerations. HEAD: Normocephalic, atraumatic-no scalp hematoma, no Reid sign, no periorbital ecchymosis, normal hair distribution for gender/age. EYES: Normal conjunctiva, no exudates on lids/lashes, EOMs intact without nystagmus. ENT: Nares patent, no circumoral cyanosis, no facial swelling, no hemotympanum bilaterally NECK: Supple, trachea midline, painless cervical ROM, mild cervical tenderness without crepitus or step-off. LUNGS/CHEST: Lungs CTA bilaterally-no rhonchi/rales/wheeze diffusely, no focally diminished or absent lung sounds, non-labored respirations, normal A/P diameter, symmetrical expansion, no chest wall deformity, no flail segment or crepitus HEART (CV/PV): Regular rate and rhythm without murmur, no peripheral edema, no JVD. ABDOMEN: Soft, non-distended, no guarding, mild diffuse tenderness. MSK: Normal ROM, no swelling/deformity to bilateral UEs or LEs, tenderness to the left hip joint, L clavicle stable, able to SLR the left leg with pain, moving all extremities without weakness, no cyanosis, spine midline with diffuse tenderness without crepitus or step-off, normal curvature. NEURO: Mental Status AAOx4 - alert to person, place, time, events- amnesia surrounding the fall for a few minutes No facial droop, no forehead involvement. Motor: No focal weakness Sensory: sensation intact to light touch globally. Gait normal: patient ambulated without ataxia out of ED room. PSYCH: euthymic, cooperative, pleasant, appropriate speech Course Vital Signs Vital signs: Vital Signs Temperature 36.6 C 04/06/25 10:02 Pulse 75 04/06/25 10:02 Respiratory Rate 16 04/06/25 10:02 Blood Pressure 75/34 L 04/06/25 10:02 Pulse Oximetry 98 04/06/25 10:02 Temperature 36.6 C 04/06/25 10:07 Pulse 60 04/06/25 13:33 Pulse 63 04/06/25 13:33 Respiratory Rate 11 L 04/06/25 13:33 Respiratory Effort Normal 04/06/25 10:58 Respiratory Depth Normal 04/06/25 10:58 Respiratory Pattern Normal 04/06/25 10:58 Blood Pressure 80/46 L 04/06/25 13:33 Blood Pressure Mean 55 04/06/25 13:33 Pulse Oximetry 97 04/06/25 13:33 Pain Level 5 04/06/25 10:07 Lab/Test Results Lab/Test Results: Laboratory Tests Range/Units 04/06/25 04/06/25 04/06/25 10:40 11:10 11:40 WBC (4.4-10.8) 10^3/uL 8.08 RBC (3.93-5.22) 10^6/uL 3.77 L Hgb (11.2-15.7) g/dL 11.8 Hct (36.0-46.0) % 37.3 MCV (80-95) fL 99 H MCH (27.0-33.0) pg 31.3 MCHC (32.0-36.0) % 31.6 L RDW (11.7-14.6) % 12.1 Plt Count (130-400) 10^3/uL 311 MPV (8.0-11.0) fL 9.1 Immature Gran % % 0.0 Neutrophils % % 26.0 Lymphocytes % % 59.0 Atypical Lymphs % % 6 Monocytes % % 5.0 Eosinophils % % 3.0 Basophils % % 1.0 Nucleated RBC % (0.0-0.3) % 0.0 Absolute Neutrophils (1.2-6.7) 10^3/uL 2.10 Absolute Lymphocytes (1.2-3.4) 10^3/uL 5.25 H Absolute Monocytes (0.1-0.8) 10^3/uL 0.40 Absolute Eosinophils (0.0-0.7) 10^3/uL 0.24 Absolute Basophils (0.0-0.2) 10^3/uL 0.08 RBC Morphology See Below Hypochromasia 1+ PT (9.1-11.1) sec 10.0 INR (0.9-1.1) 1.0 APTT (20.6-30.2) sec 24.9 VBG Lactate (<or=2.0) mmol/L 1.6 Sodium (136-145) mmol/L 139 Potassium (3.5-5.1) mmol/L 4.2 Chloride (98-107) mmol/L 105 Carbon Dioxide (21.0-32.0) mmol/L 26.1 Anion Gap (3-11) mmol/L 7.9 BUN (7-18) mg/dL 21 H Creatinine (0.55-1.02) mg/dL 1.3 H Est GFR (CKD-EPI 2020) (mL/min/1.73m2) 46.21 Glucose (74-106) mg/dL 89 Calcium (8.5-10.1) mg/dL 8.2 L Magnesium (1.8-2.4) mg/dL 2.1 Total Bilirubin (0.2-1.0) mg/dL 0.1 L AST (15-37) U/L 17 ALT (14-59) U/L 18 Alkaline Phosphatase (46-116) U/L 72 Ammonia (11-32) umol/L < 10 L Creatine Kinase (26-192) U/L 38 Troponin I (<or=51) ng/L 5 6 Total Protein (6.4-8.2) g/dL 7.5 Albumin (3.4-5.0) g/dL 3.4 Lipase (<78) U/L 47 TSH (0.36-3.74) uIU/mL 1.19 Urine Color (Yellow) Yellow Urine Clarity (Clear) Clear Urine pH (5-8) 5.5 Ur Specific Lincoln (1.005-1.025) 1.010 Urine Protein (Neg-Trace) mg/dL Negative Urine Ketones (Negative) mg/dL Negative Urine Blood (Negative) Negative Urine Nitrite (Negative) Negative Urine Bilirubin (Negative) Negative Urine Urobilinogen (Up to 0.2) mg/dL 0.2 Ur Leukocyte Esterase (Negative) Negative Urine Glucose (Negative) mg/dL Negative Urine Opiates Screen (Negative) Negative Urine Methadone Screen (Negative) Negative Ur Barbiturates Screen (Negative) Negative Ur Tricyclics Screen (Negative) Negative Ur Amphetamines Screen (Negative) Negative U Benzodiazepines Scrn (Negative) Negative Urine Cocaine Screen (Negative) Negative Ur THC Screen (Negative) Negative Ethyl Alcohol (<10) mg/dL 165.2 H Medical Decision Making This dictation utilizes [id number] dictation software and may contain unedited grammatical errors. 65 year-old female presents to ED today by EMS with a chief complaint of fall at home, unwitnessed but heard by her daughter downstairs- patient does not remember the fall, did strike the back of her head on kitchen stove- and endorses diffuse pain most severe in head and L hip with onset this morning. Quality described as aching pains, no radiation to slurred speech, repetitive questioning, inability to ambulate/transfer, endorses chest pain, bilateral shoulder pain, back pain, hip pain, denies vomiting. Severity is described as severe. Palliating factors include nothing specific attempted. Provoking factors include patient endorses ETOH use today. Events leading up to the incident/Associated Symptoms: Patient has an admission to alcohol rehab facility this coming Saturday- and does not want her children to know she has been continuing to drink daily- they believe she has stopped since February. Patients' medical history: Crohn's disease, hyperlipidemia, GERD, alcohol abuse, history of elevated troponins, tobacco abuse, hypokalemia. Family and social history: Still drinking daily, denies other drug use. Pertinent exam findings / vital signs include no scalp hematoma, no Reid sign, no periorbital ecchymosis, no hemotympanum bilaterally, diffuse tenderness to the chest back and neck without crepitus, no flail segments, bilateral clavicles stable, able to move all extremities, has 4/5 weakness to the left lower extremity due to hip pain without crepitus at the hip, no saddle anesthesia, benign abdomen, EOMs intact without nystagmus, patient does have hypotension but is mentating fine here and reports no current dizziness. Differential / pathologies of concern include trauma, ICH, fracture, pneumothorax, abdominal organ injury, hip fracture, alcohol abuse. Diagnostic studies of: - CBC, CMP, PT/PTT, lactate, magnesium, serial troponins, CK, ammonia, lipase, TSH, UA, UDS, alcohol level, CT fernandez scan, x-ray left hip, EKG. - CBC shows no leukocytosis, no left shift, has high lymphocytes, nonspecific possible viral syndrome - Coagulation studies benign - Lactate negative - CMP is unremarkable with no major electrolyte abnormalities or JANETH - Magnesium within normal limits - Ammonia negative - CK negative - Serial troponins negative - Lipase negative - TSH within normal limits - UA is completely benign - UDS negative - Alcohol level 165 - CT scan shows chronic degenerative disease in the cervical spine, benign-appearing cyst in the soft tissue of the neck, incidental thyroid nodules - CT of the thoracic and lumbar spine showed chronic defects at T8 and L1 with possible disc protrusion at L5-S1 with neurovascularly intact lower extremities and no severe pain or crepitus in this area - CT scan of the chest abdomen and pelvis shows that there is possibly an old fracture of the left clavicle, stable on exam, no pneumothorax or rib fractures, no abdominal findings, has pulmonary nodules- expected in long-term smoking, will need PCP monitoring - EKG shows sinus rhythm at 65 bpm with a prolonged AK interval, P waves are followed by narrow complex QRS with normal axis, good R wave progression, no ST abnormalities or other ischemic changes, normal QTc Interventions of: - 1 g IV Tylenol, total of 1500 mL of IVF NS. ED Course/Assessment/Plan: 65-year-old female had a fall this morning in her home, heard by her daughter hitting the back of her head without intracranial findings, she is neuro intact, likely concussion as she does not remember the fall but she is also intoxicated, she likely has a chronic low blood pressure but did have readings above systolic of 100 here, she appears in no acute distress today for left hip pain and diffuse musculoskeletal pain of the torso without acute findings on CTs, counseled her on her concussion syndrome and no fractures, recommend she follow-up with PCP for her incidental findings, recommend therapeutic dosing of Tylenol and stay well-hydrated and nourished, return for any acute worsening especially with neurologic changes, worsening low back pain with urinary retention or bowel incontinence or any other emergent concerns. Findings not consistent with cauda equina, fracture, ICH, pneumothorax, abdominal organ injury. Disposition of Concussion Syndrome, Left Hip Pain. Patient verbalized understanding of the plan and return to ED criteria and engaged in shared decision making. Medical Records Medical records reviewed: Yes I reviewed the patient's medical records. Imaging Data Radiologic Study: Attestation: I personally reviewed and interpreted this imaging study as follows: Imaging: CT Scan Radiologist's impression: EXAM: CT HEAD CERVICAL SPINE WO CLINICAL HISTORY: fall headstrike, neck pain. TECHNIQUE: Imaging Protocol: Axial computed tomography images with coronal and sagittal reformatted images were created and reviewed COMPARISON: CT CT HEAD CERVICAL SPINE WO from 12/29/2019 FINDINGS: BRAIN: There are no skull fractures. There is opacification of both somewhat diminutive maxillary sinuses. There is no evidence of intracranial hemorrhage, mass effect, or shift of midline structures. There are no extra-axial fluid collections. The ventricles are not enlarged or shifted and there is no blood within the ventricular system nor within the basal cisterns. CERVICAL SPINE: There is no evidence of fracture nor listhesis. No significant prevertebral soft tissue swelling. Chronic disc space narrowing noted at C 5-6 and C6-7 levels. Luschka joint osteophytes seen bilaterally at these levels, more prominent at C5-6 level. There is no prominent facet arthropathy in the cervical spine. There is no significant facet joint malalignment. No significant osseous lesions evident. Incidentally noted is a benign-appearing subcutaneous sisters structure in left side of the neck measuring 1.2 by 1.8 by 2.0 cm. This is superficial to the posterior aspect the left sternocleidomastoid muscle. There also multiple moderately enlarged lymph nodes in both sides the neck. The thyroid gland appears heterogeneous and probably contains multiple nodules. IMPRESSION: No acute intracranial findings on this noninfused CT scan of the brain. No evidence of cervical spine fracture, malalignment, nor acute compromise of the cervical spinal canal. Multilevel chronic degenerative disc disease C5-6 and C6-7 levels. Other significant incidental findings in the neck as described above. Radiologic Study #2: Attestation: I personally reviewed and interpreted this imaging study as follows: Imaging: CT Scan Radiologist's impression: EXAM: CT THORACIC LUMBAR SPINE REC CLINICAL HISTORY: back pain TECHNIQUE: COMPARISON: CT CT CHEST/ABD/PEL W from 04/06/2025 FINDINGS: THORACIC SPINAL COLUMN: There is a nonacute appearing compression fracture superior endplate of T8, unchanged from previous. There are no acute fractures thoracic spinal column. No canal compromise. No facet joint malalignment. Bone density normal. No osseous lesions. LUMBOSACRAL SPINAL COLUMN: Mild indentation of the superior endplate of L1 is unchanged from previous. No acute fractures nor listhesis. No pars defects. There is chronic disc space narrowing at L5-S1 level. There appears to be a probable disc herniation at this level. There is no obvious fracture of the sacrum. Sacroiliac joints appear [id number]. IMPRESSION: No acute fractures in the thoracic and lumbosacral spinal columns. T8 and L1 findings as described above are unchanged from previous. There appears to be a disc protrusion at L5-S1 level Radiologic Study #3: Attestation: I personally reviewed and interpreted this imaging study as follows: Imaging: CT Scan Radiologist's impression: EXAM: CT CHEST/ABD/PEL W CLINICAL HISTORY: fall; LLQ pain. TECHNIQUE: Imaging Protocol: Axial computed tomography images with coronal and sagittal reformatted images were created and reviewed CONTRAST MATERIAL: Intravenous: Omnipaque 350 Contrast volume:100 ml Oral: None COMPARISON: CT CT CHEST LUNG CANCER SCREEN from 10/28/2024 FINDINGS: CHEST: LUNGS: Mild increased markings in both lung bases but no large lung contusions nor pleural effusions nor pneumothorax. Benign-appearing fissure related nodules are noted in both lung collado, 1 in each. Incidentally noted is accessory azygos lobe on the right side.. MEDIASTINUM: No evidence of sternal fracture nor mediastinal hematoma. There is a nodule in the anterior aspect of the right thyroid lobe noted which measures approximately 1.0 x 0.9 cm.Slightly enlarged lymph nodes are noted in both hilar regions. There is no adenopathy in the anterior mediastinal fat. CARDIAC: Heart size is normal. There is no pericardial effusion.Caliber of the thoracic aorta is within normal limits. OSSEOUS: There is a fracture in the lateral aspect of the left clavicle. No rib fractures identified. There is a compression fracture at superior endplate of T8 which is unchanged from 10/28/2024. Also mild indentation of superior endplate of L1 is also unchanged.. ABDOMEN: There is no ascites. No evidence of bowel wall nor mesenteric hematoma. LIVER: Intact. No laceration nor subcapsular hematoma. No incidental lesions. GALLBLADDER/BILIARY: No obvious gallbladder pathology. CBD is not dilated. PANCREAS: No evidence of pancreatic mass nor dilatation of the pancreatic duct. SPLEEN: Intact. No lacerations nor subcapsular hematomas. No perisplenic fluid. There is a benign splenule anterior to the spleen noted. Splenic and portal veins are patent. ADRENALS: There are no significant adrenal masses. KIDNEYS: No evidence of renal laceration. No subcapsular hematomas.. No significant cysts nor solid lesions in the kidneys. No calculi nor hydronephrosis. ABDOMINAL AORTA: Intact. No rupture. No aneurysm. No dissection. LYMPH NODES: There is no retroperitoneal nor paraaortic adenopathy. ABDOMINAL WALL: No evidence of significant anterior abdominal wall nor inguinal hernia. GI: There is no evidence of bowel obstruction.No bowel wall hematoma. PELVIS: LYMPH NODES: There is no intrapelvic nor inguinal adenopathy. GI: No evidence of appendicitis.Sigmoid diverticulosis but no evidence of acute diverticulitis. No free fluid in the pelvis. URINARY BLADDER: No calculi nor masses evident REPRODUCTIVE: Uterus and adnexal regions are age-appropriate. No free fluid in the pelvis. OSSEOUS: No acute pelvic fractures. No new vertebral fractures. IMPRESSION: 1. There is a fracture in the lateral aspect of the left clavicle. This may not be acute. Correlation with site of tenderness is recommended. There are no rib fractures nor acute vertebral fractures. No sternal fracture. 2. Benign-appearing fissure related nodules incidentally noted in both lungs. Also some atelectasis in the lung bases. No evidence of pleural effusions nor pneumothorax. No obvious lung contusions. 3. Right thyroid nodule incidentally noted as described above which can be further studied with nonemergent ultrasound exam. CT reports were called by myself to ER provider 04/06/2025 at 12:10 p.m. Radiologic Study #4: Attestation: I personally reviewed and interpreted this imaging study as follows: Imaging: X-Ray Radiologist's impression: EXAM: XR HIP LT COMPLETE AP PELVIS CLINICAL HISTORY: L hip pain. TECHNIQUE: 2D digital imaging was performed. COMPARISON: No exams were available for comparison FINDINGS: Two views No evidence of pelvic nor hip fracture. Additional lateral view of the left hip reveals no evidence of fracture nor joint space narrowing nor abnormal soft tissue calcifications. Bone density normal. No osseous lesions. There is no joint space narrowing in either hip. Urinary bladder is filled with contrast from proceeding CT scan. IMPRESSION: No significant osseous findings in the pelvis and hips. Lab Data Lab results reviewed: Yes I reviewed the patient's lab results. Labs: Laboratory Tests Range/Units 04/06/25 04/06/25 04/06/25 10:40 11:10 11:40 WBC (4.4-10.8) 10^3/uL 8.08 RBC (3.93-5.22) 10^6/uL 3.77 L Hgb (11.2-15.7) g/dL 11.8 Hct (36.0-46.0) % 37.3 MCV (80-95) fL 99 H MCH (27.0-33.0) pg 31.3 MCHC (32.0-36.0) % 31.6 L RDW (11.7-14.6) % 12.1 Plt Count (130-400) 10^3/uL 311 MPV (8.0-11.0) fL 9.1 Immature Gran % % 0.0 Neutrophils % % 26.0 Lymphocytes % % 59.0 Atypical Lymphs % % 6 Monocytes % % 5.0 Eosinophils % % 3.0 Basophils % % 1.0 Nucleated RBC % (0.0-0.3) % 0.0 Absolute Neutrophils (1.2-6.7) 10^3/uL 2.10 Absolute Lymphocytes (1.2-3.4) 10^3/uL 5.25 H Absolute Monocytes (0.1-0.8) 10^3/uL 0.40 Absolute Eosinophils (0.0-0.7) 10^3/uL 0.24 Absolute Basophils (0.0-0.2) 10^3/uL 0.08 RBC Morphology See Below Hypochromasia 1+ PT (9.1-11.1) sec 10.0 INR (0.9-1.1) 1.0 APTT (20.6-30.2) sec 24.9 VBG Lactate (<or=2.0) mmol/L 1.6 Sodium (136-145) mmol/L 139 Potassium (3.5-5.1) mmol/L 4.2 Chloride (98-107) mmol/L 105 Carbon Dioxide (21.0-32.0) mmol/L 26.1 Anion Gap (3-11) mmol/L 7.9 BUN (7-18) mg/dL 21 H Creatinine (0.55-1.02) mg/dL 1.3 H Est GFR (CKD-EPI 2020) (mL/min/1.73m2) 46.21 Glucose (74-106) mg/dL 89 Calcium (8.5-10.1) mg/dL 8.2 L Magnesium (1.8-2.4) mg/dL 2.1 Total Bilirubin (0.2-1.0) mg/dL 0.1 L AST (15-37) U/L 17 ALT (14-59) U/L 18 Alkaline Phosphatase (46-116) U/L 72 Ammonia (11-32) umol/L < 10 L Creatine Kinase (26-192) U/L 38 Troponin I (<or=51) ng/L 5 6 Total Protein (6.4-8.2) g/dL 7.5 Albumin (3.4-5.0) g/dL 3.4 Lipase (<78) U/L 47 TSH (0.36-3.74) uIU/mL 1.19 Urine Color (Yellow) Yellow Urine Clarity (Clear) Clear Urine pH (5-8) 5.5 Ur Specific Lincoln (1.005-1.025) 1.010 Urine Protein (Neg-Trace) mg/dL Negative Urine Ketones (Negative) mg/dL Negative Urine Blood (Negative) Negative Urine Nitrite (Negative) Negative Urine Bilirubin (Negative) Negative Urine Urobilinogen (Up to 0.2) mg/dL 0.2 Ur Leukocyte Esterase (Negative) Negative Urine Glucose (Negative) mg/dL Negative Urine Opiates Screen (Negative) Negative Urine Methadone Screen (Negative) Negative Ur Barbiturates Screen (Negative) Negative Ur Tricyclics Screen (Negative) Negative Ur Amphetamines Screen (Negative) Negative U Benzodiazepines Scrn (Negative) Negative Urine Cocaine Screen (Negative) Negative Ur THC Screen (Negative) Negative Ethyl Alcohol (<10) mg/dL 165.2 H PFSH All Active Problems (Updated 04/06/25 @ 14:16 by KRISTINE Chase) Left hip pain (Acute) Concussion syndrome (Acute) Elevated troponin (Acute) Shortness of breath (Acute) Nausea vomiting and diarrhea (Acute) Abdominal pain (Acute) Chest pain (Acute) Anemia (Chronic) Chronic pain (Chronic) DVT prophylaxis (Acute) Discharge planning issues (Acute) Malnutrition (Acute) Hyperlipidemia (Acute) GERD (gastroesophageal reflux disease) (Chronic) Tobacco abuse (Acute) Thrombocytosis (Acute) Hypokalemia (Acute) Acute on chronic colitis (Acute) Unexplained weight loss (Acute) Medical History Colitis Hospitalized in 04/27 Crohn's disease Enteritis GERD (gastroesophageal reflux disease) Hyperlipidemia Surgical History Appendectomy H/O lumbar discectomy around 1991 Hx of colonoscopy Family History Other Hypertension Social History Smoking/Tobacco Use Status: Current every day Tobacco Type: cigarettes Tobacco: How many years used: 40 Smoking risk assessment performed?: Yes Alcohol Intake: current Alcohol Intake frequency: 0-2 drinks per day Details: ~10 drinks of wine, liquor weekly Drug use: Never Substance use type: does not use 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 Do you feel safe at home: Yes Do you feel safe in your relationship?: Yes PAWSS Have you Been Recently Intoxicated or Drunk Within the Last 30 days?: Yes Have you Ever Experienced Previous Episodes of Alcohol Withdrawal?: Yes Have you ever Experienced Withdrawal Seizures?: No Have you ever Experienced Delirium Tremens(DT)s?: No Have you ever undergone Alcohol Rehabilitation Treatment (i.e, inpt ot outpatient treatment programs)?: No Have you ever Experienced Blackouts?: No Have you ever Combined Alcohol with other Downers within the last 90 days?: No Have you ever Combined Alcohol with any other Substance of Abuse during the last 90 days?: No Positive Blood Alcohol level on Presentation? [PCS.BAL]: No Evidence of Increased Autonomic Activity (i.e. HR>120, tremor, sweating, agitation, nausea)?: No Result: 2
== END 2025-04-06 14:56 | disposition home or self-care (01) ==
PROVIDERS: Emergency Provider Physician Assistant; PCP Student in an Organized Health Care Education/Training Program
DX: S06.0XAA Concussion with loss of consciousness status unknown, initial encounter (principal); M25.552 Pain in left hip; W19.XXXA Unspecified fall, initial encounter
CPT/HCPCS: 74177; 80053; 80307; 82550; 83690; 93005; 96361; 96365; 99285; 70450; 71260; 72125; 73502; 80320; 81003; 82140; 83605; 83735; 84443; 84484; 85025; 85610; 85730; 93010; 99284; J0131; J3490

== ENCOUNTER 2025-04-28 03:15 | Outpatient (CLI) | payer MEDICAID, SELFPAY ==
[2025-04-28 09:03] VITALS: BP 107/70; PULSE 73; RESP 18; TEMP 36.7; O2SAT 95
[2025-04-28] MEDS: Acetaminophen 500 MG TAB 1000 MG PO (09:08)
[2025-04-28] MEDS: diphenhydrAMINE 25 MG CAP PO (09:08)
[2025-04-28] MEDS: Normal Saline Flush 10 ML SYR IVP (09:09)
[2025-04-28] MEDS: INFLIXIMAB DYYB IVPB (09:28)
[2025-04-28] MEDS: NORMAL SALINE IVPB (09:28)
[2025-04-28 09:50] VITALS: BP 114/71; PULSE 75; RESP 18; TEMP 36.8; O2SAT 95
[2025-04-28 10:05] VITALS: BP 105/69; PULSE 69; RESP 18; TEMP 36.9; O2SAT 94
[2025-04-28 10:40] VITALS: BP 113/74; PULSE 78; RESP 19; TEMP 36.5; O2SAT 96
[2025-04-28 11:16] VITALS: BP 110/73; PULSE 70; RESP 18; TEMP 37; O2SAT 94
== END 2025-04-28 03:16 | disposition home or self-care (01) ==
PROVIDERS: PCP Student in an Organized Health Care Education/Training Program; Visit Provider Nurse Practitioner Acute Care
DX: K50.80 Crohn's disease of both small and large intestine without complications (principal)
CPT/HCPCS: 96365; 96366; Q5103

== ENCOUNTER 2025-06-08 00:08 | Outpatient (CLI) | payer MEDICAID, SELFPAY ==
[2025-06-08 08:55] VITALS: BP 100/57; PULSE 68; RESP 18; TEMP 36.4; O2SAT 95
[2025-06-08] MEDS: Acetaminophen 500 MG TAB 1000 MG PO (09:30)
[2025-06-08] MEDS: diphenhydrAMINE 25 MG CAP PO (09:30)
[2025-06-08] MEDS: NORMAL SALINE IVPB (09:47)
[2025-06-08] MEDS: INFLIXIMAB DYYB IVPB (09:47)
[2025-06-08 10:00] VITALS: BP 91/56; PULSE 66; RESP 18; TEMP 36.5; O2SAT 95
[2025-06-08 10:15] VITALS: BP 95/58; PULSE 66; RESP 18; TEMP 36.4; O2SAT 94
[2025-06-08 10:30] VITALS: BP 98/52; PULSE 66; RESP 18; TEMP 36.4; O2SAT 94
[2025-06-08 10:45] VITALS: BP 95/58; PULSE 68; RESP 18; TEMP 36.5; O2SAT 93
[2025-06-08 11:15] VITALS: BP 94/56; PULSE 67; RESP 18; TEMP 36.5; O2SAT 93
[2025-06-08] MEDS: Normal Saline Flush 10 ML SYR IVP (15:04)
== END 2025-06-08 00:09 | disposition home or self-care (01) ==
PROVIDERS: PCP Student in an Organized Health Care Education/Training Program; Visit Provider Nurse Practitioner Acute Care
DX: E88.01 Alpha-1-antitrypsin deficiency (principal)
CPT/HCPCS: 96365; 96366; Q5103